=== PATIENT | female | born 1930 | race Caucasian/White ===

== ENCOUNTER 2016-11-15 13:20 | Emergency (ER) | payer MEDICARE ==
[~2016-11-15] VITALS: Ht 170.2 cm; Wt 63.5 kg
[~2016-11-15 13:20] MED LIST: AMLO10TA82 PO; AMLO5TAB2 PO; ASPI-892 PO; CHOL100011 PO; DCS100C PO; FOLI1TAB11 PO; GLIP10TA13 PO; GLYB5TAB3 PO; HCT25T PO; HCTZ PO; HYDR1TAB PO; KCL20TCR PO; LEVO500T2 PO; LISINOPRIL PO; LOSA25TA5 PO; LOVA20TA2 PO; LUTE10TA PO; LVT.025T PO; METF-380 PO; MTF500T PO; OMEP20CA12 PO; POTA10TA6 PO; PRD20T PO; SAXA1TBM3 PO; SITA100T PO; SULF1TAB38 PO; THYROID MED; TRM50T PO
[2016-11-15 14:33] LABS: BASOPHILS % (AUTO) 0 % (0-10); EOSINOPHILS % (AUTO) 1 % (0-10); LYMPHOCYTES # (AUTO) 1.1 X 10^3 (1.0-4.0); LYMPHOCYTES % (AUTO) 17 % (12-44); MEAN CORPUSCULAR HEMOGLOBIN 30 PG (25-34); MEAN CORPUSCULAR HGB CONC 33 G/DL (32-36); MEAN CORPUSCULAR VOLUME 91 FL (80-99); MEAN PLATELET VOLUME 9.5 FL (7.4-10.4); MONOCYTES # (AUTO) 0.5 X 10^3 (0.0-1.0); MONOCYTES % (AUTO) 7 % (0-12); NEUTROPHILS # (AUTO) 5.1 X 10^3 (1.8-7.8); NEUTROPHILS % (AUTO) 75 % (42-75); PLATELET COUNT 323 10^3/uL (130-400); RED BLOOD COUNT 4.05 10^6/uL (4.35-5.85); RED CELL DISTRIBUTION WIDTH 14.2 % (10.0-14.5); WHITE BLOOD COUNT 6.7 10^3/uL (4.3-11.0)
--- NOTE | 2016-11-15 14:36 | ED Abdominal Pain ---
General Chief Complaint: Abdominal/GI Problems Stated Complaint: LT SIDE PAIN Nursing Triage Note: Pt c/o LUQ pain x2-3 days. Pt denies n/v/d. Sepsis Screen: No Definite Risk Source of Information: Patient, Family (son) Exam Limitations: No Limitations History of Present Illness Time Seen By Provider: 14:28 Initial Comments Patient has ER by private conveyance with her son with a chief complaint of 4 days progressively worsening left sided upper quadrant abdominal pain. She's had no surgeries on her belly. She is having normal stools last bowel movement was one or 2 days ago formed without straining. She has no coronary history. She has no shortness breath or coughing. She does not smoke drink or use illicit drugs. She has a history of a hernia right inguinal status post repair many years ago. No abdominal surgeries. Says the pain does not radiate just feels like sharp constant pain. She is not aware of having diverticulosis. She does endorse a history of kidney stones many years ago. No dysuria or discharge. Allergies and Home Medications Allergies Coded Allergies: No Known Drug Allergies (Unverified , 09/11/09) Home Medications Amlodipine Besylate 10 Mg Tablet, 10 MG PO DAILY, (Reported) Aspirin 81 Mg Tabec, 81 MG PO DAILY, (Reported) Cholecalciferol 1,000 Unit Capsule, 1,000 UNIT PO DAILY, (Reported) Folic Acid/Mv,Fe,Other Min 1 Each Tablet, 1 EACH PO DAILY, (Reported) Glipizide 10 Mg Tablet, 10 MG PO BID, (Reported) Hydrochlorothiazide 25 Mg Tab, 25 MG PO DAILY, (Reported) Levofloxacin 500 Mg Tablet, 500 MG PO DAILY, #3 Prescribed by: MARILEE ROD on 01/21/16 1528 Levothyroxine Sodium 25 Mcg Tablet, 25 MG PO DAILY, (Reported) Losartan Potassium 25 Mg Tablet, 25 MG PO DAILY, (Reported) Lovastatin 20 Mg Tablet, 20 MG PO 1700, (Reported) Lutein 10 Mg Tablet, 20 MG PO HS, (Reported) Metformin Hcl 1,000 Mg Tablet, 1,000 MG PO BID, (Reported) RESUME ON 01/16/13 Omeprazole 20 Mg Capsule.dr, 20 MG PO DAILY, (Reported) Polyethylene Glycol 3350 17 Gm Powd.pack, 17 GM PO BID for 7 Days, #1 Ref 0 Prescribed by: TANYA MAGDALENO on 11/15/16 1702 Potassium Chloride 10 Meq Tablet.sa, 20 MEQ PO DAILY WITH FOOD, (Reported) TAKES 2 OF THE 10 MEQ TABLETS DAILY Prednisone 20 Mg Tab, 40 MG PO each a.m., #6 Prescribed by: MARILEE ROD on 01/21/16 1528 Sitagliptin Phosphate 100 Mg Tablet, 100 MG PO DAILY, (Reported) Review of Systems Constitutional: No chills, No diaphoresis, No fever, malaise Respiratory: Denies Cough, Denies Shortness of Air Cardiovascular: Denies Chest Pain, Denies Lightheadedness Gastrointestinal: See HPI, Denies Abdomen Distended, Abdominal Pain, Constipated, Denies Diarrhea, Denies Difficulty Swallowing, Denies Nausea, Denies Rectal Bleeding Genitourinary: Denies Burning, Denies Discharge, Denies Frequency Musculoskeletal: No back pain, No joint pain Skin: No pruritus, No rash Psychiatric/Neurological: Denies Headache, Denies Numbness Past Jmqqryu-Bfnqvu-[id number] Hx Patient Social History Alcohol Use: Denies Use Recreational Drug Use: No Smoking Status: Never a Smoker Recent Foreign Travel: No Contact w/Someone Who Travel: No Recent Infectious Disease Expo: No Recent Hopitalizations: No (KIDNEY INFECTION) Immunizations Up To Date Date of Pneumonia Vaccine: Jan 09, 2013 Date of Influenza Vaccine: Jan 10, 2016 Reproductive System Hx Reproductive Disorders: No Musculoskeletal Musculoskeletal Disorders: Fractures Endocrine Endocrine Disorders: Diabetes, Non-Insulin dep Physical Exam Vital Signs VS - Last 72 Hours, by Label 11/15/16 13:50 Temp 98.1 Pulse 86 Resp 18 B/P (MAP) 166/75 Pulse Ox 98 O2 Delivery Room Air Capillary Refill : Less Than 3 Seconds General Appearance: WD/WN, mild distress Respiratory: lungs clear, normal breath sounds, no respiratory distress Cardiovascular: normal peripheral pulses, regular rate, rhythm, no JVD Peripheral Pulses: 2+ Dorsalis Pedis (R), 2+ Left Dors-Pedis (L) Gastrointestinal: normal bowel sounds, soft, no organomegaly, no pulsatile mass , No distended, tenderness (Left upper quadrant) Extremities: non-tender, normal inspection, normal capillary refill Back: normal inspection, no CVA tenderness, no vertebral tenderness Neurologic/Psychiatric: alert, oriented x 3 Skin: normal color, warm/dry Progress/Results/Core Measures Results/Orders Lab Results Laboratory Tests Test 11/15/16 14:00 11/15/16 16:04 Range/Units White Blood Count 6.7 4.3-11.0 10^3/uL Red Blood Count 4.05 L 4.35-5.85 10^6/uL Hemoglobin 12.1 11.5-16.0 G/DL Hematocrit 37 35-52 % Mean Corpuscular Volume 91 80-99 FL Mean Corpuscular Hemoglobin 30 25-34 PG Mean Corpuscular Hemoglobin Concent 33 32-36 G/DL Red Cell Distribution Width 14.2 10.0-14.5 % Platelet Count 323 130-400 10^3/uL Mean Platelet Volume 9.5 7.4-10.4 FL Neutrophils (%) (Auto) 75 42-75 % Lymphocytes (%) (Auto) 17 12-44 % Monocytes (%) (Auto) 7 0-12 % Eosinophils (%) (Auto) 1 0-10 % Basophils (%) (Auto) 0 0-10 % Neutrophils # (Auto) 5.1 1.8-7.8 X 10^3 Lymphocytes # (Auto) 1.1 1.0-4.0 X 10^3 Monocytes # (Auto) 0.5 0.0-1.0 X 10^3 Eosinophils # (Auto) 0.0 0.0-0.3 10^3/uL Basophils # (Auto) 0.0 0.0-0.1 10^3/uL Sodium Level 133 L 135-145 MMOL/L Potassium Level 3.9 3.6-5.0 MMOL/L Chloride Level 93 L 98-107 MMOL/L Carbon Dioxide Level 30 21-32 MMOL/L Anion Gap 10 5-14 MMOL/L Blood Urea Nitrogen 16 7-18 MG/DL Creatinine 1.02 0.60-1.30 MG/DL Estimat Glomerular Filtration Rate 52 BUN/Creatinine Ratio 16 Glucose Level 222 H 70-105 MG/DL Calcium Level 9.7 8.5-10.1 MG/DL Magnesium Level 1.3 L 1.8-2.4 MG/DL Total Bilirubin 0.6 0.1-1.0 MG/DL Aspartate Amino Transf (AST/SGOT) 24 5-34 U/L Alanine Aminotransferase (ALT/SGPT) 21 0-55 U/L Alkaline Phosphatase 142 H 40-136 U/L Troponin I < 0.30 <0.30 NG/ML Total Protein 8.2 6.4-8.2 GM/DL Albumin 3.8 3.2-4.5 GM/DL Lipase 21 8-78 U/L Urine Color YELLOW Urine Clarity CLEAR Urine pH 7 5-9 Urine Specific [place] 1.005 L 1.016-1.022 Urine Protein NEGATIVE NEGATIVE Urine Glucose (UA) NEGATIVE NEGATIVE Urine Ketones NEGATIVE NEGATIVE Urine Nitrite NEGATIVE NEGATIVE Urine Bilirubin NEGATIVE NEGATIVE Urine Urobilinogen NORMAL NORMAL MG/DL Urine Leukocyte Esterase NEGATIVE NEGATIVE Urine RBC (Auto) NEGATIVE NEGATIVE Urine RBC NONE /HPF Urine WBC RARE /HPF Urine Squamous Epithelial Cells RARE /HPF Urine Crystals NONE /LPF Urine Bacteria NONE /HPF Urine Casts NONE /LPF Urine Mucus NEGATIVE /LPF Urine Culture Indicated NO My Orders Orders - TANYA MAGDALENO Ct Abdomen/Pelvis Wo (11/15/16 14:28) Cbc With Automated Diff (11/15/16 14:28) Comprehensive Metabolic Panel (11/15/16 14:28) Lipase (11/15/16 14:28) Magnesium (11/15/16 14:28) Troponin I (11/15/16 14:28) Ua Culture If Indicated (11/15/16 14:28) Chest 1 View, Ap/Pa Only (11/15/16 14:28) Magnesium Oxide Tablet (Mag Ox Tablet) (11/15/16 15:15) Medications Given in ED Current Medications Medications Dose Ordered Sig/Lukasz Route Start Time Stop Time Status Last Admin Dose Admin Magnesium Oxide 400 mg ONCE ONCE PO 11/15/16 15:15 11/15/16 15:16 DC 11/15/16 15:55 400 MG Vital Signs/I&O Vital Sign - Last 12Hours 11/15/16 13:50 Temp 98.1 Pulse 86 Resp 18 B/P (MAP) 166/75 Pulse Ox 98 O2 Delivery Room Air Blood Pressure Mean: 105 Progress Note : Time: 16:05 Progress Note Bloods okay. Still waiting on a urine sample so we'll going get a straight catheter. Johnathon constipation on CT of abdomen which would describe her pain. As long as there is no evidence of a urinary tract infection we will treat her properly. Diagnostic Imaging Diagonstic Imaging: Xray Plain Films/CT/US/NM/MRI: chest Comments NAME: JAYDEN LESTER REC#: [id number] PHYSICIAN: TANYA MAGDALENO MD CC: TRENT MCGRATH MD; TANYA MAGDALENO Page 1 of 1 RADIOLOGY REPORT VIA [facility], [place], [place] CC: TRENT MCGRATH MD; TANYA MAGDALENO Page 1 of 1 RADIOLOGY REPORT NAME: JAYDEN LESTER [facility] REC#: [id number] PT STATUS: REG ER : 1930 PHYSICIAN: TANYA MAGDALENO MD ADMIT DATE: 11/15/16/ER Signed Date of Exam: 11/15/16 CHEST 1 VIEW, AP/PA ONLY INDICATION: Left upper quadrant abdominal pain. TECHNIQUE: A frontal chest was obtained at 2:45 PM. COMPARISON: 01/14/2013. FINDINGS: The heart is normal in size. The aorta is tortuous and/or ectatic, similar to the prior study. There is no new infiltrate, pneumothorax, or pleural fluid. There is mild hyperinflation with some chronic appearing increased basilar markings which are unchanged compared to the prior study. IMPRESSION: No acute infiltrate or pleural fluid. COPD changes. The tortuous and/or ectatic aorta appears stable compared to the prior study. Dictated by: Dictated on workstation # [id number] Dict: 11/15/16 1525 Trans: 11/15/16 1558 Interpreted by: TRENT MCGRATH MD Electronically signed by: TRENT MCGRATH MD 11/15/16 1558 Reviewed: Reviewed by Md Diagonstic Imaging: CT Plain Films/CT/US/NM/MRI: abdomen, pelvis Comments VIA [facility], [facility]. [place], [place] NAME: JAYDEN LESTER [facility] REC#: [id number] PT STATUS: REG ER : 1930 PHYSICIAN: TANYA MAGDALENO MD ADMIT DATE: 11/15/16/ER Draft Date of Exam:11/15/16 CT ABDOMEN/PELVIS WO PROCEDURE: CT abdomen and pelvis without contrast. TECHNIQUE: Multiple contiguous axial images were obtained through the abdomen and pelvis without the use of intravenous contrast. INDICATION: Three days history of left-sided abdominal pain. COMPARISON: Study compared with exam 03/22/2013. FINDINGS: There are few diverticula, however no evidence of acute diverticulitis. There is perhaps mild constipation but no johnathon impaction or resultant obstruction. There is a small left inguinal fatty hernia without inflammation or herniated viscus, this is a stable finding. There are extensive aortoiliac and mesenteric atherosclerotic vascular calcifications without visualized aneurysm. There is no focal or segmental small or large bowel wall thickening. No pneumatosis or free air. The liver, spleen, adrenals, and pancreas are all unremarkable. There is no opaque kidney stone and there is no hydronephrosis. There are no findings of bowel, biliary or, urinary tract obstruction. No ascites. No fluid collection. No focal inflammatory process. The osseous structures reveal degenerative changes and bony demineralization but no acute pathology. The lung bases are nonacute. IMPRESSION: Constipation without johnathon impaction or obstruction. Nonaneurysmal extensive atherosclerosis. No obstructive features, inflammatory process, or acute/focal abnormality identified. Dictated on workstation # [id number] Dict: 11/15/16 1522 Trans: 11/15/16 1534 [id number] Interpreted by: LOLITA EVANS Electronically signed by: Reviewed: Reviewed by Me Departure Impression Impression: Primary Impression: Constipation Qualified Codes: K59.00 - Constipation, unspecified Disposition: HOME, SELF-CARE Condition: Stable Departure-Patient Inst. Decision time for Depature: 17:01 Referrals: ALESSANDRA BARKLEY MD (PCP/Family) Primary Care Physician Patient Instructions: Constipation, Adult (DC) Add. Discharge Instructions: Drink copious amounts of fluids, go for walks and lemon picker some MiraLAX and start taking it up to 4 times a day to get your colon completely cleaned out. All discharge instructions reviewed with patient and/or family. Voiced understanding. Scripts Polyethylene Glycol 3350 (Miralax) 17 Gm Powd.pack 17 GM PO BID for 7 Days, #1 EACH 0 Refills Prov: TANYA MAGDALENO 11/15/16 Copy Copies To 1: ALESSANDRA BARKLEY MD, TITUS J Nov 15, 2016 14:36
[2016-11-15 14:59] LABS: ALANINE AMINOTRANSFERASE 21 U/L (0-55); ALBUMIN 3.8 GM/DL (3.2-4.5); ANION GAP 10 MMOL/L (5-14); ASPARTATE AMINO TRANSFERASE 24 U/L (5-34); BILIRUBIN,TOTAL 0.6 MG/DL (0.1-1.0); BLOOD UREA NITROGEN 16 MG/DL (7-18); BUN/CREATININE RATIO 16; CALCIUM 9.7 MG/DL (8.5-10.1); CARBON DIOXIDE 30 MMOL/L (21-32); CHLORIDE 93 MMOL/L (98-107); CREATININE SERUM 1.02 MG/DL (0.60-1.30); GFR ESTIMATED 52; GLUCOSE 222 MG/DL (70-105); LIPASE 21 U/L (8-78); MAGNESIUM 1.3 MG/DL (1.8-2.4); POTASSIUM 3.9 MMOL/L (3.6-5.0); SODIUM 133 MMOL/L (135-145); TOTAL PROTEIN 8.2 GM/DL (6.4-8.2)
[2016-11-15 15:04] LABS: TROPONIN I < 0.30 NG/ML (<0.30)
[2016-11-15] MEDS ORDERED: MAGNESIUM OXIDE (MAG-OX)400 MG TAB PO ONE (15:15)
--- NOTE | 2016-11-15 15:31 | Diagnostic Imaging Report ---
INDICATION: Left upper quadrant abdominal pain. TECHNIQUE: A frontal chest was obtained at 2:45 PM. COMPARISON: 01/14/2013. FINDINGS: The heart is normal in size. The aorta is tortuous and/or ectatic, similar to the prior study. There is no new infiltrate, pneumothorax, or pleural fluid. There is mild hyperinflation with some chronic appearing increased basilar markings which are unchanged compared to the prior study. IMPRESSION: No acute infiltrate or pleural fluid. COPD changes. The tortuous and/or ectatic aorta appears stable compared to the prior study. Dictated by: Dictated on workstation # [id number]
--- NOTE | 2016-11-15 15:34 | Diagnostic Imaging Report ---
PROCEDURE: CT abdomen and pelvis without contrast. TECHNIQUE: Multiple contiguous axial images were obtained through the abdomen and pelvis without the use of intravenous contrast. INDICATION: Three days history of left-sided abdominal pain. COMPARISON: Study compared with exam 03/22/2013. FINDINGS: There are few diverticula, however no evidence of acute diverticulitis. There is perhaps mild constipation but no venus impaction or resultant obstruction. There is a small left inguinal fatty hernia without inflammation or herniated viscus, this is a stable finding. There are extensive aortoiliac and mesenteric atherosclerotic vascular calcifications without visualized aneurysm. There is no focal or segmental small or large bowel wall thickening. No pneumatosis or free air. The liver, spleen, adrenals, and pancreas are all unremarkable. There is no opaque kidney stone and there is no hydronephrosis. There are no findings of bowel, biliary or, urinary tract obstruction. No ascites. No fluid collection. No focal inflammatory process. The osseous structures reveal degenerative changes and bony demineralization but no acute pathology. The lung bases are nonacute. IMPRESSION: Constipation without venus impaction or obstruction. Nonaneurysmal extensive atherosclerosis. No obstructive features, inflammatory process, or acute/focal abnormality identified. Dictated by: Dictated on workstation # [id number]
[2016-11-15 16:36] LABS: BILIRUBIN,URINE NEGATIVE (NEGATIVE); KETONES,URINE NEGATIVE (NEGATIVE); LEUKOCYTE ESTERASE ,URINE NEGATIVE (NEGATIVE); NITRITE,URINE NEGATIVE (NEGATIVE); PH,URINE 7 (5-9); PROTEIN,URINE NEGATIVE (NEGATIVE); UROBILINOGEN,URINE NORMAL (NORMAL)
[2016-11-15 16:52] LABS: SQUAMOUS EPITHELIAL CELL,UR RARE /HPF; WBC,URINE RARE /HPF
[2016-11-15] MEDS ORDERED: POLY17PO6 PO (17:02)
[2016-11-15 17:18] VITALS: BP 142/72
== END 2016-11-15 17:18 | disposition home or self-care (01) ==
LOC: EDUNIT# 13:20 → ER 13:22
DX: K59.00 Constipation, unspecified (principal); E11.9 Type 2 diabetes mellitus without complications; Z87.19 Personal history of other diseases of the digestive system; Z79.82 Long term (current) use of aspirin; Z79.84 Long term (current) use of oral hypoglycemic drugs
CPT/HCPCS: 36415; 71010; 74176; 80053; 81000; 83690; 83735; 84484; 85025

== ENCOUNTER 2016-12-02 13:30 | Emergency (ER) | payer MEDICARE ==
[~2016-12-02] VITALS: Ht 170.2 cm; Wt 63.5 kg
[~2016-12-02 13:30] MED LIST changes: +POLY17PO6 PO
--- NOTE | 2016-12-02 14:00 | ED Respiratory ---
General Chief Complaint: Respiratory Problems Stated Complaint: SOA Nursing Triage Note: PATIENT REPORTS SOA IN THE MORNING WHEN SHE WAKES UP Source: patient, family (son) Exam Limitations: no limitations History of Present Illness Time seen by provider: 14:00 Initial Comments 86 yo female patient presents to the ED with c/o SOA this AM when she woke up. upon this examiner entering the room, patient is noted to be sitting on the side of the bed with her head hanging forward and asleep. patient arouses to verbal stimuli. Patient does appear labored initially upon waking, but resolves after 1-2 minutes. Son states he thinks it is related to the patient sleeping sitting upright with her head hanging forward. Denies current chest pain, but did have 1 episode of left sided chest pain that lasted a few seconds this AM. Denies fever, N/V/D, or abdominal pain. Patient was seen in the ED earlier this month for abdominal pain and constipation which has since resolved. Timing/Duration: this morning, intermittent Prior Episodes/Possible Cause: no prior episodes Modifying Factors: Worse With Other (denies modifying factors) Allergies and Home Medications Allergies Coded Allergies: No Known Drug Allergies (Unverified , 09/11/09) Home Medications Amlodipine Besylate 10 Mg Tablet, 10 MG PO DAILY, (Reported) Aspirin 81 Mg Tabec, 81 MG PO DAILY, (Reported) Cholecalciferol 1,000 Unit Capsule, 1,000 UNIT PO DAILY, (Reported) Folic Acid/Mv,Fe,Other Min 1 Each Tablet, 1 EACH PO DAILY, (Reported) Glipizide 10 Mg Tablet, 10 MG PO BID, (Reported) Hydrochlorothiazide 25 Mg Tab, 25 MG PO DAILY, (Reported) Levothyroxine Sodium 25 Mcg Tablet, 25 MG PO DAILY, (Reported) Losartan Potassium 25 Mg Tablet, 25 MG PO DAILY, (Reported) Lovastatin 20 Mg Tablet, 20 MG PO 1700, (Reported) Lutein 10 Mg Tablet, 20 MG PO HS, (Reported) Metformin Hcl 1,000 Mg Tablet, 1,000 MG PO BID, (Reported) RESUME ON 01/16/13 Omeprazole 20 Mg Capsule.dr, 20 MG PO DAILY, (Reported) Potassium Chloride 10 Meq Tablet.sa, 20 MEQ PO DAILY WITH FOOD, (Reported) TAKES 2 OF THE 10 MEQ TABLETS DAILY Sitagliptin Phosphate 100 Mg Tablet, 100 MG PO DAILY, (Reported) Constitutional: No chills, No diaphoresis, No dizziness, No fever, No malaise EENTM: no symptoms reported Respiratory: No cough, No dyspnea on exertion, No phlegm, short of breath Cardiovascular: No chest pain (Denies current chest pain, but did have 1 episode of left sided chest pain that lasted a few seconds this AM.), No edema, No palpitations, No syncope Gastrointestinal: No abdominal pain, No constipation, No diarrhea, No nausea, No vomiting Genitourinary: no symptoms reported Musculoskeletal: no symptoms reported Skin: no symptoms reported Psychiatric/Neurological: No Symptoms Reported All Other Systems Reviewed Negative Unless Noted: Yes (Negative excepted noted.) Past Xqvniep-Kpupax-Hmcyof Hx Patient Social History Alcohol Use: Denies Use Recreational Drug Use: No Recent Foreign Travel: No Contact w/Someone Who Travel: No Recent Infectious Disease Expo: No Recent Hopitalizations: No Immunizations Up To Date Date of Pneumonia Vaccine: Jan 09, 2013 Date of Influenza Vaccine: Jan 10, 2016 Surgeries History of Surgeries: Yes (HERNIA REPAIR) Respiratory History of Respiratory Disorde: No Cardiovascular History of Cardiac Disorders: Yes Neurological History of Neurological Disord: No Reproductive System Hx Reproductive Disorders: No Gastrointestinal History of Gastrointestinal Di: No Musculoskeletal History of Musculoskeletal Dis: Yes (PELVIC FX) Musculoskeletal Disorders: Fractures Endocrine History of Endocrine Disorders: Yes Endocrine Disorders: Diabetes, Non-Insulin dep Cancer History of Cancer: No Psychosocial History of Psychiatric Problem: No Blood Transfusions History of Blood Disorders: No Reviewed Nursing Assessment Reviewed/Agree w Nursing PMH: Yes Family Medical History Significant Family History: No Pertinent Family Hx Physical Exam Vital Signs Vital Sign - Last 12Hours 12/02/16 12/02/16 13:40 19:56 Temp 98.8 Pulse 98 Resp 18 B/P (MAP) 182/113 Pulse Ox 98 O2 Delivery Room Air Capillary Refill : Less Than 3 Seconds General Appearance: WD/WN, no apparent distress HEENT: PERRL/EOMI, pharynx normal Neck: supple, normal inspection Respiratory: lungs clear, normal breath sounds, no respiratory distress, no accessory muscle use Cardiovascular: normal peripheral pulses, regular rate, rhythm, no murmur Gastrointestinal: normal bowel sounds, non tender, soft, no organomegaly, no pulsatile mass, No distended Extremities: normal capillary refill, pedal edema (1+ bilaterally) Neurologic/Psychiatric: alert, normal mood/affect, oriented x 3 Skin: normal color, warm/dry Progress/Results/Core Measures Results/Orders Lab Results Laboratory Tests Test 12/02/16 14:55 12/02/16 16:22 12/02/16 18:58 Range/Units White Blood Count 6.2 4.3-11.0 10^3/uL Red Blood Count 3.96 L 4.35-5.85 10^6/uL Hemoglobin 11.7 11.5-16.0 G/DL Hematocrit 36 35-52 % Mean Corpuscular Volume 91 80-99 FL Mean Corpuscular Hemoglobin 30 25-34 PG Mean Corpuscular Hemoglobin Concent 32 32-36 G/DL Red Cell Distribution Width 13.9 10.0-14.5 % Platelet Count 301 130-400 10^3/uL Mean Platelet Volume 9.4 7.4-10.4 FL Neutrophils (%) (Auto) 67 42-75 % Lymphocytes (%) (Auto) 24 12-44 % Monocytes (%) (Auto) 8 0-12 % Eosinophils (%) (Auto) 1 0-10 % Basophils (%) (Auto) 0 0-10 % Neutrophils # (Auto) 4.2 1.8-7.8 X 10^3 Lymphocytes # (Auto) 1.5 1.0-4.0 X 10^3 Monocytes # (Auto) 0.5 0.0-1.0 X 10^3 Eosinophils # (Auto) 0.1 0.0-0.3 10^3/uL Basophils # (Auto) 0.0 0.0-0.1 10^3/uL Prothrombin Time 12.7 12.2-14.7 SEC INR Comment 0.9 0.8-1.4 Activated Partial Thromboplast Time 27 24-35 SEC D-Dimer 1.73 H 0.00-0.49 UG/ML Sodium Level 136 135-145 MMOL/L Potassium Level 3.2 L 3.6-5.0 MMOL/L Chloride Level 100 98-107 MMOL/L Carbon Dioxide Level 23 21-32 MMOL/L Anion Gap 13 5-14 MMOL/L Blood Urea Nitrogen 15 7-18 MG/DL Creatinine 1.14 0.60-1.30 MG/DL Estimat Glomerular Filtration Rate 45 BUN/Creatinine Ratio 13 Glucose Level 147 H 70-105 MG/DL Calcium Level 9.1 8.5-10.1 MG/DL Magnesium Level 1.4 L 1.8-2.4 MG/DL Total Bilirubin 0.3 0.1-1.0 MG/DL Aspartate Amino Transf (AST/SGOT) 18 5-34 U/L Alanine Aminotransferase (ALT/SGPT) 11 0-55 U/L Alkaline Phosphatase 108 40-136 U/L Troponin I < 0.30 < 0.30 <0.30 NG/ML B-Type Natriuretic Peptide 151.2 H <100.0 PG/ML Total Protein 7.8 6.4-8.2 GM/DL Albumin 3.7 3.2-4.5 GM/DL TSH [place] Testing 2.05 0.35-4.94 UIU/ML Urine Color YELLOW Urine Clarity CLEAR Urine pH 7 5-9 Urine Specific [place] 1.005 L 1.016-1.022 Urine Protein 2+ H NEGATIVE Urine Glucose (UA) NEGATIVE NEGATIVE Urine Ketones NEGATIVE NEGATIVE Urine Nitrite NEGATIVE NEGATIVE Urine Bilirubin NEGATIVE NEGATIVE Urine Urobilinogen NORMAL NORMAL MG/DL Urine Leukocyte Esterase 1+ H NEGATIVE Urine RBC (Auto) 1+ H NEGATIVE Urine RBC 2-5 H /HPF Urine WBC 2-5 /HPF Urine Squamous Epithelial Cells RARE /HPF Urine Crystals NONE /LPF Urine Bacteria FEW H /HPF Urine Casts NONE /LPF Urine Mucus NEGATIVE /LPF Urine Culture Indicated NO My Orders Orders - WILLIAM MAZARIEGOS PA Saline Lock/Iv-Start (12/02/16 14:10) Ekg Tracing (12/02/16 14:10) BNP (12/02/16 14:10) Cbc With Automated Diff (12/02/16 14:10) Comprehensive Metabolic Panel (12/02/16 14:10) Fibrin Degradation Products (12/02/16 14:10) Magnesium (12/02/16 14:10) Protime With Inr (12/02/16 14:10) Partial Thromboplastin Time (12/02/16 14:10) Thyroid Analyzer (12/02/16 14:10) Troponin I (12/02/16 14:10) Ua Culture If Indicated (12/02/16 14:10) Chest 1 View, Ap/Pa Only (12/02/16 14:10) Ct Angio Chest W (12/02/16 16:40) Ns Iv 1000 Ml (Sodium Chloride 0.9%) (12/02/16 16:40) Iohexol Injection (Omnipaque 350 Mg/Ml 1 (12/02/16 18:00) Ns (Ivpb) (Sodium Chloride 0.9% Ivpb Bag (12/02/16 18:00) Pharmacy Communication (Pharmacy Communi (12/02/16 17:49) Troponin I (12/02/16 18:49) Medications Given in ED Vital Signs/I&O Vital Sign - Last 12Hours 12/02/16 12/02/16 13:40 19:56 Temp 98.8 Pulse 98 79 Resp 18 14 B/P (MAP) 182/113 Pulse Ox 98 98 O2 Delivery Room Air Blood Pressure Mean: 136 ECG Initial ECG Impression Date: Dec 02, 2016 Diagnostic Imaging Diagonstic Imaging: Xray Plain Films/CT/US/NM/MRI: chest Comments Single view of the chest demonstrates mild cardiac enlargement with some ectasia of the thoracic aorta. Lungs are otherwise clear. There is no pneumothorax or infiltrate. Osseous structures are stable. IMPRESSION: No acute cardiopulmonary findings. No interval change. Dictated on workstation # [id number] Reviewed: Reviewed by Me (radiology report reviewed by me) Departure Communication (Admissions) Progress Notes all laboratory and diagnostic findings discussed with the patient. CT angio chest was done for an elevated d-dimer and intermittent SOA. patient notified of plan for CT scan. patient denies any new c/o's or new needs at this time. Patient case discussed with Dr. Joseph including all laboratory findings and diagnostic study findings. Recommends repeat troponin. If repeat troponin is negative, patient may be discharged to home with follow-up with Dr. Singletary tomorrow in her office. CT anterior chest findings and repeat troponin discussed with the patient. Patient denies any back pain. Findings on CT angiogram of chest of possible compression fractures of the thoracic and lumbar spine are most likely chronic in nature as patient has no vertebral tenderness. Plan for discharge to home with follow-up as an outpatient with Dr. Singletary tomorrow in her office. All return precautions were discussed with the patient as described in the discharge instructions of this report. Patient voices understanding and agrees with the treatment plan. Patient case discussed with Dr. Troy, he agrees with the plan of care. Impression Impression: Primary Impression: Shortness of breath Additional Impressions: multiple compression fractures, indeterminate age Kyphosis deformity of spine Qualified Codes: M40.204 - Unspecified kyphosis, thoracic region Disposition: 01 HOME, SELF-CARE Condition: Improved Departure-Patient Inst. Decision time for Depature: 19:40 Referrals: ALESSANDRA SINGLETARY MD (PCP/Family) Primary Care Physician ANETA BURRELL BRIAN J MD MARJI, BASHAR J MD Patient Instructions: Chest Pain (DC), Shortness of Breath (Dyspnea) (DC), Vertebral Compression Fracture (DC) Add. Discharge Instructions: All discharge instructions reviewed with patient and/or family. Voiced understanding. Continue usual home medications. Drink plenty of fluids. Follow-up with Dr. Clark is now patient this week for recheck and possible need for outpatient cardiac testing. Follow-up with Dr. Singletary as an outpatient Saturday or Saturday for recheck, call first thing Saturday morning for appointment time. Follow-up with Dr. Burrell or Dr. Brock as an outpatient for possible need of MRI of the spine and further management. Monitor blood pressures closely. Return to the emergency department immediately for increased shortness of air, chest pain, coughing up blood, vomiting, abdominal pain, numbness, weakness, bowel incontinence, bladder incontinence, fever, or any other concerns. WILLIAM MAZARIEGOS Dec 02, 2016 14:00
--- NOTE | 2016-12-02 14:53 | Diagnostic Imaging Report ---
INDICATION: Shortness of breath, chest pain. COMPARISON: 11/15/2016. Single view of the chest demonstrates mild cardiac enlargement with some ectasia of the thoracic aorta. Lungs are otherwise clear. There is no pneumothorax or infiltrate. Osseous structures are stable. IMPRESSION: No acute cardiopulmonary findings. No interval change. Dictated by: Dictated on workstation # [id number]
[2016-12-02 15:09] LABS: BASOPHILS % (AUTO) 0 % (0-10); EOSINOPHILS # (AUTO) 0.1 10^3/uL (0.0-0.3); EOSINOPHILS % (AUTO) 1 % (0-10); LYMPHOCYTES # (AUTO) 1.5 X 10^3 (1.0-4.0); LYMPHOCYTES % (AUTO) 24 % (12-44); MEAN CORPUSCULAR HEMOGLOBIN 30 PG (25-34); MEAN CORPUSCULAR HGB CONC 32 G/DL (32-36); MEAN CORPUSCULAR VOLUME 91 FL (80-99); MEAN PLATELET VOLUME 9.4 FL (7.4-10.4); MONOCYTES # (AUTO) 0.5 X 10^3 (0.0-1.0); MONOCYTES % (AUTO) 8 % (0-12); NEUTROPHILS # (AUTO) 4.2 X 10^3 (1.8-7.8); NEUTROPHILS % (AUTO) 67 % (42-75); PLATELET COUNT 301 10^3/uL (130-400); RED BLOOD COUNT 3.96 10^6/uL (4.35-5.85); RED CELL DISTRIBUTION WIDTH 13.9 % (10.0-14.5); WHITE BLOOD COUNT 6.2 10^3/uL (4.3-11.0)
[2016-12-02 15:13] LABS: INR 0.9 (0.8-1.4); PROTHROMBIN TIME PATIENT 12.7 SEC (12.2-14.7)
[2016-12-02 15:24] LABS: ALANINE AMINOTRANSFERASE 11 U/L (0-55); ALBUMIN 3.7 GM/DL (3.2-4.5); ANION GAP 13 MMOL/L (5-14); ASPARTATE AMINO TRANSFERASE 18 U/L (5-34); BILIRUBIN,TOTAL 0.3 MG/DL (0.1-1.0); BLOOD UREA NITROGEN 15 MG/DL (7-18); BUN/CREATININE RATIO 13; CALCIUM 9.1 MG/DL (8.5-10.1); CARBON DIOXIDE 23 MMOL/L (21-32); CHLORIDE 100 MMOL/L (98-107); CREATININE SERUM 1.14 MG/DL (0.60-1.30); GFR ESTIMATED 45; GLUCOSE 147 MG/DL (70-105); MAGNESIUM 1.4 MG/DL (1.8-2.4); POTASSIUM 3.2 MMOL/L (3.6-5.0); SODIUM 136 MMOL/L (135-145); TOTAL PROTEIN 7.8 GM/DL (6.4-8.2)
[2016-12-02 15:44] LABS: TROPONIN I < 0.30 NG/ML (<0.30)
[2016-12-02 16:28] LABS: BILIRUBIN,URINE NEGATIVE (NEGATIVE); KETONES,URINE NEGATIVE (NEGATIVE); LEUKOCYTE ESTERASE ,URINE 1+ (NEGATIVE); NITRITE,URINE NEGATIVE (NEGATIVE); PH,URINE 7 (5-9); PROTEIN,URINE 2+ (NEGATIVE); UROBILINOGEN,URINE NORMAL (NORMAL)
[2016-12-02 16:36] LABS: SQUAMOUS EPITHELIAL CELL,UR RARE /HPF
[2016-12-02] MEDS ORDERED: NS IV 1000 ML 1,000 ML IV ONE (16:40)
[2016-12-02] MEDS ORDERED: NS 100 ML (IVPB) BAG IV ONE (18:00)
[2016-12-02] MEDS ORDERED: IOHEXOL 350 MG/ML 100 ML (OMNIPAQUE 350) VIAL IV ONE (18:00)
--- NOTE | 2016-12-02 18:34 | Diagnostic Imaging Report ---
PROCEDURE: CT angiography of the chest with contrast. TECHNIQUE: Multiple contiguous axial images were obtained through the chest after uneventful bolus administration of intravenous contrast. Reconstructed CTA MIP acquisitions were also performed. DATE: December 02, 2016. COMPARISON: Chest radiographs December 02, 2016. CT chest abdomen and pelvis March 12, 2013. INDICATION: 86-year-old female, chest pain and shortness of breath for 2 days. FINDINGS: There are subcentimeter right upper lobe calcifications which appear to be in a branching type distribution. These are unchanged since comparison CT chest. There are calcified granulomas. There is no identified noncalcified pulmonary nodule or mass. There is mild dependent atelectasis. There is respiratory motion artifact. There are no additional areas of alveolar consolidation. There is no pneumothorax. There is no pleural effusion. The central airways are patent. There is no identified pulmonary embolus. The main pulmonary artery is not abnormally dilated. There are atherosclerotic calcifications. There are coronary artery calcifications. The heart is not enlarged. There is no pericardial effusion. There is a right paratracheal lymph node measuring 8 mm in short axis on axial image 52. There is no identified abnormally enlarged mediastinal, hilar, or axillary lymph node which meets CT size criteria for adenopathy. There are subcentimeter low-attenuation thyroid nodules bilaterally on image 11 which measures up to 8 mm in size on the right and small on the left. There does appear to be mild nonspecific wall thickening of the distal thumb active seen on axial image 159 and adjacent sequential images. The stomach is not entirely included in the [id number]. Additional very limited evaluation of the visualized portions of the upper abdomen is unremarkable. There is a chronic appearing deformity of the left L1 transverse process. There is a compression deformity of T1, T7 which demonstrates complete vertebral body height loss, T9 with visible fracture lines and approximately 75% vertebral body height loss, and L2 partially visualized with complete or near complete vertebral body height loss likely. The L2 compression deformity is unchanged since March 12, 2013. Additional compression fractures are new since March 12, 2013 although of unclear exact age. IMPRESSION: CT CHEST. 1. Compression fractures of T1, T7, and T9 which are new since March 12, 2013 although of uncertain exact age. There are visible fracture lines at least at the level of T9 suggesting this may be acute in age. Dedicated MRI thoracic spine may be helpful for assessment of acuity as needed. 2. No identified pulmonary embolus. 3. No otherwise noted acute cardiopulmonary abnormality. 4. Nonspecific mild wall thickening of the distal stomach. Differential diagnostic considerations would include an infectious or inflammatory gastritis. Malignancy is difficult to exclude. Dictated by: Dictated on workstation # [id number]
[2016-12-02 19:56] VITALS: BP 143/90
== END 2016-12-02 19:56 | disposition home or self-care (01) ==
LOC: EDUNIT# 13:30 → ER 13:31
DX: R06.02 Shortness of breath (principal); E11.9 Type 2 diabetes mellitus without complications; Z79.82 Long term (current) use of aspirin; Z79.84 Long term (current) use of oral hypoglycemic drugs; Z87.19 Personal history of other diseases of the digestive system
CPT/HCPCS: 36415; 71010; 71275; 80053; 81000; 83735; 83880; 84443; 84484; 85025; 85379; 85610; 85730; 93005

== ENCOUNTER → 2017-01-02 | Outpatient (CLI) | payer MEDICARE ==
[~2017-01-02] MED LIST changes: +CATHETER FLUSH 10 ML SYR IV PRN; +REGADENOSON 0.4 MG/5 ML SYR (LEXISCAN) IV ONE
[2017-01-02 09:18] VITALS: BP 185/74
[2017-01-02 09:21] VITALS: BP 157/77
--- NOTE | 2017-01-03 03:30 | STRESS TEST ---
DATE OF SERVICE: 01/02/2017 LEXISCAN MYOVIEW STRESS TEST REPORT REFERRING PHYSICIAN: Dr. Singletary Baseline heart rate is 71. Baseline blood pressure 174/90. Baseline EKG is atrial fibrillation with no ischemic changes. SUMMARY: The patient was injected with 10.74 mCi of technetium-99 Myoview and the resting images were obtained. Then, the patient received 0.4 mg of Lexiscan followed by 31.0 mCi of technetium-99 Myoview. Throughout the test, there were no EKG changes. The resting and stress images were reviewed and compared in the short axis, horizontal long axis, and vertical long axis views. Review of the images showed breast attenuation with reversible ischemia involving the basal up to mid inferior wall. SSS is 5, SDS 5, TID value 1.05. On the gated images, the left ventricle appeared to be normal in size with normal contractility, underlying atrial fibrillation affecting the quality of the calculation, calculated ejection fraction 48%. CONCLUSION: 1. The patient tolerated Lexiscan well. 2. Breast attenuation with questionable reversible ischemia involving the basal to mid inferior wall. 3. Normal left ventricular size, calculated ejection fraction 48%, gated images are unreliable due to underlying atrial fibrillation. Job ID: [id number] DocumentID: [id number] Dictated Date: 01/02/2017 14:43:36 [employer] Inspector Date: 01/02/2017 19:28:54 Dictated By: KIRILL ANDERSON MD
== END ==
LOC: CARD 07:26
PROVIDERS: ATTEND Physician Assistant
DX: R07.89 Other chest pain (principal); I25.10 Atherosclerotic heart disease of native coronary artery without angina pectoris; E78.2 Mixed hyperlipidemia; I10 Essential (primary) hypertension
CPT/HCPCS: 78452; 93017

== ENCOUNTER 2017-02-23 11:50 | Emergency (ER) | payer MEDICARE ==
[~2017-02-23] VITALS: Ht 170.2 cm; Wt 63.5 kg
[~2017-02-23 11:50] MED LIST changes: -CATHETER FLUSH 10 ML SYR IV PRN; -REGADENOSON 0.4 MG/5 ML SYR (LEXISCAN) IV ONE
--- OUTSIDE RECORDS SUMMARY | 2017-02-23 11:56 | XMS REPORT | Continuity of Care Document ---
Author Author [facility] Organization [facility] Address Unknown Phone Unavailable Allergies Active Description Code Type Severity Reaction Onset Reported/Identified Relationship to Patient Clinical Status Yes No Known Drug Allergies [id number] Drug Allergy Unknown N/A 09/11/2009 Medications There is no data. Problems Date Dx Coded Attending Type Code Diagnosis Diagnosed By 09/11/2009 Ot 920 09/11/2009 Ot 922.1 09/11/2009 Ot 959.11 09/11/2009 Ot E000.8 09/11/2009 Ot E030 09/11/2009 Ot E849.0 09/11/2009 Ot E888.1 07/19/2010 Ot 722.4 07/19/2010 Ot 802.0 07/19/2010 Ot 959.09 07/19/2010 Ot E000.8 07/19/2010 Ot E849.0 07/19/2010 Ot E888.9 09/12/2010 Ot 787.91 DIARRHEA 09/22/2010 Ot 781.2 ABNORMALITY OF GAIT 09/22/2010 Ot 908.9 LATE EFFECT INJURY NOS 09/22/2010 Ot E929.3 LATE EFF ACCIDENTAL FALL 09/22/2010 Ot V57.1 PHYSICAL THERAPY NEC 11/17/2010 Ot 244.9 HYPOTHYROIDISM NOS 11/17/2010 Ot 250.00 DIAB ANNMARIE WO COMPL, TYPE II OR UNSPEC TY 11/17/2010 Ot 272.4 HYPERLIPIDEMIA NEC/NOS 11/17/2010 Ot 276.8 HYPOPOTASSEMIA 11/17/2010 Ot 401.9 HYPERTENSION NOS 11/17/2010 Ot 733.00 OSTEOPOROSIS NOS 11/17/2010 Ot 808.2 FRACTURE OF PUBIS-CLOSED 11/17/2010 Ot 913.0 ABRASION FOREARM 11/17/2010 Ot E849.0 ACCIDENT IN HOME 11/17/2010 Ot E885.9 FALL FROM SLIPPING, TRIPPING, OR STUMBLI 11/28/2010 Ot 250.00 DIAB ANNMARIE WO COMPL, TYPE II OR UNSPEC TY 11/28/2010 Ot 273.8 DIS PLAS PROTEIN MET NEC 11/28/2010 Ot 276.1 HYPOSMOLALITY 11/28/2010 Ot 276.8 HYPOPOTASSEMIA 11/28/2010 Ot 401.9 HYPERTENSION NOS 11/28/2010 Ot 715.31 LOC OSTEOARTH NOS-SHLDER 11/28/2010 Ot 781.2 ABNORMALITY OF GAIT 11/28/2010 Ot V15.88 HISTORY OF FALL 11/28/2010 Ot V54.19 [facility]CARE HEALING TRAUMATIC FX OTHER BON 11/28/2010 Ot V57.1 PHYSICAL THERAPY NEC 11/28/2010 Ot V57.21 ENCOUNTER FOR OCCUPATIONAL THERAPY 01/14/2013 KIRILL ANDERSON MD Ot 250.00 DIAB ANNMARIE WO COMPL, TYPE II OR UNSPEC TY 01/14/2013 KIRILL ANDERSON MD Ot 272.4 HYPERLIPIDEMIA NEC/NOS 01/14/2013 KIRILL ANDERSON MD Ot 401.9 HYPERTENSION NOS 01/14/2013 KIRILL ANDERSON MD Ot 414.01 CORONARY ATHEROSCLEROSIS OF [place] CORON 01/14/2013 KIRILL ANDERSON MD Ot 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 01/14/2013 KIRILL ANDERSON MD Ot 433.10 CAROTID ARTERY OCCLUSION W O CEREBRAL IN 01/14/2013 KIRILL ANDERSON MD Ot 433.30 MULT BILTRAL ARTERY OCCLUSION WO CEREBRA 01/14/2013 KIRILL ANDERSON MD Ot 440.0 AORTIC ATHEROSCLEROSIS 01/14/2013 KIRILL ANDERSON MD Ot 780.79 OTH MALAISE FATIGUE 01/14/2013 KIRILL ANDERSON MD Ot 794.30 ABN CARDIOVASC STUDY NOS 01/14/2013 KIRILL ANDERSON MD Ot V58.69 OTH MED,LT,CURRENT USE 03/12/2013 OLMAN DOE APRN Ot 715.94 OSTEOARTHROS NOS-HAND 03/12/2013 OLMAN DOE APRN Ot 723.0 CERVICAL SPINAL STENOSIS 03/12/2013 OLMAN DOE APRN Ot 791.9 ABN URINE FINDINGS NEC 03/12/2013 OLMAN DOE APRN Ot 910.0 ABRASION HEAD 03/12/2013 OLMAN DOE APRN Ot 922.1 CONTUSION OF CHEST WALL 03/12/2013 DOE, PETER J INSECTICIDE MIXER Ot 959.11 OTH INJURY OF CHEST WALL 03/12/2013 OLMAN DOE Evi INSECTICIDE MIXER Ot E000.8 OTHER EXTERNAL CAUSE STATUS 03/12/2013 DOE, OLMAN Evi INSECTICIDE MIXER Ot E849.0 ACCIDENT IN HOME 03/12/2013 NADER OLMAN Evi INSECTICIDE MIXER Ot E888.9 FALL NOS 03/12/2013 OLMAN DOE Evi INSECTICIDE MIXER Ot V58.69 OTH MED,LT,CURRENT USE 01/05/2015 Ot 250.00 01/05/2015 Ot 783.0 01/05/2015 Ot 787.91 01/05/2015 Ot 789.00 01/05/2015 Ot V76.12 01/05/2015 Ot 787.91 01/05/2015 Ot V76.12 01/05/2015 Ot 250.00 01/05/2015 Ot 401.9 01/05/2015 Ot 702.0 01/05/2015 Ot V58.69 01/05/2015 Ot 401.9 01/05/2015 Ot 709.9 01/05/2015 Ot V72.63 01/05/2015 Ot V72.81 01/05/2015 Ot V74.8 01/05/2015 Ot V76.12 01/05/2015 JUSTIN BASS, KIRILL Steve Ot 250.00 01/05/2015 KIRILL ANDERSON MD Ot 396.3 01/05/2015 KIRILL ANDERSON MD Ot 397.0 01/05/2015 KIRILL ANDERSON MD Ot 401.9 01/05/2015 KIRILL ANDERSON MD Ot 786.50 01/05/2015 KIRILL ANDERSON MD Ot 250.00 01/05/2015 KIRILL ANDERSON MD Ot 401.9 01/05/2015 KIRILL ANDERSON MD Ot 786.50 01/05/2015 KIRILL ANDERSON MD Ot 272.4 01/05/2015 KIRILL ANDERSON MD Ot 401.9 01/05/2015 LINH ALVES LIMO DRIVER Ot 793.89 01/05/2015 LINH ALVES LIMO DRIVER Ot V76.12 01/10/2015 FILIPPO BASS, ALESSANDRA Solitario Ot E11.9 01/10/2015 ALESSANDRA BARKLYE MD Ot I10 01/10/2015 ALESSANDRA BARKLEY MD Ot R41.3 01/10/2015 FILIPPO BASS, ALESSANDRA A Ot Z12.31 01/26/2015 FILIPPO BASS, ALESSANDRA A Ot E11.9 01/26/2015 FILIPPO BASS, ALESSANDRA A Ot I10 01/26/2015 FILIPPO BASS, ALESSANDRA A Ot R41.3 01/26/2015 FILIPPO BASS, ALESSANDRA A Ot Z12.31 02/08/2015 FILIPPO BASS, ALESSANDRA Solitario Ot E11.9 02/08/2015 FILIPPO BASS, ALESSANDRA A Ot I10 02/08/2015 FILIPPO BASS, ALSESANDRA A Ot R41.3 02/08/2015 FILIPPO BASS, ALESSANDRA A Ot Z12.31 01/21/2016 MARILEE ROD MD Ot E11.9 TYPE 2 DIABETES MELLITUS WITHOUT COMPLIC 01/21/2016 MARILEE ROD MD Ot H60.12 CELLULITIS OF LEFT EXTERNAL EAR 01/21/2016 MARILEE ROD MD Ot I10 ESSENTIAL (PRIMARY) HYPERTENSION 01/21/2016 MARILEE ROD MD Ot Z79.82 [facility] (CURRENT) USE OF ASPIRIN 01/21/2016 MARILEE ROD MD Ot Z79.84 DIAGNOSTIC RADIOLOGIC TECHNOLOGIST (CURRENT) USE OF ORAL HYPOGLYC 01/21/2016 MARILEE ROD MD Ot Z79.899 OTHER [facility] (CURRENT) DRUG THERAPY 01/23/2016 MARILEE ROD MD Ot E11.9 TYPE 2 DIABETES MELLITUS WITHOUT COMPLIC 01/23/2016 MARILEE ROD MD Ot H60.12 CELLULITIS OF LEFT EXTERNAL EAR 01/23/2016 MARILEE ROD MD Ot I10 ESSENTIAL (PRIMARY) HYPERTENSION 01/23/2016 MARILEE ROD MD Ot Z79.82 [facility] (CURRENT) USE OF ASPIRIN 01/23/2016 MARILEE ROD MD Ot Z79.84 DIAGNOSTIC RADIOLOGIC TECHNOLOGIST (CURRENT) USE OF ORAL HYPOGLYC 01/23/2016 MARILEE ROD MD Ot Z79.899 OTHER [facility] (CURRENT) DRUG THERAPY 01/25/2016 Ot 787.91 DIARRHEA 01/25/2016 Ot V76.12 OTH SCREEN MAMMO-MALIGN NEOPLASM OF [place] 01/25/2016 Ot 250.00 DIAB ANNMARIE WO COMPL, TYPE II OR UNSPEC TY 01/25/2016 Ot 401.9 HYPERTENSION NOS 01/25/2016 Ot 702.0 ACTINIC KERATOSIS 01/25/2016 Ot V58.69 OTH MED,LT, CURRENT USE 01/25/2016 Ot 401.9 HYPERTENSION NOS 01/25/2016 Ot 709.9 SKIN DISORDER NOS 01/25/2016 Ot V72.63 PRE- PROCEDURAL LABORATORY EXAMINATION 01/25/2016 Ot V72.81 EXAM-PRE- OPERATIVE CARDIOVASCULAR 01/25/2016 Ot V74.8 SCREEN- BACTERIAL DIS NEC 01/25/2016 Ot V76.12 OTH SCREEN MAMMO-MALIGN NEOPLASM OF [place] 01/25/2016 KIRILL ANDERSON MD Ot 250.00 DIAB ANNMARIE WO COMPL, TYPE II OR UNSPEC TY 01/25/2016 KIRILL ANDERSON MD Ot 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 01/25/2016 KIRILL ANDERSON MD Ot 397.0 TRICUSPID VALVE DISEASE 01/25/2016 KIRILL ANDERSON MD Ot 401.9 HYPERTENSION NOS 01/25/2016 KIRILL ANDERSON MD Ot 786.50 CHEST PAIN NOS 01/25/2016 KIRILL ANDERSON MD Ot 250.00 DIAB ANNMARIE WO COMPL, TYPE II OR UNSPEC TY 01/25/2016 KIRILL ANDERSON MD Ot 401.9 HYPERTENSION NOS 01/25/2016 KIRILL ANDERSON MD Ot 786.50 CHEST PAIN NOS 01/25/2016 KIRILL ANDERSON MD Ot 272.4 HYPERLIPIDEMIA NEC/NOS 01/25/2016 KIRILL ANDERSON MD Ot 401.9 HYPERTENSION NOS 01/25/2016 LINH ALVES Ot 793.89 OTH (ABN) FINDINGS ON RADIOLOGICAL EXAMI 01/25/2016 LINH ALVES Ot V76.12 OTH SCREEN MAMMO-MALIGN NEOPLASM OF [place] 01/25/2016 ALESSANDRA BARKLEY MD Ot E11.9 TYPE 2 DIABETES MELLITUS WITHOUT COMPLIC 01/25/2016 ALESSANDRA BARKLEY MD Ot I10 ESSENTIAL (PRIMARY) HYPERTENSION 01/25/2016 ALESSANDRA BARKLEY MD Ot R41.3 OTHER AMNESIA 01/25/2016 ALESSANDRA BARKLEY MD Ot Z12.31 ENCNTR SCREEN MAMMOGRAM FOR MALIGNANT NE 11/15/2016 TANYA MAGDALENO MD Ot E11.9 TYPE 2 DIABETES MELLITUS WITHOUT COMPLIC 11/15/2016 TANYA MAGDALENO MD Ot K59.00 CONSTIPATION, UNSPECIFIED 11/15/2016 TANYA MAGDALENO MD Ot R10.12 LEFT UPPER QUADRANT PAIN 11/15/2016 TANYA MAGDALENO MD Ot Z79.82 DIAGNOSTIC RADIOLOGIC TECHNOLOGIST (CURRENT) USE OF ASPIRIN 11/15/2016 TANYA MAGDALENO MD Ot Z79.84 [facility] (CURRENT) USE OF ORAL HYPOGLYC 11/15/2016 TANYA MAGDALENO MD Ot Z87.19 PERSONAL HISTORY OF OTHER DISEASES OF 12/02/2016 WILLIAM RAMIREZ Ot E11.9 TYPE 2 DIABETES MELLITUS WITHOUT COMPLIC 12/02/2016 WILLIAM RAMIREZ Ot R06.02 SHORTNESS OF BREATH 12/02/2016 WILLIAM RAMIREZ Ot Z79.82 DIAGNOSTIC RADIOLOGIC TECHNOLOGIST (CURRENT) USE OF ASPIRIN 12/02/2016 WILLIAM RAMIREZ Ot Z79.84 DIAGNOSTIC RADIOLOGIC TECHNOLOGIST (CURRENT) USE OF ORAL HYPOGLYC 12/02/2016 WILLIAM RAMIREZ Ot Z87.19 PERSONAL HISTORY OF OTHER DISEASES OF 12/04/2016 WILLIAM RAMIREZ Ot E11.9 TYPE 2 DIABETES MELLITUS WITHOUT COMPLIC 12/04/2016 WILLIAM RAMIREZ Ot R06.02 SHORTNESS OF BREATH 12/04/2016 WILLIAM RAMIREZ Ot Z79.82 DIAGNOSTIC RADIOLOGIC TECHNOLOGIST (CURRENT) USE OF ASPIRIN 12/04/2016 WILLIAM RAMIREZ Ot Z79.84 DIAGNOSTIC RADIOLOGIC TECHNOLOGIST (CURRENT) USE OF ORAL HYPOGLYC 12/04/2016 WILLIAM RAMIREZ Ot Z87.19 PERSONAL HISTORY OF OTHER DISEASES OF 12/08/2016 WILLIAM RAMIREZ Ot E11.9 TYPE 2 DIABETES MELLITUS WITHOUT COMPLIC 12/08/2016 WILLIAM RAMIREZ Ot R06.02 SHORTNESS OF BREATH 12/08/2016 WILLIAM RAMIREZ Ot Z79.82 [facility] (CURRENT) USE OF ASPIRIN 12/08/2016 WILLIAM RAMIREZ Ot Z79.84 DIAGNOSTIC RADIOLOGIC TECHNOLOGIST (CURRENT) USE OF ORAL HYPOGLYC 12/08/2016 WILLIAM RAMIREZ Ot Z87.19 PERSONAL HISTORY OF OTHER DISEASES OF 01/03/2017 FERNANDA GOODWIN Ot E78.2 MIXED HYPERLIPIDEMIA 01/03/2017 QUENTIN PA, FERNANDA K Ot I10 ESSENTIAL (PRIMARY) HYPERTENSION 01/03/2017 QUENTIN PA, FERNANDA K Ot I25.10 ATHSCL HEART DISEASE OF [place] CORONARY 01/03/2017 QUENTIN PA, FERNANDA K Ot R07.89 OTHER CHEST PAIN 01/08/2017 QUENTIN PA, FERNANDA K Ot E78.2 MIXED HYPERLIPIDEMIA 01/08/2017 QUENTIN PA, FERNANDA K Ot I10 ESSENTIAL (PRIMARY) HYPERTENSION 01/08/2017 QUENTIN PA, FERNANDA K Ot I25.10 ATHSCL HEART DISEASE OF [place] CORONARY 01/08/2017 QUENTIN PA, FERNANDA K Ot R07.89 OTHER CHEST PAIN 01/23/2017 QUENTIN PA, FERNANDA K Ot E78.2 MIXED HYPERLIPIDEMIA 01/23/2017 QUENTIN PA, FERNANDA K Ot I10 ESSENTIAL (PRIMARY) HYPERTENSION 01/23/2017 QUENTIN ZAMUDIO, FERNANDA K Ot I25.10 ATHSCL HEART DISEASE OF [place] CORONARY 01/23/2017 QUENTIN PA, FERNANDA K Ot R07.89 OTHER CHEST PAIN 01/29/2017 QUENTIN PA, FERNANDA K Ot E78.2 MIXED HYPERLIPIDEMIA 01/29/2017 QUENTIN PA, FERNANDA K Ot I10 ESSENTIAL (PRIMARY) HYPERTENSION 01/29/2017 QUENTIN PA, FERNANDA K Ot I25.10 ATHSCL HEART DISEASE OF [place] CORONARY 01/29/2017 QUENTIN PA, FERNANDA K Ot R07.89 OTHER CHEST PAIN 02/01/2017 QUENTIN PA, FERNANDA K Ot E78.2 MIXED HYPERLIPIDEMIA 02/01/2017 QUENTIN PA, FERNANDA K Ot I10 ESSENTIAL (PRIMARY) HYPERTENSION 02/01/2017 QUENTIN ZAMUDIO, FERNANDA K Ot I25.10 ATHSCL HEART DISEASE OF [place] CORONARY 02/01/2017 QUENTIN PA, FERNANDA K Ot R07.89 OTHER CHEST PAIN 02/07/2017 QUENTIN PA, FERNANDA K Ot E78.2 MIXED HYPERLIPIDEMIA 02/07/2017 QUENTIN PA, FERNANDA K Ot I10 ESSENTIAL (PRIMARY) HYPERTENSION 02/07/2017 FERNANDA GOODWIN Ot I25.10 ATHSCL HEART DISEASE OF [place] CORONARY 02/07/2017 FERNANDA GOODWIN Ot R07.89 OTHER CHEST PAIN Procedures There is no data. Results Test Result Range Complete blood count (CBC) with automated white blood cell (WBC) differential - 01/21/16 14:05 Blood leukocytes automated count (number/volume) 8.4 10*3/uL 4.3-11.0 Blood erythrocytes automated count (number/volume) 3.50 10*6/uL 4.35-5.85 Venous blood hemoglobin measurement (mass/volume) 10.5 g/dL 11.5-16.0 Blood hematocrit (volume fraction) 32 % 35-52 Automated erythrocyte mean corpuscular volume 90 [foz_us] 80-99 Automated erythrocyte mean corpuscular hemoglobin (mass per erythrocyte) 30 pg 25-34 Automated erythrocyte mean corpuscular hemoglobin concentration measurement ( mass/volume) 33 g/dL 32-36 Automated erythrocyte distribution width ratio 13.6 % 10.0-14.5 Automated blood platelet count (count/volume) 304 10*3/uL 130-400 Automated blood platelet mean volume measurement 9.1 [foz_us] 7.4-10.4 Automated blood neutrophils/100 leukocytes 74 % 42-75 Automated blood lymphocytes/100 leukocytes 17 % 12-44 Blood monocytes/100 leukocytes 8 % 0-12 Automated blood eosinophils/100 leukocytes 1 % 0-10 Automated blood basophils/100 leukocytes 0 % 0-10 Blood neutrophils automated count (number/volume) 6.2 10*3 1.8-7.8 Blood lymphocytes automated count (number/volume) 1.4 10*3 1.0-4.0 Blood monocytes automated count (number/volume) 0.7 10*3 0.0-1.0 Automated eosinophil count 0.1 10*3/uL 0.0-0.3 Automated blood basophil count (count/volume) 0.0 10*3/uL 0.0-0.1 Comprehensive metabolic panel - 01/21/16 14:05 Serum or plasma sodium measurement (moles/volume) 133 mmol/L 135-145 Serum or plasma potassium measurement (moles/volume) 3.4 mmol/L 3.6-5.0 Serum or plasma chloride measurement (moles/volume) 98 mmol/L 98-107 Carbon dioxide 25 mmol/L 21-32 Serum or plasma anion gap determination (moles/volume) 10 mmol/L 5-14 Serum or plasma urea nitrogen measurement (mass/volume) 11 mg/dL 7-18 Serum or plasma creatinine measurement (mass/volume) 0.84 mg/dL 0.60-1.30 Serum or plasma urea nitrogen/creatinine mass ratio 13 NRG Serum or plasma creatinine measurement with calculation of estimated glomerular filtration rate > NRG Serum or plasma glucose measurement (mass/volume) 243 mg/dL 70-105 Serum or plasma calcium measurement (mass/volume) 8.8 mg/dL 8.5-10.1 Serum or plasma total bilirubin measurement (mass/volume) 0.6 mg/dL 0.1-1.0 Serum or plasma alkaline phosphatase measurement (enzymatic activity/volume) 75 U/L 40-136 Serum or plasma aspartate aminotransferase measurement (enzymatic activity/ volume) 21 U/L 5-34 Serum or plasma alanine aminotransferase measurement (enzymatic activity/volume ) 13 U/L 0-55 Serum or plasma protein measurement (mass/volume) 6.8 g/dL 6.4-8.2 Serum or plasma albumin measurement (mass/volume) 3.3 g/dL 3.2-4.5 Erythrocyte sedimentation rate by westergren method - 01/21/16 14:05 Erythrocyte sedimentation rate by westergren method 42 mm 0-30 Complete blood count (CBC) with automated white blood cell (WBC) differential - 11/15/16 14:00 Blood leukocytes automated count (number/volume) 6.7 10*3/uL 4.3-11.0 Blood erythrocytes automated count (number/volume) 4.05 10*6/uL 4.35-5.85 Venous blood hemoglobin measurement (mass/volume) 12.1 g/dL 11.5-16.0 Blood hematocrit (volume fraction) 37 % 35-52 Automated erythrocyte mean corpuscular volume 91 [foz_us] 80-99 Automated erythrocyte mean corpuscular hemoglobin (mass per erythrocyte) 30 pg 25-34 Automated erythrocyte mean corpuscular hemoglobin concentration measurement ( mass/volume) 33 g/dL 32-36 Automated erythrocyte distribution width ratio 14.2 % 10.0-14.5 Automated blood platelet count (count/volume) 323 10*3/uL 130-400 Automated blood platelet mean volume measurement 9.5 [foz_us] 7.4-10.4 Automated blood neutrophils/100 leukocytes 75 % 42-75 Automated blood lymphocytes/100 leukocytes 17 % 12-44 Blood monocytes/100 leukocytes 7 % 0-12 Automated blood eosinophils/100 leukocytes 1 % 0-10 Automated blood basophils/100 leukocytes 0 % 0-10 Blood neutrophils automated count (number/volume) 5.1 10*3 1.8-7.8 Blood lymphocytes automated count (number/volume) 1.1 10*3 1.0-4.0 Blood monocytes automated count (number/volume) 0.5 10*3 0.0-1.0 Automated eosinophil count 0.0 10*3/uL 0.0-0.3 Automated blood basophil count (count/volume) 0.0 10*3/uL 0.0-0.1 Comprehensive metabolic panel - 11/15/16 14:00 Serum or plasma sodium measurement (moles/volume) 133 mmol/L 135-145 Serum or plasma potassium measurement (moles/volume) 3.9 mmol/L 3.6-5.0 Serum or plasma chloride measurement (moles/volume) 93 mmol/L 98-107 Carbon dioxide 30 mmol/L 21-32 Serum or plasma anion gap determination (moles/volume) 10 mmol/L 5-14 Serum or plasma urea nitrogen measurement (mass/volume) 16 mg/dL 7-18 Serum or plasma creatinine measurement (mass/volume) 1.02 mg/dL 0.60-1.30 Serum or plasma urea nitrogen/creatinine mass ratio 16 NRG Serum or plasma creatinine measurement with calculation of estimated glomerular filtration rate 52 NRG Serum or plasma glucose measurement (mass/volume) 222 mg/dL 70-105 Serum or plasma calcium measurement (mass/volume) 9.7 mg/dL 8.5-10.1 Serum or plasma total bilirubin measurement (mass/volume) 0.6 mg/dL 0.1-1.0 Serum or plasma alkaline phosphatase measurement (enzymatic activity/volume) 142 U/L 40-136 Serum or plasma aspartate aminotransferase measurement (enzymatic activity/ volume) 24 U/L 5-34 Serum or plasma alanine aminotransferase measurement (enzymatic activity/volume ) 21 U/L 0-55 Serum or plasma protein measurement (mass/volume) 8.2 g/dL 6.4-8.2 Serum or plasma albumin measurement (mass/volume) 3.8 g/dL 3.2-4.5 Magnesium - 11/15/16 14:00 Magnesium 1.3 mg/dL 1.8-2.4 Serum or plasma troponin i.cardiac measurement (mass/volume) - 11/15/16 14:00 Serum or plasma troponin i.cardiac measurement (mass/volume) < ng/ mL <0.30 Lipase - 11/15/16 14:00 Lipase 21 U/L 8-78 Complete urinalysis with reflex to culture - 11/15/16 16:04 Urine color determination YELLOW NRG Urine clarity determination CLEAR NRG Urine pH measurement by test strip 7 5-9 Specific gravity of urine by test strip 1.005 1.016- 1.022 Urine protein assay by test strip, semi-quantitative NEGATIVE NEGATIVE Urine glucose detection by automated test strip NEGATIVE NEGATIVE Erythrocytes detection in urine sediment by light microscopy NEGATIVE NEGATIVE Urine ketones detection by automated test strip NEGATIVE NEGATIVE Urine nitrite detection by test strip NEGATIVE NEGATIVE Urine total bilirubin detection by test strip NEGATIVE NEGATIVE Urine urobilinogen measurement by automated test strip (mass/volume) NORMAL NORMAL Urine leukocyte esterase detection by dipstick NEGATIVE NEGATIVE Automated urine sediment erythrocyte count by microscopy (number/high power field) NONE NRG Automated urine sediment leukocyte count by microscopy (number/high power field ) RARE NRG Bacteria detection in urine sediment by light microscopy NONE NRG Squamous epithelial cells detection in urine sediment by light microscopy RARE NRG Crystals detection in urine sediment by light microscopy NONE NRG Casts detection in urine sediment by light microscopy NONE NRG Mucus detection in urine sediment by light microscopy NEGATIVE NRG Complete urinalysis with reflex to culture NO NRG Complete blood count (CBC) with automated white blood cell (WBC) differential - 12/02/16 14:55 Blood leukocytes automated count (number/volume) 6.2 10*3/uL 4.3-11.0 Blood erythrocytes automated count (number/volume) 3.96 10*6/uL 4.35-5.85 Venous blood hemoglobin measurement (mass/volume) 11.7 g/dL 11.5-16.0 Blood hematocrit (volume fraction) 36 % 35-52 Automated erythrocyte mean corpuscular volume 91 [foz_us] 80-99 Automated erythrocyte mean corpuscular hemoglobin (mass per erythrocyte) 30 pg 25-34 Automated erythrocyte mean corpuscular hemoglobin concentration measurement ( mass/volume) 32 g/dL 32-36 Automated erythrocyte distribution width ratio 13.9 % 10.0-14.5 Automated blood platelet count (count/volume) 301 10*3/uL 130-400 Automated blood platelet mean volume measurement 9.4 [foz_us] 7.4-10.4 Automated blood neutrophils/100 leukocytes 67 % 42-75 Automated blood lymphocytes/100 leukocytes 24 % 12-44 Blood monocytes/100 leukocytes 8 % 0-12 Automated blood eosinophils/100 leukocytes 1 % 0-10 Automated blood basophils/100 leukocytes 0 % 0-10 Blood neutrophils automated count (number/volume) 4.2 10*3 1.8-7.8 Blood lymphocytes automated count (number/volume) 1.5 10*3 1.0-4.0 Blood monocytes automated count (number/volume) 0.5 10*3 0.0-1.0 Automated eosinophil count 0.1 10*3/uL 0.0-0.3 Automated blood basophil count (count/volume) 0.0 10*3/uL 0.0-0.1 PT panel in platelet poor plasma by coagulation assay - 12/02/16 14:55 Prothrombin time (PT) in platelet poor plasma by coagulation assay 12.7 s 12.2-14.7 INR in platelet poor plasma or blood by coagulation assay 0.9 0.8-1.4 Activated partial thromboplastin time (aPTT) in platelet poor plasma bycoagulation assay - 12/02/16 14:55 Activated partial thromboplastin time (aPTT) in platelet poor plasma bycoagulation assay 27 s 24-35 Fibrin D-dimer FEU measurement in platelet poor plasma (mass/volume) - 14:55 Fibrin D-dimer FEU measurement in platelet poor plasma (mass/volume) 1.73 ug/mL 0.00-0.49 Comprehensive metabolic panel - 12/02/16 14:55 Serum or plasma sodium measurement (moles/volume) 136 mmol/L 135-145 Serum or plasma potassium measurement (moles/volume) 3.2 mmol/L 3.6-5.0 Serum or plasma chloride measurement (moles/volume) 100 mmol/L 98-107 Carbon dioxide 23 mmol/L 21-32 Serum or plasma anion gap determination (moles/volume) 13 mmol/L 5-14 Serum or plasma urea nitrogen measurement (mass/volume) 15 mg/dL 7-18 Serum or plasma creatinine measurement (mass/volume) 1.14 mg/dL 0.60-1.30 Serum or plasma urea nitrogen/creatinine mass ratio 13 NRG Serum or plasma creatinine measurement with calculation of estimated glomerular filtration rate 45 NRG Serum or plasma glucose measurement (mass/volume) 147 mg/dL 70-105 Serum or plasma calcium measurement (mass/volume) 9.1 mg/dL 8.5-10.1 Serum or plasma total bilirubin measurement (mass/volume) 0.3 mg/dL 0.1-1.0 Serum or plasma alkaline phosphatase measurement (enzymatic activity/volume) 108 U/L 40-136 Serum or plasma aspartate aminotransferase measurement (enzymatic activity/ volume) 18 U/L 5-34 Serum or plasma alanine aminotransferase measurement (enzymatic activity/volume ) 11 U/L 0-55 Serum or plasma protein measurement (mass/volume) 7.8 g/dL 6.4-8.2 Serum or plasma albumin measurement (mass/volume) 3.7 g/dL 3.2-4.5 Magnesium - 12/02/16 14:55 Magnesium 1.4 mg/dL 1.8-2.4 Serum or plasma lithium measurement (moles/volume) - 12/02/16 14:55 BNP level 151.2 pg/mL <100.0 Serum or plasma troponin i.cardiac measurement (mass/volume) - 12/02/16 14:55 Serum or plasma troponin i.cardiac measurement (mass/volume) < ng/ mL <0.30 Serum or plasma thyrotropin measurement by detection limit <=0.05 miu/l (units/ volume) - 12/02/16 14:55 Serum or plasma thyrotropin measurement by detection limit <=0.05 miu/l (units/ volume) 2.05 u[iU]/mL 0.35-4.94 Complete urinalysis with reflex to culture - 12/02/16 16:22 Urine color determination YELLOW NRG Urine clarity determination CLEAR NRG Urine pH measurement by test strip 7 5-9 Specific gravity of urine by test strip 1.005 1.016- 1.022 Urine protein assay by test strip, semi-quantitative 2+ NEGATIVE Urine glucose detection by automated test strip NEGATIVE NEGATIVE Erythrocytes detection in urine sediment by light microscopy 1+ NEGATIVE Urine ketones detection by automated test strip NEGATIVE NEGATIVE Urine nitrite detection by test strip NEGATIVE NEGATIVE Urine total bilirubin detection by test strip NEGATIVE NEGATIVE Urine urobilinogen measurement by automated test strip (mass/volume) NORMAL NORMAL Urine leukocyte esterase detection by dipstick 1+ NEGATIVE Automated urine sediment erythrocyte count by microscopy (number/high power field) [HPF] NRG Automated urine sediment leukocyte count by microscopy (number/high power field ) [HPF] NRG Bacteria detection in urine sediment by light microscopy FEW NRG Squamous epithelial cells detection in urine sediment by light microscopy RARE NRG Crystals detection in urine sediment by light microscopy NONE NRG Casts detection in urine sediment by light microscopy NONE NRG Mucus detection in urine sediment by light microscopy NEGATIVE NRG Complete urinalysis with reflex to culture NO NRG Serum or plasma troponin i.cardiac measurement (mass/volume) - 12/02/16 18:58 Serum or plasma troponin i.cardiac measurement (mass/volume) < ng/ mL <0.30 Encounters ACCT No. Visit Date/Time Discharge Status Pt. Type Provider Facility Loc./Unit Complaint [id number] 01/08/2017 11:42:00 01/08/2017 23:59:59 CLS Outpatient FERNANDA GOODWIN [facility] CARD CHEST PAIN [id number] 01/02/2017 07:26:00 01/02/2017 23:59:59 CLS Outpatient FERNANDA GOODWIN [facility] CARD HTN I10 [id number] 12/02/2016 13:31:00 12/02/2016 19:56:00 DIS Emergency WILLIAM RAMIREZ [facility] ER SOA [id number] 11/15/2016 13:22:00 11/15/2016 17:18:00 DIS Emergency SHARLA BASS, TANYA Steve [facility] ER LT SIDE PAIN [id number] 01/21/2016 12:49:00 01/21/2016 15:57:00 DIS Emergency MARILEE ROD [facility] [facility] ER L SIDE OF FACE SWELLING [id number] 01/05/2015 13:25:00 01/05/2015 23:59:59 CLS Outpatient ALESSANDRA BARKLEY MD Via [facility] RAD MEMORY LOSS,HTN,DM, SCREENING [id number] 06/09/2013 10:36:00 06/09/2013 23:59:59 CLS Outpatient JOSELYN LINHROE VOSS [facility] RAD SCREENING [id number] 03/12/2013 16:05:00 03/12/2013 18:38:00 DIS Emergency OLMAN DOE SCOTT [facility] ER FALL,LEFT SIDE PAIN [id number] 01/14/2013 06:36:00 01/14/2013 13:20:00 DIS Outpatient KIRILL ANDERSON MD [facility] CATH CHEST PAIN,ABNORMAL STRESS,DM,HTN,HLP [id number] 12/22/2012 08:14:00 12/22/2012 23:59:59 CLS Outpatient KIRILL ANDERSON MD [facility] RAD CP,HTN,DM [id number] 12/11/2012 10:30:00 12/11/2012 23:59:59 CLS Outpatient KIRILL ANDERSON MD [facility] CARD CP,HTN,DM [id number] 12/10/2012 09:09:00 12/10/2012 23:59:59 CLS Outpatient KIRILL ANDERSON MD [facility] LAB HTN,HLP [id number] 02/23/2017 11:51:00 ACT Emergency AGUSTINA FRENCH MD [facility] ER DIZZY, CANT STAND [id number] 05/22/2012 10:05:00 Document Registration [id number] 09/24/2011 05:34:00 Document Registration [id number] 09/18/2011 11:35:00 Document Registration [id number] 05/31/2011 09:54:00 Document Registration [id number] 11/17/2010 13:10:00 Document Registration [id number] 11/16/2010 15:19:00 Document Registration [id number] 09/21/2010 13:50:00 Document Registration [id number] 09/13/2010 00:00:00 Document Registration [id number] 07/18/2010 22:20:00 Document Registration [id number] 06/17/2010 08:45:00 Document Registration [id number] 05/08/2010 11:16:00 Document Registration [id number] 02/15/2010 09:03:00 Document Registration [id number] 09/11/2009 20:30:00 Document Registration
[2017-02-23] MEDS ORDERED: MECLIZINE 25 MG (ANTIVERT) TAB PO ONE (12:45)
--- NOTE | 2017-02-23 12:49 | ED General ---
General Chief Complaint: Dizziness/Syncope Stated Complaint: DIZZY, CANT STAND Nursing Triage Note: PT C/O DIZZINESS SINCE YESTERDAY. Nursing Sepsis Screen: No Definite Risk Source of Information: Patient, Family Exam Limitations: No Limitations History of Present Illness Time Seen by Provider: 12:44 Initial Comments This 86-year-old white female presents complaining of dizziness that began yesterday. The dizziness is worse with movement of head or walking. There is been no associated headache, fever, stiff neck, lateralizing or localizing neurologic complaints, or similar episode in past. In addition the patient is also complaining of shortness of breath. She has a history according the family of congestive heart failure. She is followed by Dr. Anderson. She denies associated chest pain, diaphoresis, nausea or vomiting. The shortness of breath is been present intermittently for the last several weeks. The dizziness began yesterday. Allergies and Home Medications Allergies Coded Allergies: No Known Drug Allergies (Unverified , 09/11/09) Home Medications Amlodipine Besylate 10 Mg Tablet, 10 MG PO DAILY, (Reported) Aspirin 81 Mg Tabec, 81 MG PO DAILY, (Reported) Cholecalciferol 1,000 Unit Capsule, 1,000 UNIT PO DAILY, (Reported) Folic Acid/Mv,Fe,Other Min 1 Each Tablet, 1 EACH PO DAILY, (Reported) Glipizide 10 Mg Tablet, 10 MG PO BID, (Reported) Hydrochlorothiazide 25 Mg Tab, 25 MG PO DAILY, (Reported) Levothyroxine Sodium 25 Mcg Tablet, 25 MG PO DAILY, (Reported) Losartan Potassium 25 Mg Tablet, 25 MG PO DAILY, (Reported) Lovastatin 20 Mg Tablet, 20 MG PO 1700, (Reported) Lutein 10 Mg Tablet, 20 MG PO HS, (Reported) Metformin Hcl 1,000 Mg Tablet, 1,000 MG PO BID, (Reported) RESUME ON 01/16/13 Omeprazole 20 Mg Capsule.dr, 20 MG PO DAILY, (Reported) Potassium Chloride 10 Meq Tablet.sa, 20 MEQ PO DAILY WITH FOOD, (Reported) TAKES 2 OF THE 10 MEQ TABLETS DAILY Sitagliptin Phosphate 100 Mg Tablet, 100 MG PO DAILY, (Reported) Constitutional: No chills, dizziness, No fever, No malaise EENTM: No ear discharge, No hearing loss, No ear pain, No blurred vision, No double vision Respiratory: No cough, short of breath Cardiovascular: No chest pain, No palpitations Gastrointestinal: No abdominal pain, No diarrhea, No nausea, No vomiting Genitourinary: no symptoms reported : No Musculoskeletal: no symptoms reported Skin: No change in color, No rash Psychiatric/Neurological: No Symptoms Reported Past Nhhsyok-Izwqge-Rbelca Hx Patient Social History Alcohol Use: Denies Use Recreational Drug Use: No Smoking Status: Never a Smoker 2nd Hand Smoke Exposure: No Recent Foreign Travel: No Contact w/Someone Who Travel: No Recent Infectious Disease Expo: No Recent Hopitalizations: No Physical Abuse: No Sexual Abuse: No Immunizations Up To Date Date of Pneumonia Vaccine: Jan 09, 2013 Date of Influenza Vaccine: Jan 10, 2016 Surgeries History of Surgeries: Yes (HERNIA REPAIR) Respiratory History of Respiratory Disorde: No Cardiovascular History of Cardiac Disorders: Yes Neurological History of Neurological Disord: No Reproductive System Hx Reproductive Disorders: No Gastrointestinal History of Gastrointestinal Di: No Musculoskeletal History of Musculoskeletal Dis: Yes (PELVIC FX) Musculoskeletal Disorders: Fractures Endocrine History of Endocrine Disorders: Yes Endocrine Disorders: Diabetes, Non-Insulin dep Cancer History of Cancer: No Psychosocial History of Psychiatric Problem: No Suicide Risk Score: 0 Blood Transfusions History of Blood Disorders: No Reviewed Nursing Assessment Reviewed/Agree w Nursing PMH: Yes Family Medical History Significant Family History: No Pertinent Family Hx Physical Exam Vital Signs Vital Sign - Last 12Hours 02/23/17 12:15 Temp 96.7 Pulse 74 Resp 16 B/P (MAP) 194/164 (174) Capillary Refill : Less Than 3 Seconds General Appearance: No Apparent Distress, Thin Eyes: Bilateral Eye Other (marked 90 Ninfa miss with right lateral gaze) HEENT: Normal ENT Inspection Neck: Normal Inspection Respiratory: Rales (rales were detected in the a.m. right posterior chest wall. ) Cardiovascular: Regular Rate, Rhythm, No Edema Gastrointestinal: Normal Bowel Sounds, No Organomegaly, No Pulsatile Mass Back: Normal Inspection Extremity: Normal Capillary Refill, Normal Inspection, Normal Range of Motion, Non Tender Neurologic/Psychiatric: Oriented x3, No Motor/Sensory Deficits, Normal Mood/ Affect Skin: Normal Color, Warm/Dry Progress/Results/Core Measures Suspected Sepsis Recent Fever Within 48 Hours: No Infection Criteria Present: None New/Unexplained Altered Menta: No Sepsis Screen: No Definite Risk Sepsis Diagnosis: SIRS Temperature:96.7 Pulse: 74 Respiratory Rate: 16 Laboratory Tests 02/23/17 12:54: White Blood Count 5.1 Blood Pressure 194 /164 Mean: 174 Laboratory Tests 02/23/17 12:54: Creatinine 0.94, Platelet Count 274, Total Bilirubin 0.5 Results/Orders Lab Results Laboratory Tests Test 02/23/17 12:54 Range/Units White Blood Count 5.1 4.3-11.0 10^3/uL Red Blood Count 4.07 L 4.35-5.85 10^6/uL Hemoglobin 12.9 11.5-16.0 G/DL Hematocrit 39 35-52 % Mean Corpuscular Volume 95 80-99 FL Mean Corpuscular Hemoglobin 32 25-34 PG Mean Corpuscular Hemoglobin Concent 34 32-36 G/DL Red Cell Distribution Width 13.8 10.0-14.5 % Platelet Count 274 130-400 10^3/uL Mean Platelet Volume 9.8 7.4-10.4 FL Neutrophils (%) (Auto) 63 42-75 % Lymphocytes (%) (Auto) 29 12-44 % Monocytes (%) (Auto) 6 0-12 % Eosinophils (%) (Auto) 2 0-10 % Basophils (%) (Auto) 0 0-10 % Neutrophils # (Auto) 3.2 1.8-7.8 X 10^3 Lymphocytes # (Auto) 1.5 1.0-4.0 X 10^3 Monocytes # (Auto) 0.3 0.0-1.0 X 10^3 Eosinophils # (Auto) 0.1 0.0-0.3 10^3/uL Basophils # (Auto) 0.0 0.0-0.1 10^3/uL Sodium Level 140 135-145 MMOL/L Potassium Level 3.5 L 3.6-5.0 MMOL/L Chloride Level 101 98-107 MMOL/L Carbon Dioxide Level 26 21-32 MMOL/L Anion Gap 13 5-14 MMOL/L Blood Urea Nitrogen 18 7-18 MG/DL Creatinine 0.94 0.60-1.30 MG/DL Estimat Glomerular Filtration Rate 57 BUN/Creatinine Ratio 19 Glucose Level 154 H 70-105 MG/DL Calcium Level 9.2 8.5-10.1 MG/DL Total Bilirubin 0.5 0.1-1.0 MG/DL Aspartate Amino Transf (AST/SGOT) 19 5-34 U/L Alanine Aminotransferase (ALT/SGPT) 16 0-55 U/L Alkaline Phosphatase 84 40-136 U/L Troponin I < 0.30 <0.30 NG/ML B-Type Natriuretic Peptide 148.5 H <100.0 PG/ML Total Protein 8.1 6.4-8.2 GM/DL Albumin 4.0 3.2-4.5 GM/DL My Orders Orders - AGUSTINA FRENCH MD Ct Head Wo (02/23/17 12:37) Cbc With Automated Diff (02/23/17 12:37) Comprehensive Metabolic Panel (02/23/17 12:37) Ekg Tracing (02/23/17 12:37) Chest Pa/Lat (2 View) (02/23/17 12:37) BNP (02/23/17 12:37) Troponin I (02/23/17 12:37) Meclizine Tablet (Antivert Tablet) (02/23/17 12:45) Medications Given in ED Current Medications Medications Dose Ordered Sig/Lukasz Route Start Time Stop Time Status Last Admin Dose Admin Meclizine HCl 25 mg ONCE ONCE PO 02/23/17 12:45 02/23/17 12:46 DC 02/23/17 12:49 25 MG Vital Signs/I&O Vital Sign - Last 12Hours 02/23/17 12:15 Temp 96.7 Pulse 74 Resp 16 B/P (MAP) 194/164 (174) Capillary Refill : Less Than 3 Seconds Blood Pressure Mean: 174 Progress Note : Time: 13:59 Progress Note The patient's CT of the head demonstrated no evidence of acute pathology. Age- related changes were noted. Chest x-ray was unremarkable. Patient's laboratory evaluation is similarly unremarkable. Patient's BNP was approximately 200. Troponin was normal. EKG demonstrated no evidence of an acute current of injury or significant dysrhythmias. The patient received 25 mg of meclizine orally with moderate improvement in her symptoms. ECG Initial ECG Impression Date: Feb 23, 2017 Departure Impression Impression: Primary Impression: Vertigo Disposition: 01 HOME, SELF-CARE Condition: Improved Departure-Patient Inst. Decision time for Depature: 14:01 Referrals: ALESSANDRA BARKLEY MD (PCP/Family) Primary Care Physician KIRILL ANDERSON MD Patient Instructions: Vertigo (a Type of Dizziness) (DC) Add. Discharge Instructions: Meclizine as prescribed for dizziness. Follow-up with your physicians early next week. Return if any problems or questions. All discharge instructions reviewed with patient and/or family. Voiced understanding. AGUSTINA FRENCH MD Feb 23, 2017 12:49
[2017-02-23 13:00] LABS: BASOPHILS % (AUTO) 0 % (0-10); EOSINOPHILS # (AUTO) 0.1 10^3/uL (0.0-0.3); EOSINOPHILS % (AUTO) 2 % (0-10); LYMPHOCYTES # (AUTO) 1.5 X 10^3 (1.0-4.0); LYMPHOCYTES % (AUTO) 29 % (12-44); MEAN CORPUSCULAR HEMOGLOBIN 32 PG (25-34); MEAN CORPUSCULAR HGB CONC 34 G/DL (32-36); MEAN CORPUSCULAR VOLUME 95 FL (80-99); MEAN PLATELET VOLUME 9.8 FL (7.4-10.4); MONOCYTES # (AUTO) 0.3 X 10^3 (0.0-1.0); MONOCYTES % (AUTO) 6 % (0-12); NEUTROPHILS # (AUTO) 3.2 X 10^3 (1.8-7.8); NEUTROPHILS % (AUTO) 63 % (42-75); PLATELET COUNT 274 10^3/uL (130-400); RED BLOOD COUNT 4.07 10^6/uL (4.35-5.85); RED CELL DISTRIBUTION WIDTH 13.8 % (10.0-14.5); WHITE BLOOD COUNT 5.1 10^3/uL (4.3-11.0)
[2017-02-23 13:19] LABS: ALANINE AMINOTRANSFERASE 16 U/L (0-55); ANION GAP 13 MMOL/L (5-14); ASPARTATE AMINO TRANSFERASE 19 U/L (5-34); BILIRUBIN,TOTAL 0.5 MG/DL (0.1-1.0); BLOOD UREA NITROGEN 18 MG/DL (7-18); BUN/CREATININE RATIO 19; CALCIUM 9.2 MG/DL (8.5-10.1); CARBON DIOXIDE 26 MMOL/L (21-32); CHLORIDE 101 MMOL/L (98-107); CREATININE SERUM 0.94 MG/DL (0.60-1.30); GFR ESTIMATED 57; GLUCOSE 154 MG/DL (70-105); POTASSIUM 3.5 MMOL/L (3.6-5.0); SODIUM 140 MMOL/L (135-145); TOTAL PROTEIN 8.1 GM/DL (6.4-8.2)
[2017-02-23 13:25] LABS: TROPONIN I < 0.30 NG/ML (<0.30)
--- NOTE | 2017-02-23 13:34 | Diagnostic Imaging Report ---
INDICATION: Dizziness. COMPARISON: 12/02/2016. TECHNIQUE: PA and lateral views of the chest. FINDINGS: Lungs are clear. No pleural effusion or pneumothorax. Heart is mildly enlarged. Atherosclerotic and tortuous aorta is noted. Exaggerated kyphosis of the thoracic spine is secondary to chronic severe superior endplate compression fracture of midthoracic vertebrae. IMPRESSION: No acute cardiopulmonary process. Dictated by: Dictated on workstation # [id number]
--- NOTE | 2017-02-23 13:39 | Diagnostic Imaging Report ---
PROCEDURE: CT head without contrast. TECHNIQUE: Multiple contiguous axial images were obtained through the brain without the use of intravenous contrast. INDICATION: Dizziness x1 day. COMPARISON: None. FINDINGS: There are diffuse atrophic changes with prominence of the ventricles and sulci. There are scattered areas of decreased attenuation suggestive of chronic small vessel ischemic disease. There is otherwise normal keene-white differentiation. No abnormal areas of attenuation to suggest edema from ischemia. There is no midline shift or mass effect. No evidence for acute intracranial hemorrhage or abnormal extra-axial fluid collection. Calcified bony protuberance, right frontal region, may reflect a calcified meningioma, unchanged. Bony calvarium is intact. Paranasal sinuses are clear. Mastoid air cells also appear clear. IMPRESSION: 1. No CT evidence for acute intracranial abnormality. 2. Age-related atrophic changes with changes of small-vessel ischemic disease. Dictated by: Dictated on workstation # [id number]
[2017-02-23 14:10] VITALS: BP 188/112
== END 2017-02-23 14:10 | disposition home or self-care (01) ==
LOC: EDUNIT# 11:50 → ER 11:51
DX: R42 Dizziness and giddiness (principal); E11.9 Type 2 diabetes mellitus without complications; Z87.81 Personal history of (healed) traumatic fracture; Z79.84 Long term (current) use of oral hypoglycemic drugs; Z79.82 Long term (current) use of aspirin
CPT/HCPCS: 36415; 70450; 71020; 80053; 83880; 84484; 85025

== ENCOUNTER 2017-05-16 11:03 | Emergency (ER) | payer MEDICARE ==
[~2017-05-16] VITALS: Ht 170.2 cm; Wt 63.5 kg
[2017-05-16] MEDS ORDERED: DEXTROSE 50% 50 ML (IMS) SYR ONE (11:09)
[2017-05-16 11:22] LABS: BASOPHILS % (AUTO) 0 % (0-10); EOSINOPHILS # (AUTO) 0.1 10^3/uL (0.0-0.3); EOSINOPHILS % (AUTO) 2 % (0-10); HEMATOCRIT 35 % (35-52); LYMPHOCYTES # (AUTO) 1.4 X 10^3 (1.0-4.0); LYMPHOCYTES % (AUTO) 24 % (12-44); MEAN CORPUSCULAR HEMOGLOBIN 32 PG (25-34); MEAN CORPUSCULAR HGB CONC 34 G/DL (32-36); MEAN CORPUSCULAR VOLUME 95 FL (80-99); MEAN PLATELET VOLUME 10.1 FL (7.4-10.4); MONOCYTES # (AUTO) 0.4 X 10^3 (0.0-1.0); MONOCYTES % (AUTO) 7 % (0-12); NEUTROPHILS # (AUTO) 3.9 X 10^3 (1.8-7.8); NEUTROPHILS % (AUTO) 67 % (42-75); PLATELET COUNT 265 10^3/uL (130-400); RED BLOOD COUNT 3.72 10^6/uL (4.35-5.85); RED CELL DISTRIBUTION WIDTH 12.6 % (10.0-14.5); WHITE BLOOD COUNT 5.8 10^3/uL (4.3-11.0)
--- NOTE | 2017-05-16 11:27 | ED General ---
General Chief Complaint: Glucose Problems Stated Complaint: UNRESPONSIVE Source of Information: Patient Exam Limitations: No Limitations History of Present Illness Date Seen by Provider: May 16, 2017 Time Seen by Provider: 11:24 Initial Comments To ER per EMS from home with reports of unresponsiveness. She was found by family to be unresponsive, they assume this to be a diabetic issues and they gave her a shot of 18 units of Lantus at 10:30 AM. However upon EMS arrival blood sugar was checked and found it read low. She is given one amp of D50. Blood sugar still read low. Upon arrival to ER she is more alert, talking incoherently which was an improvement as EMS was concerned they might have to intubate her in route to the hospital. Blood sugar was rechecked and found to be 29th she was given a second ampule of D50 Timing/Duration: 1-2 Days Severity: Moderate Allergies and Home Medications Allergies Coded Allergies: No Known Drug Allergies (Unverified , 09/11/09) Home Medications Amlodipine Besylate 10 Mg Tablet, 10 MG PO DAILY, (Reported) Aspirin 81 Mg Tabec, 81 MG PO DAILY, (Reported) Cholecalciferol 1,000 Unit Capsule, 1,000 UNIT PO DAILY, (Reported) Folic Acid/Mv,Fe,Other Min 1 Each Tablet, 1 EACH PO DAILY, (Reported) Glipizide 10 Mg Tablet, 10 MG PO BID, (Reported) Hydrochlorothiazide 25 Mg Tab, 25 MG PO DAILY, (Reported) Levothyroxine Sodium 25 Mcg Tablet, 25 MG PO DAILY, (Reported) Losartan Potassium 25 Mg Tablet, 25 MG PO DAILY, (Reported) Lovastatin 20 Mg Tablet, 20 MG PO 1700, (Reported) Lutein 10 Mg Tablet, 20 MG PO HS, (Reported) Metformin Hcl 1,000 Mg Tablet, 1,000 MG PO BID, (Reported) RESUME ON 01/16/13 Omeprazole 20 Mg Capsule.dr, 20 MG PO DAILY, (Reported) Potassium Chloride 10 Meq Tablet.sa, 20 MEQ PO DAILY WITH FOOD, (Reported) TAKES 2 OF THE 10 MEQ TABLETS DAILY Sitagliptin Phosphate 100 Mg Tablet, 100 MG PO DAILY, (Reported) Sulfamethoxazole/Trimethoprim 1 Each Tablet, 1 EACH PO BID Prescribed by: OLMAN DOE on 05/16/17 1323 Patient Home Medication List Home Medication List Reviewed: Yes Constitutional: see HPI EENTM: see HPI Respiratory: no symptoms reported Cardiovascular: no symptoms reported Genitourinary: no symptoms reported Musculoskeletal: no symptoms reported Skin: no symptoms reported Psychiatric/Neurological: No Symptoms Reported Hematologic/Lymphatic: No Symptoms Reported Past Dwxsvsw-Qnkukh-Ukxnel Hx Patient Social History 2nd Hand Smoke Exposure: No Recent Hopitalizations: No Immunizations Up To Date Date of Pneumonia Vaccine: Jan 09, 2013 Date of Influenza Vaccine: Jan 10, 2016 Surgeries History of Surgeries: Yes (HERNIA REPAIR) Respiratory History of Respiratory Disorde: No Cardiovascular History of Cardiac Disorders: Yes Neurological History of Neurological Disord: No Reproductive System Hx Reproductive Disorders: No Gastrointestinal History of Gastrointestinal Di: No Musculoskeletal History of Musculoskeletal Dis: Yes (PELVIC FX) Musculoskeletal Disorders: Fractures Endocrine History of Endocrine Disorders: Yes Endocrine Disorders: Diabetes, Non-Insulin dep Cancer History of Cancer: No Psychosocial History of Psychiatric Problem: No Blood Transfusions History of Blood Disorders: No Family Medical History Significant Family History: No Pertinent Family Hx Physical Exam Vital Signs Vital Signs - First Documented 05/16/17 05/16/17 11:03 13:33 Temp 98.0 Pulse 110 Resp 18 B/P (MAP) 180/116 (137) Pulse Ox 98 O2 Delivery Room Air Capillary Refill : General Appearance: No Apparent Distress, WD/WN, Other (increasing alertness 1 arrival to ER. She was given a second ampule of D50 here by us.) Eyes: Bilateral Eye Normal Inspection, Bilateral Eye PERRL, Bilateral Eye EOMI HEENT: PERRL/EOMI, TMs Normal Neck: Full Range of Motion, Normal Inspection Respiratory: No Accessory Muscle Use, No Respiratory Distress Cardiovascular: Normal Peripheral Pulses, Irregularly Irregular, Other ( appears to be atrial fibrillation which has never been documented before) Gastrointestinal: Normal Bowel Sounds, Non Tender, Soft Extremity: Normal Capillary Refill, Normal Inspection Neurologic/Psychiatric: Alert, Oriented x3 Skin: Normal Color, Warm/Dry Progress/Results/Core Measures Suspected Sepsis SIRS Temperature: Pulse: Respiratory Rate: Laboratory Tests 05/16/17 11:04: White Blood Count 5.8 Blood Pressure / Mean: Laboratory Tests 05/16/17 11:04: Creatinine 0.87, Platelet Count 265, Total Bilirubin 0.7 Results/Orders Lab Results Laboratory Tests Test 05/16/17 11:04 05/16/17 11:10 05/16/17 11:05/16/17 11:46 Range/Units White Blood Count 5.8 4.3-11.0 10^3/uL Red Blood Count 3.72 L 4.35-5.85 10^6/uL Hemoglobin 12.0 11.5-16.0 G/DL Hematocrit 35 35-52 % Mean Corpuscular Volume 95 80-99 FL Mean Corpuscular Hemoglobin 32 25-34 PG Mean Corpuscular Hemoglobin Concent 34 32-36 G/DL Red Cell Distribution Width 12.6 10.0-14.5 % Platelet Count 265 130-400 10^3/uL Mean Platelet Volume 10.1 7.4-10.4 FL Neutrophils (%) (Auto) 67 42-75 % Lymphocytes (%) (Auto) 24 12-44 % Monocytes (%) (Auto) 7 0-12 % Eosinophils (%) (Auto) 2 0-10 % Basophils (%) (Auto) 0 0-10 % Neutrophils # (Auto) 3.9 1.8-7.8 X 10^3 Lymphocytes # (Auto) 1.4 1.0-4.0 X 10^3 Monocytes # (Auto) 0.4 0.0-1.0 X 10^3 Eosinophils # (Auto) 0.1 0.0-0.3 10^3/uL Basophils # (Auto) 0.0 0.0-0.1 10^3/uL Sodium Level 138 135-145 MMOL/L Potassium Level 3.4 L 3.6-5.0 MMOL/L Chloride Level 104 98-107 MMOL/L Carbon Dioxide Level 25 21-32 MMOL/L Anion Gap 9 5-14 MMOL/L Blood Urea Nitrogen 19 H 7-18 MG/DL Creatinine 0.87 0.60-1.30 MG/DL Estimat Glomerular Filtration Rate > 60 BUN/Creatinine Ratio 22 Glucose Level 39 *L 70-105 MG/DL Calcium Level 9.2 8.5-10.1 MG/DL Magnesium Level 1.1 L 1.8-2.4 MG/DL Total Bilirubin 0.7 0.1-1.0 MG/DL Aspartate Amino Transf (AST/SGOT) 31 5-34 U/L Alanine Aminotransferase (ALT/SGPT) 15 0-55 U/L Alkaline Phosphatase 69 40-136 U/L Troponin I < 0.30 <0.30 NG/ML Total Protein 7.8 6.4-8.2 GM/DL Albumin 4.1 3.2-4.5 GM/DL Glucometer 29 *L 122 H 70-110 MG/DL Urine Color YELLOW Urine Clarity CLEAR Urine pH 7 5-9 Urine Specific [place] 1.005 L 1.016-1.022 Urine Protein NEGATIVE NEGATIVE Urine Glucose (UA) 1+ H NEGATIVE Urine Ketones NEGATIVE NEGATIVE Urine Nitrite NEGATIVE NEGATIVE Urine Bilirubin NEGATIVE NEGATIVE Urine Urobilinogen NORMAL NORMAL MG/DL Urine Leukocyte Esterase 1+ H NEGATIVE Urine RBC (Auto) NEGATIVE NEGATIVE Urine RBC RARE /HPF Urine WBC 5-10 H /HPF Urine Squamous Epithelial Cells 2-5 /HPF Urine Renal Epithelial Cells NONE /HPF Urine Crystals NONE /LPF Urine Bacteria NEGATIVE /HPF Urine Casts NONE /LPF Urine Mucus NEGATIVE /LPF Urine Culture Indicated YES Test 05/16/17 12:37 05/16/17 13:25 Range/Units Glucometer 132 H 157 H 70-110 MG/DL My Orders Orders - OLMAN DOE APRN Cbc With Automated Diff (05/16/17 11:16) Comprehensive Metabolic Panel (05/16/17 11:16) Ua Culture If Indicated (05/16/17 11:16) Saline Lock/Iv-Start (05/16/17 11:16) Ekg Tracing (05/16/17 11:16) Chest 1 View, Ap/Pa Only (05/16/17 11:16) D50w (Emergency) Syringe (Dextrose 50% 5 (05/16/17 11:30) Troponin I (05/16/17 11:16) Magnesium (05/16/17 11:16) Urine Culture (05/16/17 11:20) Ekg Tracing (05/16/17 12:26) General/Regular (05/16/17 Lunch) Medications Given in ED Vital Signs/I&O Capillary Refill : Departure Communication (Admissions) Progress Notes 1230-on arrival to ER the 18-gauge in left forearm surgery by EMS would not flush or started 20-gauge in the right external jugular 1 attempt. She was given one amp of D50 through this. The IV in the left forearm has been discontinued at this time and is puffy Around the IV was removed. She's not received any IV fluids or medications through the 18-gauge in left forearm. Remains much more alert at this time, grandsons at the bedside. Much more coherent. 1321- remains alert and oriented, has eaten a sandwich. Blood sugar remains above 100. We'll discharge her to home on some oral antibiotics for bladder infection Impression Impression: Primary Impression: Hypoglycemic reaction to insulin in type 2 diabetes mellitus Additional Impression: Urinary tract infection Disposition: HOME, SELF-CARE Condition: Stable Departure-Patient Inst. Decision time for Depature: 12:32 Referrals: ALESSANDRA SINGLETARY MD (PCP/Family) Primary Care Physician Patient Instructions: HYPOGLYCEMIA, Urinary Tract Infection, Adult (DC) Add. Discharge Instructions: 1. Follow-up with Dr. Singletary in the next week. Check your blood sugars at home every 2 hours for the rest of today and no additional insulin for the rest of today. All discharge instructions reviewed with patient and/or family. Voiced understanding. Scripts Sulfamethoxazole/Trimethoprim (Bactrim Ds Tablet) 1 Each Tablet 1 EACH PO BID, #10 TAB Prov: OLMAN DOE APRN 05/16/17 OLMAN DOE APRN May 16, 2017 11:27
[2017-05-16] MEDS ORDERED: DEXTROSE 50% 50 ML (IMS) SYR IV ONE (11:30)
[2017-05-16 11:38] LABS: BILIRUBIN,URINE NEGATIVE (NEGATIVE); CLARITY,URINE CLEAR; COLOR,URINE YELLOW; GLUCOSE, URINE (UA) 1+ (NEGATIVE); KETONES,URINE NEGATIVE (NEGATIVE); LEUKOCYTE ESTERASE ,URINE 1+ (NEGATIVE); NITRITE,URINE NEGATIVE (NEGATIVE); PH,URINE 7 (5-9); PROTEIN,URINE NEGATIVE (NEGATIVE); UROBILINOGEN,URINE NORMAL (NORMAL)
[2017-05-16 11:43] LABS: ALANINE AMINOTRANSFERASE 15 U/L (0-55); ALBUMIN 4.1 GM/DL (3.2-4.5); ALKALINE PHOSPHATASE 69 U/L (40-136); BILIRUBIN,TOTAL 0.7 MG/DL (0.1-1.0); BUN/CREATININE RATIO 22; CALCIUM 9.2 MG/DL (8.5-10.1); CARBON DIOXIDE 25 MMOL/L (21-32); CHLORIDE 104 MMOL/L (98-107); CREATININE SERUM 0.87 MG/DL (0.60-1.30); GFR ESTIMATED > 60; MAGNESIUM 1.1 MG/DL (1.8-2.4); POTASSIUM 3.4 MMOL/L (3.6-5.0); SODIUM 138 MMOL/L (135-145); TOTAL PROTEIN 7.8 GM/DL (6.4-8.2)
[2017-05-16 11:51] LABS: GLUCOSE 39 MG/DL (70-105)
[2017-05-16 12:02] LABS: BACTERIA,URINE NEGATIVE /HPF; RBC,URINE RARE /HPF
--- NOTE | 2017-05-16 12:23 | Diagnostic Imaging Report ---
INDICATION: Patient found unresponsive. Frontal chest obtained at 12:05 p.m. and compared to 02/23/2017. Heart is borderline in size. Aorta is tortuous and/or ectatic. Lungs show chronic-appearing increased interstitial markings. There is no acute consolidation, pneumothorax, or pleural fluid. IMPRESSION: Chronic-appearing increased interstitial markings. No acute consolidation or pleural fluid. Borderline heart size with tortuous and/or ectatic aorta. No change from 02/23/2017. Dictated by: Dictated on workstation # [id number]
--- OUTSIDE RECORDS SUMMARY | 2017-05-16 12:24 | XMS REPORT | CCD ---
Author Author Gina Singletary Organization [facility] Address [address] [place] [address] Phone Care Team Providers Care Pigment Mixer Name Role Phone Gina Singletary PP Unavailable CCM Unavailable Summary Purpose Interface Exchange Insurance Providers Payer name Policy type / Coverage type Covered alliance party ID Effective Begin Date Effective End Date WPS Medicare Part B Medicare Part B [id number] Unknown [facility] Medicare Part B [id number] 2013 Unknown Family history Brother Diagnosis Age At Onset Alzheimer's Disease Unknown Mother Diagnosis Age At Onset No Family Disease Entered N/A Son Diagnosis Age At Onset No Family Disease Entered N/A Father Diagnosis Age At Onset Cancer Unknown Son Diagnosis Age At Onset No Family Disease Entered N/A Son Diagnosis Age At Onset No Family Disease Entered N/A Brother Diagnosis Age At Onset Alzheimer's Disease Unknown Son Diagnosis Age At Onset No Family Disease Entered N/A Social History Social History Element Codes Description Effective Dates Number of children Unknown 4 sons 01/05/2016 Living arrangements Unknown House 09/23/2013 Employment Unknown Retired 11/15/[address]: 162033424 Never smoker 11/15/[address]: 054800599 Never drinks alcohol 11/15/2010 Has the patient ever used illegal drugs? Unknown Has never used illegal drugs 11/15/2010 Allergies, Adverse Reactions, Alerts Allergies, Adverse Reactions, Alerts data not found Past Medical History Illness Codes Condition Status Onset Date Resolved Date Encounter for follow-up examination after completed treatment for conditions other than malignant neoplasm ICD-9: V67.9 ICD-10: Z09 Active 03/07/2017 Unknown Encounter for immunization ICD-9: V04.81 ICD-10: Z23 Active 12/31/2016 Unknown Essential (primary) hypertension ICD-9: 401.1 ICD-10: I10 Active 03/25/2016 Unknown Type 2 diabetes mellitus with hyperglycemia ICD-9: 250.02 ICD-10: E11.65 Active 10/15/2011 Unknown Collapsed vertebra, not elsewhere classified, thoracic region, initial encounter for fracture ICD- 9: 733.13 ICD-10: M48.54XA Active 12/06/2016 Unknown Shortness of breath ICD-9: 786.05 ICD-10: R06.02 Active 12/06/2016 Unknown Type 2 diabetes mellitus without complications ICD-9: 250.00 ICD-10: E11.9 Active 09/22/2013 Unknown Atrophy of thyroid (acquired) ICD-9: 244.8 ICD-10: E03.4 Active 03/25/2016 Unknown Nail dystrophy ICD-9: 703.8 ICD-10: L60.3 Active 12/08/2015 Unknown Onycholysis ICD-9: 703.8 ICD-10: L60.1 Active 08/15/2016 Unknown Tinea unguium ICD-9: 110.1 ICD-10: B35.1 Active 12/08/2015 Unknown Vascular dementia without behavioral disturbance ICD-9: 290.40 ICD-10: F01.50 Active 12/07/2015 Unknown Hypothyroidism, unspecified ICD-9: 244.9 ICD-10: E03.9 Active 04/28/2014 Unknown Muscle weakness (generalized) ICD-9: 728.87 ICD-10: M62.81 Active 2016 Unknown Unsteadiness on feet ICD-9: 781.2 ICD-10: R26.81 Active 2016 Unknown Vitamin B12 deficiency anemia due to intrinsic factor deficiency ICD-9: 281.0 ICD-10: D51.0 Active 06/12/2015 Unknown Mixed hyperlipidemia ICD-9: 272.4 ICD-10: E78.2 Active 02/24/2014 Unknown Dysuria ICD-9: 788.1 ICD-10: R30.0 Active 01/23/2016 Unknown Cellulitis of left external ear ICD-9: 380.10 ICD-10: H60.12 Active 01/22/2016 Unknown Dementia in other diseases classified elsewhere without behavioral disturbance ICD-9: 294.10 ICD-10: F02.80 Active 01/04/2016 Unknown Abnormal weight loss ICD-9: 783.21 ICD-10: R63.4 Active 10/05/2015 Unknown Cough ICD-9: 786.2 ICD-10: R05 Active 07/07/2015 Unknown Acute laryngopharyngitis ICD-9: 465.0 ICD-10: J06.0 Active 06/23/2015 Unknown Other allergic rhinitis ICD-9: 477.8 ICD-10: J30.89 Active 06/23/2015 Unknown Essential (primary) hypertension ICD-9: 401.9 ICD-10: I10 Active 06/15/2015 Unknown Type 2 diabetes mellitus with other specified complication ICD-9: 250.00 ICD-10: E11.69 Active 09/22/2013 Unknown Hypo-osmolality and hyponatremia ICD-9: 276.1 ICD-10: E87.1 Active 05/15/2015 Unknown Pain in unspecified shoulder ICD-9: 719.41 ICD-10: M25.519 Active 05/15/2015 Unknown DIABETES TYPE II ICD-9 : 250.00 Active 09/22/2013 Unknown ESSENTIAL HYPERTENSION ICD-9: 401.9 Active 09/22/2013 Unknown HYPERLIPIDEMIA ICD-9: 272.4 Active 02/24/2014 Unknown HYPOTHYROIDISM ICD-9: 244.9 Active 04/28/2014 Unknown Visit for screening mammogram ICD-9: V76.12 Active 06/24/2014 Unknown Shingles ICD-9: 053.9 Active 10/22/2013 Unknown EDEMA ICD-9: 782.3 Active 09/22/2013 Unknown Open wound of back ICD -9: 876.0 Active 05/22/2013 Unknown Postherpetic neuralgia ICD-9: 053.19 Active 05/07/2013 Unknown Chest pain ICD-9: 786.50 Active 11/17/2012 Unknown Adhesive capsulitis of right shoulder ICD-9: 726.0 Active 05/15 Unknown Osteoarthritis of shoulder ICD-9: 715.91 Active 05/15/2012 Unknown Drug therapy ICD-9: V58.69 Active 02/14/2012 Unknown Diabetes mellitus type 2, uncontrolled ICD-9: 250.02 Active 08/2011 Unknown Dizziness ICD-9: 780.4 Active 09/13/2011 Unknown Nocturia ICD-9: 788.43 Active 08/28/2011 Unknown Skin lesion of face ICD-9: 709.9 Active 08/28/2011 Unknown Lumbago ICD-9: 724.2 Active 2011 Unknown Osteoarthritis Unknown Active 05/16/2011 Unknown Hand pain ICD-9: 729.5 Active 05/16/2011 Unknown Osteoarthrosis ICD-9: 715.90 Active 05/16/2011 Unknown VACCIN STREP PNEUMONIAE ICD-9: V03.82 Active 01/17/2011 Unknown IMPACTED CERUMEN ICD-9 : 380.4 Active 12/12/2010 Unknown Pelvic fracture ICD-9 : 808.8 Active 12/12/2010 Unknown VACCIN FOR INFLUENZA ICD-9: V04.81 Active 12/12/2010 Unknown Arthritis Unknown Active 11/15/2010 Unknown Diabetes Unknown Active 11/15/2010 Unknown Diverticular disease Unknown Active 11/15/2010 Unknown Hernia Unknown Active 11/15/2010 Unknown Hyperlipidemia Unknown Active 11/15/2010 Unknown Hypertension Unknown Active 11/15/2010 Unknown Hypothryroidism Unknown Active 11/15/2010 Unknown Osteoporosis Unknown Active 11/15/2010 Unknown Pylenonephritis Unknown Active 11/15/2010 Unknown Abnormal gait ICD-9: 781.2 Active 11/15/2010 Unknown Acute vulvitis or vulvovaginitis ICD-9: 616.10 Active 2010 Unknown Maximino flu with pneumonia ICD-9: 488.01 Active 11/15/2010 Unknown Cellulitis of digit ICD-9: 681.9 Active 11/15/2010 Unknown Cough ICD-9: 786.2 Active 11/15/2010 Unknown Hyperosmolality and hypernatremia ICD-9: 276.0 Active 2010 Unknown 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 11/15/2010 Unknown Problems Condition Codes Effective Dates Condition Status Encounter for follow-up examination after completed treatment for conditions other than malignant neoplasm ICD-9: V67.9 ICD-10: Z09 03/07/2017 Active Encounter for immunization ICD-9: V04.81 ICD-10: Z23 12/31/2016 Active Essential (primary) hypertension ICD-9: 401.1 ICD-10: I10 03/25/2016 Active Type 2 diabetes mellitus with hyperglycemia ICD-9: 250.02 ICD-10: E11.65 10/15/2011 Active Collapsed vertebra, not elsewhere classified, thoracic region, initial encounter for fracture ICD- 9: 733.13 ICD-10: M48.54XA 12/06/2016 Active Shortness of breath ICD-9: 786.05 ICD-10: R06.02 12/06/2016 Active Type 2 diabetes mellitus without complications ICD-9: 250.00 ICD-10: E11.9 09/22/2013 Active Atrophy of thyroid (acquired) ICD-9: 244.8 ICD-10: E03.4 03/25/2016 Active Nail dystrophy ICD-9: 703.8 ICD-10: L60.3 12/08/2015 Active Onycholysis ICD-9: 703.8 ICD-10: L60.1 08/15/2016 Active Tinea unguium ICD-9: 110.1 ICD-10: B35.1 12/08/2015 Active Vascular dementia without behavioral disturbance ICD-9: 290.40 ICD-10: F01.50 12/07/2015 Active Hypothyroidism, unspecified ICD-9: 244.9 ICD-10: E03.9 04/28/2014 Active Muscle weakness (generalized) ICD-9: 728.87 ICD-10: M62.81 2016 Active Unsteadiness on feet ICD-9: 781.2 ICD-10: R26.81 2016 Active Vitamin B12 deficiency anemia due to intrinsic factor deficiency ICD-9: 281.0 ICD-10: D51.0 06/12/2015 Active Mixed hyperlipidemia ICD-9: 272.4 ICD-10: E78.2 02/24/2014 Active Dysuria ICD-9: 788.1 ICD-10: R30.0 01/23/2016 Active Cellulitis of left external ear ICD-9: 380.10 ICD-10: H60.12 01/22/2016 Active Dementia in other diseases classified elsewhere without behavioral disturbance ICD-9: 294.10 ICD-10: F02.80 01/04/2016 Active Abnormal weight loss ICD-9: 783.21 ICD-10: R63.4 10/05/2015 Active Cough ICD-9: 786.2 ICD-10: R05 07/07/2015 Active Acute laryngopharyngitis ICD-9: 465.0 ICD-10: J06.0 06/23/2015 Active Other allergic rhinitis ICD-9: 477.8 ICD-10: J30.89 06/23/2015 Active Essential (primary) hypertension ICD-9: 401.9 ICD-10: I10 06/15/2015 Active Type 2 diabetes mellitus with other specified complication ICD-9: 250.00 ICD-10: E11.69 09/22/2013 Active Hypo-osmolality and hyponatremia ICD-9: 276.1 ICD-10: E87.1 05/15/2015 Active Pain in unspecified shoulder ICD-9: 719.41 ICD-10: M25.519 05/15/2015 Active DIABETES TYPE II ICD-9 : 250.00 09/22/2013 Active ESSENTIAL HYPERTENSION ICD-9: 401.9 09/22/2013 Active HYPERLIPIDEMIA ICD-9: 272.4 02/24/2014 Active HYPOTHYROIDISM ICD-9: 244.9 04/28/2014 Active Visit for screening mammogram ICD-9: V76.12 06/24/2014 Active Shingles ICD-9: 053.9 10/22/2013 Active EDEMA ICD-9: 782.3 09/22/2013 Active Open wound of back ICD -9: 876.0 05/22/2013 Active Postherpetic neuralgia ICD-9: 053.19 05/07/2013 Active Chest pain ICD-9: 786.50 11/17/2012 Active Adhesive capsulitis of right shoulder ICD-9: 726.0 05/15/2012 Active Osteoarthritis of shoulder ICD-9: 715.91 05/15/2012 Active Drug therapy ICD-9: V58.69 02/14/2012 Active Diabetes mellitus type 2, uncontrolled ICD-9: 250.02 10/15/2011 Active Dizziness ICD-9: 780.4 09/13/2011 Active Nocturia ICD-9: 788.43 08/28/2011 Active Skin lesion of face ICD-9: 709.9 08/28/2011 Active Lumbago ICD-9: 724.2 2011 Active Osteoarthritis Unknown 05/16/2011 Active Hand pain ICD-9: 729.5 05/16/2011 Active Osteoarthrosis ICD-9: 715.90 05/16/2011 Active VACCIN STREP PNEUMONIAE ICD-9: V03.82 01/17/2011 Active IMPACTED CERUMEN ICD-9 : 380.4 12/12/2010 Active Pelvic fracture ICD-9 : 808.8 12/12/2010 Active VACCIN FOR INFLUENZA ICD-9: V04.81 12/12/2010 Active Arthritis Unknown 11/15/2010 Active Diabetes Unknown 11/15/2010 Active Diverticular disease Unknown 11/15/2010 Active Hernia Unknown 11/15/2010 Active Hyperlipidemia Unknown 11/15/2010 Active Hypertension Unknown 11/15/2010 Active Hypothryroidism Unknown 11/15/2010 Active Osteoporosis Unknown 11/15/2010 Active Pylenonephritis Unknown 11/15/2010 Active Abnormal gait ICD-9: 781.2 11/15/2010 Active Acute vulvitis or vulvovaginitis ICD-9: 616.10 11/15/2010 Active Maximino flu with pneumonia ICD-9: 488.01 11/15/2010 Active Cellulitis of digit ICD-9: 681.9 11/15/2010 Active Cough ICD-9: 786.2 11/15/2010 Active Hyperosmolality and hypernatremia ICD-9: 276.0 11/15/2010 Active 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 11/15/2010 Active Medications Medication Codes Instructions Start Date Stop Date Status Fill Instructions omeprazole 20 mg tablet,delayed release RxNorm: 290948 Tablet(s) TAKE ONE CAPSULE BY MOUTH ONCE A DAY 04/08/2017 09/29/2018 Active losartan 50 mg tablet RxNorm: 145217 Tablet(s) PO TAKE ONE TABLET BY MOUTH EVERY DAY 04/08/2017 03/03/2018 Active Remeron 15 mg tablet RxNorm: 426203 Tablet(s) TAKE ONE TABLET BY MOUTH EVERY EVENING 04/08/2017 07/06/2017 Active metoprolol succinate ER 25 mg tablet,extended release 24 hr RxNorm: 782788 1 Tablet(s) PO daily 04/08/2017 09/04/2017 Active amlodipine 5 mg tablet RxNorm: 814629 1 Tablet(s) PO daily 05/02/2018 Active metoprolol succinate ER 25 mg tablet,extended release 24 hr RxNorm: 820702 1 Tablet(s) PO daily 04/08/2017 04/07/2017 Inactive Namenda XR 28 mg capsule sprinkle,extended release RxNorm: 098147 TAKE ONE CAPSULE BY MOUTH DAILY 01/29/20172017 Active Remeron 15 mg tablet RxNorm: 330656 TAKE ONE TABLET BY MOUTH EVERY EVENING 12/21/2016 03/20/2017 Inactive Lantus Solostar 100 unit/mL (3 mL) subcutaneous insulin pen RxNorm: 065457 18 Unit(s) SQ BID 09/10/2016 03/08/2017 Inactive Lantus Solostar 100 unit/mL (3 mL) subcutaneous insulin pen RxNorm: 934140 16 Unit(s) SQ BID 08/15/2016 09/09/2016 Inactive Lantus Solostar 100 unit/mL (3 mL) subcutaneous insulin pen RxNorm: 458581 12 Unit(s) SQ BID 2016 08/14/2016 Inactive Lantus 100 unit/mL subcutaneous solution RxNorm: 266651 12 Unit(s) SQ BID 05/25/2016 07/16/2016 Inactive Pre-filled pens not bottles FreeStyle Lite Strips RxNorm: TEST TWO TIMES A DAY 05/23/2016 12/10/2029 Active amlodipine 5 mg tablet RxNorm: 065816 1 Tablet(s) PO daily 04/07/2017 Inactive Lantus 100 unit/mL subcutaneous solution RxNorm: 145909 12 Unit(s) SQ BID 05/23/2016 05/24/2016 Inactive omeprazole 20 mg tablet,delayed release RxNorm: 361286 Tablet(s) TAKE ONE CAPSULE BY MOUTH ONCE A DAY 05/23/2016 04/07/2017 Inactive Namenda XR 28 mg capsule sprinkle,extended release RxNorm: 260634 1 Capsule(s) PO daily 05/23/2016 12/18/2016 Inactive she needs to start on the titration pack again please Remeron 15 mg tablet RxNorm: 454138 1 Tablet(s) PO QPM 201609/19/2016 Inactive prednisone 20 mg tablet RxNorm: 129549 2 Tablet(s) PO daily prescribed by the ER 01/21/2016 01/23/2016 Inactive Levaquin 500 mg tablet RxNorm: 286477 1 Tablet(s) PO daily Prescribed by the ER 01/21/2016 01/23/2016 Inactive Lantus 100 unit/mL subcutaneous solution RxNorm: 124948 12 Unit(s) SQ BID 11/03/2015 12/02/2015 Inactive Remeron 15 mg tablet RxNorm: 727877 1 Tablet(s) PO QPM 201502/16/2016 Inactive Remeron 15 mg tablet RxNorm: 313662 1 Tablet(s) PO QPM 201510/19/2015 Inactive Namenda XR 21 mg capsule sprinkle,extended release RxNorm: 081224 1 Capsule(s) PO daily 07/21/2015 07/27/2015 Inactive Namenda XR 14 mg capsule sprinkle,extended release RxNorm: 844347 1 Capsule(s) PO daily 07/14/2015 07/20/2015 Inactive Lantus 100 unit/mL subcutaneous solution RxNorm: 720510 17 Unit(s) SQ QAM 07/07/2015 11/02/2015 Inactive Namenda XR 28 mg capsule sprinkle,extended release RxNorm: 558449 1 Capsule(s) PO daily 07/07/2015 02/01/2016 Inactive Namenda XR 7 mg capsule sprinkle,extended release RxNorm: 402898 1 Capsule(s) PO daily 07/07/2015 07/13/2015 Inactive then stop after 1 week Zithromax 250 mg tablet RxNorm: 314012 Tablet(s) PO UD 201510/05/2015 Inactive amlodipine 5 mg tablet RxNorm: 397502 1 Tablet(s) PO daily 06/201505/07/2016 Inactive amlodipine 10 mg tablet RxNorm: 732458 1/2 Tablet(s) PO daily TAKE ONE TABLET BY MOUTH EVERY DAY 02/17/2015 04/13/2015 Inactive Lantus 100 unit/mL subcutaneous solution RxNorm: 156457 15 Unit(s) SQ QHS 02/04/2015 06/03/2015 Inactive Lantus 100 unit/mL subcutaneous solution RxNorm: 032381 10 Unit(s) SQ QHS 01/18/2015 02/03/2015 Inactive Synthroid 25 mcg tablet RxNorm: 021632 TAKE ONE TABLET BY MOUTH EVERY DAY 11/04/2014 04/26/2016 Inactive amlodipine 10 mg tablet RxNorm: 100863 1 Tablet(s) PO daily TAKE ONE TABLET BY MOUTH EVERY DAY 11/01/2014 02/16/2015 Inactive Levemir FlexTouch 100 unit/mL (3 mL) subcutaneous insulin pen RxNorm: 355068 10 Unit(s) SQ QHS 10/27/2014 01/17/2015 Inactive please supply pt with BD Pen needles 1 box qty 100 DX 250.02 supply x 1 month for insulin and needles Neurontin 100 mg capsule RxNorm: 840974 TAKE TWO CAPSULES BY MOUTH EVERY NIGHT AT BEDTIME 10/26/2014 10/20/2015 Inactive Levemir FlexTouch 100 unit/mL (3 mL) subcutaneous insulin pen RxNorm: 377386 5 Unit(s) SQ QHS 09/02/2014 09/01/2014 Inactive please supply pt with BD Pen needles DX 250.02 supply x 1 month for insulin and needles Levemir FlexTouch 100 unit/mL (3 mL) subcutaneous insulin pen RxNorm: 772183 5 Unit(s) SQ QHS 09/02/2014 10/26/2014 Inactive please supply pt with BD Pen needles 1 box qty 100 DX 250.02 supply x 1 month for insulin and needles omeprazole 20 mg tablet,delayed release RxNorm: 367075 TAKE ONE CAPSULE BY MOUTH ONCE A DAY 08/30/2014 02/20/2016 Inactive metformin 500 mg tablet RxNorm: 628495 TAKE TWO TABLETS BY MOUTH TWICE A DAY 07/22/2014 12/29/2014 Inactive FreeStyle Lite Strips RxNorm: TEST TWO TIMES A DAY 06/07/2014 05/22/2016 Inactive glipizide 10 mg tablet RxNorm: 736138 TAKE ONE TABLET BY MOUTH TWICE A DAY 05/31/2014 10/26/2014 Inactive potassium chloride ER 10 mEq tablet,extended release RxNorm: 468957 TAKE TWO TABLETS BY MOUTH EVERY DAY 05/03/2014 Inactive potassium chloride ER 10 mEq tablet,extended release RxNorm: 174079 TAKE TWO TABLETS BY MOUTH EVERY DAY 05/03/2014 Inactive hydrochlorothiazide 25 mg tablet RxNorm: 258692 TAKE ONE TABLET BY MOUTH EVERY DAY 03/11/2014 02/16/2015 Inactive lovastatin 20 mg tablet RxNorm: 348071 TAKE ONE TABLET BY MOUTH EVERY DAY 03/01/2014 01/24/2015 Inactive losartan 25 mg tablet RxNorm: 249997 TAKE ONE TABLET BY MOUTH EVERY DAY 11/27/2013 10/22/2014 Inactive amlodipine 10 mg tablet RxNorm: 842867 TAKE ONE TABLET BY MOUTH EVERY DAY 10/26/2013 09/20/2014 Inactive amlodipine 10 mg tablet RxNorm: 297358 TAKE ONE TABLET BY MOUTH EVERY DAY 10/23/2013 10/25/2013 Inactive acyclovir 800 mg tablet RxNorm: 665979 1 Tablet(s) PO TID 10/2210/31/2013 Inactive [SAVINGS FOR UNINSURED PATIENTS -- BIN:[id number], PCN: ASPROD1, Group: [id number], ID# [id number], Process claim through [employer], for questions: . THIS IS NOT INSURANCE.] amlodipine 10 mg tablet RxNorm: 167732 Tablet(s) PO TAKE ONE TABLET BY MOUTH EVERY DAY 10/21/2013 10/22/2013 Inactive [SAVINGS FOR UNINSURED PATIENTS -- BIN: 407604, PCN: ASPROD1, Group: [id number], ID# [id number], Process claim through [employer] , for questions: . THIS IS NOT INSURANCE.] metformin 500 mg tablet RxNorm: 517831 TAKE TWO TABLETS BY MOUTH TWICE A DAY 10/19/2013 07/15/2014 Inactive Neurontin 100 mg capsule RxNorm: 061116 2 Capsule(s) PO QHS 07/201310/25/2014 Inactive [SAVINGS FOR UNINSURED PATIENTS -- BIN:[id number], PCN: ASPROD1, Group: [id number] , ID# [id number], Process claim through [employer], for questions: . THIS IS NOT INSURANCE.] Synthroid 25 mcg tablet RxNorm: 292306 TAKE ONE TABLET BY MOUTH EVERY DAY 09/23/2013 11/03/2014 Inactive Januvia 100 mg tablet RxNorm: 330448 1 Tablet(s) PO daily 201310/26/2014 Inactive [SAVINGS FOR UNINSURED PATIENTS -- BIN:406705, PCN: ASPROD1, Group: [id number], ID # [id number], Process claim through [employer], for questions: . THIS IS NOT INSURANCE.] chlorthalidone 25 mg tablet RxNorm: 223496 Tablet(s) PO QAM 09/12/2014 Inactive [SAVINGS FOR UNINSURED PATIENTS -- BIN:967489, PCN: ASPROD1, Group: [id number] , ID# [id number], Process claim through [employer], for questions: . THIS IS NOT INSURANCE.] omeprazole 20 mg tablet,delayed release RxNorm: 018294 1 Tablet(s) PO daily 08/17/2013 08/16/2013 Inactive omeprazole 20 mg tablet,delayed release RxNorm: 331831 1 Tablet(s) PO daily 08/17/2013 08/29/2014 Inactive glipizide 10 mg tablet RxNorm: 307684 Tablet(s) PO TAKE ONE TABLET BY MOUTH TWICE A DAY 07/02/2013 05/30/2014 Inactive hydrochlorothiazide 25 mg tablet RxNorm: 602378 Tablet(s) PO TAKE ONE TABLET BY MOUTH EVERY DAY 06/25/2013 09/21/2013 Inactive Synthroid 25 mcg tablet RxNorm: 290583 Tablet(s) PO TAKE ONE TABLET BY MOUTH EVERY DAY 06/16/2013 09/22/2013 Inactive Neurontin 100 mg capsule RxNorm: 026645 2 Capsule(s) PO QHS 09/201310/12/2013 Inactive Neurontin 100 mg capsule RxNorm: 630493 2 Capsule(s) PO QHS 06/201306/14/2013 Inactive potassium chloride ER 10 mEq tablet,extended release RxNorm: 083222 Tablet(s) PO TAKE TWO TABLETS BY MOUTH EVERY DAY 05/21/2013 05/02/2014 Inactive Neurontin 100 mg capsule RxNorm: 217453 2 Capsule(s) PO QHS 1 PILL AT BEDTIME X 1 WEEK THEN INCREASE TO 2 PILLS AT BEDTIME 05/07/2013 06/05/2013 Inactive acyclovir 400 mg tablet RxNorm: 291495 1 Tablet(s) PO QID 04/2305/02/2013 Inactive lovastatin 20 mg tablet RxNorm: 856402 Tablet(s) PO TAKE ONE TABLET BY MOUTH EVERY DAY 02/14/2013 02/28/2014 Inactive metformin 500 mg tablet RxNorm: 166736 Tablet(s) PO TAKE TWO TABLETS BY MOUTH TWICE A DAY 12/16/2012 12/29/2014 Inactive metformin 500 mg tablet RxNorm: 745810 2 Tablet(s) PO BID 12/1512/15/2012 Inactive Synthroid 25 mcg tablet RxNorm: 665069 Tablet(s) PO TAKE ONE TABLET BY MOUTH EVERY DAY 12/08/2012 06/15/2013 Inactive lovastatin 20 mg tablet RxNorm: 253187 Tablet(s) PO TAKE ONE TABLET BY MOUTH EVERY DAY 11/17/2012 02/13/2013 Inactive losartan 25 mg tablet RxNorm: 070121 1 Tablet(s) PO daily 201211/11/2013 Inactive amlodipine 10 mg tablet RxNorm: 860222 Tablet(s) PO TAKE ONE TABLET BY MOUTH EVERY DAY 10/15/2012 10/20/2013 Inactive hydrochlorothiazide 25 mg tablet RxNorm: 611641 Tablet(s) PO TAKE ONE TABLET BY MOUTH EVERY DAY 09/20/2012 06/24/2013 Inactive omeprazole 20 mg tablet,delayed release RxNorm: 235721 1 Tablet(s) PO daily 08/11/2012 08/05/2013 Inactive lovastatin 20 mg tablet RxNorm: 024805 Tablet(s) PO TAKE ONE TABLET BY MOUTH EVERY DAY 07/16/2012 11/16/2012 Inactive glipizide 10 mg tablet RxNorm: 000405 Tablet(s) PO TAKE ONE TABLET BY MOUTH TWICE A DAY 06/30/2012 06/29/2012 Inactive glipizide 10 mg tablet RxNorm: 538124 1 Tablet(s) PO BID TAKE ONE TABLET BY MOUTH TWICE A DAY 06/30/2012 07/01/2013 Inactive potassium chloride ER 10 mEq tablet,extended release RxNorm: 005336 2 Tablet(s) PO daily 05/19/2012 05/13/2013 Inactive Januvia 100 mg tablet RxNorm: 766929 1 Tablet(s) PO daily 201205/09/2013 Inactive amlodipine 10 mg tablet RxNorm: 112635 Tablet(s) PO TAKE ONE TABLET BY MOUTH EVERY DAY 04/07/2012 10/14/2012 Inactive Synthroid 25 mcg tablet RxNorm: 513472 Tablet(s) PO TAKE ONE TABLET BY MOUTH EVERY DAY 03/21/2012 12/07/2012 Inactive Januvia 50 mg tablet RxNorm: 628892 1 Tablet(s) PO 03/17/2012 05/14/2012 Inactive metformin 500 mg tablet RxNorm: 284724 2 Tablet(s) PO BID 10/2410/24/2011 Inactive metformin 500 mg tablet RxNorm: 070545 2 Tablet(s) PO BID 10/2410/18/2012 Inactive hydrochlorothiazide 25 mg tablet RxNorm: 510760 1 Tablet(s) PO daily 09/17/2011 09/19/2012 Inactive amlodipine 10 mg tablet RxNorm: 486770 1 Tablet(s) PO daily 03/24/2012 Inactive omeprazole 20 mg tablet,delayed release RxNorm: 709258 1 Tablet(s) PO daily 08/07/2011 08/10/2012 Inactive amlodipine 5 mg Tab RxNorm: 911758 1 Tablet(s) PO daily 201108/27/2011 Inactive lovastatin 20 mg tablet RxNorm: 023674 1 Tablet(s) PO daily 04/201107/15/2012 Inactive glipizide 10 mg tablet RxNorm: 494850 1 Tablet(s) PO BID 201106/29/2012 Inactive Kombiglyze XR 5 mg-1,000 mg 24 hr Tab RxNorm: 6612137 1 Tablet(s) PO daily 06/20/2011 10/24/2011 Inactive metformin 500 mg Tab RxNorm: 259776 2 Tablet(s) PO BID 201110/15/2011 Inactive ketorolac 60 mg/2 mL IM RxNorm: 145590 Milliliter(s) IM 201105/16/2011 Inactive Synthroid 25 mcg tablet RxNorm: 758066 1 Tablet(s) PO daily 03/20/2012 Inactive amlodipine 5 mg Tab RxNorm: 906963 1 Tablet(s) PO daily 201008/06/2011 Inactive KCL 20 meq RxNorm: 1 PO daily 01/22/2011 Inactive Pneumovax 23 25 mcg/0.5 mL Injection RxNorm: 263875 Milliliter(s) Inj 01/17/2011 01/17/2011 Inactive omeprazole 20 mg Tab, Delayed Release RxNorm: 267795 1 Tablet(s) PO daily 01/04/2011 07/02/2011 Inactive lovastatin 20 mg Tab RxNorm: 148490 1 Tablet(s) PO daily 201006/24/2011 Inactive Influenza Virus Vaccine 0.5 mL RxNorm: IM 12/12/2010 12/12/2010 Inactive glipizide 10 mg Tab RxNorm: 469884 1 Tablet(s) PO BID 201006/24/2011 Inactive metformin 500 mg Tab RxNorm: 993535 2 Tablet(s) PO BID 1000 mg hs x2 weeks then 1000mg bid 11/15/2010 02/12/2011 Inactive metformin 500 mg Tab RxNorm: 818978 2 Tablet(s) PO BID 201002/12/2011 Inactive Vitamin D Oral RxNorm : Oral No Start Date Active lutein oral RxNorm: 89103 oral No Start Date Active Centrum Silver Oral RxNorm: Oral No Start Date Active Vitamin B-12 oral RxNorm: 89616 oral No Start Date Active aspirin 81 mg Tab, Delayed Release RxNorm: 194852 1 Tablet(s) PO daily No Start Date Active glipizide 10 mg Tab RxNorm: 778262 1 Tablet(s) PO BID No Start Date 12/03/2010 Inactive hydrochlorothiazide 25 mg Tab RxNorm: 795908 Tablet(s) PO daily No Start Date 09/16/2011 Inactive FreeStyle Lite Strips RxNorm: 1 Miscellaneous BID dx 250.02 No Start Date 06/06/2014 Inactive levothyroxine 25 mcg Tab RxNorm: 131250 1 Tablet(s) PO daily No Start Date 02/18/2012 Inactive lovastatin 20 mg Tab RxNorm: 147435 Tablet(s) PO daily No Start Date 12/26/2010 Inactive amlodipine 5 mg Tab RxNorm: 494203 1 Tablet(s) PO daily No Start Date 02/12/2011 Inactive omeprazole 20 mg Tab, Delayed Release RxNorm: 774589 Oral No Start Date 01/03/2011 Inactive Synthroid 25 mcg Tab RxNorm: 563698 Oral No Start Date 03/26/2011 Inactive Accu-Chek Active Test Strips RxNorm: 1 Miscellaneous BID No Start Date 03/31/2012 Inactive clotrimazole-betamethasone 1 %-0.05 % Lotion RxNorm: 325653 Application TOP TID No Start Date 07/06/2015 Inactive KCL 20 meq RxNorm: 2 PO daily No Start Date 01/21/2011 Inactive metformin 500 mg Tab RxNorm: 505705 1 Tablet(s) PO QAM 1000 mg hs x2 weeks then 1000mg bid No Start Date 11/14/2010 Inactive Medication Administered Medication Codes Instructions Start Date Status ketorolac 60 mg/2 mL IM RxNorm: 767324 Milliliter 05/16/2011 No longer Active Pneumovax 23 25 mcg/0.5 mL Injection RxNorm: 774758 Milliliter 01/17/2011 No longer Active Influenza Virus Vaccine 0.5 mL RxNorm: 12/12/2010 No longer Active Immunizations Vaccine Codes Date Status Influenza CVX: 141 12/31/2016 completed PPD Unknown 05/26/2013 completed PPD Unknown 05/22/2013 completed Influenza CVX: 141 12/15/2012 completed Influenza CVX: 141 02/16/2012 completed Pneumococcal (Adult) CVX: 33 01/17/2011 completed Influenza CVX: 141 12/12/2010 completed Assessments Condition Codes Effective Dates Encounter for follow-up examination after completed treatment for conditions other than malignant neoplasm ICD-10: Z09 ICD-9: V67.9 03/07/2017 Essential (primary) hypertension ICD-10: I10 ICD-9: 401.1 12/31/2016 Encounter for immunization ICD-10: Z23 ICD-9: V04.81 12/31/2016 Type 2 diabetes mellitus with hyperglycemia ICD-10: E11.65 ICD-9: 250.02 12/31/2016 Shortness of breath ICD-10: R06.02 ICD-9: 786.05 12/06/2016 Collapsed vertebra, not elsewhere classified, thoracic region, initial encounter for fracture ICD-10: M48.54XA ICD-9: 733.13 12/06/2016 Atrophy of thyroid (acquired) ICD-10: E03.4 ICD-9: 244.8 08/15/2016 Vascular dementia without behavioral disturbance ICD-10: F01.50 ICD-9: 290.40 08/15/2016 Onycholysis ICD-10: L60.1 ICD-9: 703.8 08/15/2016 Nail dystrophy ICD-10: L60.3 ICD-9: 703.8 08/15/2016 Tinea unguium ICD-10: B35.1 ICD-9: 110.1 08/15/2016 Muscle weakness (generalized) ICD-10: M62.81 ICD-9: 728.87 2016 Vitamin B12 deficiency anemia due to intrinsic factor deficiency ICD-10: D51.0 ICD-9: 281.0 2016 Hypothyroidism, unspecified ICD-10: E03.9 ICD-9: 244.9 2016 Unsteadiness on feet ICD-10: R26.81 ICD-9: 781.2 2016 Mixed hyperlipidemia ICD-10: E78.2 ICD-9: 272.4 03/26/2016 Dysuria ICD-10: R30.0 ICD-9: 788.1 01/24/2016 Cellulitis of left external ear ICD-10: H60.12 ICD-9: 380.10 01/23/2016 Dementia in other diseases classified elsewhere without behavioral disturbance ICD-10: F02.80 ICD-9: 294.10 01/05/2016 Type 2 diabetes mellitus without complications ICD-10: E11.9 ICD-9: 250.00 12/09/2015 Abnormal weight loss ICD-10: R63.4 ICD-9: 783.21 10/06/2015 Cough ICD-10: R05 ICD-9: 786.2 07/07/2015 Acute laryngopharyngitis ICD-10: J06.0 ICD-9: 465.0 06/24/2015 Other allergic rhinitis ICD-10: J30.89 ICD-9: 477.8 06/24/2015 Essential (primary) hypertension ICD-10: I10 ICD-9: 401.9 06/16/2015 Type 2 diabetes mellitus with other specified complication ICD-10: E11.69 ICD-9: 250.00 06/13/2015 Pain in unspecified shoulder ICD-10: M25.519 ICD-9: 719.41 05/16/2015 Hypo-osmolality and hyponatremia ICD-10: E87.1 ICD-9: 276.1 05/16/2015 HYPOTHYROIDISM ICD-9: 244.9 10/27/2014 ESSENTIAL HYPERTENSION ICD-9: 401.9 10/27 DIABETES TYPE II ICD-9: 250.00 2014 HYPERLIPIDEMIA ICD-9: 272.4 10/27/2014 Visit for screening mammogram ICD-9: V76.12 06/24/2014 Shingles ICD-9: 053.9 10/22/2013 EDEMA ICD-9: 782.3 09/22/2013 OPEN WOUND OF BACK ICD-9: 876.0 2013 DM W/O COMPLICATION TYPE II, UNCONTROLLED SNOMED: 47136199 ICD-9: 250.02 05/21/2013 ENCNTR LONG-RX USE NEC ICD-9: V58.69 Postherpetic neuralgia ICD-9: 053.19 Rib pain on left side ICD-9: 786.50 03/25 VACCIN FOR INFLUENZA ICD-9: V04.81 2012 Osteoarthritis of shoulder ICD-9: 715.91 05/15/2012 Adhesive capsulitis of right shoulder ICD-9: 726.0 05/15/2012 Osteoarthritis ICD-9: 715.90 02/18/2012 Dizziness ICD-9: 780.4 09/13/2011 Skin lesion of face ICD-9: 709.9 2011 Nocturia ICD-9: 788.43 08/28/2011 Lumbago ICD-9: 724.2 2011 Hand pain ICD-9: 729.5 05/16/2011 VACCIN STREP PNEUMONIAE ICD-9: V03.82 11/2010 IMPACTED CERUMEN ICD-9: 380.4 12/12/2010 Pelvic fracture ICD-9: 808.8 12/12/2010 Reason For Visit Reason For Visit Effective Dates Notes Hospital Follow Up 03/07/2017 ER follow up diabetes mellitus 12/31/2016 Hospital Follow Up 12/06/2016 diabetes mellitus 09/10/2016 diabetes mellitus 08/15/2016 medication follow up 2016 check meds diabetes mellitus 03/26/2016 Hospital Follow Up 01/23/2016 diabetes mellitus 01/05/2016 diabetes mellitus 12/09/2015 diabetes mellitus 12/08/2015 diabetes mellitus 11/03/2015 diabetes mellitus 10/06/2015 diabetes mellitus 07/07/2015 cough 06/24/2015 diabetes mellitus 06/16/2015 diabetes mellitus 05/16/2015 diabetes mellitus 04/14/2015 diabetes mellitus 03/14/2015 diabetes mellitus 02/17/2015 diabetes mellitus 01/18/2015 diabetes mellitus 12/30/2014 diabetes mellitus 10/27/2014 ~generic 08/25/2014 left great toe pain diabetes mellitus 04/28/2014 still has a little bit, but much better diabetes mellitus 02/24/2014 right side hypertension 10/22/2013 diabetes mellitus 09/22/2013 diabetes mellitus 06/24/2013 skin lesion 05/26/2013 --Improved skin lesion 05/21/2013 skin lesion 05/07/2013 has had shingles for about 2 weeks rash 04/23/2013 hypertension 03/25/2013 diabetes mellitus 12/18/2012 diabetes mellitus 12/15/2012 hypertension 11/17/2012 hypertension 07/14/2012 hypertension 05/15/2012 hypertension 03/17/2012 hypertension 02/18/2012 diabetes mellitus 02/04/2012 hypertension 10/15/2011 hypertension 09/13/2011 blood pressure followup 08/28/2011 back pain 2011 blood pressure followup 05/16/2011 blood pressure followup 01/17/2011 hip pain 12/12/2010 diabetes mellitus 11/15/2010 Results Observation Observation Code Item Item Code Result Date %Hba1C Lqp095 % HbA1c 36504-3 6.1 % 01/01/2017 %Hba1C Oav970 Gluc Ave 128 mg/dL 01/01/2017 Metabolic Ord15 NA 138 mEq/L 01/01/2017 Metabolic Ord15 K 3.5 mEq/L 01/01/2017 Metabolic Ord15 CL 100 mEq/L 01/01/2017 Metabolic Ord15 CO2 29.0 mEq/L 01/01/2017 Metabolic Ord15 GLUCOSE 173 mg/dL 01/01/2017 Metabolic Ord15 BUN 18 mg/dL 01/01/2017 Metabolic Ord15 Creat 1.0 mg/dL 01/01/2017 Metabolic Ord15 B/C Ratio 18.8 Ratio 01/01/2017 Metabolic Ord15 eGFR 59 ml/min/1.73m2 01/01/2017 Metabolic Ord15 Osmo 282 mOsmo 01/01/2017 Metabolic Ord15 ANION GAP 13 01/01/2017 Metabolic Ord15 CALCIUM 9.4 mg/dL 01/01/2017 Comp Metabolic Ruy365 NA 128 mEq/L 2016 Comp Metabolic Hvp263 K 3.8 mEq/L 2016 Comp Metabolic Nto538 CL 90 mEq/L 2016 Comp Metabolic Fbt597 CO2 28.0 mEq/L 2016 Comp Metabolic Nvs146 ANION GAP 14 2016 Comp Metabolic Mys481 GLUCOSE 140 mg/dL 2016 Comp Metabolic Kua508 Creat 0.9 mg/dL 2016 Comp Metabolic Cbd852 eGFR 62 ml/min/1.73m2 2016 Comp Metabolic Gzg834 BUN 20 mg/dL 2016 Comp Metabolic Wdl993 B/C Ratio 21.7 Ratio 2016 Comp Metabolic Chk709 CALCIUM 8.6 mg/dL 2016 Comp Metabolic Jsh294 ALK PHOS 147 U/L 2016 Comp Metabolic Oij514 AST(SGOT) 26 U/L 2016 Comp Metabolic Uje262 ALT(SGPT) 21 U/L 2016 Comp Metabolic Qcm844 BILI T 0.7 mg/dL 2016 Comp Metabolic Xpw915 ALBUMIN 3.5 g/dL 2016 Comp Metabolic Wva751 TPRO 7.1 g/dL 2016 Comp Metabolic Blr757 GLOB 3.7 g/dL 2016 Comp Metabolic Cgl074 A/G Ratio 0.9 Ratio 2016 Comp Metabolic Hvo699 Osmo 262 mOsmo 2016 Free T4 Sbm733 FREE T4 1.12 ng/dL 2016 Tsh Ord6 hTSH II 3.45 uIU/mL 2016 B12 Nwz284 B12 486.00 pg/ml 2016 Cbc With Differential Ord2 WBC 6.91 K/ul 2016 Cbc With Differential Ord2 RBC 3.79 M/ul 2016 Cbc With Differential Ord2 HGB 11.6 g/dl 2016 Cbc With Differential Ord2 HCT 34.5 % 2016 Cbc With Differential Ord2 Neut% 77.0 % 2016 Cbc With Differential Ord2 Lymph% 13.9 % 2016 Cbc With Differential Ord2 MCV 91.0 fl 2016 Cbc With Differential Ord2 [place]% 7.8 % 2016 Cbc With Differential Ord2 MCH 30.6 pg 2016 Cbc With Differential Ord2 Eos% 1.2 % 2016 Cbc With Differential Ord2 MCHC 33.6 pg 2016 Cbc With Differential Ord2 Baso% 0.1 % 2016 Cbc With Differential Ord2 PLT 254 K/ul 2016 Cbc With Differential Ord2 RDW 13.2 % 2016 Cbc With Differential Ord2 Neut ABS# 5.32 K/ul 2016 Cbc With Differential Ord2 Lymph ABS# 0.96 K/ul 2016 Cbc With Differential Ord2 [place] ABS# 0.5 K/ul 2016 Cbc With Differential Ord2 Eos ABS# 0.1 K/ul 2016 Cbc With Differential Ord2 Baso ABS# 0.0 K/ul 2016 %Hba1C Xed061 % HbA1c 36196-0 8.0 % 2016 %Hba1C Fln989 Gluc Ave 183 mg/dL 2016 Free T4 Pgb341 FREE T4 0.87 ng/dL 03/26/2016 %Hba1C Shm080 % HbA1c 06998-2 8.4 % 03/26/2016 %Hba1C Bmu959 Gluc Ave 194 mg/dL 03/26/2016 Tsh Ord6 hTSH II 1.89 uIU/mL 03/26/2016 Comp Metabolic Bit339 NA 130 mEq/L 03/26/2016 Comp Metabolic Bey011 K 3.6 mEq/L 03/26/2016 Comp Metabolic Ool012 CL 93 mEq/L 03/26/2016 Comp Metabolic Sis796 CO2 32.0 mEq/L 03/26/2016 Comp Metabolic Hom461 ANION GAP 9 03/26/2016 Comp Metabolic Ynj244 GLUCOSE 280 mg/dL 03/26/2016 Comp Metabolic Qfu730 Creat 0.9 mg/dL 03/26/2016 Comp Metabolic Qmm788 eGFR 63 ml/min/1.73m2 03/26/2016 Comp Metabolic Isf835 BUN 16 mg/dL 03/26/2016 Comp Metabolic Nta290 B/C Ratio 17.6 Ratio 03/26/2016 Comp Metabolic Zmh439 CALCIUM 9.5 mg/dL 03/26/2016 Comp Metabolic Exc378 ALK PHOS 66 U/L 03/26/2016 Comp Metabolic Cig392 AST(SGOT) 16 U/L 03/26/2016 Comp Metabolic Blw364 ALT(SGPT) 9 U/L 03/26/2016 Comp Metabolic Utf680 BILI T 0.4 mg/dL 03/26/2016 Comp Metabolic Lfi255 ALBUMIN 3.8 g/dL 03/26/2016 Comp Metabolic Nlk202 TPRO 7.0 g/dL 03/26/2016 Comp Metabolic Utb964 GLOB 3.2 g/dL 03/26/2016 Comp Metabolic Sfm221 A/G Ratio 1.2 Ratio 03/26/2016 Comp Metabolic Bnf379 Osmo 272 mOsmo 03/26/2016 Metabolic Ord15 NA 133 mEq/L 11/03/2015 Metabolic Ord15 K 3.8 mEq/L 11/03/2015 Metabolic Ord15 CL 96 mEq/L 11/03/2015 Metabolic Ord15 CO2 32.0 mEq/L 11/03/2015 Metabolic Ord15 GLUCOSE 335 mg/dL 11/03/2015 Metabolic Ord15 BUN 12 mg/dL 11/03/2015 Metabolic Ord15 Creat 0.9 mg/dL 11/03/2015 Metabolic Ord15 B/C Ratio 13.6 Ratio 11/03/2015 Metabolic Ord15 eGFR 65 ml/min/1.73m2 11/03/2015 Metabolic Ord15 Osmo 279 mOsmo 11/03/2015 Metabolic Ord15 ANION GAP 9 11/03/2015 Metabolic Ord15 CALCIUM 9.2 mg/dL 11/03/2015 %Hba1C Yrm876 % HbA1c 81445-7 9.7 % 11/03/2015 %Hba1C Wur410 Gluc Ave 232 mg/dL 11/03/2015 Tsh Ord6 hTSH II 1.80 uIU/mL 06/13/2015 Comp Metabolic Btv108 NA 129 mEq/L 06/13/2015 Comp Metabolic Mnc085 K 3.8 mEq/L 06/13/2015 Comp Metabolic Nmj342 CL 93 mEq/L 06/13/2015 Comp Metabolic Mwf033 CO2 30.0 mEq/L 06/13/2015 Comp Metabolic Snp143 ANION GAP 10 06/13/2015 Comp Metabolic Ffp817 GLUCOSE 179 mg/dL 06/13/2015 Comp Metabolic Cap626 Creat 0.8 mg/dL 06/13/2015 Comp Metabolic Eno633 eGFR 74 ml/min/1.73m2 06/13/2015 Comp Metabolic Hbp985 BUN 16 mg/dL 06/13/2015 Comp Metabolic Dil436 B/C Ratio 20.3 Ratio 06/13/2015 Comp Metabolic Jgw027 CALCIUM 9.5 mg/dL 06/13/2015 Comp Metabolic Tzk560 ALK PHOS 72 U/L 06/13/2015 Comp Metabolic Dda922 AST(SGOT) 16 U/L 06/13/2015 Comp Metabolic Imx983 ALT(SGPT) 9 U/L 06/13/2015 Comp Metabolic Nas883 BILI T 0.4 mg/dL 06/13/2015 Comp Metabolic Jzm939 ALBUMIN 3.8 g/dL 06/13/2015 Comp Metabolic Edw730 TPRO 7.3 g/dL 06/13/2015 Comp Metabolic Ocl462 GLOB 3.5 g/dL 06/13/2015 Comp Metabolic Vhe684 A/G Ratio 1.1 Ratio 06/13/2015 Comp Metabolic Bfo270 Osmo 265 mOsmo 06/13/2015 B12 Yqi823 B12 196.00 pg/ml 06/13/2015 Free T4 Kre007 FREE T4 0.96 ng/dL 06/13/2015 Cbc With Differential Ord2 WBC 4.21 K/ul 06/13/2015 Cbc With Differential Ord2 RBC 3.77 M/ul 06/13/2015 Cbc With Differential Ord2 HGB 11.1 g/dl 06/13/2015 Cbc With Differential Ord2 Neut% 53.7 % 06/13/2015 Cbc With Differential Ord2 HCT 34.9 % 06/13/2015 Cbc With Differential Ord2 Lymph% 32.3 % 06/13/2015 Cbc With Differential Ord2 MCV 92.6 fl 06/13/2015 Cbc With Differential Ord2 MCH 29.4 pg 06/13/2015 Cbc With Differential Ord2 [place]% 12.4 % 06/13/2015 Cbc With Differential Ord2 Eos% 1.4 % 06/13/2015 Cbc With Differential Ord2 MCHC 31.8 pg 06/13/2015 Cbc With Differential Ord2 PLT 227 K/ul 06/13/2015 Cbc With Differential Ord2 Baso% 0.2 % 06/13/2015 Cbc With Differential Ord2 Neut ABS# 2.26 K/ul 06/13/2015 Cbc With Differential Ord2 RDW 14.4 % 06/13/2015 Cbc With Differential Ord2 Lymph ABS# 1.36 K/ul 06/13/2015 Cbc With Differential Ord2 [place] ABS# 0.5 K/ul 06/13/2015 Cbc With Differential Ord2 Eos ABS# 0.1 K/ul 06/13/2015 Cbc With Differential Ord2 Baso ABS# 0.0 K/ul 06/13/2015 Cbc With Differential Ord2 New Analyzer Notice Please note new ref ranges starting 03-23-2015 due to implemntation of new five part differential hematolgy analyzer. 06/13/2015 %Hba1C Dud985 % HbA1c 89288-8 8.4 % 06/13/2015 %Hba1C Fux292 Gluc Ave 194 mg/dL 06/13/2015 B12 Ttf709 B12 308.00 pg/ml 03/15/2015 Cbc With Differential Ord2 WBC 5.2 K/uL 03/14/2015 Cbc With Differential Ord2 LYM 1.5 K/uL 03/14/2015 Cbc With Differential Ord2 LYM% 28.2 % 03/14/2015 Cbc With Differential Ord2 NEUT/GRAN 3.4 K/uL 03/14/2015 Cbc With Differential Ord2 NEUT/GRAN % 64.6 % 03/14/2015 Cbc With Differential Ord2 MID 0.4 K/uL 03/14/2015 Cbc With Differential Ord2 MID% 7.2 % 03/14/2015 Cbc With Differential Ord2 RBC 3.73 M/uL 03/14/2015 Cbc With Differential Ord2 HGB 11.5 g/dL 03/14/2015 Cbc With Differential Ord2 HCT 35.7 % 03/14/2015 Cbc With Differential Ord2 MCV 96 fL 03/14/2015 Cbc With Differential Ord2 MCH 31 pg 03/14/2015 Cbc With Differential Ord2 MCHC 32 g/dL 03/14/2015 Cbc With Differential Ord2 PLT 284 K/uL 03/14/2015 Cbc With Differential Ord2 RDW 13.3 % 03/14/2015 Comp Metabolic Eoz662 NA 127 mEq/L 03/14/2015 Comp Metabolic Our850 K 3.5 mEq/L 03/14/2015 Comp Metabolic Bks372 CL 88 mEq/L 03/14/2015 Comp Metabolic Gcd385 CO2 30.0 mEq/L 03/14/2015 Comp Metabolic Edm832 ANION GAP 13 03/14/2015 Comp Metabolic Axy997 GLUCOSE 240 mg/dL 03/14/2015 Comp Metabolic Dgz745 Creat 0.9 mg/dL 03/14/2015 Comp Metabolic Yhv731 eGFR 66 ml/min/1.73m2 03/14/2015 Comp Metabolic Scf078 BUN 17 mg/dL 03/14/2015 Comp Metabolic Stl909 B/C Ratio 19.5 Ratio 03/14/2015 Comp Metabolic Zlz121 CALCIUM 9.4 mg/dL 03/14/2015 Comp Metabolic Mpu648 ALK PHOS 64 U/L 03/14/2015 Comp Metabolic Qvk395 AST(SGOT) 16 U/L 03/14/2015 Comp Metabolic Zed093 ALT(SGPT) 9 U/L 03/14/2015 Comp Metabolic Jby404 BILI T 0.4 mg/dL 03/14/2015 Comp Metabolic Xbs409 ALBUMIN 3.8 g/dL 03/14/2015 Comp Metabolic Bsg631 TPRO 7.0 g/dL 03/14/2015 Comp Metabolic Rvm940 GLOB 3.2 g/dL 03/14/2015 Comp Metabolic Brd110 A/G Ratio 1.2 Ratio 03/14/2015 Comp Metabolic Jry632 Osmo 265 mOsmo 03/14/2015 Metabolic Ord15 NA 126 mEq/L 02/02/2015 Metabolic Ord15 K 3.5 mEq/L 02/02/2015 Metabolic Ord15 CL 87 mEq/L 02/02/2015 Metabolic Ord15 CO2 28.0 mEq/L 02/02/2015 Metabolic Ord15 GLUCOSE 337 mg/dL 02/02/2015 Metabolic Ord15 BUN 16 mg/dL 02/02/2015 Metabolic Ord15 Creat 0.9 mg/dL 02/02/2015 Metabolic Ord15 B/C Ratio 18.6 Ratio 02/02/2015 Metabolic Ord15 eGFR 67 ml/min/1.73m2 02/02/2015 Metabolic Ord15 Osmo 268 mOsmo 02/02/2015 Metabolic Ord15 ANION GAP 15 02/02/2015 Metabolic Ord15 CALCIUM 9.1 mg/dL 02/02/2015 Metabolic Ord15 NA 128 mEq/L 01/13/2015 Metabolic Ord15 K 3.7 mEq/L 01/13/2015 Metabolic Ord15 CL 92 mEq/L 01/13/2015 Metabolic Ord15 CO2 29.0 mEq/L 01/13/2015 Metabolic Ord15 GLUCOSE 299 mg/dL 01/13/2015 Metabolic Ord15 BUN 11 mg/dL 01/13/2015 Metabolic Ord15 Creat 0.8 mg/dL 01/13/2015 Metabolic Ord15 B/C Ratio 13.9 Ratio 01/13/2015 Metabolic Ord15 eGFR 74 ml/min/1.73m2 01/13/2015 Metabolic Ord15 Osmo 268 mOsmo 01/13/2015 Metabolic Ord15 ANION GAP 11 01/13/2015 Metabolic Ord15 CALCIUM 9.3 mg/dL 01/13/2015 %Hba1C Oci222 % HbA1c 31651-0 8.0 % 12/31/2014 %Hba1C Lwq073 Gluc Ave 183 mg/dL 12/31/2014 Tsh Ord6 hTSH II 1.62 uIU/mL 12/30/2014 Cbc With Differential Ord2 WBC 7.3 K/uL 12/30/2014 Cbc With Differential Ord2 LYM 1.7 K/uL 12/30/2014 Cbc With Differential Ord2 LYM% 23.2 % 12/30/2014 Cbc With Differential Ord2 NEUT/GRAN 5.1 K/uL 12/30/2014 Cbc With Differential Ord2 NEUT/GRAN % 69.9 % 12/30/2014 Cbc With Differential Ord2 MID 0.5 K/uL 12/30/2014 Cbc With Differential Ord2 MID% 6.9 % 12/30/2014 Cbc With Differential Ord2 RBC 3.77 M/uL 12/30/2014 Cbc With Differential Ord2 HGB 11.4 g/dL 12/30/2014 Cbc With Differential Ord2 HCT 35.5 % 12/30/2014 Cbc With Differential Ord2 MCV 94 fL 12/30/2014 Cbc With Differential Ord2 MCH 30 pg 12/30/2014 Cbc With Differential Ord2 MCHC 32 g/dL 12/30/2014 Cbc With Differential Ord2 PLT 289 K/uL 12/30/2014 Cbc With Differential Ord2 RDW 12.8 % 12/30/2014 Comp Metabolic Uop929 NA 124 mEq/L 12/30/2014 Comp Metabolic Fhk050 K 3.4 mEq/L 12/30/2014 Comp Metabolic Zwv094 CL 84 mEq/L 12/30/2014 Comp Metabolic Fzt219 CO2 29.0 mEq/L 12/30/2014 Comp Metabolic Dsy611 ANION GAP 14 12/30/2014 Comp Metabolic Yed538 GLUCOSE 138 mg/dL 12/30/2014 Comp Metabolic Nxm727 Creat 0.8 mg/dL 12/30/2014 Comp Metabolic Fia958 eGFR 69 ml/min/1.73m2 12/30/2014 Comp Metabolic Ueq326 BUN 12 mg/dL 12/30/2014 Comp Metabolic Ths791 B/C Ratio 14.3 Ratio 12/30/2014 Comp Metabolic Cbd866 CALCIUM 8.3 mg/dL 12/30/2014 Comp Metabolic Fmk083 ALK PHOS 59 U/L 12/30/2014 Comp Metabolic Mxv329 AST(SGOT) 16 U/L 12/30/2014 Comp Metabolic Sqo110 ALT(SGPT) 7 U/L 12/30/2014 Comp Metabolic Sqa119 BILI T 0.7 mg/dL 12/30/2014 Comp Metabolic Uuj306 ALBUMIN 4.3 g/dL 12/30/2014 Comp Metabolic Oek443 TPRO 7.4 g/dL 12/30/2014 Comp Metabolic Oai015 GLOB 3.1 g/dL 12/30/2014 Comp Metabolic Iuw170 A/G Ratio 1.4 Ratio 12/30/2014 Comp Metabolic Hjq278 Osmo 252 mOsmo 12/30/2014 CHEM 14 AST 17 U/L 02/25/2014 CHEM 14 ALT 9 IU/L 02/25/2014 CHEM 14 BUN 15 MG/DL 02/25/2014 CHEM 14 ALBUMIN 4.2 GM/DL 02/25/2014 CHEM 14 CHLORIDE 91 MMOL/L 02/25/2014 CHEM 14 BILI TOT 0.5 MG/DL 02/25/2014 CHEM 14 ALK PHOS 81 U/L 02/25/2014 CHEM 14 SODIUM 126 MMOL/L 02/25/2014 CHEM 14 CREATININE 0.85 MG/DL 02/25/2014 CHEM 14 CALCIUM 10.1 MG/DL 02/25/2014 CHEM 14 POTASSIUM 3.6 MMOL/L 02/25/2014 CHEM 14 PROT TOT 8.2 GM/DL 02/25/2014 CHEM 14 GLUCOSE 143 MG/DL 02/25/2014 CHEM 14 BICARB 26 MMOL/L 02/25/2014 CHEM 14 ANION GAP 9 MEQ/L 02/25/2014 GFR CALC GFR AA >60 ML/MIN 02/25/2014 GFR CALC GFR NON-AA >60 ML/MIN 02/25/2014 MICRALUR [id number] MICRL MG/L 30.8 MG/L 02/25/2014 MICRALUR [id number] XM.ALB/CRE 40.0 MG/GCR 02/25/2014 MICRALUR [id number] CREAT MG/D 77 MG/DL 02/25/2014 MICRALUR 0857323 CRE/100 0.77 G/L 02/25/2014 A1C HPLC [id number] A1C HPLC 85203-3 6.8 % 02/25/2014 FREE T4 2062971 FREE T4 1.49 NG/DL 02/25/2014 LIPID GRP HDL TEST 52 MG/DL 02/25/2014 LIPID GRP TRIG 86 MG/DL 02/25/2014 LIPID GRP TEST LDL 97 MG/DL 02/25/2014 LIPID GRP CHOL 166 MG/DL 02/25/2014 LIPID GRP RCHOL/HDL 3.19 RATIO 02/25/2014 LIPID GRP NON-HDL CH 114 MG/DL 02/25/2014 TSH [id number] TSH 3.348 uIU/ML 02/25/2014 CBC WBC 5.8 10e9/L 02/25/2014 CBC RBC 3.78 10e12/L 02/25/2014 CBC HGB 11.6 g/dL 02/25/2014 CBC HCT DET 34.2 % 02/25/2014 CBC MCV 90.5 fL 02/25/2014 CBC MCH 30.7 pg 02/25/2014 CBC MCHC 33.9 g/dL 02/25/2014 CBC PLT 306 10e9/L 02/25/2014 CBC MPV 9.6 fL 02/25/2014 CBC CYNTHIA % 71.1 % 02/25/2014 CBC LY % 18.4 % 02/25/2014 CBC MON % 8.4 % 02/25/2014 CBC EOS % 1.9 % 02/25/2014 CBC BASO % 0.2 % 02/25/2014 CBC RDW 13.5 % 02/25/2014 CBC ABS CYNTHIA 4.12 10e9/L 02/25/2014 CBC ABS LYMPH 1.07 10e9/L 02/25/2014 CBC ABS MONO 0.49 10e9/L 02/25/2014 CBC ABS EOS 0.11 10e9/L 02/25/2014 CBC ABS BASO 0.01 10e9/L 02/25/2014 CBC RDW-SD 43.3 fL 02/25/2014 ESR [id number] ESR 58 MM/HR 02/25/2014 CHEM 14 9812626 AST 16 U/L 05/21/2013 CHEM 14 4072716 ALT 12 IU/L 05/21/2013 CHEM 14 2480560 BUN 14 MG/DL 05/21/2013 CHEM 14 6284564 ALBUMIN 4.5 GM/DL 05/21/2013 CHEM 14 1168223 CHLORIDE 93 MMOL/L 05/21/2013 CHEM 14 7105322 BILI TOT 0.7 MG/DL 05/21/2013 CHEM 14 8435292 ALK PHOS 61 U/L 05/21/2013 CHEM 14 7346317 SODIUM 129 MMOL/L 05/21/2013 CHEM 14 6008359 CREATININE 0.87 MG/DL 05/21/2013 CHEM 14 6320001 CALCIUM 9.8 MG/DL 05/21/2013 CHEM 14 9101157 POTASSIUM 3.6 MMOL/L 05/21/2013 CHEM 14 5550503 PROT TOT 7.6 GM/DL 05/21/2013 CHEM 14 5706388 GLUCOSE 138 MG/DL 05/21/2013 CHEM 14 9057555 BICARB 27 MMOL/L 05/21/2013 CHEM 14 5592672 ANION GAP 9 MEQ/L 05/21/2013 A1C HPLC [id number] A1C HPLC 81932-3 6.4 % 05/21/2013 GFR CALC 0272111 GFR AA >60 ML/MIN 05/21/2013 GFR CALC 0719464 GFR NON-AA >60 ML/MIN 05/21/2013 FREE T4 1031844 FREE T4 1.23 NG/DL 11/18/2012 A1C HPLC 4092809 A1C HPLC 29545-3 7.3 % 11/18/2012 TSH 9301146 TSH 1.552 uIU/ML 11/18/2012 GFR CALC 0088484 GFR AA >60 ML/MIN 11/17/2012 GFR CALC 7764905 GFR NON-AA >60 ML/MIN 11/17/2012 CHEM 14 2717529 AST 18 U/L 11/17/2012 CHEM 14 9015702 ALT 13 IU/L 11/17/2012 CHEM 14 5696626 BUN 15 MG/DL 11/17/2012 CHEM 14 9882947 ALBUMIN 4.7 GM/DL 11/17/2012 CHEM 14 4046087 CHLORIDE 93 MMOL/L 11/17/2012 CHEM 14 1686401 BILI TOT 0.5 MG/DL 11/17/2012 CHEM 14 5458459 ALK PHOS 56 U/L 11/17/2012 CHEM 14 2289323 SODIUM 130 MMOL/L 11/17/2012 CHEM 14 8494427 CREATININE 0.73 MG/DL 11/17/2012 CHEM 14 4524575 CALCIUM 9.8 MG/DL 11/17/2012 CHEM 14 9496287 POTASSIUM 3.4 MMOL/L 11/17/2012 CHEM 14 2599311 PROT TOT 7.4 GM/DL 11/17/2012 CHEM 14 4556833 GLUCOSE 281 MG/DL 11/17/2012 CHEM 14 1064097 BICARB 28 MMOL/L 11/17/2012 CHEM 14 5241128 ANION GAP 9 MEQ/L 11/17/2012 A1C HPLC 8642915 A1C HPLC 38691-2 7.1 % 07/10/2012 TSH 4334400 TSH 2.676 uIU/ML 07/09/2012 GFR CALC 6510394 GFR AA >60 ML/MIN 07/09/2012 GFR CALC 9500379 GFR NON-AA >60 ML/MIN 07/09/2012 FREE T4 9850799 FREE T4 1.30 NG/DL 07/09/2012 CHEM 14 5608459 AST 16 U/L 07/09/2012 CHEM 14 4514886 ALT 14 IU/L 07/09/2012 CHEM 14 2295271 BUN 13 MG/DL 07/09/2012 CHEM 14 2250790 ALBUMIN 4.2 GM/DL 07/09/2012 CHEM 14 7285589 CHLORIDE 91 MMOL/L 07/09/2012 CHEM 14 4495154 BILI TOT 0.6 MG/DL 07/09/2012 CHEM 14 2857850 ALK PHOS 58 U/L 07/09/2012 CHEM 14 8857492 SODIUM 130 MMOL/L 07/09/2012 CHEM 14 8554629 CREATININE 0.85 MG/DL 07/09/2012 CHEM 14 1914732 CALCIUM 9.5 MG/DL 07/09/2012 CHEM 14 7938595 POTASSIUM 3.4 MMOL/L 07/09/2012 CHEM 14 1298046 PROT TOT 6.4 GM/DL 07/09/2012 CHEM 14 2454884 GLUCOSE 138 MG/DL 07/09/2012 CHEM 14 2699382 BICARB 29 MMOL/L 07/09/2012 CHEM 14 2489429 ANION GAP 10 MEQ/L 07/09/2012 LIPID GRP HDL TEST 53 MG/DL 07/09/2012 LIPID GRP TRIG 93 MG/DL 07/09/2012 LIPID GRP TEST LDL 106 MG/DL 07/09/2012 LIPID GRP CHOL 178 MG/DL 07/09/2012 LIPID GRP RCHOL/HDL 3.36 RATIO 07/09/2012 CBC 3558780 WBC 5.7 10e9/L 07/09/2012 CBC 2207918 RBC 3.97 10e12/L 07/09/2012 CBC 7682428 HGB 11.5 g/dL 07/09/2012 CBC 6035110 HCT DET 34.4 % 07/09/2012 CBC 5784613 MCV 86.6 fL 07/09/2012 CBC 2796333 MCH 29.0 pg 07/09/2012 CBC 5526721 MCHC 33.4 g/dL 07/09/2012 CBC 8540589 PLT 318 10e9/L 07/09/2012 CBC 3811956 MPV 10.1 fL 07/09/2012 CBC 3887546 CYNTHIA % 73.2 % 07/09/2012 CBC 4866441 LY % 18.1 % 07/09/2012 CBC 0079925 MON % 7.6 % 07/09/2012 CBC 8444795 EOS % 0.9 % 07/09/2012 CBC 5614276 BASO % 0.2 % 07/09/2012 CBC 9726915 RDW 16.6 % 07/09/2012 CBC 3710980 ABS CYNTHIA 4.17 10e9/L 07/09/2012 CBC 1181084 ABS LYMPH 1.03 10e9/L 07/09/2012 CBC 0926639 ABS MONO 0.43 10e9/L 07/09/2012 CBC 3774407 ABS EOS 0.05 10e9/L 07/09/2012 CBC 0759619 ABS BASO 0.01 10e9/L 07/09/2012 CBC 3780031 RDW-SD 51.5 fL 07/09/2012 A1C HPLC 7604576 A1C HPLC 47302-4 7.5 % 02/15/2012 CHEM 14 6235807 AST 18 U/L 02/14/2012 CHEM 14 8014351 ALT 13 IU/L 02/14/2012 CHEM 14 7969647 BUN 14 MG/DL 02/14/2012 CHEM 14 9803353 ALBUMIN 4.5 GM/DL 02/14/2012 CHEM 14 3064634 CHLORIDE 93 MMOL/L 02/14/2012 CHEM 14 4742380 BILI TOT 0.5 MG/DL 02/14/2012 CHEM 14 2503220 ALK PHOS 59 U/L 02/14/2012 CHEM 14 3657406 SODIUM 131 MMOL/L 02/14/2012 CHEM 14 6963018 CREATININE 0.71 MG/DL 02/14/2012 CHEM 14 1316895 CALCIUM 10.0 MG/DL 02/14/2012 CHEM 14 1669646 POTASSIUM 3.9 MMOL/L 02/14/2012 CHEM 14 8904779 PROT TOT 7.4 GM/DL 02/14/2012 CHEM 14 2978111 GLUCOSE 158 MG/DL 02/14/2012 CHEM 14 0122749 BICARB 30 MMOL/L 02/14/2012 CHEM 14 0930630 ANION GAP 8 MEQ/L 02/14/2012 LIPID GRP HDL TEST 64 MG/DL 02/14/2012 LIPID GRP TRIG 89 MG/DL 02/14/2012 LIPID GRP TEST LDL 97 MG/DL 02/14/2012 LIPID GRP CHOL 179 MG/DL 02/14/2012 LIPID GRP [id number] RCHOL/HDL 2.80 RATIO 02/14/2012 CBC 5424910 WBC 5.8 10e9/L 02/14/2012 CBC 7664099 RBC 4.00 10e12/L 02/14/2012 CBC 4284830 HGB 11.3 g/dL 02/14/2012 CBC 0869019 HCT DET 34.3 % 02/14/2012 CBC 3146073 MCV 85.8 fL 02/14/2012 CBC 1568003 MCH 28.3 pg 02/14/2012 CBC 7532202 MCHC 32.9 g/dL 02/14/2012 CBC 0419875 PLT 357 10e9/L 02/14/2012 CBC 8665436 MPV 10.1 fL 02/14/2012 CBC [id number] CYNTHIA % 60.2 % 02/14/2012 CBC 4161552 LY % 30.0 % 02/14/2012 CBC 1653067 MON % 7.2 % 02/14/2012 CBC 5234318 EOS % 2.6 % 02/14/2012 CBC 0478201 BASO % 0.0 % 02/14/2012 CBC 9205635 RDW 15.3 % 02/14/2012 CBC [id number] ABS CYNTHIA 3.49 10e9/L 02/14/2012 CBC [id number] ABS LYMPH 1.74 10e9/L 02/14/2012 CBC [id number] ABS MONO 0.42 10e9/L 02/14/2012 CBC [id number] ABS EOS 0.15 10e9/L 02/14/2012 CBC [id number] ABS BASO 0.00 10e9/L 02/14/2012 CBC [id number] RDW-SD 47.1 fL 02/14/2012 GFR CALC [id number] GFR AA >60 ML/MIN 02/14/2012 GFR CALC [id number] GFR NON-AA >60 ML/MIN 02/14/2012 TSH [id number] TSH 1.665 uIU/ML 02/14/2012 FREE T4 [id number] FREE T4 1.59 NG/DL 02/14/2012 CBC [id number] WBC 5.7 10e9/L 09/13/2011 CBC [id number] RBC 3.88 10e12/L 09/13/2011 CBC [id number] HGB 11.1 g/dL 09/13/2011 CBC [id number] HCT DET 33.8 % 09/13/2011 CBC [id number] MCV 87.1 fL 09/13/2011 CBC [id number] MCH 28.6 pg 09/13/2011 CBC [id number] MCHC 32.8 g/dL 09/13/2011 CBC [id number] PLT 311 10e9/L 09/13/2011 CBC [id number] MPV 10.2 fL 09/13/2011 CBC [id number] CYNTHIA % 68.3 % 09/13/2011 CBC [id number] LY % 21.6 % 09/13/2011 CBC [id number] MON % 8.1 % 09/13/2011 CBC [id number] EOS % 1.6 % 09/13/2011 CBC [id number] BASO % 0.4 % 09/13/2011 CBC [id number] RDW 14.6 % 09/13/2011 CBC [id number] ABS CYNTHIA 3.89 10e9/L 09/13/2011 CBC [id number] ABS LYMPH 1.23 10e9/L 09/13/2011 CBC [id number] ABS MONO 0.46 10e9/L 09/13/2011 CBC [id number] ABS EOS 0.09 10e9/L 09/13/2011 CBC [id number] ABS BASO 0.02 10e9/L 09/13/2011 CBC [id number] RDW-SD 45.2 fL 09/13/2011 CHEM 14 [id number] AST 18 U/L 09/13/2011 CHEM 14 [id number] ALT 12 IU/L 09/13/2011 CHEM 14 [id number] BUN 14 MG/DL 09/13/2011 CHEM 14 [id number] ALBUMIN 4.6 GM/DL 09/13/2011 CHEM 14 [id number] CHLORIDE 91 MMOL/L 09/13/2011 CHEM 14 [id number] BILI TOT 0.8 MG/DL 09/13/2011 CHEM 14 [id number] ALK PHOS 54 U/L 09/13/2011 CHEM 14 [id number] SODIUM 130 MMOL/L 09/13/2011 CHEM 14 [id number] CREATININE 0.84 MG/DL 09/13/2011 CHEM 14 [id number] CALCIUM 10.0 MG/DL 09/13/2011 CHEM 14 [id number] POTASSIUM 3.5 MMOL/L 09/13/2011 CHEM 14 [id number] PROT TOT 7.8 GM/DL 09/13/2011 CHEM 14 [id number] GLUCOSE 178 MG/DL 09/13/2011 CHEM 14 [id number] BICARB 29 MMOL/L 09/13/2011 CHEM 14 [id number] ANION GAP 10 MEQ/L 09/13/2011 A1C HPLC [id number] A1C HPLC [id number] 6.2 % 09/13/2011 GFR CALC [id number] GFR AA >60 ML/MIN 09/13/2011 GFR CALC [id number] GFR NON-AA >60 ML/MIN 09/13/2011 Review of Systems System Result Effective Dates Constitutional No chills 03/07/2017 Constitutional No diaphoresis 03/07/2017 Constitutional fatigue 03/07/2017 Constitutional No fever 03/07/2017 Eyes No vision change 03/07/2017 Ears/Nose/Throat/Neck dizziness 2016 Ears/Nose/Throat/Neck No headache 2016 Ears/Nose/Throat/Neck No nasal discharge 03/07/2017 Cardiovascular No chest pain/pressure Respiratory No cough 03/07/2017 Respiratory No dyspnea 03/07/2017 Gastrointestinal No abdominal pain 2016 Gastrointestinal No constipation 2016 Gastrointestinal No diarrhea 03/07/2017 Gastrointestinal No nausea 03/07/2017 Gastrointestinal No vomiting 03/07/2017 Genitourinary/Nephrology No dysuria 03/07 Musculoskeletal arthralgia(s) 03/07/2017 Dermatologic No rash 03/07/2017 Dermatologic No sores 03/07/2017 Neurologic No headache 03/07/2017 Neurologic memory loss 03/07/2017 Constitutional recent illness 03/07/2017 Ears/Nose/Throat/Neck No otalgia 2016 Neurologic No alteration of consciousness 03/07/2017 Constitutional anorexia 12/31/2016 Constitutional No night sweats 2016 Constitutional No chills 12/31/2016 Constitutional No diaphoresis 12/31/2016 Constitutional fatigue 12/31/2016 Constitutional No fever 12/31/2016 Constitutional No malaise 12/31/2016 Eyes No vision change 12/31/2016 Ears/Nose/Throat/Neck dizziness 2016 Ears/Nose/Throat/Neck No headache 2016 Ears/Nose/Throat/Neck No nasal discharge 12/31/2016 Ears/Nose/Throat/Neck No sore throat Ears/Nose/Throat/Neck No otalgia 2016 Cardiovascular No chest pain/pressure Respiratory No cough 12/31/2016 Respiratory No dyspnea 12/31/2016 Gastrointestinal No abdominal pain 2016 Gastrointestinal No constipation 2016 Gastrointestinal No diarrhea 12/31/2016 Gastrointestinal No nausea 12/31/2016 Gastrointestinal No vomiting 12/31/2016 Genitourinary/Nephrology No dysuria 12/31 Musculoskeletal arthralgia(s) 12/31/2016 Dermatologic No rash 12/31/2016 Dermatologic No sores 12/31/2016 Neurologic No dizziness 12/31/2016 Neurologic No headache 12/31/2016 Neurologic memory loss 12/31/2016 Psychiatric No anxiety 12/31/2016 Psychiatric No depression 12/31/2016 Constitutional recent illness 12/06/2016 Constitutional No chills 12/06/2016 Constitutional No diaphoresis 12/06/2016 Constitutional No fever 12/06/2016 Constitutional malaise 12/06/2016 Constitutional fatigue 12/06/2016 Eyes No eye erythema 12/06/2016 Ears/Nose/Throat/Neck No nasal discharge 12/06/2016 Ears/Nose/Throat/Neck No nasal allergies 12/06/2016 Cardiovascular No chest pain/pressure Cardiovascular fatigue 12/06/2016 Cardiovascular No palpitations 2016 Respiratory No cough 12/06/2016 Respiratory dyspnea on exertion 2016 Gastrointestinal No abdominal pain 2016 Gastrointestinal No constipation 2016 Gastrointestinal No diarrhea 12/06/2016 Gastrointestinal No vomiting 12/06/2016 Gastrointestinal No nausea 12/06/2016 Musculoskeletal arthralgia(s) 12/06/2016 Neurologic No alteration of consciousness 12/06/2016 Neurologic No mental status change 2016 Constitutional No night sweats 2016 Constitutional No chills 09/10/2016 Constitutional No diaphoresis 09/10/2016 Constitutional fatigue 09/10/2016 Constitutional No fever 09/10/2016 Constitutional No malaise 09/10/2016 Ears/Nose/Throat/Neck No headache 2016 Ears/Nose/Throat/Neck No nasal discharge 09/10/2016 Ears/Nose/Throat/Neck No sore throat 05/2016 Cardiovascular No chest pain/pressure 05/2016 Respiratory No cough 09/10/2016 Respiratory No dyspnea 09/10/2016 Gastrointestinal No abdominal pain 2016 Gastrointestinal No constipation 2016 Gastrointestinal No diarrhea 09/10/2016 Gastrointestinal No nausea 09/10/2016 Gastrointestinal No vomiting 09/10/2016 Genitourinary/Nephrology No dysuria 09/10 Musculoskeletal arthralgia(s) 09/10/2016 Dermatologic No rash 09/10/2016 Dermatologic No sores 09/10/2016 Neurologic No dizziness 09/10/2016 Neurologic No headache 09/10/2016 Neurologic memory loss 09/10/2016 Psychiatric No anxiety 09/10/2016 Psychiatric No depression 09/10/2016 Constitutional No night sweats 2016 Constitutional No chills 08/15/2016 Constitutional No diaphoresis 08/15/2016 Constitutional fatigue 08/15/2016 Constitutional No fever 08/15/2016 Constitutional No malaise 08/15/2016 Ears/Nose/Throat/Neck No headache 2016 Ears/Nose/Throat/Neck No nasal discharge 08/15/2016 Ears/Nose/Throat/Neck No sore throat 09/2016 Cardiovascular No chest pain/pressure 09/2016 Respiratory No cough 08/15/2016 Respiratory No dyspnea 08/15/2016 Gastrointestinal No abdominal pain 2016 Gastrointestinal No constipation 2016 Gastrointestinal No diarrhea 08/15/2016 Gastrointestinal No nausea 08/15/2016 Gastrointestinal No vomiting 08/15/2016 Genitourinary/Nephrology No dysuria 08/15 Musculoskeletal arthralgia(s) 08/15/2016 Dermatologic No rash 08/15/2016 Dermatologic No sores 08/15/2016 Neurologic No dizziness 08/15/2016 Neurologic No headache 08/15/2016 Neurologic memory loss 08/15/2016 Psychiatric No anxiety 08/15/2016 Psychiatric No depression 08/15/2016 Dermatologic callus 08/15/2016 Dermatologic onychodystrophy 08/15/2016 Constitutional No night sweats 2016 Constitutional No chills 2016 Constitutional No diaphoresis 2016 Constitutional fatigue 2016 Constitutional No fever 2016 Constitutional No malaise 2016 Ears/Nose/Throat/Neck No headache 2016 Ears/Nose/Throat/Neck No nasal discharge 2016 Ears/Nose/Throat/Neck No sore throat 11/2016 Cardiovascular No chest pain/pressure 11/2016 Respiratory No cough 2016 Respiratory No dyspnea 2016 Gastrointestinal No abdominal pain 2016 Gastrointestinal No constipation 2016 Gastrointestinal No diarrhea 2016 Gastrointestinal No nausea 2016 Gastrointestinal No vomiting 2016 Genitourinary/Nephrology No dysuria 07/17 Musculoskeletal arthralgia(s) 2016 Dermatologic No rash 2016 Dermatologic No sores 2016 Neurologic No dizziness 2016 Neurologic No headache 2016 Neurologic memory loss 2016 Psychiatric No anxiety 2016 Psychiatric No depression 2016 Constitutional No night sweats 2016 Constitutional No chills 03/26/2016 Constitutional No diaphoresis 03/26/2016 Constitutional fatigue 03/26/2016 Constitutional No fever 03/26/2016 Constitutional No malaise 03/26/2016 Ears/Nose/Throat/Neck No headache 2016 Ears/Nose/Throat/Neck No nasal discharge 03/26/2016 Ears/Nose/Throat/Neck No sore throat Cardiovascular No chest pain/pressure Respiratory No cough 03/26/2016 Respiratory No dyspnea 03/26/2016 Gastrointestinal No abdominal pain 2016 Gastrointestinal No constipation 2016 Gastrointestinal No diarrhea 03/26/2016 Gastrointestinal No nausea 03/26/2016 Gastrointestinal No vomiting 03/26/2016 Genitourinary/Nephrology No dysuria 03/26 Musculoskeletal arthralgia(s) 03/26/2016 Dermatologic No rash 03/26/2016 Dermatologic No sores 03/26/2016 Neurologic No dizziness 03/26/2016 Neurologic No headache 03/26/2016 Neurologic memory loss 03/26/2016 Psychiatric No anxiety 03/26/2016 Psychiatric No depression 03/26/2016 Constitutional recent illness 01/23/2016 Constitutional No fever 01/23/2016 Eyes No eye erythema 01/23/2016 Ears/Nose/Throat/Neck No nasal allergies 01/23/2016 Ears/Nose/Throat/Neck No nasal discharge 01/23/2016 Ears/Nose/Throat/Neck facial swelling Ears/Nose/Throat/Neck No facial weakness 01/23/2016 Ears/Nose/Throat/Neck No facial pain Ears/Nose/Throat/Neck No otalgia 2015 Cardiovascular No chest pain/pressure Cardiovascular No dyspnea 01/23/2016 Respiratory No cough 01/23/2016 Respiratory No dyspnea 01/23/2016 Dermatologic erythema 01/23/2016 Constitutional anorexia 01/05/2016 Constitutional No night sweats 2015 Constitutional No chills 01/05/2016 Constitutional No diaphoresis 01/05/2016 Constitutional fatigue 01/05/2016 Constitutional No fever 01/05/2016 Constitutional No malaise 01/05/2016 Eyes No vision change 01/05/2016 Ears/Nose/Throat/Neck dizziness 2015 Ears/Nose/Throat/Neck No headache 2015 Ears/Nose/Throat/Neck No nasal discharge 01/05/2016 Ears/Nose/Throat/Neck No sore throat Ears/Nose/Throat/Neck No otalgia 2015 Cardiovascular No chest pain/pressure Respiratory No cough 01/05/2016 Respiratory No dyspnea 01/05/2016 Gastrointestinal No abdominal pain 2015 Gastrointestinal No constipation 2015 Gastrointestinal No diarrhea 01/05/2016 Gastrointestinal No nausea 01/05/2016 Gastrointestinal No vomiting 01/05/2016 Genitourinary/Nephrology No dysuria 01/04 Musculoskeletal arthralgia(s) 01/05/2016 Dermatologic No rash 01/05/2016 Dermatologic No sores 01/05/2016 Neurologic No dizziness 01/05/2016 Neurologic No headache 01/05/2016 Neurologic memory loss 01/05/2016 Psychiatric No anxiety 01/05/2016 Psychiatric No depression 01/05/2016 Constitutional No chills 12/09/2015 Constitutional No diaphoresis 12/09/2015 Constitutional No fever 12/09/2015 Ears/Nose/Throat/Neck No nasal discharge 12/09/2015 Cardiovascular No chest pain/pressure Respiratory No dyspnea 12/09/2015 Dermatologic No rash 12/09/2015 Neurologic memory loss 12/09/2015 Eyes No eye erythema 12/09/2015 Ears/Nose/Throat/Neck No nasal allergies 12/09/2015 Cardiovascular No dyspnea 12/09/2015 Respiratory No cough 12/09/2015 Gastrointestinal No abdominal pain 2015 Neurologic No alteration of consciousness 12/09/2015 Constitutional anorexia 12/08/2015 Constitutional No night sweats 2015 Constitutional No chills 12/08/2015 Constitutional No diaphoresis 12/08/2015 Constitutional fatigue 12/08/2015 Constitutional No fever 12/08/2015 Constitutional No malaise 12/08/2015 Eyes No vision change 12/08/2015 Ears/Nose/Throat/Neck dizziness 2015 Ears/Nose/Throat/Neck No headache 2015 Ears/Nose/Throat/Neck No nasal discharge 12/08/2015 Ears/Nose/Throat/Neck No sore throat Ears/Nose/Throat/Neck No otalgia 2015 Cardiovascular No chest pain/pressure Respiratory No cough 12/08/2015 Respiratory No dyspnea 12/08/2015 Gastrointestinal No abdominal pain 2015 Gastrointestinal No constipation 2015 Gastrointestinal No diarrhea 12/08/2015 Gastrointestinal No nausea 12/08/2015 Gastrointestinal No vomiting 12/08/2015 Genitourinary/Nephrology No dysuria 12/07 Musculoskeletal arthralgia(s) 12/08/2015 Dermatologic No rash 12/08/2015 Dermatologic No sores 12/08/2015 Neurologic No dizziness 12/08/2015 Neurologic No headache 12/08/2015 Neurologic memory loss 12/08/2015 Psychiatric No anxiety 12/08/2015 Psychiatric No depression 12/08/2015 Constitutional anorexia 11/03/2015 Constitutional No night sweats 2015 Constitutional No chills 11/03/2015 Constitutional No diaphoresis 11/03/2015 Constitutional fatigue 11/03/2015 Constitutional No fever 11/03/2015 Constitutional No malaise 11/03/2015 Eyes No vision change 11/03/2015 Ears/Nose/Throat/Neck dizziness 2015 Ears/Nose/Throat/Neck No headache 2015 Ears/Nose/Throat/Neck No nasal discharge 11/03/2015 Ears/Nose/Throat/Neck No sore throat Ears/Nose/Throat/Neck No otalgia 2015 Cardiovascular No chest pain/pressure Respiratory No cough 11/03/2015 Respiratory No dyspnea 11/03/2015 Gastrointestinal No abdominal pain 2015 Gastrointestinal No constipation 2015 Gastrointestinal No diarrhea 11/03/2015 Gastrointestinal No nausea 11/03/2015 Gastrointestinal No vomiting 11/03/2015 Genitourinary/Nephrology No dysuria 11/02 Musculoskeletal arthralgia(s) 11/03/2015 Dermatologic No rash 11/03/2015 Dermatologic No sores 11/03/2015 Neurologic No dizziness 11/03/2015 Neurologic No headache 11/03/2015 Neurologic memory loss 11/03/2015 Psychiatric No anxiety 11/03/2015 Psychiatric No depression 11/03/2015 Constitutional anorexia 10/06/2015 Constitutional No night sweats 2015 Constitutional No chills 10/06/2015 Constitutional No diaphoresis 10/06/2015 Constitutional fatigue 10/06/2015 Constitutional No fever 10/06/2015 Constitutional No insomnia 10/06/2015 Constitutional No malaise 10/06/2015 Eyes No vision change 10/06/2015 Ears/Nose/Throat/Neck dizziness 2015 Ears/Nose/Throat/Neck No headache 2015 Ears/Nose/Throat/Neck No nasal discharge 10/06/2015 Ears/Nose/Throat/Neck No sore throat Ears/Nose/Throat/Neck No otalgia 2015 Cardiovascular No chest pain/pressure Respiratory No cough 10/06/2015 Respiratory No dyspnea 10/06/2015 Gastrointestinal No abdominal pain 2015 Gastrointestinal No constipation 2015 Gastrointestinal No diarrhea 10/06/2015 Gastrointestinal No nausea 10/06/2015 Gastrointestinal No vomiting 10/06/2015 Genitourinary/Nephrology No dysuria 10/05 Musculoskeletal arthralgia(s) 10/06/2015 Dermatologic No rash 10/06/2015 Dermatologic No sores 10/06/2015 Neurologic No dizziness 10/06/2015 Neurologic No headache 10/06/2015 Neurologic memory loss 10/06/2015 Psychiatric No anxiety 10/06/2015 Psychiatric No depression 10/06/2015 Constitutional recent illness 07/07/2015 Constitutional anorexia 07/07/2015 Constitutional No night sweats 2015 Constitutional No chills 07/07/2015 Constitutional No diaphoresis 07/07/2015 Constitutional fatigue 07/07/2015 Constitutional No fever 07/07/2015 Constitutional No insomnia 07/07/2015 Constitutional No malaise 07/07/2015 Eyes No vision change 07/07/2015 Ears/Nose/Throat/Neck dizziness 2015 Ears/Nose/Throat/Neck No headache 2015 Ears/Nose/Throat/Neck No nasal discharge 07/07/2015 Ears/Nose/Throat/Neck No sore throat Ears/Nose/Throat/Neck No otalgia 2015 Cardiovascular No chest pain/pressure Respiratory No cough 07/07/2015 Respiratory No dyspnea 07/07/2015 Gastrointestinal No abdominal pain 2015 Gastrointestinal No constipation 2015 Gastrointestinal No diarrhea 07/07/2015 Gastrointestinal No nausea 07/07/2015 Gastrointestinal No vomiting 07/07/2015 Genitourinary/Nephrology No dysuria 07/06 Musculoskeletal arthralgia(s) 07/07/2015 Dermatologic No rash 07/07/2015 Dermatologic No sores 07/07/2015 Neurologic No dizziness 07/07/2015 Neurologic No headache 07/07/2015 Neurologic memory loss 07/07/2015 Psychiatric No anxiety 07/07/2015 Psychiatric No depression 07/07/2015 Constitutional No diaphoresis 06/24/2015 Constitutional fatigue 06/24/2015 Constitutional No fever 06/24/2015 Constitutional No insomnia 06/24/2015 Constitutional No malaise 06/24/2015 Eyes No vision change 06/24/2015 Ears/Nose/Throat/Neck nasal discharge Cardiovascular No chest pain/pressure Respiratory No cough 06/24/2015 Respiratory No dyspnea 06/24/2015 Gastrointestinal No nausea 06/24/2015 Musculoskeletal arthralgia(s) 06/24/2015 Dermatologic No rash 06/24/2015 Psychiatric No anxiety 06/24/2015 Psychiatric No depression 06/24/2015 Constitutional recent illness 06/24/2015 Constitutional No chills 06/24/2015 Ears/Nose/Throat/Neck nasal allergies Ears/Nose/Throat/Neck sinus congestion Ears/Nose/Throat/Neck postnasal drip Gastrointestinal No vomiting 06/24/2015 Constitutional No recent illness 2015 Constitutional No night sweats 2015 Constitutional No chills 06/16/2015 Constitutional No diaphoresis 06/16/2015 Constitutional fatigue 06/16/2015 Constitutional No fever 06/16/2015 Constitutional No insomnia 06/16/2015 Constitutional No malaise 06/16/2015 Eyes No vision change 06/16/2015 Ears/Nose/Throat/Neck dizziness 2015 Ears/Nose/Throat/Neck No headache 2015 Ears/Nose/Throat/Neck No nasal discharge 06/16/2015 Ears/Nose/Throat/Neck No sore throat 09/2015 Ears/Nose/Throat/Neck No otalgia 2015 Cardiovascular No chest pain/pressure 09/2015 Respiratory No cough 06/16/2015 Respiratory No dyspnea 06/16/2015 Gastrointestinal No abdominal pain 2015 Gastrointestinal No constipation 2015 Gastrointestinal No diarrhea 06/16/2015 Gastrointestinal No nausea 06/16/2015 Gastrointestinal No vomiting 06/16/2015 Genitourinary/Nephrology No dysuria 06/15 Musculoskeletal arthralgia(s) 06/16/2015 Dermatologic No rash 06/16/2015 Dermatologic No sores 06/16/2015 Neurologic No dizziness 06/16/2015 Neurologic No headache 06/16/2015 Neurologic memory loss 06/16/2015 Psychiatric No anxiety 06/16/2015 Psychiatric No depression 06/16/2015 Constitutional No recent illness 2015 Constitutional anorexia 05/16/2015 Constitutional No night sweats 2015 Constitutional No chills 05/16/2015 Constitutional No diaphoresis 05/16/2015 Constitutional fatigue 05/16/2015 Constitutional No fever 05/16/2015 Constitutional No insomnia 05/16/2015 Constitutional No malaise 05/16/2015 Eyes No vision change 05/16/2015 Ears/Nose/Throat/Neck dizziness 2015 Ears/Nose/Throat/Neck No headache 2015 Ears/Nose/Throat/Neck No nasal discharge 05/16/2015 Ears/Nose/Throat/Neck No sore throat 09/2015 Ears/Nose/Throat/Neck No otalgia 2015 Cardiovascular No chest pain/pressure 09/2015 Respiratory No cough 05/16/2015 Respiratory No dyspnea 05/16/2015 Gastrointestinal No abdominal pain 2015 Gastrointestinal No constipation 2015 Gastrointestinal No diarrhea 05/16/2015 Gastrointestinal No nausea 05/16/2015 Gastrointestinal No vomiting 05/16/2015 Genitourinary/Nephrology No dysuria 05/15 Musculoskeletal arthralgia(s) 05/16/2015 Dermatologic No rash 05/16/2015 Dermatologic No sores 05/16/2015 Neurologic No dizziness 05/16/2015 Neurologic No headache 05/16/2015 Neurologic memory loss 05/16/2015 Psychiatric No anxiety 05/16/2015 Psychiatric No depression 05/16/2015 Constitutional No recent illness 2015 Constitutional anorexia 04/14/2015 Constitutional No night sweats 2015 Constitutional No chills 04/14/2015 Constitutional No diaphoresis 04/14/2015 Constitutional fatigue 04/14/2015 Constitutional No fever 04/14/2015 Constitutional No insomnia 04/14/2015 Constitutional No malaise 04/14/2015 Eyes No vision change 04/14/2015 Ears/Nose/Throat/Neck dizziness 2015 Ears/Nose/Throat/Neck No headache 2015 Ears/Nose/Throat/Neck No nasal discharge 04/14/2015 Ears/Nose/Throat/Neck No otalgia 2015 Ears/Nose/Throat/Neck No sore throat 06/2015 Cardiovascular No chest pain/pressure 06/2015 Respiratory No cough 04/14/2015 Respiratory No dyspnea 04/14/2015 Gastrointestinal No abdominal pain 2015 Gastrointestinal No constipation 2015 Gastrointestinal No diarrhea 04/14/2015 Gastrointestinal No nausea 04/14/2015 Gastrointestinal No vomiting 04/14/2015 Genitourinary/Nephrology No dysuria 04/14 Musculoskeletal arthralgia(s) 04/14/2015 Dermatologic No rash 04/14/2015 Dermatologic No sores 04/14/2015 Neurologic No dizziness 04/14/2015 Neurologic No headache 04/14/2015 Neurologic memory loss 04/14/2015 Psychiatric No anxiety 04/14/2015 Psychiatric No depression 04/14/2015 Constitutional No recent illness 2015 Constitutional anorexia 03/14/2015 Constitutional No night sweats 2015 Constitutional No chills 03/14/2015 Constitutional No diaphoresis 03/14/2015 Constitutional fatigue 03/14/2015 Constitutional No fever 03/14/2015 Constitutional No insomnia 03/14/2015 Constitutional No malaise 03/14/2015 Constitutional No weight loss 03/14/2015 Constitutional No weight gain 03/14/2015 Eyes No vision change 03/14/2015 Ears/Nose/Throat/Neck dizziness 2015 Ears/Nose/Throat/Neck No headache 2015 Ears/Nose/Throat/Neck No nasal discharge 03/14/2015 Ears/Nose/Throat/Neck No otalgia 2015 Ears/Nose/Throat/Neck No sore throat 06/2015 Cardiovascular No chest pain/pressure 06/2015 Respiratory No cough 03/14/2015 Respiratory No dyspnea 03/14/2015 Gastrointestinal No abdominal pain 2015 Gastrointestinal No constipation 2015 Gastrointestinal No diarrhea 03/14/2015 Gastrointestinal No nausea 03/14/2015 Gastrointestinal No vomiting 03/14/2015 Genitourinary/Nephrology No dysuria 03/14 Musculoskeletal arthralgia(s) 03/14/2015 Dermatologic No rash 03/14/2015 Dermatologic No sores 03/14/2015 Neurologic No dizziness 03/14/2015 Neurologic No headache 03/14/2015 Neurologic memory loss 03/14/2015 Psychiatric No anxiety 03/14/2015 Psychiatric No depression 03/14/2015 Endocrine No dry or coarse skin 2015 Constitutional No recent illness 2014 Constitutional anorexia 02/17/2015 Constitutional No night sweats 2014 Constitutional No chills 02/17/2015 Constitutional No diaphoresis 02/17/2015 Constitutional fatigue 02/17/2015 Constitutional No fever 02/17/2015 Constitutional No insomnia 02/17/2015 Constitutional No malaise 02/17/2015 Constitutional No weight loss 02/17/2015 Constitutional No weight gain 02/17/2015 Eyes No vision change 02/17/2015 Ears/Nose/Throat/Neck No headache 2014 Ears/Nose/Throat/Neck No nasal discharge 02/17/2015 Ears/Nose/Throat/Neck No otalgia 2014 Ears/Nose/Throat/Neck No sore throat 12/2014 Cardiovascular No chest pain/pressure 12/2014 Respiratory No cough 02/17/2015 Respiratory No dyspnea 02/17/2015 Gastrointestinal No abdominal pain 2014 Gastrointestinal No constipation 2014 Gastrointestinal No diarrhea 02/17/2015 Gastrointestinal No nausea 02/17/2015 Gastrointestinal No vomiting 02/17/2015 Genitourinary/Nephrology No dysuria 02/17 Musculoskeletal arthralgia(s) 02/17/2015 Dermatologic No rash 02/17/2015 Dermatologic No sores 02/17/2015 Neurologic No dizziness 02/17/2015 Neurologic No headache 02/17/2015 Neurologic memory loss 02/17/2015 Psychiatric No anxiety 02/17/2015 Psychiatric No depression 02/17/2015 Endocrine No dry or coarse skin 2014 Ears/Nose/Throat/Neck dizziness 2014 Constitutional No recent illness 2014 Constitutional anorexia 01/18/2015 Constitutional No night sweats 2014 Constitutional No chills 01/18/2015 Constitutional fatigue 01/18/2015 Constitutional No diaphoresis 01/18/2015 Constitutional No insomnia 01/18/2015 Constitutional No fever 01/18/2015 Constitutional No malaise 01/18/2015 Constitutional No weight loss 01/18/2015 Constitutional No weight gain 01/18/2015 Eyes No vision change 01/18/2015 Ears/Nose/Throat/Neck No headache 2014 Ears/Nose/Throat/Neck No nasal discharge 01/18/2015 Ears/Nose/Throat/Neck No sore throat 12/2014 Ears/Nose/Throat/Neck No otalgia 2014 Cardiovascular No chest pain/pressure 12/2014 Respiratory No cough 01/18/2015 Respiratory No dyspnea 01/18/2015 Gastrointestinal No nausea 01/18/2015 Gastrointestinal No vomiting 01/18/2015 Musculoskeletal arthralgia(s) 01/18/2015 Dermatologic No rash 01/18/2015 Dermatologic No sores 01/18/2015 Neurologic No dizziness 01/18/2015 Neurologic No headache 01/18/2015 Neurologic memory loss 01/18/2015 Psychiatric No anxiety 01/18/2015 Psychiatric No depression 01/18/2015 Genitourinary/Nephrology No dysuria 01/18 Gastrointestinal No constipation 2014 Gastrointestinal No diarrhea 01/18/2015 Gastrointestinal No abdominal pain 2014 Constitutional No chills 12/30/2014 Constitutional No fever 12/30/2014 Eyes No vision change 12/30/2014 Ears/Nose/Throat/Neck No headache 2014 Ears/Nose/Throat/Neck No nasal discharge 12/30/2014 Ears/Nose/Throat/Neck No sore throat Ears/Nose/Throat/Neck No otalgia 2014 Cardiovascular No chest pain/pressure Respiratory No cough 12/30/2014 Respiratory No dyspnea 12/30/2014 Gastrointestinal No abdominal pain 2014 Gastrointestinal No constipation 2014 Gastrointestinal No diarrhea 12/30/2014 Gastrointestinal No nausea 12/30/2014 Gastrointestinal No vomiting 12/30/2014 Musculoskeletal arthralgia(s) 12/30/2014 Dermatologic No rash 12/30/2014 Dermatologic No sores 12/30/2014 Neurologic No dizziness 12/30/2014 Neurologic No headache 12/30/2014 Neurologic memory loss 12/30/2014 Psychiatric No anxiety 12/30/2014 Psychiatric No depression 12/30/2014 Constitutional No chills 10/27/2014 Constitutional No fever 10/27/2014 Eyes No vision change 10/27/2014 Ears/Nose/Throat/Neck No headache 2014 Ears/Nose/Throat/Neck No nasal discharge 10/27/2014 Ears/Nose/Throat/Neck No sore throat Ears/Nose/Throat/Neck No otalgia 2014 Cardiovascular No chest pain/pressure Respiratory No cough 10/27/2014 Respiratory No dyspnea 10/27/2014 Gastrointestinal No abdominal pain 2014 Gastrointestinal No constipation 2014 Gastrointestinal No diarrhea 10/27/2014 Gastrointestinal No nausea 10/27/2014 Gastrointestinal No vomiting 10/27/2014 Musculoskeletal arthralgia(s) 10/27/2014 Dermatologic No rash 10/27/2014 Dermatologic No sores 10/27/2014 Neurologic No dizziness 10/27/2014 Neurologic No headache 10/27/2014 Neurologic memory loss 10/27/2014 Psychiatric No anxiety 10/27/2014 Psychiatric No depression 10/27/2014 Constitutional No chills 08/25/2014 Constitutional No fever 08/25/2014 Eyes No vision change 08/25/2014 Ears/Nose/Throat/Neck No headache 2014 Ears/Nose/Throat/Neck No nasal discharge 08/25/2014 Ears/Nose/Throat/Neck No sore throat Ears/Nose/Throat/Neck No otalgia 2014 Cardiovascular No chest pain/pressure Respiratory No cough 08/25/2014 Respiratory No dyspnea 08/25/2014 Gastrointestinal No abdominal pain 2014 Gastrointestinal No constipation 2014 Gastrointestinal No diarrhea 08/25/2014 Gastrointestinal No nausea 08/25/2014 Gastrointestinal No vomiting 08/25/2014 Musculoskeletal arthralgia(s) 08/25/2014 Dermatologic No rash 08/25/2014 Dermatologic No sores 08/25/2014 Neurologic No dizziness 08/25/2014 Neurologic No headache 08/25/2014 Neurologic memory loss 08/25/2014 Psychiatric No anxiety 08/25/2014 Psychiatric No depression 08/25/2014 Constitutional No chills 04/28/2014 Constitutional No fever 04/28/2014 Constitutional weight loss 04/28/2014 Eyes No vision change 04/28/2014 Ears/Nose/Throat/Neck No headache 2014 Ears/Nose/Throat/Neck No nasal discharge 04/28/2014 Ears/Nose/Throat/Neck No sore throat Ears/Nose/Throat/Neck No otalgia 2014 Cardiovascular No chest pain/pressure Respiratory No cough 04/28/2014 Respiratory No dyspnea 04/28/2014 Gastrointestinal No abdominal pain 2014 Gastrointestinal No constipation 2014 Gastrointestinal No diarrhea 04/28/2014 Gastrointestinal No nausea 04/28/2014 Gastrointestinal No vomiting 04/28/2014 Musculoskeletal arthralgia(s) 04/28/2014 Dermatologic No rash 04/28/2014 Dermatologic No sores 04/28/2014 Neurologic No dizziness 04/28/2014 Neurologic No headache 04/28/2014 Psychiatric No anxiety 04/28/2014 Psychiatric No depression 04/28/2014 Neurologic memory loss 04/28/2014 Constitutional No chills 02/24/2014 Constitutional No fever 02/24/2014 Eyes No vision change 02/24/2014 Ears/Nose/Throat/Neck No headache 2013 Ears/Nose/Throat/Neck No nasal discharge 02/24/2014 Ears/Nose/Throat/Neck No sore throat Ears/Nose/Throat/Neck No otalgia 2013 Cardiovascular No chest pain/pressure Respiratory No cough 02/24/2014 Respiratory No dyspnea 02/24/2014 Gastrointestinal No abdominal pain 2013 Gastrointestinal No constipation 2013 Gastrointestinal No diarrhea 02/24/2014 Gastrointestinal No nausea 02/24/2014 Gastrointestinal No vomiting 02/24/2014 Musculoskeletal arthralgia(s) 02/24/2014 Dermatologic No rash 02/24/2014 Dermatologic No sores 02/24/2014 Neurologic No dizziness 02/24/2014 Neurologic No headache 02/24/2014 Psychiatric No anxiety 02/24/2014 Psychiatric No depression 02/24/2014 Constitutional weight loss 02/24/2014 Constitutional No recent illness 2013 Constitutional No anorexia 10/22/2013 Constitutional No night sweats 2013 Constitutional No chills 10/22/2013 Constitutional No diaphoresis 10/22/2013 Constitutional No fatigue 10/22/2013 Constitutional No fever 10/22/2013 Constitutional No insomnia 10/22/2013 Eyes No vision change 10/22/2013 Ears/Nose/Throat/Neck dizziness 2013 Ears/Nose/Throat/Neck No headache 2013 Ears/Nose/Throat/Neck No nasal discharge 10/22/2013 Ears/Nose/Throat/Neck No sore throat Ears/Nose/Throat/Neck No otalgia 2013 Cardiovascular No chest pain/pressure Respiratory No cough 10/22/2013 Respiratory No dyspnea 10/22/2013 Gastrointestinal No abdominal pain 2013 Gastrointestinal No constipation 2013 Gastrointestinal No diarrhea 10/22/2013 Gastrointestinal No nausea 10/22/2013 Gastrointestinal No vomiting 10/22/2013 Musculoskeletal arthralgia(s) 10/22/2013 Dermatologic rash 10/22/2013 Dermatologic sores 10/22/2013 Psychiatric No anxiety 10/22/2013 Psychiatric No depression 10/22/2013 Neurologic No dizziness 10/22/2013 Neurologic No headache 10/22/2013 Neurologic No neck pain 10/22/2013 Neurologic No syncope 10/22/2013 Constitutional No chills 09/22/2013 Constitutional No fever 09/22/2013 Eyes No vision change 09/22/2013 Ears/Nose/Throat/Neck No headache 2013 Ears/Nose/Throat/Neck No nasal discharge 09/22/2013 Ears/Nose/Throat/Neck No sore throat Ears/Nose/Throat/Neck No otalgia 2013 Cardiovascular No chest pain/pressure Respiratory No cough 09/22/2013 Respiratory No dyspnea 09/22/2013 Gastrointestinal No abdominal pain 2013 Gastrointestinal No constipation 2013 Gastrointestinal No diarrhea 09/22/2013 Gastrointestinal No nausea 09/22/2013 Gastrointestinal No vomiting 09/22/2013 Musculoskeletal arthralgia(s) 09/22/2013 Dermatologic No rash 09/22/2013 Dermatologic No sores 09/22/2013 Psychiatric No anxiety 09/22/2013 Psychiatric No depression 09/22/2013 Neurologic No dizziness 09/22/2013 Neurologic No headache 09/22/2013 Constitutional No chills 06/24/2013 Constitutional fatigue 06/24/2013 Constitutional No fever 06/24/2013 Eyes No vision change 06/24/2013 Ears/Nose/Throat/Neck dizziness 2013 Ears/Nose/Throat/Neck No headache 2013 Ears/Nose/Throat/Neck No nasal discharge 06/24/2013 Ears/Nose/Throat/Neck No sore throat Ears/Nose/Throat/Neck No otalgia 2013 Cardiovascular No chest pain/pressure Respiratory No cough 06/24/2013 Respiratory No dyspnea 06/24/2013 Gastrointestinal No abdominal pain 2013 Gastrointestinal No constipation 2013 Gastrointestinal No diarrhea 06/24/2013 Gastrointestinal No nausea 06/24/2013 Gastrointestinal No vomiting 06/24/2013 Musculoskeletal arthralgia(s) 06/24/2013 Dermatologic No rash 06/24/2013 Dermatologic No sores 06/24/2013 Constitutional No recent illness 2013 Constitutional No anorexia 05/26/2013 Constitutional No night sweats 2013 Constitutional No chills 05/26/2013 Constitutional No fever 05/26/2013 Constitutional No chills 05/21/2013 Constitutional fatigue 05/21/2013 Constitutional No fever 05/21/2013 Eyes No vision change 05/21/2013 Ears/Nose/Throat/Neck dizziness 2013 Ears/Nose/Throat/Neck No headache 2013 Ears/Nose/Throat/Neck No nasal discharge 05/21/2013 Ears/Nose/Throat/Neck No otalgia 2013 Ears/Nose/Throat/Neck No sore throat Cardiovascular No chest pain/pressure Respiratory No cough 05/21/2013 Respiratory No dyspnea 05/21/2013 Gastrointestinal No abdominal pain 2013 Gastrointestinal No constipation 2013 Gastrointestinal No diarrhea 05/21/2013 Gastrointestinal No nausea 05/21/2013 Gastrointestinal No vomiting 05/21/2013 Musculoskeletal arthralgia(s) 05/21/2013 Dermatologic No rash 05/21/2013 Dermatologic No sores 05/21/2013 Constitutional No recent illness 2013 Constitutional anorexia 05/07/2013 Constitutional No chills 05/07/2013 Constitutional No night sweats 2013 Constitutional No diaphoresis 05/07/2013 Constitutional fatigue 05/07/2013 Constitutional No fever 05/07/2013 Constitutional No insomnia 05/07/2013 Eyes No eye erythema 05/07/2013 Eyes No eye discharge 05/07/2013 Ears/Nose/Throat/Neck No dizziness 2013 Cardiovascular No chest pain/pressure Respiratory No productive sputum 2013 Respiratory No chest congestion 2013 Respiratory No cough 05/07/2013 Gastrointestinal No vomiting 05/07/2013 Gastrointestinal No nausea 05/07/2013 Gastrointestinal No diarrhea 05/07/2013 Gastrointestinal No constipation 2013 Gastrointestinal No abdominal pain 2013 Genitourinary/Nephrology No dysuria 05/07 Constitutional No recent illness 2013 Constitutional No anorexia 04/23/2013 Constitutional No night sweats 2013 Constitutional No chills 04/23/2013 Constitutional No diaphoresis 04/23/2013 Constitutional No fatigue 04/23/2013 Constitutional No fever 04/23/2013 Constitutional No insomnia 04/23/2013 Constitutional No malaise 04/23/2013 Constitutional No weight loss 04/23/2013 Constitutional No weight gain 04/23/2013 Constitutional No recent illness 2013 Constitutional No anorexia 03/25/2013 Psychiatric No depression 03/25/2013 Constitutional No night sweats 2013 Constitutional No chills 03/25/2013 Constitutional No diaphoresis 03/25/2013 Constitutional No fatigue 03/25/2013 Constitutional No fever 03/25/2013 Constitutional No insomnia 03/25/2013 Constitutional No malaise 03/25/2013 Eyes No eye discharge 03/25/2013 Eyes No eye erythema 03/25/2013 Ears/Nose/Throat/Neck No dizziness 2013 Respiratory No productive sputum 2013 Respiratory No chest congestion 2013 Respiratory No cough 03/25/2013 Gastrointestinal No abdominal pain 2013 Gastrointestinal No constipation 2013 Gastrointestinal No diarrhea 03/25/2013 Gastrointestinal No nausea 03/25/2013 Gastrointestinal No vomiting 03/25/2013 Genitourinary/Nephrology No dysuria 03/25 Musculoskeletal arthralgia(s) 03/25/2013 Musculoskeletal joint complaint 2013 Dermatologic No rash 03/25/2013 Neurologic No ataxia 03/25/2013 Neurologic No dizziness 03/25/2013 Psychiatric No anxiety 03/25/2013 Constitutional fatigue 12/18/2012 Constitutional No chills 12/18/2012 Constitutional No fever 12/18/2012 Cardiovascular No chest pain/pressure 12/2012 Respiratory No cough 12/18/2012 Respiratory No dyspnea 12/18/2012 Dermatologic No rash 12/18/2012 Dermatologic No sores 12/18/2012 Gastrointestinal No abdominal pain 2012 Gastrointestinal No constipation 2012 Gastrointestinal No diarrhea 12/18/2012 Gastrointestinal No nausea 12/18/2012 Gastrointestinal No vomiting 12/18/2012 Musculoskeletal arthralgia(s) 12/18/2012 Ears/Nose/Throat/Neck dizziness 2012 Ears/Nose/Throat/Neck No headache 2012 Ears/Nose/Throat/Neck No nasal discharge 12/18/2012 Ears/Nose/Throat/Neck No otalgia 2012 Ears/Nose/Throat/Neck No sore throat 12/2012 Eyes No vision change 12/18/2012 Constitutional No recent illness 2012 Constitutional No anorexia 12/15/2012 Constitutional No night sweats 2012 Constitutional No chills 12/15/2012 Constitutional No diaphoresis 12/15/2012 Constitutional No fatigue 12/15/2012 Constitutional No fever 12/15/2012 Constitutional No insomnia 12/15/2012 Constitutional No malaise 12/15/2012 Eyes No eye discharge 12/15/2012 Eyes No eye erythema 12/15/2012 Respiratory No productive sputum 2012 Respiratory No chest congestion 2012 Respiratory No cough 12/15/2012 Gastrointestinal No abdominal pain 2012 Gastrointestinal No constipation 2012 Gastrointestinal No diarrhea 12/15/2012 Gastrointestinal No nausea 12/15/2012 Gastrointestinal No vomiting 12/15/2012 Genitourinary/Nephrology No dysuria 12/15 Musculoskeletal arthralgia(s) 12/15/2012 Musculoskeletal joint complaint 2012 Dermatologic No rash 12/15/2012 Neurologic No ataxia 12/15/2012 Neurologic No dizziness 12/15/2012 Psychiatric No anxiety 12/15/2012 Psychiatric No depression 12/15/2012 Ears/Nose/Throat/Neck No dizziness 2012 Constitutional No recent illness 2012 Constitutional No anorexia 11/17/2012 Constitutional No night sweats 2012 Constitutional No chills 11/17/2012 Constitutional No diaphoresis 11/17/2012 Constitutional No fatigue 11/17/2012 Constitutional No fever 11/17/2012 Constitutional No insomnia 11/17/2012 Constitutional No malaise 11/17/2012 Eyes No eye discharge 11/17/2012 Eyes No eye erythema 11/17/2012 Respiratory No productive sputum 2012 Respiratory No chest congestion 2012 Respiratory No cough 11/17/2012 Gastrointestinal No abdominal pain 2012 Gastrointestinal No constipation 2012 Gastrointestinal No diarrhea 11/17/2012 Gastrointestinal No nausea 11/17/2012 Gastrointestinal No vomiting 11/17/2012 Genitourinary/Nephrology No dysuria 11/17 Musculoskeletal arthralgia(s) 11/17/2012 Musculoskeletal joint complaint 2012 Dermatologic No rash 11/17/2012 Neurologic No ataxia 11/17/2012 Neurologic No dizziness 11/17/2012 Psychiatric No anxiety 11/17/2012 Psychiatric No depression 11/17/2012 Constitutional No recent illness 2012 Constitutional No anorexia 07/14/2012 Constitutional No night sweats 2012 Constitutional No chills 07/14/2012 Constitutional No diaphoresis 07/14/2012 Constitutional No fatigue 07/14/2012 Constitutional No fever 07/14/2012 Constitutional No insomnia 07/14/2012 Constitutional No malaise 07/14/2012 Eyes No eye discharge 07/14/2012 Eyes No eye erythema 07/14/2012 Respiratory No productive sputum 2012 Respiratory No chest congestion 2012 Respiratory No cough 07/14/2012 Gastrointestinal No abdominal pain 2012 Gastrointestinal No constipation 2012 Gastrointestinal No diarrhea 07/14/2012 Gastrointestinal No nausea 07/14/2012 Gastrointestinal No vomiting 07/14/2012 Genitourinary/Nephrology No dysuria 07/14 Musculoskeletal arthralgia(s) 07/14/2012 Musculoskeletal joint complaint 2012 Dermatologic No rash 07/14/2012 Neurologic No ataxia 07/14/2012 Neurologic No dizziness 07/14/2012 Psychiatric No anxiety 07/14/2012 Psychiatric No depression 07/14/2012 Constitutional No recent illness 2012 Constitutional No anorexia 05/15/2012 Constitutional No night sweats 2012 Constitutional No chills 05/15/2012 Constitutional No diaphoresis 05/15/2012 Constitutional No fatigue 05/15/2012 Constitutional No fever 05/15/2012 Constitutional No insomnia 05/15/2012 Constitutional No malaise 05/15/2012 Eyes No eye discharge 05/15/2012 Eyes No eye erythema 05/15/2012 Respiratory No productive sputum 2012 Respiratory No chest congestion 2012 Respiratory No cough 05/15/2012 Gastrointestinal No abdominal pain 2012 Gastrointestinal No constipation 2012 Gastrointestinal No diarrhea 05/15/2012 Gastrointestinal No nausea 05/15/2012 Gastrointestinal No vomiting 05/15/2012 Genitourinary/Nephrology No dysuria 05/15 Dermatologic No rash 05/15/2012 Neurologic No ataxia 05/15/2012 Neurologic No dizziness 05/15/2012 Psychiatric No anxiety 05/15/2012 Psychiatric No depression 05/15/2012 Musculoskeletal arthralgia(s) 05/15/2012 Musculoskeletal joint complaint 2012 Psychiatric No depression 03/17/2012 Constitutional No recent illness 2012 Constitutional No anorexia 03/17/2012 Constitutional No night sweats 2012 Constitutional No chills 03/17/2012 Constitutional No diaphoresis 03/17/2012 Constitutional No fatigue 03/17/2012 Constitutional No fever 03/17/2012 Constitutional No insomnia 03/17/2012 Constitutional No malaise 03/17/2012 Eyes No eye discharge 03/17/2012 Eyes No eye erythema 03/17/2012 Respiratory No productive sputum 2012 Respiratory No chest congestion 2012 Respiratory No cough 03/17/2012 Gastrointestinal No abdominal pain 2012 Gastrointestinal No constipation 2012 Gastrointestinal No diarrhea 03/17/2012 Gastrointestinal No nausea 03/17/2012 Gastrointestinal No vomiting 03/17/2012 Genitourinary/Nephrology No dysuria 03/17 Dermatologic No rash 03/17/2012 Neurologic No ataxia 03/17/2012 Neurologic No dizziness 03/17/2012 Psychiatric No anxiety 03/17/2012 Constitutional No recent illness 2011 Constitutional No anorexia 02/18/2012 Constitutional No night sweats 2011 Constitutional No chills 02/18/2012 Constitutional No diaphoresis 02/18/2012 Constitutional No fatigue 02/18/2012 Constitutional No fever 02/18/2012 Constitutional No insomnia 02/18/2012 Constitutional No malaise 02/18/2012 Eyes No eye discharge 02/18/2012 Eyes No eye erythema 02/18/2012 Respiratory No productive sputum 2011 Respiratory No chest congestion 2011 Respiratory No cough 02/18/2012 Gastrointestinal No abdominal pain 2011 Gastrointestinal No constipation 2011 Gastrointestinal No diarrhea 02/18/2012 Gastrointestinal No nausea 02/18/2012 Gastrointestinal No vomiting 02/18/2012 Genitourinary/Nephrology No dysuria 02/17 Dermatologic No rash 02/18/2012 Neurologic No ataxia 02/18/2012 Neurologic No dizziness 02/18/2012 Psychiatric No anxiety 02/18/2012 Psychiatric No depression 02/18/2012 Gastrointestinal No constipation 2011 Gastrointestinal No diarrhea 02/04/2012 Gastrointestinal No nausea 02/04/2012 Gastrointestinal No vomiting 02/04/2012 Genitourinary/Nephrology No dysuria 02/03 Dermatologic No rash 02/04/2012 Neurologic No ataxia 02/04/2012 Neurologic No dizziness 02/04/2012 Psychiatric No anxiety 02/04/2012 Psychiatric No depression 02/04/2012 Constitutional No recent illness 2011 Constitutional No anorexia 02/04/2012 Constitutional No night sweats 2011 Constitutional No chills 02/04/2012 Constitutional No diaphoresis 02/04/2012 Constitutional No fatigue 02/04/2012 Constitutional No fever 02/04/2012 Constitutional No insomnia 02/04/2012 Constitutional No malaise 02/04/2012 Eyes No eye discharge 02/04/2012 Eyes No eye erythema 02/04/2012 Respiratory No productive sputum 2011 Respiratory No chest congestion 2011 Respiratory No cough 02/04/2012 Gastrointestinal No abdominal pain 2011 Constitutional No recent illness 2011 Constitutional No anorexia 10/15/2011 Constitutional No night sweats 2011 Constitutional No chills 10/15/2011 Constitutional No diaphoresis 10/15/2011 Constitutional No fatigue 10/15/2011 Constitutional No fever 10/15/2011 Constitutional No insomnia 10/15/2011 Constitutional No malaise 10/15/2011 Eyes No eye discharge 10/15/2011 Eyes No eye erythema 10/15/2011 Respiratory No productive sputum 2011 Respiratory No chest congestion 2011 Respiratory No cough 10/15/2011 Gastrointestinal No abdominal pain 2011 Gastrointestinal No constipation 2011 Gastrointestinal No diarrhea 10/15/2011 Gastrointestinal No nausea 10/15/2011 Gastrointestinal No vomiting 10/15/2011 Genitourinary/Nephrology No dysuria 10/14 Dermatologic No rash 10/15/2011 Psychiatric No anxiety 10/15/2011 Psychiatric No depression 10/15/2011 Neurologic No ataxia 10/15/2011 Neurologic No dizziness 10/15/2011 Constitutional No recent illness 2011 Constitutional No anorexia 09/13/2011 Constitutional No night sweats 2011 Constitutional No chills 09/13/2011 Constitutional No diaphoresis 09/13/2011 Constitutional No fatigue 09/13/2011 Constitutional No fever 09/13/2011 Constitutional No insomnia 09/13/2011 Constitutional No malaise 09/13/2011 Eyes No eye discharge 09/13/2011 Eyes No eye erythema 09/13/2011 Gastrointestinal No vomiting 09/13/2011 Gastrointestinal No nausea 09/13/2011 Gastrointestinal No abdominal pain 2011 Gastrointestinal No constipation 2011 Gastrointestinal No diarrhea 09/13/2011 Genitourinary/Nephrology No dysuria 09/12 Respiratory No productive sputum 2011 Respiratory No chest congestion 2011 Respiratory No cough 09/13/2011 Dermatologic No rash 09/13/2011 Gastrointestinal No abdominal pain 2011 Gastrointestinal No constipation 2011 Gastrointestinal No diarrhea 08/28/2011 Gastrointestinal No vomiting 08/28/2011 Gastrointestinal No nausea 08/28/2011 Respiratory No productive sputum 2011 Respiratory No chest congestion 2011 Respiratory No cough 08/28/2011 Ears/Nose/Throat/Neck No dizziness 2011 Ears/Nose/Throat/Neck No headache 2011 Ears/Nose/Throat/Neck No nasal discharge 08/28/2011 Ears/Nose/Throat/Neck No nasal allergies 08/28/2011 Ears/Nose/Throat/Neck No sore throat Ears/Nose/Throat/Neck No sinus congestion 08/28/2011 Eyes No eye discharge 08/28/2011 Eyes No eye erythema 08/28/2011 Ears/Nose/Throat/Neck No oral lesion Constitutional No recent illness 2011 Constitutional No anorexia 08/28/2011 Constitutional No chills 08/28/2011 Constitutional No night sweats 2011 Constitutional No diaphoresis 08/28/2011 Constitutional No fever 08/28/2011 Constitutional insomnia 08/28/2011 Genitourinary/Nephrology nocturia 2011 Genitourinary/Nephrology No dysuria 08/27 Genitourinary/Nephrology No flank pain Genitourinary/Nephrology No hematuria Psychiatric No anxiety 08/28/2011 Psychiatric No depression 08/28/2011 Dermatologic skin lesion 08/28/2011 Constitutional No chills 2011 Constitutional No fatigue 2011 Constitutional No fever 2011 Cardiovascular No chest pain/pressure 10/2011 Respiratory No chest congestion 2011 Respiratory No cough 2011 Gastrointestinal No constipation 2011 Gastrointestinal No diarrhea 2011 Gastrointestinal No nausea 2011 Gastrointestinal No vomiting 2011 Dermatologic No rash 2011 Dermatologic No sores 2011 Neurologic No ataxia 2011 Neurologic No dizziness 2011 Psychiatric No anxiety 2011 Psychiatric No depression 2011 Constitutional No chills 05/16/2011 Constitutional No fatigue 05/16/2011 Constitutional No fever 05/16/2011 Cardiovascular No chest pain/pressure 09/2011 Respiratory No chest congestion 2011 Respiratory No cough 05/16/2011 Gastrointestinal No constipation 2011 Gastrointestinal No diarrhea 05/16/2011 Gastrointestinal No nausea 05/16/2011 Gastrointestinal No vomiting 05/16/2011 Dermatologic No rash 05/16/2011 Dermatologic No sores 05/16/2011 Neurologic No ataxia 05/16/2011 Neurologic No dizziness 05/16/2011 Psychiatric No anxiety 05/16/2011 Psychiatric No depression 05/16/2011 Constitutional No chills 01/17/2011 Constitutional No fever 01/17/2011 Constitutional No fatigue 01/17/2011 Cardiovascular No chest pain/pressure 11/2010 Gastrointestinal No constipation 2010 Gastrointestinal No diarrhea 01/17/2011 Gastrointestinal No nausea 01/17/2011 Gastrointestinal No vomiting 01/17/2011 Dermatologic No rash 01/17/2011 Dermatologic No sores 01/17/2011 Psychiatric No anxiety 01/17/2011 Psychiatric No depression 01/17/2011 Neurologic No ataxia 01/17/2011 Neurologic No dizziness 01/17/2011 Respiratory No cough 01/17/2011 Respiratory No chest congestion 2010 Constitutional No anorexia 12/12/2010 Constitutional No chills 12/12/2010 Constitutional No fatigue 12/12/2010 Constitutional No fever 12/12/2010 Ears/Nose/Throat/Neck No dizziness 2010 Cardiovascular No chest pain/pressure 06/2010 Cardiovascular No dyspnea 12/12/2010 Cardiovascular No edema 12/12/2010 Cardiovascular No fatigue 12/12/2010 Respiratory No chest congestion 2010 Respiratory No chest tightness 2010 Respiratory No cough 12/12/2010 Gastrointestinal No anorexia 12/12/2010 Gastrointestinal No constipation 2010 Gastrointestinal No diarrhea 12/12/2010 Musculoskeletal stiffness 12/12/2010 Musculoskeletal arthralgia(s) 12/12/2010 Musculoskeletal bone fracture 12/12/2010 Musculoskeletal bone pain 12/12/2010 Psychiatric No anxiety 12/12/2010 Psychiatric No depression 12/12/2010 Constitutional No weight gain 11/15/2010 Constitutional No chills 11/15/2010 Constitutional No anorexia 11/15/2010 Cardiovascular No chest pain/pressure 09/2010 Cardiovascular No edema 11/15/2010 Cardiovascular No dyspnea 11/15/2010 Cardiovascular No fatigue 11/15/2010 Respiratory No cough 11/15/2010 Respiratory No dyspnea 11/15/2010 Respiratory No pleuritic pain 11/15/2010 Gastrointestinal No anorexia 11/15/2010 Gastrointestinal No constipation 2010 Gastrointestinal No diarrhea 11/15/2010 Gastrointestinal No dyspepsia 11/15/2010 Genitourinary/Nephrology urinary urgency 11/15/2010 Genitourinary/Nephrology urinary frequency 11/15/2010 Genitourinary/Nephrology No urinary incontinence 11/15/2010 Genitourinary/Nephrology urinary retention/hesitancy 11/15/2010 Musculoskeletal back pain 11/15/2010 Musculoskeletal No muscle weakness 2010 Dermatologic No sores 11/15/2010 Dermatologic No rash 11/15/2010 Neurologic No ataxia 11/15/2010 Neurologic No dizziness 11/15/2010 Neurologic No gait abnormality 2010 Psychiatric No anxiety 11/15/2010 Psychiatric No depression 11/15/2010 Physical Exam Exam Name System Name Item Name Status Result Effective Dates Notes Full Exam - General 1994 Constitutional general appearance Overall: well developed 03/07/2017 None Full Exam - General 1994 Constitutional general appearance Overall: in no acute distress 03/07/2017 None Full Exam - General 1994 Constitutional general appearance Overall: well nourished 03/07/2017 None Full Exam - General 1994 Eyes conjunctiva /eyelids Overall: conjunctiva clear 03/07/2017 None Full Exam - General 1994 Eyes conjunctiva /eyelids Overall: cornea clear 03/07/2017 None Full Exam - General 1994 Eyes conjunctiva /eyelids Overall: eyelids normal 03/07/2017 None Full Exam - General 1994 Eyes pupils and irises Overall: pupils equal, round, reactive to light and accomodation 03/07/2017 None Full Exam - General 1994 Ears/Nose/Throat lips/teeth/gingiva Overall: benign lips 03/07/2017 None Full Exam - General 1994 Ears/Nose/Throat oral cavity/pharynx/larynx Overall: oral mucosa clear 03/07/2017 None Full Exam - General 1994 Ears/Nose/Throat oral cavity/pharynx/larynx Overall: oropharyngeal mucosa clear 03/07/2017 None Full Exam - General 1994 Respiratory auscultation Overall: breath sounds clear bilaterally 03/07/2017 None Full Exam - General 1994 Respiratory respiratory effort/rhythm Overall: no retractions 03/07/2017 None Full Exam - General 1994 Respiratory respiratory effort/rhythm Overall: normal rate 03/07/2017 None Full Exam - General 1994 Cardiovascular auscultation of heart Overall: regular rate 03/07/2017 None Full Exam - General 1994 Cardiovascular auscultation of heart Overall: normal heart sounds 03/07/2017 None Full Exam - General 1994 Cardiovascular auscultation of heart Overall: no murmurs 03/07/2017 None Full Exam - General 1994 Abdomen abdominal exam Overall: no tenderness 03/07/2017 None Full Exam - General 1994 Abdomen abdominal exam Overall: normal bowel sounds 03/07/2017 None Full Exam - General 1994 Musculoskeletal spine, ribs and pelvis Posture: kyphosis 03/07/2017 None Full Exam - General 1994 Musculoskeletal spine, ribs and pelvis Posture: lordosis 03/07/2017 None Full Exam - General 1994 Neurologic cranial nerves Overall: crainial nerves 2 - 12 grossly intact 03/07/2017 None Full Exam - General 1994 Psychiatric orientation/consciousness Overall: oriented to person, place and time 03/07/2017 None Full Exam - General 1994 Ears/Nose/Throat otoscopic exam Overall: tympanic membranes clear 03/07/2017 None Full Exam - General 1994 Ears/Nose/Throat otoscopic exam Overall: external auditory canals clear 03/07/2017 None Full Exam - General 1994 Respiratory auscultation Diffuse: diminished 03/07/2017 None Full Exam - General 1994 Psychiatric mood and affect Overall: normal mood and affect 03/07/2017 None Full Exam - General 1994 Psychiatric appearance Overall: well-groomed, good eye contact 03/07/2017 None Full Exam - General 1994 Constitutional general appearance Overall: well developed 12/31/2016 None Full Exam - General 1994 Constitutional general appearance Overall: in no acute distress 12/31/2016 None Full Exam - General 1994 Constitutional general appearance Overall: well nourished 12/31/2016 None Full Exam - General 1994 Eyes conjunctiva /eyelids Overall: conjunctiva clear 12/31/2016 None Full Exam - General 1994 Eyes conjunctiva /eyelids Overall: cornea clear 12/31/2016 None Full Exam - General 1994 Eyes conjunctiva /eyelids Overall: eyelids normal 12/31/2016 None Full Exam - General 1994 Eyes pupils and irises Overall: pupils equal, round, reactive to light and accomodation 12/31/2016 None Full Exam - General 1994 Ears/Nose/Throat lips/teeth/gingiva Overall: benign lips 12/31/2016 None Full Exam - General 1994 Ears/Nose/Throat lips/teeth/gingiva Overall: normal dentition 12/31/2016 None Full Exam - General 1994 Ears/Nose/Throat lips/teeth/gingiva Overall: benign gingiva 12/31/2016 None Full Exam - General 1994 Ears/Nose/Throat lips/teeth/gingiva Overall: no masses 12/31/2016 None Full Exam - General 1994 Ears/Nose/Throat oral cavity/pharynx/larynx Overall: oral mucosa clear 12/31/2016 None Full Exam - General 1994 Ears/Nose/Throat oral cavity/pharynx/larynx Overall: oropharyngeal mucosa clear 12/31/2016 None Full Exam - General 1994 Ears/Nose/Throat oral cavity/pharynx/larynx Overall: no masses 12/31/2016 None Full Exam - General 1994 Respiratory auscultation Overall: breath sounds clear bilaterally 12/31/2016 None Full Exam - General 1994 Respiratory respiratory effort/rhythm Overall: no retractions 12/31/2016 None Full Exam - General 1994 Respiratory respiratory effort/rhythm Overall: normal rate 12/31/2016 None Full Exam - General 1994 Cardiovascular extremities Edema present: pitting 12/31/2016 None Full Exam - General 1994 Cardiovascular extremities Edema present: severity 1+ - 4 +: 1 to ankles 12/31/2016 None Full Exam - General 1994 Cardiovascular auscultation of heart Overall: regular rate 12/31/2016 None Full Exam - General 1994 Cardiovascular auscultation of heart Overall: normal heart sounds 12/31/2016 None Full Exam - General 1994 Cardiovascular auscultation of heart Overall: no murmurs 12/31/2016 None Full Exam - General 1994 Abdomen abdominal exam Overall: no tenderness 12/31/2016 None Full Exam - General 1994 Abdomen abdominal exam Overall: normal bowel sounds 12/31/2016 None Full Exam - General 1994 Musculoskeletal spine, ribs and pelvis Posture: kyphosis 12/31/2016 None Full Exam - General 1994 Musculoskeletal spine, ribs and pelvis Posture: lordosis 12/31/2016 None Full Exam - General 1994 Neurologic cranial nerves Overall: crainial nerves 2 - 12 grossly intact 12/31/2016 None Full Exam - General 1994 Psychiatric orientation/consciousness Overall: oriented to person, place and time 12/31/2016 None Full Exam - General 1994 Constitutional general appearance Overall: well developed 12/06/2016 None Full Exam - General 1994 Constitutional general appearance Overall: in no acute distress 12/06/2016 None Full Exam - General 1994 Constitutional general appearance Overall: well nourished 12/06/2016 None Full Exam - General 1994 Eyes conjunctiva /eyelids Overall: conjunctiva clear 12/06/2016 None Full Exam - General 1994 Eyes conjunctiva /eyelids Overall: eyelids normal 12/06/2016 None Full Exam - General 1994 Eyes pupils and irises Overall: pupils equal, round, reactive to light and accomodation 12/06/2016 None Full Exam - General 1994 Ears/Nose/Throat lips/teeth/gingiva Overall: benign lips 12/06/2016 None Full Exam - General 1994 Ears/Nose/Throat oral cavity/pharynx/larynx Overall: oral mucosa clear 12/06/2016 None Full Exam - General 1994 Ears/Nose/Throat oral cavity/pharynx/larynx Overall: oropharyngeal mucosa clear 12/06/2016 None Full Exam - General 1994 Ears/Nose/Throat oral cavity/pharynx/larynx Overall: no masses 12/06/2016 None Full Exam - General 1994 Respiratory auscultation Overall: breath sounds clear bilaterally 12/06/2016 None Full Exam - General 1994 Respiratory respiratory effort/rhythm Overall: no retractions 12/06/2016 None Full Exam - General 1994 Respiratory respiratory effort/rhythm Overall: normal rate 12/06/2016 None Full Exam - General 1994 Cardiovascular extremities Edema present: pitting 12/06/2016 None Full Exam - General 1994 Cardiovascular extremities Edema present: severity 1+ - 4 +:Trace - 1 to ankles 12/06/2016 None Full Exam - General 1994 Cardiovascular auscultation of heart Overall: regular rate 12/06/2016 None Full Exam - General 1994 Cardiovascular auscultation of heart Overall: normal heart sounds 12/06/2016 None Full Exam - General 1994 Abdomen abdominal exam Overall: no tenderness 12/06/2016 None Full Exam - General 1994 Abdomen abdominal exam Overall: normal bowel sounds 12/06/2016 None Full Exam - General 1994 Musculoskeletal spine, ribs and pelvis Posture: kyphosis 12/06/2016 None Full Exam - General 1994 Musculoskeletal spine, ribs and pelvis Posture: lordosis 12/06/2016 None Full Exam - General 1994 Neurologic cranial nerves Overall: crainial nerves 2 - 12 grossly intact 12/06/2016 None Full Exam - General 1994 Psychiatric orientation/consciousness Overall: oriented to person, place and time 12/06/2016 None Full Exam - General 1994 Ears/Nose/Throat otoscopic exam Overall: tympanic membranes clear 12/06/2016 None Full Exam - General 1994 Ears/Nose/Throat otoscopic exam Overall: external auditory canals clear 12/06/2016 None Full Exam - General 1994 Musculoskeletal head and neck Overall: head atraumatic 12/06/2016 None Full Exam - General 1994 Psychiatric mood and affect Mood: flat 12/06/2016 None Full Exam - General 1994 Psychiatric appearance Overall: well-groomed, good eye contact 12/06/2016 None Full Exam - General 1994 Constitutional general appearance Overall: well developed 09/10/2016 None Full Exam - General 1994 Constitutional general appearance Overall: in no acute distress 09/10/2016 None Full Exam - General 1994 Constitutional general appearance Overall: well nourished 09/10/2016 None Full Exam - General 1994 Eyes conjunctiva /eyelids Overall: conjunctiva clear 09/10/2016 None Full Exam - General 1994 Eyes conjunctiva /eyelids Overall: cornea clear 09/10/2016 None Full Exam - General 1994 Eyes conjunctiva /eyelids Overall: eyelids normal 09/10/2016 None Full Exam - General 1994 Eyes pupils and irises Overall: pupils equal, round, reactive to light and accomodation 09/10/2016 None Full Exam - General 1994 Ears/Nose/Throat lips/teeth/gingiva Overall: benign lips 09/10/2016 None Full Exam - General 1994 Ears/Nose/Throat lips/teeth/gingiva Overall: normal dentition 09/10/2016 None Full Exam - General 1994 Ears/Nose/Throat lips/teeth/gingiva Overall: benign gingiva 09/10/2016 None Full Exam - General 1994 Ears/Nose/Throat lips/teeth/gingiva Overall: no masses 09/10/2016 None Full Exam - General 1994 Ears/Nose/Throat oral cavity/pharynx/larynx Overall: oral mucosa clear 09/10/2016 None Full Exam - General 1994 Ears/Nose/Throat oral cavity/pharynx/larynx Overall: oropharyngeal mucosa clear 09/10/2016 None Full Exam - General 1994 Ears/Nose/Throat oral cavity/pharynx/larynx Overall: no masses 09/10/2016 None Full Exam - General 1994 Respiratory auscultation Overall: breath sounds clear bilaterally 09/10/2016 None Full Exam - General 1994 Respiratory respiratory effort/rhythm Overall: no retractions 09/10/2016 None Full Exam - General 1994 Respiratory respiratory effort/rhythm Overall: normal rate 09/10/2016 None Full Exam - General 1994 Cardiovascular extremities Edema present: pitting 09/10/2016 None Full Exam - General 1994 Cardiovascular extremities Edema present: severity 1+ - 4 +: 1 to ankles 09/10/2016 None Full Exam - General 1994 Cardiovascular auscultation of heart Overall: regular rate 09/10/2016 None Full Exam - General 1994 Cardiovascular auscultation of heart Overall: normal heart sounds 09/10/2016 None Full Exam - General 1994 Cardiovascular auscultation of heart Overall: no murmurs 09/10/2016 None Full Exam - General 1994 Abdomen abdominal exam Overall: no tenderness 09/10/2016 None Full Exam - General 1994 Abdomen abdominal exam Overall: normal bowel sounds 09/10/2016 None Full Exam - General 1994 Musculoskeletal spine, ribs and pelvis Posture: kyphosis 09/10/2016 None Full Exam - General 1994 Musculoskeletal spine, ribs and pelvis Posture: lordosis 09/10/2016 None Full Exam - General 1994 Neurologic cranial nerves Overall: crainial nerves 2 - 12 grossly intact 09/10/2016 None Full Exam - General 1994 Psychiatric orientation/consciousness Overall: oriented to person, place and time 09/10/2016 None Full Exam - General 1994 Constitutional general appearance Overall: well developed 08/15/2016 None Full Exam - General 1994 Constitutional general appearance Overall: in no acute distress 08/15/2016 None Full Exam - General 1994 Constitutional general appearance Overall: well nourished 08/15/2016 None Full Exam - General 1994 Eyes conjunctiva /eyelids Overall: conjunctiva clear 08/15/2016 None Full Exam - General 1994 Eyes conjunctiva /eyelids Overall: cornea clear 08/15/2016 None Full Exam - General 1994 Eyes conjunctiva /eyelids Overall: eyelids normal 08/15/2016 None Full Exam - General 1994 Eyes pupils and irises Overall: pupils equal, round, reactive to light and accomodation 08/15/2016 None Full Exam - General 1994 Ears/Nose/Throat lips/teeth/gingiva Overall: benign lips 08/15/2016 None Full Exam - General 1994 Ears/Nose/Throat lips/teeth/gingiva Overall: normal dentition 08/15/2016 None Full Exam - General 1994 Ears/Nose/Throat lips/teeth/gingiva Overall: benign gingiva 08/15/2016 None Full Exam - General 1994 Ears/Nose/Throat lips/teeth/gingiva Overall: no masses 08/15/2016 None Full Exam - General 1994 Ears/Nose/Throat oral cavity/pharynx/larynx Overall: oral mucosa clear 08/15/2016 None Full Exam - General 1994 Ears/Nose/Throat oral cavity/pharynx/larynx Overall: oropharyngeal mucosa clear 08/15/2016 None Full Exam - General 1994 Ears/Nose/Throat oral cavity/pharynx/larynx Overall: no masses 08/15/2016 None Full Exam - General 1994 Respiratory auscultation Overall: breath sounds clear bilaterally 08/15/2016 None Full Exam - General 1994 Respiratory respiratory effort/rhythm Overall: no retractions 08/15/2016 None Full Exam - General 1994 Respiratory respiratory effort/rhythm Overall: normal rate 08/15/2016 None Full Exam - General 1994 Cardiovascular extremities Edema present: pitting 08/15/2016 None Full Exam - General 1994 Cardiovascular extremities Edema present: severity 1+ - 4 +: 1 to ankles 08/15/2016 None Full Exam - General 1994 Cardiovascular auscultation of heart Overall: regular rate 08/15/2016 None Full Exam - General 1994 Cardiovascular auscultation of heart Overall: normal heart sounds 08/15/2016 None Full Exam - General 1994 Cardiovascular auscultation of heart Overall: no murmurs 08/15/2016 None Full Exam - General 1994 Abdomen abdominal exam Overall: no tenderness 08/15/2016 None Full Exam - General 1994 Abdomen abdominal exam Overall: normal bowel sounds 08/15/2016 None Full Exam - General 1994 Musculoskeletal spine, ribs and pelvis Posture: kyphosis 08/15/2016 None Full Exam - General 1994 Musculoskeletal spine, ribs and pelvis Posture: lordosis 08/15/2016 None Full Exam - General 1994 Neurologic cranial nerves Overall: crainial nerves 2 - 12 grossly intact 08/15/2016 None Full Exam - General 1994 Psychiatric orientation/consciousness Overall: oriented to person, place and time 08/15/2016 None Full Exam - General 1994 Musculoskeletal digits and nails Nails: elongated nail 08/15/2016 None Full Exam - General 1994 Musculoskeletal digits and nails Nails: thickened 08/15/2016 None Full Exam - General 1994 Musculoskeletal digits and nails Nails: onycholysis 08/15/2016 all 10 toenails - thick, trimmed with nail nippers Full Exam - General 1994 Constitutional general appearance Overall: well developed 2016 None Full Exam - General 1994 Constitutional general appearance Overall: in no acute distress 2016 None Full Exam - General 1994 Constitutional general appearance Overall: well nourished 2016 None Full Exam - General 1994 Eyes conjunctiva /eyelids Overall: conjunctiva clear 2016 None Full Exam - General 1994 Eyes conjunctiva /eyelids Overall: cornea clear 2016 None Full Exam - General 1994 Eyes conjunctiva /eyelids Overall: eyelids normal 2016 None Full Exam - General 1994 Eyes pupils and irises Overall: pupils equal, round, reactive to light and accomodation 2016 None Full Exam - General 1994 Ears/Nose/Throat lips/teeth/gingiva Overall: benign lips 2016 None Full Exam - General 1994 Ears/Nose/Throat lips/teeth/gingiva Overall: normal dentition 2016 None Full Exam - General 1994 Ears/Nose/Throat lips/teeth/gingiva Overall: benign gingiva 2016 None Full Exam - General 1994 Ears/Nose/Throat lips/teeth/gingiva Overall: no masses 2016 None Full Exam - General 1994 Ears/Nose/Throat oral cavity/pharynx/larynx Overall: oral mucosa clear 2016 None Full Exam - General 1994 Ears/Nose/Throat oral cavity/pharynx/larynx Overall: oropharyngeal mucosa clear 2016 None Full Exam - General 1994 Ears/Nose/Throat oral cavity/pharynx/larynx Overall: no masses 2016 None Full Exam - General 1994 Respiratory auscultation Overall: breath sounds clear bilaterally 2016 None Full Exam - General 1994 Respiratory respiratory effort/rhythm Overall: no retractions 2016 None Full Exam - General 1994 Respiratory respiratory effort/rhythm Overall: normal rate 2016 None Full Exam - General 1994 Cardiovascular extremities Edema present: pitting 2016 None Full Exam - General 1994 Cardiovascular extremities Edema present: severity 1+ - 4 +: 1 to ankles 2016 None Full Exam - General 1994 Cardiovascular auscultation of heart Overall: regular rate 2016 None Full Exam - General 1994 Cardiovascular auscultation of heart Overall: normal heart sounds 2016 None Full Exam - General 1994 Cardiovascular auscultation of heart Overall: no murmurs 2016 None Full Exam - General 1994 Abdomen abdominal exam Overall: no tenderness 2016 None Full Exam - General 1994 Abdomen abdominal exam Overall: normal bowel sounds 2016 None Full Exam - General 1994 Musculoskeletal spine, ribs and pelvis Posture: kyphosis 2016 None Full Exam - General 1994 Musculoskeletal spine, ribs and pelvis Posture: lordosis 2016 None Full Exam - General 1994 Neurologic cranial nerves Overall: crainial nerves 2 - 12 grossly intact 2016 None Full Exam - General 1994 Psychiatric orientation/consciousness Overall: oriented to person, place and time 2016 None Full Exam - General 1994 Constitutional general appearance Overall: well developed 03/26/2016 None Full Exam - General 1994 Constitutional general appearance Overall: in no acute distress 03/26/2016 None Full Exam - General 1994 Constitutional general appearance Overall: well nourished 03/26/2016 None Full Exam - General 1994 Eyes conjunctiva /eyelids Overall: conjunctiva clear 03/26/2016 None Full Exam - General 1994 Eyes conjunctiva /eyelids Overall: cornea clear 03/26/2016 None Full Exam - General 1994 Eyes conjunctiva /eyelids Overall: eyelids normal 03/26/2016 None Full Exam - General 1994 Eyes pupils and irises Overall: pupils equal, round, reactive to light and accomodation 03/26/2016 None Full Exam - General 1994 Ears/Nose/Throat lips/teeth/gingiva Overall: benign lips 03/26/2016 None Full Exam - General 1994 Ears/Nose/Throat lips/teeth/gingiva Overall: normal dentition 03/26/2016 None Full Exam - General 1994 Ears/Nose/Throat lips/teeth/gingiva Overall: benign gingiva 03/26/2016 None Full Exam - General 1994 Ears/Nose/Throat lips/teeth/gingiva Overall: no masses 03/26/2016 None Full Exam - General 1994 Ears/Nose/Throat oral cavity/pharynx/larynx Overall: oral mucosa clear 03/26/2016 None Full Exam - General 1994 Ears/Nose/Throat oral cavity/pharynx/larynx Overall: oropharyngeal mucosa clear 03/26/2016 None Full Exam - General 1994 Ears/Nose/Throat oral cavity/pharynx/larynx Overall: no masses 03/26/2016 None Full Exam - General 1994 Respiratory auscultation Overall: breath sounds clear bilaterally 03/26/2016 None Full Exam - General 1994 Respiratory respiratory effort/rhythm Overall: no retractions 03/26/2016 None Full Exam - General 1994 Respiratory respiratory effort/rhythm Overall: normal rate 03/26/2016 None Full Exam - General 1994 Cardiovascular extremities Edema present: pitting 03/26/2016 None Full Exam - General 1994 Cardiovascular extremities Edema present: severity 1+ - 4 +: 1 to ankles 03/26/2016 None Full Exam - General 1994 Cardiovascular auscultation of heart Overall: regular rate 03/26/2016 None Full Exam - General 1994 Cardiovascular auscultation of heart Overall: normal heart sounds 03/26/2016 None Full Exam - General 1994 Cardiovascular auscultation of heart Overall: no murmurs 03/26/2016 None Full Exam - General 1994 Abdomen abdominal exam Overall: no tenderness 03/26/2016 None Full Exam - General 1994 Abdomen abdominal exam Overall: normal bowel sounds 03/26/2016 None Full Exam - General 1994 Musculoskeletal spine, ribs and pelvis Posture: kyphosis 03/26/2016 None Full Exam - General 1994 Musculoskeletal spine, ribs and pelvis Posture: lordosis 03/26/2016 None Full Exam - General 1994 Neurologic cranial nerves Overall: crainial nerves 2 - 12 grossly intact 03/26/2016 None Full Exam - General 1994 Psychiatric orientation/consciousness Overall: oriented to person, place and time 03/26/2016 None Full Exam - Dermatology Constitutional general appearance Overall: well nourished 01/23/2016 None Full Exam - Dermatology Constitutional general appearance Overall: well developed 01/23/2016 None Full Exam - Dermatology Constitutional general appearance Overall: in no acute distress 01/23/2016 None Full Exam - Dermatology Eyes conjunctiva/ eyelids Overall: clear conjunctiva bilaterally 01/23/2016 None Full Exam - Dermatology Ears/Nose/Throat lips/teeth/gingiva Overall: benign lips 01/23/2016 None Full Exam - Dermatology Ears/Nose/Throat oropharynx Overall: clear oral mucosa 01/23/2016 None Full Exam - Dermatology Respiratory auscultation Overall: breath sounds clear bilaterally 01/23/2016 None Full Exam - Dermatology Respiratory respiratory effort/rhythm Overall: no retractions 01/23/2016 None Full Exam - Dermatology Respiratory respiratory effort/rhythm Overall: normal rate 01/23/2016 None Full Exam - Dermatology Integument insp & palp - head/face Location: on the left ear 01/23/2016 None Full Exam - Dermatology Integument insp & palp - head/face Color: erythematous 01/23/2016 mild Full Exam - Dermatology Integument insp & palp - head/face Appearance: edematous 01/23/2016 mild Full Exam - Dermatology Psychiatric orientation Overall: oriented to person, place and time 01/23/2016 None Full Exam - Dermatology Psychiatric mood and affect Overall: normal mood and affect 01/23/2016 None Full Exam - General 1994 Constitutional general appearance Overall: well developed 01/05/2016 None Full Exam - General 1994 Constitutional general appearance Overall: in no acute distress 01/05/2016 None Full Exam - General 1994 Constitutional general appearance Overall: well nourished 01/05/2016 None Full Exam - General 1994 Eyes conjunctiva /eyelids Overall: conjunctiva clear 01/05/2016 None Full Exam - General 1994 Eyes conjunctiva /eyelids Overall: cornea clear 01/05/2016 None Full Exam - General 1994 Eyes conjunctiva /eyelids Overall: eyelids normal 01/05/2016 None Full Exam - General 1994 Eyes pupils and irises Overall: pupils equal, round, reactive to light and accomodation 01/05/2016 None Full Exam - General 1994 Ears/Nose/Throat lips/teeth/gingiva Overall: benign lips 01/05/2016 None Full Exam - General 1994 Ears/Nose/Throat lips/teeth/gingiva Overall: normal dentition 01/05/2016 None Full Exam - General 1994 Ears/Nose/Throat lips/teeth/gingiva Overall: benign gingiva 01/05/2016 None Full Exam - General 1994 Ears/Nose/Throat lips/teeth/gingiva Overall: no masses 01/05/2016 None Full Exam - General 1994 Ears/Nose/Throat oral cavity/pharynx/larynx Overall: oral mucosa clear 01/05/2016 None Full Exam - General 1994 Ears/Nose/Throat oral cavity/pharynx/larynx Overall: oropharyngeal mucosa clear 01/05/2016 None Full Exam - General 1994 Ears/Nose/Throat oral cavity/pharynx/larynx Overall: no masses 01/05/2016 None Full Exam - General 1994 Respiratory auscultation Overall: breath sounds clear bilaterally 01/05/2016 None Full Exam - General 1994 Respiratory respiratory effort/rhythm Overall: no retractions 01/05/2016 None Full Exam - General 1994 Respiratory respiratory effort/rhythm Overall: normal rate 01/05/2016 None Full Exam - General 1994 Cardiovascular extremities Edema present: pitting 01/05/2016 None Full Exam - General 1994 Cardiovascular extremities Edema present: severity 1+ - 4 +: 1 to ankles 01/05/2016 None Full Exam - General 1994 Cardiovascular auscultation of heart Overall: regular rate 01/05/2016 None Full Exam - General 1994 Cardiovascular auscultation of heart Overall: normal heart sounds 01/05/2016 None Full Exam - General 1994 Cardiovascular auscultation of heart Overall: no murmurs 01/05/2016 None Full Exam - General 1994 Abdomen abdominal exam Overall: no tenderness 01/05/2016 None Full Exam - General 1994 Abdomen abdominal exam Overall: normal bowel sounds 01/05/2016 None Full Exam - General 1994 Musculoskeletal spine, ribs and pelvis Posture: kyphosis 01/05/2016 None Full Exam - General 1994 Musculoskeletal spine, ribs and pelvis Posture: lordosis 01/05/2016 None Full Exam - General 1994 Neurologic cranial nerves Overall: crainial nerves 2 - 12 grossly intact 01/05/2016 None Full Exam - General 1994 Psychiatric orientation/consciousness Overall: oriented to person, place and time 01/05/2016 None Full Exam - General 1994 Constitutional general appearance Overall: well developed 12/09/2015 None Full Exam - General 1994 Constitutional general appearance Overall: in no acute distress 12/09/2015 None Full Exam - General 1994 Constitutional general appearance Overall: well nourished 12/09/2015 None Full Exam - General 1994 Eyes conjunctiva /eyelids Overall: conjunctiva clear 12/09/2015 None Full Exam - General 1994 Eyes conjunctiva /eyelids Overall: cornea clear 12/09/2015 None Full Exam - General 1994 Eyes conjunctiva /eyelids Overall: eyelids normal 12/09/2015 None Full Exam - General 1994 Ears/Nose/Throat lips/teeth/gingiva Overall: benign lips 12/09/2015 None Full Exam - General 1994 Ears/Nose/Throat lips/teeth/gingiva Overall: normal dentition 12/09/2015 None Full Exam - General 1994 Respiratory respiratory effort/rhythm Overall: no retractions 12/09/2015 None Full Exam - General 1994 Respiratory respiratory effort/rhythm Overall: normal rate 12/09/2015 None Full Exam - General 1994 Musculoskeletal spine, ribs and pelvis Posture: kyphosis 12/09/2015 None Full Exam - General 1994 Musculoskeletal spine, ribs and pelvis Posture: lordosis 12/09/2015 None Full Exam - General 1994 Neurologic cranial nerves Overall: crainial nerves 2 - 12 grossly intact 12/09/2015 None Full Exam - General 1994 Psychiatric orientation/consciousness Overall: oriented to person, place and time 12/09/2015 None Full Exam - General 1994 Musculoskeletal digits and nails Nails: elongated nail 12/09/2015 None Full Exam - General 1994 Musculoskeletal digits and nails Nails: thickened 12/09/2015 None Full Exam - General 1994 Psychiatric mood and affect Overall: normal mood and affect 12/09/2015 None Full Exam - General 1994 Constitutional general appearance Overall: well developed 12/08/2015 None Full Exam - General 1994 Constitutional general appearance Overall: in no acute distress 12/08/2015 None Full Exam - General 1994 Constitutional general appearance Overall: well nourished 12/08/2015 None Full Exam - General 1994 Eyes conjunctiva /eyelids Overall: conjunctiva clear 12/08/2015 None Full Exam - General 1994 Eyes conjunctiva /eyelids Overall: cornea clear 12/08/2015 None Full Exam - General 1994 Eyes conjunctiva /eyelids Overall: eyelids normal 12/08/2015 None Full Exam - General 1994 Eyes pupils and irises Overall: pupils equal, round, reactive to light and accomodation 12/08/2015 None Full Exam - General 1994 Ears/Nose/Throat lips/teeth/gingiva Overall: benign lips 12/08/2015 None Full Exam - General 1994 Ears/Nose/Throat lips/teeth/gingiva Overall: normal dentition 12/08/2015 None Full Exam - General 1994 Ears/Nose/Throat lips/teeth/gingiva Overall: benign gingiva 12/08/2015 None Full Exam - General 1994 Ears/Nose/Throat lips/teeth/gingiva Overall: no masses 12/08/2015 None Full Exam - General 1994 Ears/Nose/Throat oral cavity/pharynx/larynx Overall: oral mucosa clear 12/08/2015 None Full Exam - General 1994 Ears/Nose/Throat oral cavity/pharynx/larynx Overall: oropharyngeal mucosa clear 12/08/2015 None Full Exam - General 1994 Ears/Nose/Throat oral cavity/pharynx/larynx Overall: no masses 12/08/2015 None Full Exam - General 1994 Respiratory auscultation Overall: breath sounds clear bilaterally 12/08/2015 None Full Exam - General 1994 Respiratory respiratory effort/rhythm Overall: no retractions 12/08/2015 None Full Exam - General 1994 Respiratory respiratory effort/rhythm Overall: normal rate 12/08/2015 None Full Exam - General 1994 Cardiovascular extremities Edema present: pitting 12/08/2015 None Full Exam - General 1994 Cardiovascular extremities Edema present: severity 1+ - 4 +: 1 to ankles 12/08/2015 None Full Exam - General 1994 Cardiovascular auscultation of heart Overall: regular rate 12/08/2015 None Full Exam - General 1994 Cardiovascular auscultation of heart Overall: normal heart sounds 12/08/2015 None Full Exam - General 1994 Cardiovascular auscultation of heart Overall: no murmurs 12/08/2015 None Full Exam - General 1994 Abdomen abdominal exam Overall: no tenderness 12/08/2015 None Full Exam - General 1994 Abdomen abdominal exam Overall: normal bowel sounds 12/08/2015 None Full Exam - General 1994 Musculoskeletal spine, ribs and pelvis Posture: kyphosis 12/08/2015 None Full Exam - General 1994 Musculoskeletal spine, ribs and pelvis Posture: lordosis 12/08/2015 None Full Exam - General 1994 Neurologic cranial nerves Overall: crainial nerves 2 - 12 grossly intact 12/08/2015 None Full Exam - General 1994 Psychiatric orientation/consciousness Overall: oriented to person, place and time 12/08/2015 None Full Exam - General 1994 Constitutional general appearance Overall: well developed 11/03/2015 None Full Exam - General 1994 Constitutional general appearance Overall: in no acute distress 11/03/2015 None Full Exam - General 1994 Constitutional general appearance Overall: well nourished 11/03/2015 None Full Exam - General 1994 Eyes conjunctiva /eyelids Overall: conjunctiva clear 11/03/2015 None Full Exam - General 1994 Eyes conjunctiva /eyelids Overall: cornea clear 11/03/2015 None Full Exam - General 1994 Eyes conjunctiva /eyelids Overall: eyelids normal 11/03/2015 None Full Exam - General 1994 Eyes pupils and irises Overall: pupils equal, round, reactive to light and accomodation 11/03/2015 None Full Exam - General 1994 Ears/Nose/Throat lips/teeth/gingiva Overall: benign lips 11/03/2015 None Full Exam - General 1994 Ears/Nose/Throat lips/teeth/gingiva Overall: normal dentition 11/03/2015 None Full Exam - General 1994 Ears/Nose/Throat lips/teeth/gingiva Overall: benign gingiva 11/03/2015 None Full Exam - General 1994 Ears/Nose/Throat lips/teeth/gingiva Overall: no masses 11/03/2015 None Full Exam - General 1994 Ears/Nose/Throat oral cavity/pharynx/larynx Overall: oral mucosa clear 11/03/2015 None Full Exam - General 1994 Ears/Nose/Throat oral cavity/pharynx/larynx Overall: oropharyngeal mucosa clear 11/03/2015 None Full Exam - General 1994 Ears/Nose/Throat oral cavity/pharynx/larynx Overall: no masses 11/03/2015 None Full Exam - General 1994 Respiratory auscultation Overall: breath sounds clear bilaterally 11/03/2015 None Full Exam - General 1994 Respiratory respiratory effort/rhythm Overall: no retractions 11/03/2015 None Full Exam - General 1994 Respiratory respiratory effort/rhythm Overall: normal rate 11/03/2015 None Full Exam - General 1994 Cardiovascular extremities Edema present: pitting 11/03/2015 None Full Exam - General 1994 Cardiovascular extremities Edema present: severity 1+ - 4 +: 1 to ankles 11/03/2015 None Full Exam - General 1994 Cardiovascular auscultation of heart Overall: regular rate 11/03/2015 None Full Exam - General 1994 Cardiovascular auscultation of heart Overall: normal heart sounds 11/03/2015 None Full Exam - General 1994 Cardiovascular auscultation of heart Overall: no murmurs 11/03/2015 None Full Exam - General 1994 Abdomen abdominal exam Overall: no tenderness 11/03/2015 None Full Exam - General 1994 Abdomen abdominal exam Overall: normal bowel sounds 11/03/2015 None Full Exam - General 1994 Musculoskeletal spine, ribs and pelvis Posture: kyphosis 11/03/2015 None Full Exam - General 1994 Musculoskeletal spine, ribs and pelvis Posture: lordosis 11/03/2015 None Full Exam - General 1994 Neurologic cranial nerves Overall: crainial nerves 2 - 12 grossly intact 11/03/2015 None Full Exam - General 1994 Psychiatric orientation/consciousness Overall: oriented to person, place and time 11/03/2015 None Full Exam - General 1994 Constitutional general appearance Overall: well developed 10/06/2015 None Full Exam - General 1994 Constitutional general appearance Overall: in no acute distress 10/06/2015 None Full Exam - General 1994 Constitutional general appearance Overall: well nourished 10/06/2015 None Full Exam - General 1994 Eyes conjunctiva /eyelids Overall: conjunctiva clear 10/06/2015 None Full Exam - General 1994 Eyes conjunctiva /eyelids Overall: cornea clear 10/06/2015 None Full Exam - General 1994 Eyes conjunctiva /eyelids Overall: eyelids normal 10/06/2015 None Full Exam - General 1994 Eyes pupils and irises Overall: pupils equal, round, reactive to light and accomodation 10/06/2015 None Full Exam - General 1994 Ears/Nose/Throat lips/teeth/gingiva Overall: benign lips 10/06/2015 None Full Exam - General 1994 Ears/Nose/Throat lips/teeth/gingiva Overall: normal dentition 10/06/2015 None Full Exam - General 1994 Ears/Nose/Throat lips/teeth/gingiva Overall: benign gingiva 10/06/2015 None Full Exam - General 1994 Ears/Nose/Throat lips/teeth/gingiva Overall: no masses 10/06/2015 None Full Exam - General 1994 Ears/Nose/Throat oral cavity/pharynx/larynx Overall: oral mucosa clear 10/06/2015 None Full Exam - General 1994 Ears/Nose/Throat oral cavity/pharynx/larynx Overall: oropharyngeal mucosa clear 10/06/2015 None Full Exam - General 1994 Ears/Nose/Throat oral cavity/pharynx/larynx Overall: no masses 10/06/2015 None Full Exam - General 1994 Respiratory auscultation Overall: breath sounds clear bilaterally 10/06/2015 None Full Exam - General 1994 Respiratory respiratory effort/rhythm Overall: no retractions 10/06/2015 None Full Exam - General 1994 Respiratory respiratory effort/rhythm Overall: normal rate 10/06/2015 None Full Exam - General 1994 Cardiovascular extremities Edema present: pitting 10/06/2015 None Full Exam - General 1994 Cardiovascular extremities Edema present: severity 1+ - 4 +: 1 to ankles 10/06/2015 None Full Exam - General 1994 Cardiovascular auscultation of heart Overall: regular rate 10/06/2015 None Full Exam - General 1994 Cardiovascular auscultation of heart Overall: normal heart sounds 10/06/2015 None Full Exam - General 1994 Cardiovascular auscultation of heart Overall: no murmurs 10/06/2015 None Full Exam - General 1994 Abdomen abdominal exam Overall: no tenderness 10/06/2015 None Full Exam - General 1994 Abdomen abdominal exam Overall: normal bowel sounds 10/06/2015 None Full Exam - General 1994 Musculoskeletal spine, ribs and pelvis Posture: kyphosis 10/06/2015 None Full Exam - General 1994 Musculoskeletal spine, ribs and pelvis Posture: lordosis 10/06/2015 None Full Exam - General 1994 Neurologic cranial nerves Overall: crainial nerves 2 - 12 grossly intact 10/06/2015 None Full Exam - General 1994 Psychiatric orientation/consciousness Overall: oriented to person, place and time 10/06/2015 None Full Exam - General 1994 Constitutional general appearance Overall: well developed 07/07/2015 None Full Exam - General 1994 Constitutional general appearance Overall: in no acute distress 07/07/2015 None Full Exam - General 1994 Constitutional general appearance Overall: well nourished 07/07/2015 None Full Exam - General 1994 Eyes conjunctiva /eyelids Overall: conjunctiva clear 07/07/2015 None Full Exam - General 1994 Eyes conjunctiva /eyelids Overall: cornea clear 07/07/2015 None Full Exam - General 1994 Eyes conjunctiva /eyelids Overall: eyelids normal 07/07/2015 None Full Exam - General 1994 Eyes pupils and irises Overall: pupils equal, round, reactive to light and accomodation 07/07/2015 None Full Exam - General 1994 Ears/Nose/Throat lips/teeth/gingiva Overall: benign lips 07/07/2015 None Full Exam - General 1994 Ears/Nose/Throat lips/teeth/gingiva Overall: normal dentition 07/07/2015 None Full Exam - General 1994 Ears/Nose/Throat lips/teeth/gingiva Overall: benign gingiva 07/07/2015 None Full Exam - General 1994 Ears/Nose/Throat lips/teeth/gingiva Overall: no masses 07/07/2015 None Full Exam - General 1994 Ears/Nose/Throat oral cavity/pharynx/larynx Overall: oral mucosa clear 07/07/2015 None Full Exam - General 1994 Ears/Nose/Throat oral cavity/pharynx/larynx Overall: oropharyngeal mucosa clear 07/07/2015 None Full Exam - General 1994 Ears/Nose/Throat oral cavity/pharynx/larynx Overall: no masses 07/07/2015 None Full Exam - General 1994 Respiratory auscultation Overall: breath sounds clear bilaterally 07/07/2015 None Full Exam - General 1994 Respiratory respiratory effort/rhythm Overall: no retractions 07/07/2015 None Full Exam - General 1994 Respiratory respiratory effort/rhythm Overall: normal rate 07/07/2015 None Full Exam - General 1994 Cardiovascular extremities Edema present: pitting 07/07/2015 None Full Exam - General 1994 Cardiovascular extremities Edema present: severity 1+ - 4 +: 1 to ankles 07/07/2015 None Full Exam - General 1994 Cardiovascular auscultation of heart Overall: regular rate 07/07/2015 None Full Exam - General 1994 Cardiovascular auscultation of heart Overall: normal heart sounds 07/07/2015 None Full Exam - General 1994 Cardiovascular auscultation of heart Overall: no murmurs 07/07/2015 None Full Exam - General 1994 Abdomen abdominal exam Overall: no tenderness 07/07/2015 None Full Exam - General 1994 Abdomen abdominal exam Overall: normal bowel sounds 07/07/2015 None Full Exam - General 1994 Musculoskeletal spine, ribs and pelvis Posture: kyphosis 07/07/2015 None Full Exam - General 1994 Musculoskeletal spine, ribs and pelvis Posture: lordosis 07/07/2015 None Full Exam - General 1994 Neurologic cranial nerves Overall: crainial nerves 2 - 12 grossly intact 07/07/2015 None Full Exam - General 1994 Psychiatric orientation/consciousness Overall: oriented to person, place and time 07/07/2015 None Full Exam - General 1994 Constitutional general appearance Overall: well developed 06/24/2015 None Full Exam - General 1994 Constitutional general appearance Overall: in no acute distress 06/24/2015 None Full Exam - General 1994 Constitutional general appearance Overall: well nourished 06/24/2015 None Full Exam - General 1994 Eyes conjunctiva /eyelids Overall: conjunctiva clear 06/24/2015 None Full Exam - General 1994 Eyes conjunctiva /eyelids Overall: cornea clear 06/24/2015 None Full Exam - General 1994 Eyes conjunctiva /eyelids Overall: eyelids normal 06/24/2015 None Full Exam - General 1994 Eyes pupils and irises Overall: pupils equal, round, reactive to light and accomodation 06/24/2015 None Full Exam - General 1994 Ears/Nose/Throat lips/teeth/gingiva Overall: benign lips 06/24/2015 None Full Exam - General 1994 Ears/Nose/Throat oral cavity/pharynx/larynx Overall: oral mucosa clear 06/24/2015 None Full Exam - General 1994 Respiratory auscultation Overall: breath sounds clear bilaterally 06/24/2015 None Full Exam - General 1994 Respiratory respiratory effort/rhythm Overall: no retractions 06/24/2015 None Full Exam - General 1994 Respiratory respiratory effort/rhythm Overall: normal rate 06/24/2015 None Full Exam - General 1994 Cardiovascular auscultation of heart Overall: regular rate 06/24/2015 None Full Exam - General 1994 Cardiovascular auscultation of heart Overall: normal heart sounds 06/24/2015 None Full Exam - General 1994 Musculoskeletal spine, ribs and pelvis Posture: kyphosis 06/24/2015 None Full Exam - General 1994 Musculoskeletal spine, ribs and pelvis Posture: lordosis 06/24/2015 None Full Exam - General 1994 Neurologic cranial nerves Overall: crainial nerves 2 - 12 grossly intact 06/24/2015 None Full Exam - General 1994 Psychiatric orientation/consciousness Overall: oriented to person, place and time 06/24/2015 None Full Exam - General 1994 Ears/Nose/Throat oral cavity/pharynx/larynx Posterior Pharynx: clear post nasal drainage 06/24/2015 None Full Exam - General 1994 Ears/Nose/Throat oral cavity/pharynx/larynx Oropharynx: erythema 06/24/2015 None Full Exam - General 1994 Ears/Nose/Throat internal nose Drainage: clear 06/24/2015 None Full Exam - General 1994 Ears/Nose/Throat otoscopic exam Overall: external auditory canals clear 06/24/2015 None Full Exam - General 1994 Ears/Nose/Throat otoscopic exam Tympanic membrane: air- fluid level 06/24/2015 None Full Exam - General 1994 Constitutional general appearance Overall: well developed 06/16/2015 None Full Exam - General 1994 Constitutional general appearance Overall: in no acute distress 06/16/2015 None Full Exam - General 1994 Constitutional general appearance Overall: well nourished 06/16/2015 None Full Exam - General 1994 Eyes conjunctiva /eyelids Overall: conjunctiva clear 06/16/2015 None Full Exam - General 1994 Eyes conjunctiva /eyelids Overall: cornea clear 06/16/2015 None Full Exam - General 1994 Eyes conjunctiva /eyelids Overall: eyelids normal 06/16/2015 None Full Exam - General 1994 Eyes pupils and irises Overall: pupils equal, round, reactive to light and accomodation 06/16/2015 None Full Exam - General 1994 Ears/Nose/Throat lips/teeth/gingiva Overall: benign lips 06/16/2015 None Full Exam - General 1994 Ears/Nose/Throat lips/teeth/gingiva Overall: normal dentition 06/16/2015 None Full Exam - General 1994 Ears/Nose/Throat lips/teeth/gingiva Overall: benign gingiva 06/16/2015 None Full Exam - General 1994 Ears/Nose/Throat lips/teeth/gingiva Overall: no masses 06/16/2015 None Full Exam - General 1994 Ears/Nose/Throat oral cavity/pharynx/larynx Overall: oral mucosa clear 06/16/2015 None Full Exam - General 1994 Ears/Nose/Throat oral cavity/pharynx/larynx Overall: oropharyngeal mucosa clear 06/16/2015 None Full Exam - General 1994 Ears/Nose/Throat oral cavity/pharynx/larynx Overall: no masses 06/16/2015 None Full Exam - General 1994 Respiratory auscultation Overall: breath sounds clear bilaterally 06/16/2015 None Full Exam - General 1994 Respiratory respiratory effort/rhythm Overall: no retractions 06/16/2015 None Full Exam - General 1994 Respiratory respiratory effort/rhythm Overall: normal rate 06/16/2015 None Full Exam - General 1994 Cardiovascular extremities Edema present: pitting 06/16/2015 None Full Exam - General 1994 Cardiovascular auscultation of heart Overall: regular rate 06/16/2015 None Full Exam - General 1994 Cardiovascular auscultation of heart Overall: normal heart sounds 06/16/2015 None Full Exam - General 1994 Cardiovascular auscultation of heart Overall: no murmurs 06/16/2015 None Full Exam - General 1994 Abdomen abdominal exam Overall: no tenderness 06/16/2015 None Full Exam - General 1994 Abdomen abdominal exam Overall: normal bowel sounds 06/16/2015 None Full Exam - General 1994 Musculoskeletal spine, ribs and pelvis Posture: kyphosis 06/16/2015 None Full Exam - General 1994 Musculoskeletal spine, ribs and pelvis Posture: lordosis 06/16/2015 None Full Exam - General 1994 Neurologic cranial nerves Overall: crainial nerves 2 - 12 grossly intact 06/16/2015 None Full Exam - General 1994 Psychiatric orientation/consciousness Overall: oriented to person, place and time 06/16/2015 None Full Exam - General 1994 Cardiovascular extremities Edema present: severity 1+ - 4 +: trace to 1 to the ankles 06/16/2015 None Full Exam - General 1994 Constitutional general appearance Overall: well developed 05/16/2015 None Full Exam - General 1994 Constitutional general appearance Overall: in no acute distress 05/16/2015 None Full Exam - General 1994 Constitutional general appearance Overall: well nourished 05/16/2015 None Full Exam - General 1994 Eyes conjunctiva /eyelids Overall: conjunctiva clear 05/16/2015 None Full Exam - General 1994 Eyes conjunctiva /eyelids Overall: cornea clear 05/16/2015 None Full Exam - General 1994 Eyes conjunctiva /eyelids Overall: eyelids normal 05/16/2015 None Full Exam - General 1994 Eyes pupils and irises Overall: pupils equal, round, reactive to light and accomodation 05/16/2015 None Full Exam - General 1994 Ears/Nose/Throat lips/teeth/gingiva Overall: benign lips 05/16/2015 None Full Exam - General 1994 Ears/Nose/Throat lips/teeth/gingiva Overall: normal dentition 05/16/2015 None Full Exam - General 1994 Ears/Nose/Throat lips/teeth/gingiva Overall: benign gingiva 05/16/2015 None Full Exam - General 1994 Ears/Nose/Throat lips/teeth/gingiva Overall: no masses 05/16/2015 None Full Exam - General 1994 Ears/Nose/Throat oral cavity/pharynx/larynx Overall: oral mucosa clear 05/16/2015 None Full Exam - General 1994 Ears/Nose/Throat oral cavity/pharynx/larynx Overall: oropharyngeal mucosa clear 05/16/2015 None Full Exam - General 1994 Ears/Nose/Throat oral cavity/pharynx/larynx Overall: no masses 05/16/2015 None Full Exam - General 1994 Respiratory auscultation Overall: breath sounds clear bilaterally 05/16/2015 None Full Exam - General 1994 Respiratory respiratory effort/rhythm Overall: no retractions 05/16/2015 None Full Exam - General 1994 Respiratory respiratory effort/rhythm Overall: normal rate 05/16/2015 None Full Exam - General 1994 Cardiovascular extremities Edema present: pitting 05/16/2015 None Full Exam - General 1994 Cardiovascular extremities Edema present: severity 1+ - 4 +: 1 to ankles 05/16/2015 None Full Exam - General 1994 Cardiovascular auscultation of heart Overall: regular rate 05/16/2015 None Full Exam - General 1994 Cardiovascular auscultation of heart Overall: normal heart sounds 05/16/2015 None Full Exam - General 1994 Cardiovascular auscultation of heart Overall: no murmurs 05/16/2015 None Full Exam - General 1994 Abdomen abdominal exam Overall: no tenderness 05/16/2015 None Full Exam - General 1994 Abdomen abdominal exam Overall: normal bowel sounds 05/16/2015 None Full Exam - General 1994 Musculoskeletal spine, ribs and pelvis Posture: kyphosis 05/16/2015 None Full Exam - General 1994 Musculoskeletal spine, ribs and pelvis Posture: lordosis 05/16/2015 None Full Exam - General 1994 Neurologic cranial nerves Overall: crainial nerves 2 - 12 grossly intact 05/16/2015 None Full Exam - General 1994 Psychiatric orientation/consciousness Overall: oriented to person, place and time 05/16/2015 None Full Exam - General 1994 Constitutional general appearance Overall: well developed 04/14/2015 None Full Exam - General 1994 Constitutional general appearance Overall: in no acute distress 04/14/2015 None Full Exam - General 1994 Constitutional general appearance Overall: well nourished 04/14/2015 None Full Exam - General 1994 Eyes conjunctiva /eyelids Overall: conjunctiva clear 04/14/2015 None Full Exam - General 1994 Eyes conjunctiva /eyelids Overall: cornea clear 04/14/2015 None Full Exam - General 1994 Eyes conjunctiva /eyelids Overall: eyelids normal 04/14/2015 None Full Exam - General 1994 Eyes pupils and irises Overall: pupils equal, round, reactive to light and accomodation 04/14/2015 None Full Exam - General 1994 Ears/Nose/Throat lips/teeth/gingiva Overall: benign lips 04/14/2015 None Full Exam - General 1994 Ears/Nose/Throat lips/teeth/gingiva Overall: normal dentition 04/14/2015 None Full Exam - General 1994 Ears/Nose/Throat lips/teeth/gingiva Overall: benign gingiva 04/14/2015 None Full Exam - General 1994 Ears/Nose/Throat lips/teeth/gingiva Overall: no masses 04/14/2015 None Full Exam - General 1994 Ears/Nose/Throat oral cavity/pharynx/larynx Overall: oral mucosa clear 04/14/2015 None Full Exam - General 1994 Ears/Nose/Throat oral cavity/pharynx/larynx Overall: oropharyngeal mucosa clear 04/14/2015 None Full Exam - General 1994 Ears/Nose/Throat oral cavity/pharynx/larynx Overall: no masses 04/14/2015 None Full Exam - General 1994 Respiratory auscultation Overall: breath sounds clear bilaterally 04/14/2015 None Full Exam - General 1994 Respiratory respiratory effort/rhythm Overall: no retractions 04/14/2015 None Full Exam - General 1994 Respiratory respiratory effort/rhythm Overall: normal rate 04/14/2015 None Full Exam - General 1994 Cardiovascular extremities Edema present: pitting 04/14/2015 None Full Exam - General 1994 Cardiovascular extremities Edema present: severity 1+ - 4 +: 1 to ankles 04/14/2015 None Full Exam - General 1994 Cardiovascular auscultation of heart Overall: regular rate 04/14/2015 None Full Exam - General 1994 Cardiovascular auscultation of heart Overall: normal heart sounds 04/14/2015 None Full Exam - General 1994 Cardiovascular auscultation of heart Overall: no murmurs 04/14/2015 None Full Exam - General 1994 Abdomen abdominal exam Overall: no tenderness 04/14/2015 None Full Exam - General 1994 Abdomen abdominal exam Overall: normal bowel sounds 04/14/2015 None Full Exam - General 1994 Musculoskeletal spine, ribs and pelvis Posture: kyphosis 04/14/2015 None Full Exam - General 1994 Musculoskeletal spine, ribs and pelvis Posture: lordosis 04/14/2015 None Full Exam - General 1994 Neurologic cranial nerves Overall: crainial nerves 2 - 12 grossly intact 04/14/2015 None Full Exam - General 1994 Psychiatric orientation/consciousness Overall: oriented to person, place and time 04/14/2015 None Full Exam - General 1994 Constitutional general appearance Overall: well developed 03/14/2015 None Full Exam - General 1994 Constitutional general appearance Overall: in no acute distress 03/14/2015 None Full Exam - General 1994 Constitutional general appearance Overall: well nourished 03/14/2015 None Full Exam - General 1994 Eyes conjunctiva /eyelids Overall: conjunctiva clear 03/14/2015 None Full Exam - General 1994 Eyes conjunctiva /eyelids Overall: cornea clear 03/14/2015 None Full Exam - General 1994 Eyes conjunctiva /eyelids Overall: eyelids normal 03/14/2015 None Full Exam - General 1994 Eyes pupils and irises Overall: pupils equal, round, reactive to light and accomodation 03/14/2015 None Full Exam - General 1994 Ears/Nose/Throat lips/teeth/gingiva Overall: benign lips 03/14/2015 None Full Exam - General 1994 Ears/Nose/Throat lips/teeth/gingiva Overall: normal dentition 03/14/2015 None Full Exam - General 1994 Ears/Nose/Throat lips/teeth/gingiva Overall: benign gingiva 03/14/2015 None Full Exam - General 1994 Ears/Nose/Throat lips/teeth/gingiva Overall: no masses 03/14/2015 None Full Exam - General 1994 Ears/Nose/Throat oral cavity/pharynx/larynx Overall: oral mucosa clear 03/14/2015 None Full Exam - General 1994 Ears/Nose/Throat oral cavity/pharynx/larynx Overall: oropharyngeal mucosa clear 03/14/2015 None Full Exam - General 1994 Ears/Nose/Throat oral cavity/pharynx/larynx Overall: no masses 03/14/2015 None Full Exam - General 1994 Respiratory auscultation Overall: breath sounds clear bilaterally 03/14/2015 None Full Exam - General 1994 Respiratory respiratory effort/rhythm Overall: no retractions 03/14/2015 None Full Exam - General 1994 Respiratory respiratory effort/rhythm Overall: normal rate 03/14/2015 None Full Exam - General 1994 Cardiovascular extremities Edema present: pitting 03/14/2015 None Full Exam - General 1994 Cardiovascular extremities Edema present: severity 1+ - 4 +: 1 to ankles 03/14/2015 None Full Exam - General 1994 Cardiovascular auscultation of heart Overall: regular rate 03/14/2015 None Full Exam - General 1994 Cardiovascular auscultation of heart Overall: normal heart sounds 03/14/2015 None Full Exam - General 1994 Cardiovascular auscultation of heart Overall: no murmurs 03/14/2015 None Full Exam - General 1994 Abdomen abdominal exam Overall: no tenderness 03/14/2015 None Full Exam - General 1994 Abdomen abdominal exam Overall: normal bowel sounds 03/14/2015 None Full Exam - General 1994 Musculoskeletal spine, ribs and pelvis Posture: kyphosis 03/14/2015 None Full Exam - General 1994 Musculoskeletal spine, ribs and pelvis Posture: lordosis 03/14/2015 None Full Exam - General 1994 Neurologic cranial nerves Overall: crainial nerves 2 - 12 grossly intact 03/14/2015 None Full Exam - General 1994 Psychiatric orientation/consciousness Overall: oriented to person, place and time 03/14/2015 None Full Exam - General 1994 Constitutional general appearance Overall: well developed 02/17/2015 None Full Exam - General 1994 Constitutional general appearance Overall: in no acute distress 02/17/2015 None Full Exam - General 1994 Constitutional general appearance Overall: well nourished 02/17/2015 None Full Exam - General 1994 Eyes conjunctiva /eyelids Overall: conjunctiva clear 02/17/2015 None Full Exam - General 1994 Eyes conjunctiva /eyelids Overall: cornea clear 02/17/2015 None Full Exam - General 1994 Eyes conjunctiva /eyelids Overall: eyelids normal 02/17/2015 None Full Exam - General 1994 Eyes pupils and irises Overall: pupils equal, round, reactive to light and accomodation 02/17/2015 None Full Exam - General 1994 Ears/Nose/Throat lips/teeth/gingiva Overall: benign lips 02/17/2015 None Full Exam - General 1994 Ears/Nose/Throat lips/teeth/gingiva Overall: normal dentition 02/17/2015 None Full Exam - General 1994 Ears/Nose/Throat lips/teeth/gingiva Overall: benign gingiva 02/17/2015 None Full Exam - General 1994 Ears/Nose/Throat lips/teeth/gingiva Overall: no masses 02/17/2015 None Full Exam - General 1994 Ears/Nose/Throat oral cavity/pharynx/larynx Overall: oral mucosa clear 02/17/2015 None Full Exam - General 1994 Ears/Nose/Throat oral cavity/pharynx/larynx Overall: oropharyngeal mucosa clear 02/17/2015 None Full Exam - General 1994 Ears/Nose/Throat oral cavity/pharynx/larynx Overall: no masses 02/17/2015 None Full Exam - General 1994 Respiratory auscultation Overall: breath sounds clear bilaterally 02/17/2015 None Full Exam - General 1994 Respiratory respiratory effort/rhythm Overall: no retractions 02/17/2015 None Full Exam - General 1994 Respiratory respiratory effort/rhythm Overall: normal rate 02/17/2015 None Full Exam - General 1994 Cardiovascular extremities Edema present: pitting 02/17/2015 None Full Exam - General 1994 Cardiovascular extremities Edema present: severity 1+ - 4 +: 1 to ankles 02/17/2015 None Full Exam - General 1994 Cardiovascular auscultation of heart Overall: regular rate 02/17/2015 None Full Exam - General 1994 Cardiovascular auscultation of heart Overall: normal heart sounds 02/17/2015 None Full Exam - General 1994 Cardiovascular auscultation of heart Overall: no murmurs 02/17/2015 None Full Exam - General 1994 Abdomen abdominal exam Overall: no tenderness 02/17/2015 None Full Exam - General 1994 Abdomen abdominal exam Overall: normal bowel sounds 02/17/2015 None Full Exam - General 1994 Musculoskeletal spine, ribs and pelvis Posture: kyphosis 02/17/2015 None Full Exam - General 1994 Musculoskeletal spine, ribs and pelvis Posture: lordosis 02/17/2015 None Full Exam - General 1994 Neurologic cranial nerves Overall: crainial nerves 2 - 12 grossly intact 02/17/2015 None Full Exam - General 1994 Psychiatric orientation/consciousness Overall: oriented to person, place and time 02/17/2015 None Full Exam - General 1994 Constitutional general appearance Overall: well developed 01/18/2015 None Full Exam - General 1994 Constitutional general appearance Overall: in no acute distress 01/18/2015 None Full Exam - General 1994 Constitutional general appearance Overall: well nourished 01/18/2015 None Full Exam - General 1994 Eyes conjunctiva /eyelids Overall: conjunctiva clear 01/18/2015 None Full Exam - General 1994 Eyes conjunctiva /eyelids Overall: cornea clear 01/18/2015 None Full Exam - General 1994 Eyes conjunctiva /eyelids Overall: eyelids normal 01/18/2015 None Full Exam - General 1994 Eyes pupils and irises Overall: pupils equal, round, reactive to light and accomodation 01/18/2015 None Full Exam - General 1994 Ears/Nose/Throat lips/teeth/gingiva Overall: benign lips 01/18/2015 None Full Exam - General 1994 Ears/Nose/Throat lips/teeth/gingiva Overall: normal dentition 01/18/2015 None Full Exam - General 1994 Ears/Nose/Throat lips/teeth/gingiva Overall: benign gingiva 01/18/2015 None Full Exam - General 1994 Ears/Nose/Throat lips/teeth/gingiva Overall: no masses 01/18/2015 None Full Exam - General 1994 Ears/Nose/Throat oral cavity/pharynx/larynx Overall: oral mucosa clear 01/18/2015 None Full Exam - General 1994 Ears/Nose/Throat oral cavity/pharynx/larynx Overall: oropharyngeal mucosa clear 01/18/2015 None Full Exam - General 1994 Ears/Nose/Throat oral cavity/pharynx/larynx Overall: no masses 01/18/2015 None Full Exam - General 1994 Respiratory auscultation Overall: breath sounds clear bilaterally 01/18/2015 None Full Exam - General 1994 Respiratory respiratory effort/rhythm Overall: no retractions 01/18/2015 None Full Exam - General 1994 Respiratory respiratory effort/rhythm Overall: normal rate 01/18/2015 None Full Exam - General 1994 Cardiovascular extremities Edema present: pitting 01/18/2015 None Full Exam - General 1994 Cardiovascular extremities Edema present: severity 1+ - 4 +: 1 to ankles 01/18/2015 None Full Exam - General 1994 Cardiovascular auscultation of heart Overall: regular rate 01/18/2015 None Full Exam - General 1994 Cardiovascular auscultation of heart Overall: normal heart sounds 01/18/2015 None Full Exam - General 1994 Cardiovascular auscultation of heart Overall: no murmurs 01/18/2015 None Full Exam - General 1994 Abdomen abdominal exam Overall: no tenderness 01/18/2015 None Full Exam - General 1994 Abdomen abdominal exam Overall: normal bowel sounds 01/18/2015 None Full Exam - General 1994 Musculoskeletal spine, ribs and pelvis Posture: kyphosis 01/18/2015 None Full Exam - General 1994 Musculoskeletal spine, ribs and pelvis Posture: lordosis 01/18/2015 None Full Exam - General 1994 Neurologic cranial nerves Overall: crainial nerves 2 - 12 grossly intact 01/18/2015 None Full Exam - General 1994 Psychiatric orientation/consciousness Overall: oriented to person, place and time 01/18/2015 None Full Exam - General 1994 Constitutional general appearance Overall: well developed 12/30/2014 None Full Exam - General 1994 Constitutional general appearance Overall: in no acute distress 12/30/2014 None Full Exam - General 1994 Constitutional general appearance Overall: well nourished 12/30/2014 None Full Exam - General 1994 Eyes conjunctiva /eyelids Overall: conjunctiva clear 12/30/2014 None Full Exam - General 1994 Eyes conjunctiva /eyelids Overall: cornea clear 12/30/2014 None Full Exam - General 1994 Eyes conjunctiva /eyelids Overall: eyelids normal 12/30/2014 None Full Exam - General 1994 Eyes pupils and irises Overall: pupils equal, round, reactive to light and accomodation 12/30/2014 None Full Exam - General 1994 Ears/Nose/Throat lips/teeth/gingiva Overall: benign lips 12/30/2014 None Full Exam - General 1994 Ears/Nose/Throat lips/teeth/gingiva Overall: normal dentition 12/30/2014 None Full Exam - General 1994 Ears/Nose/Throat lips/teeth/gingiva Overall: benign gingiva 12/30/2014 None Full Exam - General 1994 Ears/Nose/Throat lips/teeth/gingiva Overall: no masses 12/30/2014 None Full Exam - General 1994 Ears/Nose/Throat oral cavity/pharynx/larynx Overall: oral mucosa clear 12/30/2014 None Full Exam - General 1994 Ears/Nose/Throat oral cavity/pharynx/larynx Overall: oropharyngeal mucosa clear 12/30/2014 None Full Exam - General 1994 Ears/Nose/Throat oral cavity/pharynx/larynx Overall: no masses 12/30/2014 None Full Exam - General 1994 Respiratory auscultation Overall: breath sounds clear bilaterally 12/30/2014 None Full Exam - General 1994 Respiratory respiratory effort/rhythm Overall: no retractions 12/30/2014 None Full Exam - General 1994 Respiratory respiratory effort/rhythm Overall: normal rate 12/30/2014 None Full Exam - General 1994 Cardiovascular extremities Edema present: pitting 12/30/2014 None Full Exam - General 1994 Cardiovascular extremities Edema present: severity 1+ - 4 +: 1 to ankles 12/30/2014 None Full Exam - General 1994 Cardiovascular auscultation of heart Overall: regular rate 12/30/2014 None Full Exam - General 1994 Cardiovascular auscultation of heart Overall: normal heart sounds 12/30/2014 None Full Exam - General 1994 Cardiovascular auscultation of heart Overall: no murmurs 12/30/2014 None Full Exam - General 1994 Abdomen abdominal exam Overall: no tenderness 12/30/2014 None Full Exam - General 1994 Abdomen abdominal exam Overall: normal bowel sounds 12/30/2014 None Full Exam - General 1994 Musculoskeletal spine, ribs and pelvis Posture: kyphosis 12/30/2014 None Full Exam - General 1994 Musculoskeletal spine, ribs and pelvis Posture: lordosis 12/30/2014 None Full Exam - General 1994 Neurologic cranial nerves Overall: crainial nerves 2 - 12 grossly intact 12/30/2014 None Full Exam - General 1994 Psychiatric orientation/consciousness Overall: oriented to person, place and time 12/30/2014 None Full Exam - General 1994 Constitutional general appearance Overall: well developed 10/27/2014 None Full Exam - General 1994 Constitutional general appearance Overall: in no acute distress 10/27/2014 None Full Exam - General 1994 Constitutional general appearance Overall: well nourished 10/27/2014 None Full Exam - General 1994 Eyes conjunctiva /eyelids Overall: conjunctiva clear 10/27/2014 None Full Exam - General 1994 Eyes conjunctiva /eyelids Overall: cornea clear 10/27/2014 None Full Exam - General 1994 Eyes conjunctiva /eyelids Overall: eyelids normal 10/27/2014 None Full Exam - General 1994 Eyes pupils and irises Overall: pupils equal, round, reactive to light and accomodation 10/27/2014 None Full Exam - General 1994 Ears/Nose/Throat lips/teeth/gingiva Overall: benign lips 10/27/2014 None Full Exam - General 1994 Ears/Nose/Throat lips/teeth/gingiva Overall: normal dentition 10/27/2014 None Full Exam - General 1994 Ears/Nose/Throat lips/teeth/gingiva Overall: benign gingiva 10/27/2014 None Full Exam - General 1994 Ears/Nose/Throat lips/teeth/gingiva Overall: no masses 10/27/2014 None Full Exam - General 1994 Ears/Nose/Throat oral cavity/pharynx/larynx Overall: oral mucosa clear 10/27/2014 None Full Exam - General 1994 Ears/Nose/Throat oral cavity/pharynx/larynx Overall: oropharyngeal mucosa clear 10/27/2014 None Full Exam - General 1994 Ears/Nose/Throat oral cavity/pharynx/larynx Overall: no masses 10/27/2014 None Full Exam - General 1994 Respiratory auscultation Overall: breath sounds clear bilaterally 10/27/2014 None Full Exam - General 1994 Respiratory respiratory effort/rhythm Overall: no retractions 10/27/2014 None Full Exam - General 1994 Respiratory respiratory effort/rhythm Overall: normal rate 10/27/2014 None Full Exam - General 1994 Cardiovascular extremities Edema present: pitting 10/27/2014 None Full Exam - General 1994 Cardiovascular extremities Edema present: severity 1+ - 4 +: 1 to ankles 10/27/2014 None Full Exam - General 1994 Cardiovascular auscultation of heart Overall: regular rate 10/27/2014 None Full Exam - General 1994 Cardiovascular auscultation of heart Overall: normal heart sounds 10/27/2014 None Full Exam - General 1994 Cardiovascular auscultation of heart Overall: no murmurs 10/27/2014 None Full Exam - General 1994 Abdomen abdominal exam Overall: no tenderness 10/27/2014 None Full Exam - General 1994 Abdomen abdominal exam Overall: normal bowel sounds 10/27/2014 None Full Exam - General 1994 Musculoskeletal spine, ribs and pelvis Posture: kyphosis 10/27/2014 None Full Exam - General 1994 Musculoskeletal spine, ribs and pelvis Posture: lordosis 10/27/2014 None Full Exam - General 1994 Neurologic cranial nerves Overall: crainial nerves 2 - 12 grossly intact 10/27/2014 None Full Exam - General 1994 Psychiatric orientation/consciousness Overall: oriented to person, place and time 10/27/2014 None Full Exam - General 1994 Constitutional general appearance Overall: well developed 08/25/2014 None Full Exam - General 1994 Constitutional general appearance Overall: in no acute distress 08/25/2014 None Full Exam - General 1994 Constitutional general appearance Overall: well nourished 08/25/2014 None Full Exam - General 1994 Eyes conjunctiva /eyelids Overall: conjunctiva clear 08/25/2014 None Full Exam - General 1994 Eyes conjunctiva /eyelids Overall: cornea clear 08/25/2014 None Full Exam - General 1994 Eyes conjunctiva /eyelids Overall: eyelids normal 08/25/2014 None Full Exam - General 1994 Eyes pupils and irises Overall: pupils equal, round, reactive to light and accomodation 08/25/2014 None Full Exam - General 1994 Ears/Nose/Throat lips/teeth/gingiva Overall: benign lips 08/25/2014 None Full Exam - General 1994 Ears/Nose/Throat lips/teeth/gingiva Overall: normal dentition 08/25/2014 None Full Exam - General 1994 Ears/Nose/Throat lips/teeth/gingiva Overall: benign gingiva 08/25/2014 None Full Exam - General 1994 Ears/Nose/Throat lips/teeth/gingiva Overall: no masses 08/25/2014 None Full Exam - General 1994 Ears/Nose/Throat oral cavity/pharynx/larynx Overall: oral mucosa clear 08/25/2014 None Full Exam - General 1994 Ears/Nose/Throat oral cavity/pharynx/larynx Overall: oropharyngeal mucosa clear 08/25/2014 None Full Exam - General 1994 Ears/Nose/Throat oral cavity/pharynx/larynx Overall: no masses 08/25/2014 None Full Exam - General 1994 Respiratory auscultation Overall: breath sounds clear bilaterally 08/25/2014 None Full Exam - General 1994 Respiratory respiratory effort/rhythm Overall: no retractions 08/25/2014 None Full Exam - General 1994 Respiratory respiratory effort/rhythm Overall: normal rate 08/25/2014 None Full Exam - General 1994 Cardiovascular extremities Edema present: pitting 08/25/2014 None Full Exam - General 1994 Cardiovascular extremities Edema present: severity 1+ - 4 +: 1 to ankles 08/25/2014 None Full Exam - General 1994 Cardiovascular auscultation of heart Overall: regular rate 08/25/2014 None Full Exam - General 1994 Cardiovascular auscultation of heart Overall: normal heart sounds 08/25/2014 None Full Exam - General 1994 Cardiovascular auscultation of heart Overall: no murmurs 08/25/2014 None Full Exam - General 1994 Abdomen abdominal exam Overall: no tenderness 08/25/2014 None Full Exam - General 1994 Abdomen abdominal exam Overall: normal bowel sounds 08/25/2014 None Full Exam - General 1994 Musculoskeletal spine, ribs and pelvis Posture: kyphosis 08/25/2014 None Full Exam - General 1994 Musculoskeletal spine, ribs and pelvis Posture: lordosis 08/25/2014 None Full Exam - General 1994 Neurologic cranial nerves Overall: crainial nerves 2 - 12 grossly intact 08/25/2014 None Full Exam - General 1994 Psychiatric orientation/consciousness Overall: oriented to person, place and time 08/25/2014 None Full Exam - General 1994 Constitutional general appearance Overall: well developed 04/28/2014 None Full Exam - General 1994 Constitutional general appearance Overall: in no acute distress 04/28/2014 None Full Exam - General 1994 Constitutional general appearance Overall: well nourished 04/28/2014 None Full Exam - General 1994 Eyes conjunctiva /eyelids Overall: conjunctiva clear 04/28/2014 None Full Exam - General 1994 Eyes conjunctiva /eyelids Overall: cornea clear 04/28/2014 None Full Exam - General 1994 Eyes conjunctiva /eyelids Overall: eyelids normal 04/28/2014 None Full Exam - General 1994 Eyes pupils and irises Overall: pupils equal, round, reactive to light and accomodation 04/28/2014 None Full Exam - General 1994 Ears/Nose/Throat lips/teeth/gingiva Overall: benign lips 04/28/2014 None Full Exam - General 1994 Ears/Nose/Throat lips/teeth/gingiva Overall: normal dentition 04/28/2014 None Full Exam - General 1994 Ears/Nose/Throat lips/teeth/gingiva Overall: benign gingiva 04/28/2014 None Full Exam - General 1994 Ears/Nose/Throat lips/teeth/gingiva Overall: no masses 04/28/2014 None Full Exam - General 1994 Ears/Nose/Throat oral cavity/pharynx/larynx Overall: oral mucosa clear 04/28/2014 None Full Exam - General 1994 Ears/Nose/Throat oral cavity/pharynx/larynx Overall: oropharyngeal mucosa clear 04/28/2014 None Full Exam - General 1994 Ears/Nose/Throat oral cavity/pharynx/larynx Overall: no masses 04/28/2014 None Full Exam - General 1994 Respiratory auscultation Overall: breath sounds clear bilaterally 04/28/2014 None Full Exam - General 1994 Respiratory respiratory effort/rhythm Overall: no retractions 04/28/2014 None Full Exam - General 1994 Respiratory respiratory effort/rhythm Overall: normal rate 04/28/2014 None Full Exam - General 1994 Cardiovascular extremities Edema present: pitting 04/28/2014 None Full Exam - General 1994 Cardiovascular extremities Edema present: severity 1+ - 4 +: 1 to ankles 04/28/2014 None Full Exam - General 1994 Cardiovascular auscultation of heart Overall: regular rate 04/28/2014 None Full Exam - General 1994 Cardiovascular auscultation of heart Overall: normal heart sounds 04/28/2014 None Full Exam - General 1994 Cardiovascular auscultation of heart Overall: no murmurs 04/28/2014 None Full Exam - General 1994 Abdomen abdominal exam Overall: no tenderness 04/28/2014 None Full Exam - General 1994 Abdomen abdominal exam Overall: normal bowel sounds 04/28/2014 None Full Exam - General 1994 Musculoskeletal spine, ribs and pelvis Posture: kyphosis 04/28/2014 None Full Exam - General 1994 Musculoskeletal spine, ribs and pelvis Posture: lordosis 04/28/2014 None Full Exam - General 1994 Neurologic cranial nerves Overall: crainial nerves 2 - 12 grossly intact 04/28/2014 None Full Exam - General 1994 Psychiatric orientation/consciousness Overall: oriented to person, place and time 04/28/2014 None Full Exam - General 1994 Constitutional general appearance Overall: well developed 02/24/2014 None Full Exam - General 1994 Constitutional general appearance Overall: in no acute distress 02/24/2014 None Full Exam - General 1994 Constitutional general appearance Overall: well nourished 02/24/2014 None Full Exam - General 1994 Eyes conjunctiva /eyelids Overall: conjunctiva clear 02/24/2014 None Full Exam - General 1994 Eyes conjunctiva /eyelids Overall: cornea clear 02/24/2014 None Full Exam - General 1994 Eyes conjunctiva /eyelids Overall: eyelids normal 02/24/2014 None Full Exam - General 1994 Eyes pupils and irises Overall: pupils equal, round, reactive to light and accomodation 02/24/2014 None Full Exam - General 1994 Ears/Nose/Throat lips/teeth/gingiva Overall: benign lips 02/24/2014 None Full Exam - General 1994 Ears/Nose/Throat lips/teeth/gingiva Overall: normal dentition 02/24/2014 None Full Exam - General 1994 Ears/Nose/Throat lips/teeth/gingiva Overall: benign gingiva 02/24/2014 None Full Exam - General 1994 Ears/Nose/Throat lips/teeth/gingiva Overall: no masses 02/24/2014 None Full Exam - General 1994 Ears/Nose/Throat oral cavity/pharynx/larynx Overall: oral mucosa clear 02/24/2014 None Full Exam - General 1994 Ears/Nose/Throat oral cavity/pharynx/larynx Overall: oropharyngeal mucosa clear 02/24/2014 None Full Exam - General 1994 Ears/Nose/Throat oral cavity/pharynx/larynx Overall: no masses 02/24/2014 None Full Exam - General 1994 Respiratory auscultation Overall: breath sounds clear bilaterally 02/24/2014 None Full Exam - General 1994 Respiratory respiratory effort/rhythm Overall: no retractions 02/24/2014 None Full Exam - General 1994 Respiratory respiratory effort/rhythm Overall: normal rate 02/24/2014 None Full Exam - General 1994 Cardiovascular extremities Edema present: pitting 02/24/2014 None Full Exam - General 1994 Cardiovascular extremities Edema present: severity 1+ - 4 +: 1 to ankles 02/24/2014 None Full Exam - General 1994 Cardiovascular auscultation of heart Overall: regular rate 02/24/2014 None Full Exam - General 1994 Cardiovascular auscultation of heart Overall: normal heart sounds 02/24/2014 None Full Exam - General 1994 Cardiovascular auscultation of heart Overall: no murmurs 02/24/2014 None Full Exam - General 1994 Abdomen abdominal exam Overall: no tenderness 02/24/2014 None Full Exam - General 1994 Abdomen abdominal exam Overall: normal bowel sounds 02/24/2014 None Full Exam - General 1994 Musculoskeletal spine, ribs and pelvis Posture: kyphosis 02/24/2014 None Full Exam - General 1994 Musculoskeletal spine, ribs and pelvis Posture: lordosis 02/24/2014 None Full Exam - General 1994 Neurologic cranial nerves Overall: crainial nerves 2 - 12 grossly intact 02/24/2014 None Full Exam - General 1994 Psychiatric orientation/consciousness Overall: oriented to person, place and time 02/24/2014 None Full Exam - General 1994 Constitutional general appearance Overall: well developed 10/22/2013 None Full Exam - General 1994 Constitutional general appearance Overall: in no acute distress 10/22/2013 None Full Exam - General 1994 Constitutional general appearance Overall: well nourished 10/22/2013 None Full Exam - General 1994 Integument inspection of skin Location: back 10/22/2013 red patch right mid back-with crusted lesions x 2 Full Exam - General 1994 Psychiatric orientation/consciousness Overall: oriented to person, place and time 10/22/2013 None Full Exam - General 1994 Eyes conjunctiva /eyelids Overall: conjunctiva clear 10/22/2013 None Full Exam - General 1994 Eyes conjunctiva /eyelids Overall: cornea clear 10/22/2013 None Full Exam - General 1994 Eyes conjunctiva /eyelids Overall: eyelids normal 10/22/2013 None Full Exam - General 1994 Eyes pupils and irises Overall: pupils equal, round, reactive to light and accomodation 10/22/2013 None Full Exam - General 1994 Ears/Nose/Throat lips/teeth/gingiva Overall: benign lips 10/22/2013 None Full Exam - General 1994 Ears/Nose/Throat lips/teeth/gingiva Overall: normal dentition 10/22/2013 None Full Exam - General 1994 Ears/Nose/Throat lips/teeth/gingiva Overall: benign gingiva 10/22/2013 None Full Exam - General 1994 Ears/Nose/Throat lips/teeth/gingiva Overall: no masses 10/22/2013 None Full Exam - General 1994 Ears/Nose/Throat oral cavity/pharynx/larynx Overall: oral mucosa clear 10/22/2013 None Full Exam - General 1994 Ears/Nose/Throat oral cavity/pharynx/larynx Overall: oropharyngeal mucosa clear 10/22/2013 None Full Exam - General 1994 Ears/Nose/Throat oral cavity/pharynx/larynx Overall: no masses 10/22/2013 None Full Exam - General 1994 Respiratory auscultation Overall: breath sounds clear bilaterally 10/22/2013 None Full Exam - General 1994 Respiratory respiratory effort/rhythm Overall: no retractions 10/22/2013 None Full Exam - General 1994 Respiratory respiratory effort/rhythm Overall: normal rate 10/22/2013 None Full Exam - General 1994 Cardiovascular auscultation of heart Overall: regular rate 10/22/2013 None Full Exam - General 1994 Cardiovascular auscultation of heart Overall: normal heart sounds 10/22/2013 None Full Exam - General 1994 Cardiovascular auscultation of heart Overall: no murmurs 10/22/2013 None Full Exam - General 1994 Abdomen abdominal exam Overall: no tenderness 10/22/2013 None Full Exam - General 1994 Abdomen abdominal exam Overall: normal bowel sounds 10/22/2013 None Full Exam - General 1994 Neurologic cranial nerves Overall: crainial nerves 2 - 12 grossly intact 10/22/2013 None Full Exam - General 1994 Constitutional general appearance Overall: well developed 09/22/2013 None Full Exam - General 1994 Constitutional general appearance Overall: in no acute distress 09/22/2013 None Full Exam - General 1994 Constitutional general appearance Overall: well nourished 09/22/2013 None Full Exam - General 1994 Eyes conjunctiva /eyelids Overall: conjunctiva clear 09/22/2013 None Full Exam - General 1994 Eyes conjunctiva /eyelids Overall: cornea clear 09/22/2013 None Full Exam - General 1994 Eyes conjunctiva /eyelids Overall: eyelids normal 09/22/2013 None Full Exam - General 1994 Eyes pupils and irises Overall: pupils equal, round, reactive to light and accomodation 09/22/2013 None Full Exam - General 1994 Ears/Nose/Throat lips/teeth/gingiva Overall: benign lips 09/22/2013 None Full Exam - General 1994 Ears/Nose/Throat lips/teeth/gingiva Overall: normal dentition 09/22/2013 None Full Exam - General 1994 Ears/Nose/Throat lips/teeth/gingiva Overall: benign gingiva 09/22/2013 None Full Exam - General 1994 Ears/Nose/Throat lips/teeth/gingiva Overall: no masses 09/22/2013 None Full Exam - General 1994 Ears/Nose/Throat oral cavity/pharynx/larynx Overall: oral mucosa clear 09/22/2013 None Full Exam - General 1994 Ears/Nose/Throat oral cavity/pharynx/larynx Overall: oropharyngeal mucosa clear 09/22/2013 None Full Exam - General 1994 Ears/Nose/Throat oral cavity/pharynx/larynx Overall: no masses 09/22/2013 None Full Exam - General 1994 Respiratory auscultation Overall: breath sounds clear bilaterally 09/22/2013 None Full Exam - General 1994 Respiratory respiratory effort/rhythm Overall: no retractions 09/22/2013 None Full Exam - General 1994 Respiratory respiratory effort/rhythm Overall: normal rate 09/22/2013 None Full Exam - General 1994 Cardiovascular auscultation of heart Overall: regular rate 09/22/2013 None Full Exam - General 1994 Cardiovascular auscultation of heart Overall: normal heart sounds 09/22/2013 None Full Exam - General 1994 Cardiovascular auscultation of heart Overall: no murmurs 09/22/2013 None Full Exam - General 1994 Abdomen abdominal exam Overall: no tenderness 09/22/2013 None Full Exam - General 1994 Abdomen abdominal exam Overall: normal bowel sounds 09/22/2013 None Full Exam - General 1994 Neurologic cranial nerves Overall: crainial nerves 2 - 12 grossly intact 09/22/2013 None Full Exam - General 1994 Psychiatric orientation/consciousness Overall: oriented to person, place and time 09/22/2013 None Full Exam - General 1994 Musculoskeletal spine, ribs and pelvis Posture: kyphosis 09/22/2013 None Full Exam - General 1994 Musculoskeletal spine, ribs and pelvis Posture: lordosis 09/22/2013 None Full Exam - General 1994 Cardiovascular extremities Edema present: pitting 09/22/2013 None Full Exam - General 1994 Cardiovascular extremities Edema present: severity 1+ - 4 +: 1 to ankles 09/22/2013 None Full Exam - General 1994 Constitutional general appearance Overall: well developed 06/24/2013 None Full Exam - General 1994 Constitutional general appearance Overall: in no acute distress 06/24/2013 None Full Exam - General 1994 Constitutional general appearance Overall: well nourished 06/24/2013 None Full Exam - General 1994 Eyes conjunctiva /eyelids Overall: conjunctiva clear 06/24/2013 None Full Exam - General 1994 Eyes conjunctiva /eyelids Overall: cornea clear 06/24/2013 None Full Exam - General 1994 Eyes conjunctiva /eyelids Overall: eyelids normal 06/24/2013 None Full Exam - General 1994 Eyes pupils and irises Overall: pupils equal, round, reactive to light and accomodation 06/24/2013 None Full Exam - General 1994 Ears/Nose/Throat lips/teeth/gingiva Overall: benign lips 06/24/2013 None Full Exam - General 1994 Ears/Nose/Throat lips/teeth/gingiva Overall: normal dentition 06/24/2013 None Full Exam - General 1994 Ears/Nose/Throat lips/teeth/gingiva Overall: benign gingiva 06/24/2013 None Full Exam - General 1994 Ears/Nose/Throat lips/teeth/gingiva Overall: no masses 06/24/2013 None Full Exam - General 1994 Ears/Nose/Throat oral cavity/pharynx/larynx Overall: oral mucosa clear 06/24/2013 None Full Exam - General 1994 Ears/Nose/Throat oral cavity/pharynx/larynx Overall: oropharyngeal mucosa clear 06/24/2013 None Full Exam - General 1994 Ears/Nose/Throat oral cavity/pharynx/larynx Overall: no masses 06/24/2013 None Full Exam - General 1994 Respiratory auscultation Overall: breath sounds clear bilaterally 06/24/2013 None Full Exam - General 1994 Respiratory respiratory effort/rhythm Overall: no retractions 06/24/2013 None Full Exam - General 1994 Respiratory respiratory effort/rhythm Overall: normal rate 06/24/2013 None Full Exam - General 1994 Cardiovascular auscultation of heart Overall: regular rate 06/24/2013 None Full Exam - General 1994 Cardiovascular auscultation of heart Overall: normal heart sounds 06/24/2013 None Full Exam - General 1994 Cardiovascular auscultation of heart Overall: no murmurs 06/24/2013 None Full Exam - General 1994 Abdomen abdominal exam Overall: no tenderness 06/24/2013 None Full Exam - General 1994 Abdomen abdominal exam Overall: normal bowel sounds 06/24/2013 None Full Exam - General 1994 Neurologic cranial nerves Overall: crainial nerves 2 - 12 grossly intact 06/24/2013 None Full Exam - General 1994 Psychiatric orientation/consciousness Overall: oriented to person, place and time 06/24/2013 None Full Exam - Dermatology Integument insp & palp - back Location: on the right mid back 05/26/2013 0.25cm x 0.1 cm deep ulcer significantly decreased in size and depth-pink granulation tissue at base of wound. Full Exam - General 1994 Constitutional general appearance Overall: well developed 05/21/2013 None Full Exam - General 1994 Constitutional general appearance Overall: in no acute distress 05/21/2013 None Full Exam - General 1994 Constitutional general appearance Overall: well nourished 05/21/2013 None Full Exam - General 1994 Eyes conjunctiva /eyelids Overall: conjunctiva clear 05/21/2013 None Full Exam - General 1994 Eyes conjunctiva /eyelids Overall: cornea clear 05/21/2013 None Full Exam - General 1994 Eyes conjunctiva /eyelids Overall: eyelids normal 05/21/2013 None Full Exam - General 1994 Eyes pupils and irises Overall: pupils equal, round, reactive to light and accomodation 05/21/2013 None Full Exam - General 1994 Ears/Nose/Throat lips/teeth/gingiva Overall: benign lips 05/21/2013 None Full Exam - General 1995 Ears/Nose/Throat lips/teeth/gingiva Overall: normal dentition 05/21/2013 None Full Exam - General 1994 Ears/Nose/Throat lips/teeth/gingiva Overall: benign gingiva 05/21/2013 None Full Exam - General 1995 Ears/Nose/Throat lips/teeth/gingiva Overall: no masses 05/21/2013 None Full Exam - General 1994 Ears/Nose/Throat oral cavity/pharynx/larynx Overall: oral mucosa clear 05/21/2013 None Full Exam - General 1994 Ears/Nose/Throat oral cavity/pharynx/larynx Overall: oropharyngeal mucosa clear 05/21/2013 None Full Exam - General 1994 Ears/Nose/Throat oral cavity/pharynx/larynx Overall: no masses 05/21/2013 None Full Exam - General 1994 Respiratory auscultation Overall: breath sounds clear bilaterally 05/21/2013 None Full Exam - General 1994 Respiratory respiratory effort/rhythm Overall: no retractions 05/21/2013 None Full Exam - General 1994 Respiratory respiratory effort/rhythm Overall: normal rate 05/21/2013 None Full Exam - General 1994 Cardiovascular auscultation of heart Overall: regular rate 05/21/2013 None Full Exam - General 1994 Cardiovascular auscultation of heart Overall: normal heart sounds 05/21/2013 None Full Exam - General 1994 Cardiovascular auscultation of heart Overall: no murmurs 05/21/2013 None Full Exam - General 1994 Abdomen abdominal exam Overall: no tenderness 05/21/2013 None Full Exam - General 1994 Abdomen abdominal exam Overall: normal bowel sounds 05/21/2013 None Full Exam - General 1994 Neurologic cranial nerves Overall: crainial nerves 2 - 12 grossly intact 05/21/2013 None Full Exam - General 1994 Psychiatric orientation/consciousness Overall: oriented to person, place and time 05/21/2013 None Full Exam - General 1994 Constitutional general appearance Overall: well developed 05/07/2013 None Full Exam - General 1994 Constitutional general appearance Overall: in no acute distress 05/07/2013 None Full Exam - General 1994 Constitutional general appearance Overall: well nourished 05/07/2013 None Full Exam - General 1994 Eyes pupils and irises Overall: pupils equal, round, reactive to light and accomodation 05/07/2013 None Full Exam - General 1994 Ears/Nose/Throat otoscopic exam Overall: external auditory canals clear 05/07/2013 None Full Exam - General 1994 Ears/Nose/Throat otoscopic exam Overall: tympanic membranes clear 05/07/2013 None Full Exam - General 1994 Ears/Nose/Throat oral cavity/pharynx/larynx Overall: oral mucosa clear 05/07/2013 None Full Exam - General 1994 Ears/Nose/Throat oral cavity/pharynx/larynx Overall: oropharyngeal mucosa clear 05/07/2013 None Full Exam - General 1994 Ears/Nose/Throat oral cavity/pharynx/larynx Overall: no masses 05/07/2013 None Full Exam - General 1994 Respiratory auscultation Overall: breath sounds clear bilaterally 05/07/2013 None Full Exam - General 1994 Respiratory respiratory effort/rhythm Overall: no retractions 05/07/2013 None Full Exam - General 1994 Respiratory respiratory effort/rhythm Overall: normal rate 05/07/2013 None Full Exam - General 1994 Cardiovascular auscultation of heart Overall: regular rate 05/07/2013 None Full Exam - General 1994 Cardiovascular auscultation of heart Overall: normal heart sounds 05/07/2013 None Full Exam - General 1994 Abdomen abdominal exam Overall: no tenderness 05/07/2013 None Full Exam - General 1994 Abdomen abdominal exam Overall: normal bowel sounds 05/07/2013 None Full Exam - General 1994 Musculoskeletal upper extremity Palpation - shoulder: tenderness @ bicipital groove 05/07/2013 None Full Exam - General 1994 Musculoskeletal upper extremity ROM - shoulder: crepitus 05/07/2013 None Full Exam - General 1994 Musculoskeletal upper extremity ROM - shoulder: decreased abduction 05/07/2013 None Full Exam - General 1995 Musculoskeletal upper extremity ROM - shoulder: pain with abduction 05/07/2013 None Full Exam - General 1994 Musculoskeletal upper extremity ROM - shoulder: decreased adduction 05/07/2013 None Full Exam - General 1994 Musculoskeletal upper extremity ROM - shoulder: pain with adduction 05/07/2013 None Full Exam - General 1994 Musculoskeletal upper extremity ROM - shoulder: pain with shoulder flexion 05/07/2013 None Full Exam - General 1994 Musculoskeletal spine, ribs and pelvis Posture: kyphosis 05/07/2013 None Full Exam - General 1994 Musculoskeletal spine, ribs and pelvis Spine: tender @ thoracic spine 05/07/2013 None Full Exam - General 1994 Musculoskeletal spine, ribs and pelvis Spine: tender @ lumbar spine 05/07/2013 over muscles paraspinous Full Exam - General 1994 Musculoskeletal spine, ribs and pelvis Sacroiliac joints: a normal exam 05/07/2013 None Full Exam - General 1994 Neurologic gait Overall: no ataxia, no unsteadiness 05/07/2013 None Full Exam - General 1994 Psychiatric orientation/consciousness Overall: oriented to person, place and time 05/07/2013 None Full Exam - General 1994 Psychiatric mood and affect Overall: normal mood and affect 05/07/2013 None Full Exam - General 1994 Integument inspection of skin Location: back 05/07/2013 scabbed lesion right mid back. tender right mid back around to left flank and abdomen Full Exam - General 1994 Constitutional general appearance Overall: well developed 04/23/2013 None Full Exam - General 1994 Constitutional general appearance Overall: in no acute distress 04/23/2013 None Full Exam - General 1994 Constitutional general appearance Overall: well nourished 04/23/2013 None Full Exam - General 1994 Psychiatric orientation/consciousness Overall: oriented to person, place and time 04/23/2013 None Full Exam - General 1994 Integument inspection of skin Location: back 04/23/2013 red patch right mid back-with crusted lesions x 2 Full Exam - General 1994 Constitutional general appearance Overall: well developed 03/25/2013 None Full Exam - General 1994 Constitutional general appearance Overall: in no acute distress 03/25/2013 None Full Exam - General 1994 Constitutional general appearance Overall: well nourished 03/25/2013 None Full Exam - General 1994 Eyes pupils and irises Overall: pupils equal, round, reactive to light and accomodation 03/25/2013 None Full Exam - General 1994 Ears/Nose/Throat otoscopic exam Overall: external auditory canals clear 03/25/2013 None Full Exam - General 1994 Ears/Nose/Throat otoscopic exam Overall: tympanic membranes clear 03/25/2013 None Full Exam - General 1994 Ears/Nose/Throat oral cavity/pharynx/larynx Overall: oral mucosa clear 03/25/2013 None Full Exam - General 1994 Ears/Nose/Throat oral cavity/pharynx/larynx Overall: oropharyngeal mucosa clear 03/25/2013 None Full Exam - General 1994 Ears/Nose/Throat oral cavity/pharynx/larynx Overall: no masses 03/25/2013 None Full Exam - General 1994 Respiratory auscultation Overall: breath sounds clear bilaterally 03/25/2013 None Full Exam - General 1994 Respiratory respiratory effort/rhythm Overall: no retractions 03/25/2013 None Full Exam - General 1994 Respiratory respiratory effort/rhythm Overall: normal rate 03/25/2013 None Full Exam - General 1994 Cardiovascular auscultation of heart Overall: regular rate 03/25/2013 None Full Exam - General 1994 Cardiovascular auscultation of heart Overall: normal heart sounds 03/25/2013 None Full Exam - General 1994 Abdomen abdominal exam Overall: no tenderness 03/25/2013 None Full Exam - General 1994 Abdomen abdominal exam Overall: normal bowel sounds 03/25/2013 None Full Exam - General 1994 Musculoskeletal upper extremity Palpation - shoulder: tenderness @ bicipital groove 03/25/2013 None Full Exam - General 1994 Musculoskeletal upper extremity ROM - shoulder: crepitus 03/25/2013 None Full Exam - General 1994 Musculoskeletal upper extremity ROM - shoulder: decreased abduction 03/25/2013 None Full Exam - General 1994 Musculoskeletal upper extremity ROM - shoulder: pain with abduction 03/25/2013 None Full Exam - General 1994 Musculoskeletal upper extremity ROM - shoulder: decreased adduction 03/25/2013 None Full Exam - General 1994 Musculoskeletal upper extremity ROM - shoulder: pain with adduction 03/25/2013 None Full Exam - General 1994 Musculoskeletal upper extremity ROM - shoulder: pain with shoulder flexion 03/25/2013 None Full Exam - General 1994 Musculoskeletal spine, ribs and pelvis Posture: kyphosis 03/25/2013 None Full Exam - General 1994 Musculoskeletal spine, ribs and pelvis Spine: tender @ thoracic spine 03/25/2013 None Full Exam - General 1994 Musculoskeletal spine, ribs and pelvis Spine: tender @ lumbar spine 03/25/2013 over muscles paraspinous Full Exam - General 1994 Musculoskeletal spine, ribs and pelvis Sacroiliac joints: a normal exam 03/25/2013 None Full Exam - General 1994 Neurologic gait Overall: no ataxia, no unsteadiness 03/25/2013 None Full Exam - General 1994 Psychiatric orientation/consciousness Overall: oriented to person, place and time 03/25/2013 None Full Exam - General 1994 Psychiatric mood and affect Overall: normal mood and affect 03/25/2013 None Full Exam - General 1994 Integument inspection of skin Location: back 03/25/2013 on left - 3 x 5 cm bruise Full Exam - General 1995 Constitutional general appearance Overall: well nourished 12/18/2012 None Full Exam - General 1994 Constitutional general appearance Overall: well developed 12/18/2012 None Full Exam - General 1994 Constitutional general appearance Overall: in no acute distress 12/18/2012 None Full Exam - General 1994 Eyes pupils and irises Overall: pupils equal, round, reactive to light and accomodation 12/18/2012 None Full Exam - General 1994 Eyes conjunctiva /eyelids Overall: conjunctiva clear 12/18/2012 None Full Exam - General 1994 Eyes conjunctiva /eyelids Overall: eyelids normal 12/18/2012 None Full Exam - General 1994 Eyes conjunctiva /eyelids Overall: cornea clear 12/18/2012 None Full Exam - General 1995 Ears/Nose/Throat oral cavity/pharynx/larynx Overall: oropharyngeal mucosa clear 12/18/2012 None Full Exam - General 1995 Ears/Nose/Throat oral cavity/pharynx/larynx Overall: no masses 12/18/2012 None Full Exam - General 1995 Ears/Nose/Throat oral cavity/pharynx/larynx Overall: oral mucosa clear 12/18/2012 None Full Exam - General 1995 Ears/Nose/Throat lips/teeth/gingiva Overall: benign gingiva 12/18/2012 None Full Exam - General 1995 Ears/Nose/Throat lips/teeth/gingiva Overall: no masses 12/18/2012 None Full Exam - General 1995 Ears/Nose/Throat lips/teeth/gingiva Overall: normal dentition 12/18/2012 None Full Exam - General 1995 Ears/Nose/Throat lips/teeth/gingiva Overall: benign lips 12/18/2012 None Full Exam - General 1994 Respiratory respiratory effort/rhythm Overall: normal rate 12/18/2012 None Full Exam - General 1995 Respiratory respiratory effort/rhythm Overall: no retractions 12/18/2012 None Full Exam - General 1995 Respiratory auscultation Overall: breath sounds clear bilaterally 12/18/2012 None Full Exam - General 1994 Cardiovascular auscultation of heart Overall: regular rate 12/18/2012 None Full Exam - General 1995 Cardiovascular auscultation of heart Overall: normal heart sounds 12/18/2012 None Full Exam - General 1994 Cardiovascular auscultation of heart Overall: no murmurs 12/18/2012 None Full Exam - General 1995 Abdomen abdominal exam Overall: no tenderness 12/18/2012 None Full Exam - General 1995 Abdomen abdominal exam Overall: normal bowel sounds 12/18/2012 None Full Exam - General 1994 Psychiatric orientation/consciousness Overall: oriented to person, place and time 12/18/2012 None Full Exam - General 1994 Neurologic cranial nerves Overall: crainial nerves 2 - 12 grossly intact 12/18/2012 None Full Exam - General 1994 Constitutional general appearance Overall: well developed 12/15/2012 None Full Exam - General 1994 Constitutional general appearance Overall: in no acute distress 12/15/2012 None Full Exam - General 1994 Constitutional general appearance Overall: well nourished 12/15/2012 None Full Exam - General 1994 Eyes pupils and irises Overall: pupils equal, round, reactive to light and accomodation 12/15/2012 None Full Exam - General 1995 Ears/Nose/Throat otoscopic exam Overall: external auditory canals clear 12/15/2012 None Full Exam - General 1995 Ears/Nose/Throat otoscopic exam Overall: tympanic membranes clear 12/15/2012 None Full Exam - General 1995 Ears/Nose/Throat oral cavity/pharynx/larynx Overall: oral mucosa clear 12/15/2012 None Full Exam - General 1995 Ears/Nose/Throat oral cavity/pharynx/larynx Overall: oropharyngeal mucosa clear 12/15/2012 None Full Exam - General 1995 Ears/Nose/Throat oral cavity/pharynx/larynx Overall: no masses 12/15/2012 None Full Exam - General 1994 Respiratory auscultation Overall: breath sounds clear bilaterally 12/15/2012 None Full Exam - General 1994 Respiratory respiratory effort/rhythm Overall: no retractions 12/15/2012 None Full Exam - General 1994 Respiratory respiratory effort/rhythm Overall: normal rate 12/15/2012 None Full Exam - General 1994 Cardiovascular auscultation of heart Overall: regular rate 12/15/2012 None Full Exam - General 1994 Cardiovascular auscultation of heart Overall: normal heart sounds 12/15/2012 None Full Exam - General 1994 Abdomen abdominal exam Overall: no tenderness 12/15/2012 None Full Exam - General 1994 Abdomen abdominal exam Overall: normal bowel sounds 12/15/2012 None Full Exam - General 1994 Musculoskeletal upper extremity Palpation - shoulder: tenderness @ bicipital groove 12/15/2012 None Full Exam - General 1994 Musculoskeletal upper extremity ROM - shoulder: crepitus 12/15/2012 None Full Exam - General 1994 Musculoskeletal upper extremity ROM - shoulder: decreased abduction 12/15/2012 None Full Exam - General 1994 Musculoskeletal upper extremity ROM - shoulder: pain with abduction 12/15/2012 None Full Exam - General 1994 Musculoskeletal upper extremity ROM - shoulder: decreased adduction 12/15/2012 None Full Exam - General 1994 Musculoskeletal upper extremity ROM - shoulder: pain with adduction 12/15/2012 None Full Exam - General 1994 Musculoskeletal upper extremity ROM - shoulder: pain with shoulder flexion 12/15/2012 None Full Exam - General 1994 Musculoskeletal spine, ribs and pelvis Posture: kyphosis 12/15/2012 None Full Exam - General 1994 Musculoskeletal spine, ribs and pelvis Spine: tender @ thoracic spine 12/15/2012 None Full Exam - General 1994 Musculoskeletal spine, ribs and pelvis Spine: tender @ lumbar spine 12/15/2012 over muscles paraspinous Full Exam - General 1994 Musculoskeletal spine, ribs and pelvis Sacroiliac joints: a normal exam 12/15/2012 None Full Exam - General 1994 Neurologic gait Overall: no ataxia, no unsteadiness 12/15/2012 None Full Exam - General 1994 Psychiatric orientation/consciousness Overall: oriented to person, place and time 12/15/2012 None Full Exam - General 1994 Psychiatric mood and affect Overall: normal mood and affect 12/15/2012 None Full Exam - General 1994 Constitutional general appearance Overall: well developed 11/17/2012 None Full Exam - General 1994 Constitutional general appearance Overall: in no acute distress 11/17/2012 None Full Exam - General 1994 Constitutional general appearance Overall: well nourished 11/17/2012 None Full Exam - General 1994 Eyes pupils and irises Overall: pupils equal, round, reactive to light and accomodation 11/17/2012 None Full Exam - General 1994 Ears/Nose/Throat otoscopic exam Overall: external auditory canals clear 11/17/2012 None Full Exam - General 1994 Ears/Nose/Throat otoscopic exam Overall: tympanic membranes clear 11/17/2012 None Full Exam - General 1995 Ears/Nose/Throat oral cavity/pharynx/larynx Overall: oral mucosa clear 11/17/2012 None Full Exam - General 1995 Ears/Nose/Throat oral cavity/pharynx/larynx Overall: oropharyngeal mucosa clear 11/17/2012 None Full Exam - General 1994 Ears/Nose/Throat oral cavity/pharynx/larynx Overall: no masses 11/17/2012 None Full Exam - General 1994 Respiratory auscultation Overall: breath sounds clear bilaterally 11/17/2012 None Full Exam - General 1994 Respiratory respiratory effort/rhythm Overall: no retractions 11/17/2012 None Full Exam - General 1994 Respiratory respiratory effort/rhythm Overall: normal rate 11/17/2012 None Full Exam - General 1994 Cardiovascular auscultation of heart Overall: regular rate 11/17/2012 None Full Exam - General 1994 Cardiovascular auscultation of heart Overall: normal heart sounds 11/17/2012 None Full Exam - General 1994 Abdomen abdominal exam Overall: no tenderness 11/17/2012 None Full Exam - General 1994 Abdomen abdominal exam Overall: normal bowel sounds 11/17/2012 None Full Exam - General 1994 Musculoskeletal upper extremity Palpation - shoulder: tenderness @ bicipital groove 11/17/2012 None Full Exam - General 1994 Musculoskeletal upper extremity ROM - shoulder: crepitus 11/17/2012 None Full Exam - General 1994 Musculoskeletal upper extremity ROM - shoulder: decreased abduction 11/17/2012 None Full Exam - General 1994 Musculoskeletal upper extremity ROM - shoulder: pain with abduction 11/17/2012 None Full Exam - General 1994 Musculoskeletal upper extremity ROM - shoulder: decreased adduction 11/17/2012 None Full Exam - General 1994 Musculoskeletal upper extremity ROM - shoulder: pain with adduction 11/17/2012 None Full Exam - General 1994 Musculoskeletal upper extremity ROM - shoulder: pain with shoulder flexion 11/17/2012 None Full Exam - General 1994 Musculoskeletal spine, ribs and pelvis Posture: kyphosis 11/17/2012 None Full Exam - General 1994 Musculoskeletal spine, ribs and pelvis Spine: tender @ thoracic spine 11/17/2012 None Full Exam - General 1994 Musculoskeletal spine, ribs and pelvis Spine: tender @ lumbar spine 11/17/2012 over muscles paraspinous Full Exam - General 1994 Musculoskeletal spine, ribs and pelvis Sacroiliac joints: a normal exam 11/17/2012 None Full Exam - General 1994 Neurologic gait Overall: no ataxia, no unsteadiness 11/17/2012 None Full Exam - General 1994 Psychiatric orientation/consciousness Overall: oriented to person, place and time 11/17/2012 None Full Exam - General 1994 Psychiatric mood and affect Overall: normal mood and affect 11/17/2012 None Full Exam - General 1994 Constitutional general appearance Overall: well developed 07/14/2012 None Full Exam - General 1994 Constitutional general appearance Overall: in no acute distress 07/14/2012 None Full Exam - General 1994 Constitutional general appearance Overall: well nourished 07/14/2012 None Full Exam - General 1994 Eyes pupils and irises Overall: pupils equal, round, reactive to light and accomodation 07/14/2012 None Full Exam - General 1994 Ears/Nose/Throat otoscopic exam Overall: external auditory canals clear 07/14/2012 None Full Exam - General 1994 Ears/Nose/Throat otoscopic exam Overall: tympanic membranes clear 07/14/2012 None Full Exam - General 1994 Ears/Nose/Throat oral cavity/pharynx/larynx Overall: oral mucosa clear 07/14/2012 None Full Exam - General 1994 Ears/Nose/Throat oral cavity/pharynx/larynx Overall: oropharyngeal mucosa clear 07/14/2012 None Full Exam - General 1994 Ears/Nose/Throat oral cavity/pharynx/larynx Overall: no masses 07/14/2012 None Full Exam - General 1994 Respiratory auscultation Overall: breath sounds clear bilaterally 07/14/2012 None Full Exam - General 1994 Respiratory respiratory effort/rhythm Overall: no retractions 07/14/2012 None Full Exam - General 1994 Respiratory respiratory effort/rhythm Overall: normal rate 07/14/2012 None Full Exam - General 1994 Cardiovascular auscultation of heart Overall: regular rate 07/14/2012 None Full Exam - General 1994 Cardiovascular auscultation of heart Overall: normal heart sounds 07/14/2012 None Full Exam - General 1994 Abdomen abdominal exam Overall: no tenderness 07/14/2012 None Full Exam - General 1994 Abdomen abdominal exam Overall: normal bowel sounds 07/14/2012 None Full Exam - General 1994 Musculoskeletal upper extremity Palpation - shoulder: tenderness @ bicipital groove 07/14/2012 None Full Exam - General 1994 Musculoskeletal upper extremity ROM - shoulder: crepitus 07/14/2012 None Full Exam - General 1994 Musculoskeletal upper extremity ROM - shoulder: decreased abduction 07/14/2012 None Full Exam - General 1994 Musculoskeletal upper extremity ROM - shoulder: pain with abduction 07/14/2012 None Full Exam - General 1994 Musculoskeletal upper extremity ROM - shoulder: decreased adduction 07/14/2012 None Full Exam - General 1994 Musculoskeletal upper extremity ROM - shoulder: pain with adduction 07/14/2012 None Full Exam - General 1994 Musculoskeletal upper extremity ROM - shoulder: pain with shoulder flexion 07/14/2012 None Full Exam - General 1994 Musculoskeletal spine, ribs and pelvis Posture: kyphosis 07/14/2012 None Full Exam - General 1994 Musculoskeletal spine, ribs and pelvis Spine: tender @ thoracic spine 07/14/2012 None Full Exam - General 1994 Musculoskeletal spine, ribs and pelvis Spine: tender @ lumbar spine 07/14/2012 over muscles paraspinous Full Exam - General 1994 Musculoskeletal spine, ribs and pelvis Sacroiliac joints: a normal exam 07/14/2012 None Full Exam - General 1994 Neurologic gait Overall: no ataxia, no unsteadiness 07/14/2012 None Full Exam - General 1994 Psychiatric orientation/consciousness Overall: oriented to person, place and time 07/14/2012 None Full Exam - General 1994 Psychiatric mood and affect Overall: normal mood and affect 07/14/2012 None Full Exam - General 1994 Eyes pupils and irises Overall: pupils equal, round, reactive to light and accomodation 05/15/2012 None Full Exam - General 1994 Ears/Nose/Throat otoscopic exam Overall: external auditory canals clear 05/15/2012 None Full Exam - General 1994 Ears/Nose/Throat otoscopic exam Overall: tympanic membranes clear 05/15/2012 None Full Exam - General 1994 Ears/Nose/Throat oral cavity/pharynx/larynx Overall: oral mucosa clear 05/15/2012 None Full Exam - General 1994 Ears/Nose/Throat oral cavity/pharynx/larynx Overall: oropharyngeal mucosa clear 05/15/2012 None Full Exam - General 1994 Ears/Nose/Throat oral cavity/pharynx/larynx Overall: no masses 05/15/2012 None Full Exam - General 1994 Respiratory auscultation Overall: breath sounds clear bilaterally 05/15/2012 None Full Exam - General 1994 Respiratory respiratory effort/rhythm Overall: no retractions 05/15/2012 None Full Exam - General 1994 Respiratory respiratory effort/rhythm Overall: normal rate 05/15/2012 None Full Exam - General 1995 Cardiovascular auscultation of heart Overall: regular rate 05/15/2012 None Full Exam - General 1994 Cardiovascular auscultation of heart Overall: normal heart sounds 05/15/2012 None Full Exam - General 1994 Abdomen abdominal exam Overall: no tenderness 05/15/2012 None Full Exam - General 1995 Abdomen abdominal exam Overall: normal bowel sounds 05/15/2012 None Full Exam - General 1995 Constitutional general appearance Overall: well developed 05/15/2012 None Full Exam - General 1995 Constitutional general appearance Overall: in no acute distress 05/15/2012 None Full Exam - General 1995 Constitutional general appearance Overall: well nourished 05/15/2012 None Full Exam - General 1994 Musculoskeletal spine, ribs and pelvis Posture: kyphosis 05/15/2012 None Full Exam - General 1994 Musculoskeletal spine, ribs and pelvis Spine: tender @ thoracic spine 05/15/2012 None Full Exam - General 1994 Musculoskeletal spine, ribs and pelvis Spine: tender @ lumbar spine 05/15/2012 over muscles paraspinous Full Exam - General 1994 Musculoskeletal spine, ribs and pelvis Sacroiliac joints: a normal exam 05/15/2012 None Full Exam - General 1994 Neurologic gait Overall: no ataxia, no unsteadiness 05/15/2012 None Full Exam - General 1994 Psychiatric orientation/consciousness Overall: oriented to person, place and time 05/15/2012 None Full Exam - General 1994 Psychiatric mood and affect Overall: normal mood and affect 05/15/2012 None Full Exam - General 1994 Musculoskeletal upper extremity Palpation - shoulder: tenderness @ bicipital groove 05/15/2012 None Full Exam - General 1994 Musculoskeletal upper extremity ROM - shoulder: decreased abduction 05/15/2012 None Full Exam - General 1994 Musculoskeletal upper extremity ROM - shoulder: crepitus 05/15/2012 None Full Exam - General 1994 Musculoskeletal upper extremity ROM - shoulder: decreased adduction 05/15/2012 None Full Exam - General 1994 Musculoskeletal upper extremity ROM - shoulder: pain with abduction 05/15/2012 None Full Exam - General 1994 Musculoskeletal upper extremity ROM - shoulder: pain with adduction 05/15/2012 None Full Exam - General 1994 Musculoskeletal upper extremity ROM - shoulder: pain with shoulder flexion 05/15/2012 None Full Exam - General 1994 Constitutional general appearance Overall: well developed 03/17/2012 None Full Exam - General 1994 Constitutional general appearance Overall: in no acute distress 03/17/2012 None Full Exam - General 1994 Constitutional general appearance Overall: well nourished 03/17/2012 None Full Exam - General 1994 Eyes pupils and irises Overall: pupils equal, round, reactive to light and accomodation 03/17/2012 None Full Exam - General 1994 Ears/Nose/Throat otoscopic exam Overall: external auditory canals clear 03/17/2012 None Full Exam - General 1994 Ears/Nose/Throat otoscopic exam Overall: tympanic membranes clear 03/17/2012 None Full Exam - General 1994 Ears/Nose/Throat oral cavity/pharynx/larynx Overall: oral mucosa clear 03/17/2012 None Full Exam - General 1994 Ears/Nose/Throat oral cavity/pharynx/larynx Overall: oropharyngeal mucosa clear 03/17/2012 None Full Exam - General 1994 Ears/Nose/Throat oral cavity/pharynx/larynx Overall: no masses 03/17/2012 None Full Exam - General 1994 Respiratory auscultation Overall: breath sounds clear bilaterally 03/17/2012 None Full Exam - General 1994 Respiratory respiratory effort/rhythm Overall: no retractions 03/17/2012 None Full Exam - General 1994 Respiratory respiratory effort/rhythm Overall: normal rate 03/17/2012 None Full Exam - General 1994 Cardiovascular auscultation of heart Overall: regular rate 03/17/2012 None Full Exam - General 1994 Cardiovascular auscultation of heart Overall: normal heart sounds 03/17/2012 None Full Exam - General 1994 Abdomen abdominal exam Overall: no tenderness 03/17/2012 None Full Exam - General 1994 Abdomen abdominal exam Overall: normal bowel sounds 03/17/2012 None Full Exam - General 1994 Musculoskeletal spine, ribs and pelvis Posture: kyphosis 03/17/2012 None Full Exam - General 1994 Musculoskeletal spine, ribs and pelvis Spine: tender @ thoracic spine 03/17/2012 None Full Exam - General 1994 Musculoskeletal spine, ribs and pelvis Spine: tender @ lumbar spine 03/17/2012 over muscles paraspinous Full Exam - General 1994 Musculoskeletal spine, ribs and pelvis Sacroiliac joints: a normal exam 03/17/2012 None Full Exam - General 1994 Neurologic gait Overall: no ataxia, no unsteadiness 03/17/2012 None Full Exam - General 1994 Psychiatric orientation/consciousness Overall: oriented to person, place and time 03/17/2012 None Full Exam - General 1994 Psychiatric mood and affect Overall: normal mood and affect 03/17/2012 None Full Exam - General 1994 Constitutional general appearance Overall: well developed 02/18/2012 None Full Exam - General 1994 Constitutional general appearance Overall: in no acute distress 02/18/2012 None Full Exam - General 1994 Constitutional general appearance Overall: well nourished 02/18/2012 None Full Exam - General 1994 Eyes pupils and irises Overall: pupils equal, round, reactive to light and accomodation 02/18/2012 None Full Exam - General 1994 Ears/Nose/Throat otoscopic exam Overall: external auditory canals clear 02/18/2012 None Full Exam - General 1994 Ears/Nose/Throat otoscopic exam Overall: tympanic membranes clear 02/18/2012 None Full Exam - General 1994 Ears/Nose/Throat oral cavity/pharynx/larynx Overall: oral mucosa clear 02/18/2012 None Full Exam - General 1994 Ears/Nose/Throat oral cavity/pharynx/larynx Overall: oropharyngeal mucosa clear 02/18/2012 None Full Exam - General 1994 Ears/Nose/Throat oral cavity/pharynx/larynx Overall: no masses 02/18/2012 None Full Exam - General 1994 Respiratory auscultation Overall: breath sounds clear bilaterally 02/18/2012 None Full Exam - General 1994 Respiratory respiratory effort/rhythm Overall: no retractions 02/18/2012 None Full Exam - General 1994 Respiratory respiratory effort/rhythm Overall: normal rate 02/18/2012 None Full Exam - General 1994 Cardiovascular auscultation of heart Overall: regular rate 02/18/2012 None Full Exam - General 1994 Cardiovascular auscultation of heart Overall: normal heart sounds 02/18/2012 None Full Exam - General 1994 Abdomen abdominal exam Overall: no tenderness 02/18/2012 None Full Exam - General 1994 Abdomen abdominal exam Overall: normal bowel sounds 02/18/2012 None Full Exam - General 1994 Musculoskeletal spine, ribs and pelvis Posture: kyphosis 02/18/2012 None Full Exam - General 1994 Musculoskeletal spine, ribs and pelvis Spine: tender @ thoracic spine 02/18/2012 None Full Exam - General 1994 Musculoskeletal spine, ribs and pelvis Spine: tender @ lumbar spine 02/18/2012 over muscles paraspinous Full Exam - General 1994 Musculoskeletal spine, ribs and pelvis Sacroiliac joints: a normal exam 02/18/2012 None Full Exam - General 1994 Neurologic gait Overall: no ataxia, no unsteadiness 02/18/2012 None Full Exam - General 1994 Psychiatric orientation/consciousness Overall: oriented to person, place and time 02/18/2012 None Full Exam - General 1994 Psychiatric mood and affect Overall: normal mood and affect 02/18/2012 None Full Exam - General 1994 Constitutional general appearance Overall: well developed 02/04/2012 None Full Exam - General 1994 Constitutional general appearance Overall: in no acute distress 02/04/2012 None Full Exam - General 1994 Constitutional general appearance Overall: well nourished 02/04/2012 None Full Exam - General 1994 Eyes pupils and irises Overall: pupils equal, round, reactive to light and accomodation 02/04/2012 None Full Exam - General 1994 Ears/Nose/Throat otoscopic exam Overall: external auditory canals clear 02/04/2012 None Full Exam - General 1994 Ears/Nose/Throat otoscopic exam Overall: tympanic membranes clear 02/04/2012 None Full Exam - General 1994 Ears/Nose/Throat oral cavity/pharynx/larynx Overall: oral mucosa clear 02/04/2012 None Full Exam - General 1994 Ears/Nose/Throat oral cavity/pharynx/larynx Overall: oropharyngeal mucosa clear 02/04/2012 None Full Exam - General 1994 Ears/Nose/Throat oral cavity/pharynx/larynx Overall: no masses 02/04/2012 None Full Exam - General 1994 Respiratory auscultation Overall: breath sounds clear bilaterally 02/04/2012 None Full Exam - General 1994 Respiratory respiratory effort/rhythm Overall: no retractions 02/04/2012 None Full Exam - General 1994 Respiratory respiratory effort/rhythm Overall: normal rate 02/04/2012 None Full Exam - General 1994 Cardiovascular auscultation of heart Overall: regular rate 02/04/2012 None Full Exam - General 1994 Cardiovascular auscultation of heart Overall: normal heart sounds 02/04/2012 None Full Exam - General 1994 Abdomen abdominal exam Overall: no tenderness 02/04/2012 None Full Exam - General 1994 Abdomen abdominal exam Overall: normal bowel sounds 02/04/2012 None Full Exam - General 1994 Musculoskeletal spine, ribs and pelvis Posture: kyphosis 02/04/2012 None Full Exam - General 1994 Musculoskeletal spine, ribs and pelvis Spine: tender @ thoracic spine 02/04/2012 None Full Exam - General 1994 Musculoskeletal spine, ribs and pelvis Spine: tender @ lumbar spine 02/04/2012 over muscles paraspinous Full Exam - General 1994 Musculoskeletal spine, ribs and pelvis Sacroiliac joints: a normal exam 02/04/2012 None Full Exam - General 1994 Neurologic gait Overall: no ataxia, no unsteadiness 02/04/2012 None Full Exam - General 1994 Psychiatric orientation/consciousness Overall: oriented to person, place and time 02/04/2012 None Full Exam - General 1994 Psychiatric mood and affect Overall: normal mood and affect 02/04/2012 None Full Exam - General 1994 Cardiovascular auscultation of heart Overall: normal heart sounds 10/15/2011 None Full Exam - General 1994 Psychiatric orientation/consciousness Overall: oriented to person, place and time 10/15/2011 None Full Exam - General 1994 Abdomen abdominal exam Overall: no tenderness 10/15/2011 None Full Exam - General 1994 Abdomen abdominal exam Overall: normal bowel sounds 10/15/2011 None Full Exam - General 1994 Musculoskeletal spine, ribs and pelvis Posture: kyphosis 10/15/2011 None Full Exam - General 1994 Musculoskeletal spine, ribs and pelvis Spine: tender @ thoracic spine 10/15/2011 None Full Exam - General 1994 Musculoskeletal spine, ribs and pelvis Spine: tender @ lumbar spine 10/15/2011 over muscles paraspinous Full Exam - General 1994 Musculoskeletal spine, ribs and pelvis Sacroiliac joints: a normal exam 10/15/2011 None Full Exam - General 1994 Neurologic gait Overall: no ataxia, no unsteadiness 10/15/2011 None Full Exam - General 1994 Psychiatric mood and affect Overall: normal mood and affect 10/15/2011 None Full Exam - General 1994 Constitutional general appearance Overall: well developed 10/15/2011 None Full Exam - General 1994 Constitutional general appearance Overall: in no acute distress 10/15/2011 None Full Exam - General 1994 Constitutional general appearance Overall: well nourished 10/15/2011 None Full Exam - General 1994 Eyes pupils and irises Overall: pupils equal, round, reactive to light and accomodation 10/15/2011 None Full Exam - General 1994 Ears/Nose/Throat otoscopic exam Overall: external auditory canals clear 10/15/2011 None Full Exam - General 1994 Ears/Nose/Throat otoscopic exam Overall: tympanic membranes clear 10/15/2011 None Full Exam - General 1994 Ears/Nose/Throat oral cavity/pharynx/larynx Overall: oral mucosa clear 10/15/2011 None Full Exam - General 1995 Ears/Nose/Throat oral cavity/pharynx/larynx Overall: oropharyngeal mucosa clear 10/15/2011 None Full Exam - General 1995 Ears/Nose/Throat oral cavity/pharynx/larynx Overall: no masses 10/15/2011 None Full Exam - General 1994 Respiratory auscultation Overall: breath sounds clear bilaterally 10/15/2011 None Full Exam - General 1994 Respiratory respiratory effort/rhythm Overall: no retractions 10/15/2011 None Full Exam - General 1994 Respiratory respiratory effort/rhythm Overall: normal rate 10/15/2011 None Full Exam - General 1994 Cardiovascular auscultation of heart Overall: regular rate 10/15/2011 None Full Exam - General 1994 Constitutional general appearance Overall: well nourished 09/13/2011 None Full Exam - General 1994 Constitutional general appearance Overall: well developed 09/13/2011 None Full Exam - General 1994 Constitutional general appearance Overall: in no acute distress 09/13/2011 None Full Exam - General 1994 Eyes pupils and irises Overall: pupils equal, round, reactive to light and accomodation 09/13/2011 None Full Exam - General 1994 Ears/Nose/Throat otoscopic exam Overall: external auditory canals clear 09/13/2011 None Full Exam - General 1995 Ears/Nose/Throat otoscopic exam Overall: tympanic membranes clear 09/13/2011 None Full Exam - General 1994 Ears/Nose/Throat oral cavity/pharynx/larynx Overall: oral mucosa clear 09/13/2011 None Full Exam - General 1994 Ears/Nose/Throat oral cavity/pharynx/larynx Overall: oropharyngeal mucosa clear 09/13/2011 None Full Exam - General 1994 Ears/Nose/Throat oral cavity/pharynx/larynx Overall: no masses 09/13/2011 None Full Exam - General 1994 Respiratory auscultation Overall: breath sounds clear bilaterally 09/13/2011 None Full Exam - General 1994 Respiratory respiratory effort/rhythm Overall: no retractions 09/13/2011 None Full Exam - General 1994 Respiratory respiratory effort/rhythm Overall: normal rate 09/13/2011 None Full Exam - General 1994 Cardiovascular auscultation of heart Overall: regular rate 09/13/2011 None Full Exam - General 1994 Cardiovascular auscultation of heart Overall: normal heart sounds 09/13/2011 None Full Exam - General 1994 Psychiatric orientation/consciousness Overall: oriented to person, place and time 09/13/2011 None Full Exam - General 1994 Constitutional general appearance Overall: in no acute distress 08/28/2011 None Full Exam - General 1994 Ears/Nose/Throat otoscopic exam Overall: external auditory canals clear 08/28/2011 None Full Exam - General 1994 Ears/Nose/Throat otoscopic exam Overall: tympanic membranes clear 08/28/2011 None Full Exam - General 1994 Ears/Nose/Throat oral cavity/pharynx/larynx Overall: oral mucosa clear 08/28/2011 None Full Exam - General 1994 Ears/Nose/Throat oral cavity/pharynx/larynx Overall: oropharyngeal mucosa clear 08/28/2011 None Full Exam - General 1994 Ears/Nose/Throat oral cavity/pharynx/larynx Overall: no masses 08/28/2011 None Full Exam - General 1994 Respiratory auscultation Overall: breath sounds clear bilaterally 08/28/2011 None Full Exam - General 1994 Respiratory respiratory effort/rhythm Overall: no retractions 08/28/2011 None Full Exam - General 1994 Respiratory respiratory effort/rhythm Overall: normal rate 08/28/2011 None Full Exam - General 1994 Cardiovascular auscultation of heart Overall: regular rate 08/28/2011 None Full Exam - General 1994 Cardiovascular auscultation of heart Overall: normal heart sounds 08/28/2011 None Full Exam - General 1994 Abdomen abdominal exam Overall: no tenderness 08/28/2011 None Full Exam - General 1994 Abdomen abdominal exam Overall: normal bowel sounds 08/28/2011 None Full Exam - General 1994 Constitutional general appearance Overall: well nourished 08/28/2011 None Full Exam - General 1994 Constitutional general appearance Overall: well developed 08/28/2011 None Full Exam - General 1994 Musculoskeletal spine, ribs and pelvis Posture: kyphosis 08/28/2011 None Full Exam - General 1994 Musculoskeletal spine, ribs and pelvis Sacroiliac joints: a normal exam 08/28/2011 None Full Exam - General 1994 Neurologic gait Overall: no ataxia, no unsteadiness 08/28/2011 None Full Exam - General 1994 Psychiatric orientation/consciousness Overall: oriented to person, place and time 08/28/2011 None Full Exam - General 1994 Psychiatric mood and affect Overall: normal mood and affect 08/28/2011 None Full Exam - General 1994 Eyes pupils and irises Overall: pupils equal, round, reactive to light and accomodation 08/28/2011 None Full Exam - General 1994 Integument inspection of skin Dermatitis: mole 08/28/2011 flesh colored mole with dark spot on top of the lesion with small vascularity within the lesion Full Exam - General 1994 Integument inspection of skin Location: face 08/28/2011 below the right eye at the lower edge of the eye socket Full Exam - General 1994 Integument inspection of skin Consistency: dry 08/28/2011 None Full Exam - General 1994 Constitutional general appearance Overall: well nourished 2011 None Full Exam - General 1994 Constitutional general appearance Overall: well developed 2011 None Full Exam - General 1994 Constitutional general appearance Overall: in no acute distress 2011 None Full Exam - General 1994 Respiratory auscultation Overall: breath sounds clear bilaterally 2011 None Full Exam - General 1994 Respiratory respiratory effort/rhythm Overall: no retractions 2011 None Full Exam - General 1994 Respiratory respiratory effort/rhythm Overall: normal rate 2011 None Full Exam - General 1994 Cardiovascular auscultation of heart Overall: regular rate 2011 None Full Exam - General 1994 Cardiovascular auscultation of heart Overall: normal heart sounds 2011 None Full Exam - General 1994 Abdomen abdominal exam Overall: no tenderness 2011 None Full Exam - General 1994 Abdomen abdominal exam Overall: normal bowel sounds 2011 None Full Exam - General 1994 Neurologic gait Overall: no ataxia, no unsteadiness 2011 None Full Exam - General 1994 Psychiatric orientation/consciousness Overall: oriented to person, place and time 2011 None Full Exam - General 1994 Psychiatric mood and affect Overall: normal mood and affect 2011 None Full Exam - General 1994 Ears/Nose/Throat otoscopic exam Overall: tympanic membranes clear 2011 None Full Exam - General 1994 Ears/Nose/Throat otoscopic exam Overall: external auditory canals clear 2011 None Full Exam - General 1994 Ears/Nose/Throat oral cavity/pharynx/larynx Overall: oropharyngeal mucosa clear 2011 None Full Exam - General 1994 Ears/Nose/Throat oral cavity/pharynx/larynx Overall: no masses 2011 None Full Exam - General 1994 Ears/Nose/Throat oral cavity/pharynx/larynx Overall: oral mucosa clear 2011 None Full Exam - General 1994 Musculoskeletal spine, ribs and pelvis Posture: kyphosis 2011 None Full Exam - General 1994 Musculoskeletal spine, ribs and pelvis Sacroiliac joints: a normal exam 2011 None Full Exam - General 1994 Musculoskeletal spine, ribs and pelvis Spine: tender @ thoracic spine 2011 None Full Exam - General 1994 Musculoskeletal spine, ribs and pelvis Spine: tender @ lumbar spine 2011 over muscles paraspinous Full Exam - General 1994 Constitutional general appearance Overall: well nourished 05/16/2011 None Full Exam - General 1994 Constitutional general appearance Overall: well developed 05/16/2011 None Full Exam - General 1994 Constitutional general appearance Overall: in no acute distress 05/16/2011 None Full Exam - General 1994 Respiratory auscultation Overall: breath sounds clear bilaterally 05/16/2011 None Full Exam - General 1994 Respiratory respiratory effort/rhythm Overall: no retractions 05/16/2011 None Full Exam - General 1994 Respiratory respiratory effort/rhythm Overall: normal rate 05/16/2011 None Full Exam - General 1994 Cardiovascular auscultation of heart Overall: regular rate 05/16/2011 None Full Exam - General 1994 Cardiovascular auscultation of heart Overall: normal heart sounds 05/16/2011 None Full Exam - General 1994 Abdomen abdominal exam Overall: no tenderness 05/16/2011 None Full Exam - General 1994 Abdomen abdominal exam Overall: normal bowel sounds 05/16/2011 None Full Exam - General 1994 Neurologic gait Overall: no ataxia, no unsteadiness 05/16/2011 None Full Exam - General 1994 Psychiatric orientation/consciousness Overall: oriented to person, place and time 05/16/2011 None Full Exam - General 1994 Psychiatric mood and affect Overall: normal mood and affect 05/16/2011 None Full Exam - General 1994 Eyes pupils and irises Overall: pupils equal, round, reactive to light and accomodation 05/16/2011 None Full Exam - General 1994 Musculoskeletal gait and station Overall: normal gait 05/16/2011 None Full Exam - General 1994 Musculoskeletal gait and station Station: kyphosis 05/16/2011 None Full Exam - General 1994 Psychiatric orientation/consciousness Overall: oriented to person, place and time 01/17/2011 None Full Exam - General 1994 Psychiatric mood and affect Overall: normal mood and affect 01/17/2011 None Full Exam - General 1994 Neurologic gait Overall: no ataxia, no unsteadiness 01/17/2011 None Full Exam - General 1994 Abdomen abdominal exam Overall: no tenderness 01/17/2011 None Full Exam - General 1994 Abdomen abdominal exam Overall: normal bowel sounds 01/17/2011 None Full Exam - General 1994 Cardiovascular auscultation of heart Overall: regular rate 01/17/2011 None Full Exam - General 1994 Cardiovascular auscultation of heart Overall: normal heart sounds 01/17/2011 None Full Exam - General 1994 Respiratory respiratory effort/rhythm Overall: normal rate 01/17/2011 None Full Exam - General 1994 Respiratory respiratory effort/rhythm Overall: no retractions 01/17/2011 None Full Exam - General 1994 Respiratory auscultation Overall: breath sounds clear bilaterally 01/17/2011 None Full Exam - General 1994 Constitutional general appearance Overall: well nourished 01/17/2011 None Full Exam - General 1994 Constitutional general appearance Overall: well developed 01/17/2011 None Full Exam - General 1994 Constitutional general appearance Overall: in no acute distress 01/17/2011 None Full Exam - General 1994 Ears/Nose/Throat oral cavity/pharynx/larynx Overall: oropharyngeal mucosa clear 12/12/2010 None Full Exam - General 1994 Ears/Nose/Throat oral cavity/pharynx/larynx Overall: no masses 12/12/2010 None Full Exam - General 1994 Ears/Nose/Throat oral cavity/pharynx/larynx Overall: oral mucosa clear 12/12/2010 None Full Exam - General 1994 Respiratory auscultation Overall: breath sounds clear bilaterally 12/12/2010 None Full Exam - General 1994 Cardiovascular auscultation of heart Overall: regular rate 12/12/2010 None Full Exam - General 1994 Cardiovascular auscultation of heart Overall: normal heart sounds 12/12/2010 None Full Exam - General 1994 Abdomen abdominal exam Overall: no tenderness 12/12/2010 None Full Exam - General 1994 Abdomen abdominal exam Overall: normal bowel sounds 12/12/2010 None Full Exam - General 1994 Musculoskeletal head and neck Overall: cervical spine benign 12/12/2010 None Full Exam - General 1994 Musculoskeletal head and neck Overall: head atraumatic 12/12/2010 None Full Exam - General 1994 Musculoskeletal gait and station Gait: unable to turn quickly 12/12/2010 None Full Exam - General 1994 Musculoskeletal gait and station Gait: abnormal swing through 12/12/2010 None Full Exam - General 1994 Musculoskeletal gait and station Gait: abnormal stance 12/12/2010 None Full Exam - General 1994 Musculoskeletal gait and station Station: kyphosis 12/12/2010 None Full Exam - General 1994 Neurologic cranial nerves Overall: crainial nerves 2 - 12 grossly intact 12/12/2010 None Full Exam - General 1994 Psychiatric orientation/consciousness Overall: oriented to person, place and time 12/12/2010 None Full Exam - General 1994 Psychiatric mood and affect Overall: normal mood and affect 12/12/2010 None Full Exam - General 1994 Ears/Nose/Throat otoscopic exam External auditory canal: complete cerumen impaction 12/12/2010 None Full Exam - General 1994 Constitutional general appearance Overall: well nourished 12/12/2010 None Full Exam - General 1994 Constitutional general appearance Overall: well developed 12/12/2010 None Full Exam - General 1994 Constitutional general appearance Overall: in no acute distress 12/12/2010 None Full Exam - General Neck inspection of neck Overall: no masses 11/15/2010 None Full Exam - General Respiratory auscultation Overall: breath sounds clear bilaterally 11/15/2010 None Full Exam - General Respiratory respiratory effort/rhythm Overall: no retractions 11/15/2010 None Full Exam - General Respiratory respiratory effort/rhythm Overall: normal rate 11/15/2010 None Full Exam - General Psychiatric mood and affect Overall: normal mood and affect 11/15/2010 None Full Exam - General Cardiovascular auscultation of heart Overall: regular rate 11/15/2010 None Full Exam - General Cardiovascular auscultation of heart Overall: normal heart sounds 11/15/2010 None Full Exam - General Chest/Breast breast/ chest inspection Overall: breasts to symmetric and without lesions 11/15/2010 None Full Exam - General Chest/Breast breast/ chest inspection Overall: normal chest shape 11/15/2010 None Full Exam - General Abdomen abdominal exam Overall: no tenderness 11/15/2010 None Full Exam - General Abdomen abdominal exam Overall: normal bowel sounds 11/15/2010 None Full Exam - General Musculoskeletal head and neck Overall: head atraumatic 11/15/2010 None Full Exam - General Musculoskeletal head and neck Overall: cervical spine benign 11/15/2010 None Full Exam - General Musculoskeletal spine , ribs and pelvis Overall: good posture 11/15/2010 None Full Exam - General Musculoskeletal gait and station Overall: normal gait 11/15/2010 None Full Exam - General Constitutional general appearance Overall: well nourished 11/15/2010 None Full Exam - General Constitutional general appearance Overall: well developed 11/15/2010 None Full Exam - General Constitutional general appearance Overall: in no acute distress 11/15/2010 None Full Exam - General Eyes pupils and irises Overall: pupils equal, round, reactive to light and accomodation 11/15/2010 None Full Exam - General Ears/Nose/Throat otoscopic exam Overall: external auditory canals clear 11/15/2010 None Full Exam - General Ears/Nose/Throat otoscopic exam Overall: tympanic membranes clear 11/15/2010 None Full Exam - General Ears/Nose/Throat oral cavity/pharynx/larynx Overall: oral mucosa clear 11/15/2010 None Full Exam - General Ears/Nose/Throat oral cavity/pharynx/larynx Overall: oropharyngeal mucosa clear 11/15/2010 None Full Exam - General Neck inspection of neck Overall: normal size 11/15/2010 None Full Exam - General Neck inspection of neck Overall: normal appearance 11/15/2010 None Full Exam - General Musculoskeletal gait and station Overall: normal station 11/15/2010 None Full Exam - General Neurologic cranial nerves Overall: cranial nerves 1-12 intact 11/15/2010 None Full Exam - General Psychiatric orientation/consciousness Overall: oriented to person, place and time 11/15/2010 None Procedures Procedure Codes Date ADMIN INFLUENZA VIRUS VAC CPT-4: G0008 12/31/2016 FLU VACC PRSV FREE INC ANTIG CPT-4: 05687 12/31/2016 DEBRIDE NAIL 6 OR MORE CPT-4: 69736 08/15/2016 URINALYSIS NONAUTO W/O SCOPE CPT-4: 98119 01/24/2016 DEBRIDE NAIL 6 OR MORE CPT-4: 03747 12/09/2015 ROUTINE VENIPUNCTURE CPT-4: 34216 05/21/2013 ADMIN INFLUENZA VIRUS VAC CPT-4: G0008 12/15/2012 FLULAVAL VACC, 3 YRS & >, IM CPT-4: Q2036 12/15/2012 PRESCRIP TRANSMIT VIA ERX SY CPT-4: G8553 12/15/2012 ROUTINE VENIPUNCTURE CPT-4: 92385 11/17/2012 PRESCRIP TRANSMIT VIA ERX SY CPT-4: G8553 11/17/2012 ROUTINE VENIPUNCTURE CPT-4: 75699 07/09/2012 TRIAMCINOLONE ACET INJ NOS CPT-4: J3301 05/15/2012 DRAIN/INJECT JOINT/BURSA CPT-4: 56026 05/15/2012 ROUTINE VENIPUNCTURE CPT-4: 56195 02/14/2012 ROUTINE VENIPUNCTURE CPT-4: 46391 09/13/2011 PRESCRIP TRANSMIT VIA ERX SY CPT-4: G8553 08/28/2011 ROUTINE VENIPUNCTURE CPT-4: 85159 06/13/2011 KETOROLAC TROMETHAMINE INJ CPT-4: J1885 05/16/2011 ROUTINE VENIPUNCTURE CPT-4: 97169 01/17/2011 ADMIN PNEUMOCOCCAL VACCINE SNOMED CT: [id number] CPT-4: G0009 01/17/2011 Pneumococcal Polysaccharide Vaccine, 23-Valent, Ad CPT-4: 07602 01/17/2011 ADMIN INFLUENZA VIRUS VAC CPT-4: G0008 12/12/2010 FLULAVAL VACC, 3 YRS & >, IM CPT-4: Q2036 12/12/2010 Vital Signs Date Vital 03/07/2017 Blood Pressure 1: 148/88 Code : 8480-6 Heart Rate 1: 82 bpm SpO2: 94% Weight: 145 lbs 12/31/2016 Blood Pressure 1: 152/88 Code : 8480-6 BMI: 23.6 Code : 31978-9 Heart Rate 1 : 72 bpm Height: 5'7" SpO2: 98% Weight: 151 lbs 12/06/2016 Blood Pressure 1: 150/78 Code : 8480-6 BMI: 22.9 Code : 14639-4 Heart Rate 1 : 55 bpm Height: 5'7" SpO2: 97% Weight: 146 lbs 09/10/2016 Blood Pressure 1: 160/80 Code : 8480-6 Blood Pressure 1: 134/78 Code: 8480-6 BMI: 22.9 Code: 31469-2 Heart Rate 1: 80 bpm Height: 5'7" SpO2: 95% Weight: 146 lbs 08/15/2016 Blood Pressure 1: 132/78 Code : 8480-6 BMI: 23.8 Code : 03846-2 Heart Rate 1 : 99 bpm Height: 5'7" SpO2: 95% Weight: 152 lbs 2016 Blood Pressure 1: 128/70 Code : 8480-6 BMI: 23.5 Code : 59420-6 Heart Rate 1 : 62 bpm Height: 5'7" SpO2: 93% Temperature: 36.6 (C) / 97.9 (F) Weight: 150 lbs 03/26/2016 Blood Pressure 1: 142/70 Code : 8480-6 Blood Pressure 1: 136/72 Code: 8480-6 BMI: 22.6 Code: 98090-3 Height: 5'7" Weight: 144 lbs 01/23/2016 Blood Pressure 1: 148/88 Code : 8480-6 BMI: 23.2 Code : 21991-0 Heart Rate 1 : 91 bpm Height: 5'7" SpO2: 96% Weight: 148 lbs 01/05/2016 Blood Pressure 1: 140/78 Code : 8480-6 BMI: 23.0 Code : 19834-9 Heart Rate 1 : 69 bpm Height: 5'7" SpO2: 97% Weight: 147 lbs 12/09/2015 Blood Pressure 1: 146/74 Code : 8480-6 Heart Rate 1: 72 bpm Height: 5'7" SpO2: 96% 12/08/2015 Blood Pressure 1: 134/78 Code : 8480-6 BMI: 23.2 Code : 69775-8 Heart Rate 1 : 77 bpm Height: 5'7" SpO2: 96% Weight: 148 lbs 11/03/2015 Blood Pressure 1: 136/68 Code : 8480-6 BMI: 22.6 Code : 55790-7 Heart Rate 1 : 79 bpm Height: 5'7" SpO2: 96% Weight: 144 lbs 8 oz 10/06/2015 Blood Pressure 1: 124/68 Code : 8480-6 BMI: 22.6 Code : 40736-3 Heart Rate 1 : 71 bpm Height: 5'7" SpO2: 98% Weight: 144 lbs 07/07/2015 Blood Pressure 1: 146/74 Code : 8480-6 BMI: 23.5 Code : 33313-9 Heart Rate 1 : 86 bpm Height: 5'7" SpO2: 98% Weight: 150 lbs 06/24/2015 Blood Pressure 1: 150/90 Code : 8480-6 BMI: 23.6 Code : 34319-1 Heart Rate 1 : 85 bpm Height: 5'7" SpO2: 93% Weight: 151 lbs 06/16/2015 Blood Pressure 1: 142/80 Code : 8480-6 BMI: 24.7 Code : 70262-8 Heart Rate 1 : 79 bpm Height: 5'7" SpO2: 97% Weight: 158 lbs 05/16/2015 Blood Pressure 1: 164/74 Code : 8480-6 BMI: 24.0 Code : 33692-2 Heart Rate 1 : 79 bpm Height: 5'7" SpO2: 97% Weight: 153 lbs 04/14/2015 Blood Pressure 1: 148/80 Code : 8480-6 BMI: 23.8 Code : 92147-3 Heart Rate 1 : 94 bpm Height: 5'7" SpO2: 97% Weight: 152 lbs 03/14/2015 Blood Pressure 1: 140/78 Code : 8480-6 BMI: 24.4 Code : 42783-9 Heart Rate 1 : 78 bpm Height: 5'7" SpO2: 96% Weight: 156 lbs 02/17/2015 Blood Pressure 1: 112/60 Code : 8480-6 BMI: 24.1 Code : 04177-0 Heart Rate 1 : 59 bpm Height: 5'7" SpO2: 98% Weight: 154 lbs 01/18/2015 Blood Pressure 1: 123/70 Code : 8480-6 BMI: 24.1 Code : 11179-4 Heart Rate 1 : 76 bpm Height: 5'7" SpO2: 94% Weight: 154 lbs 12/30/2014 Blood Pressure 1: 136/68 Code : 8480-6 BMI: 24.1 Code : 62489-4 Heart Rate 1 : 80 bpm Height: 5'7" SpO2: 93% Weight: 154 lbs 10/27/2014 Blood Pressure 1: 128/62 Code : 8480-6 BMI: 24.7 Code : 07098-0 Heart Rate 1 : 61 bpm Height: 5'7" SpO2: 97% Weight: 158 lbs 08/25/2014 Blood Pressure 1: 142/80 Code : 8480-6 BMI: 25.4 Code : 30203-9 Heart Rate 1 : 89 bpm Height: 5'7" SpO2: 97% Weight: 162 lbs 04/28/2014 Blood Pressure 1: 140/72 Code : 8480-6 BMI: 26.3 Code : 48565-5 Heart Rate 1 : 72 bpm Height: 5'7" Weight: 168 lbs 02/24/2014 Blood Pressure 1: 142/76 Code : 8480-6 BMI: 25.7 Code : 61675-4 Heart Rate 1 : 60 bpm Height: 5'7" Weight: 164 lbs 10/22/2013 Blood Pressure 1: 124/72 Code : 8480-6 BMI: 27.7 Code : 59455-2 Heart Rate 1 : 80 bpm Height: 5'7" Weight: 177 lbs 09/22/2013 Blood Pressure 1: 152/80 Code : 8480-6 BMI: 27.3 Code : 82843-3 Heart Rate 1 : 72 bpm Height: 5'7" SpO2: 98% Weight: 174 lbs 06/24/2013 Blood Pressure 1: 150/82 Code : 8480-6 BMI: 28.7 Code : 03450-3 Heart Rate 1 : 84 bpm Height: 5'7" Weight: 183 lbs 05/21/2013 Blood Pressure 1: 122/62 Code : 8480-6 BMI: 27.7 Code : 64154-9 Heart Rate 1 : 72 bpm Height: 5'7" Weight: 177 lbs 05/07/2013 Blood Pressure 1: 130/70 Code : 8480-6 Heart Rate 1: 72 bpm Temperature: 36.2 (C) / 97.2 (F) Weight: 181 lbs 04/23/2013 Blood Pressure 1: 154/70 Code : 8480-6 Heart Rate 1: 84 bpm Weight: 03/25/2013 Blood Pressure 1: 120/62 Code : 8480-6 BMI: 29.3 Code : 77597-1 Heart Rate 1 : 72 bpm Height: 5'7" Weight: 187 lbs 12/18/2012 Blood Pressure 1: 126/62 Code : 8480-6 Heart Rate 1: 68 bpm Weight: 182 lbs 12/15/2012 Blood Pressure 1: 130/72 Code : 8480-6 BMI: 28.5 Code : 86578-9 Heart Rate 1 : 80 bpm Height: 5'7" Weight: 182 lbs 11/17/2012 Blood Pressure 1: 152/80 Code : 8480-6 BMI: 29.4 Code : 91271-1 Heart Rate 1 : 80 bpm Height: 5'7" Weight: 188 lbs 07/14/2012 Blood Pressure 1: 146/62 Code : 8480-6 BMI: 28.8 Code : 05285-0 Heart Rate 1 : 80 bpm Height: 5'7" Weight: 184 lbs 05/15/2012 Blood Pressure 1: 140/62 Code : 8480-6 BMI: 28.8 Code : 80944-5 Heart Rate 1 : 80 bpm Height: 5'7" Weight: 184 lbs 03/17/2012 Blood Pressure 1: 148/72 Code : 8480-6 BMI: 28.3 Code : 51242-6 Heart Rate 1 : 72 bpm Height: 5'7" Weight: 181 lbs 02/18/2012 Blood Pressure 1: 136/86 Code : 8480-6 Heart Rate 1: 68 bpm Respiratory Rate : 16 bpm Weight: 186 lbs 02/04/2012 Blood Pressure 1: 156/68 Code : 8480-6 BMI: 28.8 Code : 97025-8 Heart Rate 1 : 84 bpm Height: 5'7" Weight: 184 lbs 10/15/2011 Blood Pressure 1: 136/56 Code : 8480-6 BMI: 29.1 Code : 18928-2 Heart Rate 1 : 76 bpm Height: 5'7" Weight: 186 lbs 09/13/2011 Blood Pressure 1: 138/78 Code : 8480-6 Heart Rate 1: 68 bpm Respiratory Rate : 16 bpm Weight: 181 lbs 08/28/2011 Blood Pressure 1: 168/86 Code : 8480-6 Heart Rate 1: 70 bpm SpO2: 97% Weight: 186 lbs 8 oz 2011 Blood Pressure 1: 172/70 Code : 8480-6 BMI: 29.1 Code : 45571-2 Heart Rate 1 : 72 bpm Height: 5'7" Respiratory Rate: 16 bpm Weight: 186 lbs 05/16/2011 Blood Pressure 1: 180/76 Code : 8480-6 Blood Pressure 2: 158/80 Code: 8480-6 BMI: 28.0 Code: 82208-7 Heart Rate 1: 70 bpm Height: 5'7" Respiratory Rate: 16 bpm Weight: 178 lbs 8 oz 01/17/2011 Blood Pressure 1: 130/62 Code : 8480-6 BMI: 27.9 Code : 21661-4 Heart Rate 1 : 74 bpm Height: 5'7" Respiratory Rate: 16 bpm Weight: 178 lbs 12/12/2010 Blood Pressure 1: 148/74 Code : 8480-6 BMI: 28.2 Code : 77134-0 Heart Rate 1 : 80 bpm Height: 5'7" Respiratory Rate: 16 bpm Weight: 180 lbs 11/15/2010 Blood Pressure 1: 138/70 Code : 8480-6 BMI: 28.4 Code : 17133-7 Heart Rate 1 : 72 bpm Height: 5'8" Weight: 184 lbs Functional Status No Functional Status data History of Present Illness Symptom Name Status Result Effective Date Notes Hospital Follow Up _ Other: Dizziness 03/07/2017 None Hospital Follow Up Quality acute illness 03/07/2017 None Hospital Follow Up Pertinent Findings Denies fever 03/07/2017 None diabetes mellitus Onset of Symptom onset as an adult 12/31/2016 None diabetes mellitus Quality insulin dependent 12/31/2016 None diabetes mellitus Alleviating Factors medication 12/31/2016 None diabetes mellitus Exacerbating Factors diet 12/31/2016 None diabetes mellitus Pertinent Findings Denies dizziness 12/31/2016 None diabetes mellitus Pertinent Findings Denies dyspnea 12/31/2016 None diabetes mellitus Pertinent Findings Denies nausea 12/31/2016 None hypertension Quality primary hypertension 12/31/2016 None hypertension Onset and Resolution ongoing 12/31/2016 None hypertension Onset of Symptom during adulthood 12/31/2016 None hypertension Blood Pressure Values patient checking blood pressure at home - did not bring in readings 12/31/2016 None hypertension Alleviating Factors medication 12/31/2016 None hypertension Pertinent Findings Denies dizziness 12/31/2016 None hypertension Pertinent Findings Denies dyspnea 12/31/2016 None Hospital Follow Up _ Other: shortness of breath 12/06/2016 None Hospital Follow Up _ cardiac disease 12/06/2016 None Hospital Follow Up Pertinent Findings Denies fever 12/06/2016 None diabetes mellitus Onset of Symptom onset as an adult 09/10/2016 None diabetes mellitus Quality insulin dependent 09/10/2016 None diabetes mellitus Alleviating Factors medication 09/10/2016 None diabetes mellitus Exacerbating Factors diet 09/10/2016 None diabetes mellitus Pertinent Findings Denies dizziness 09/10/2016 None diabetes mellitus Pertinent Findings Denies dyspnea 09/10/2016 None diabetes mellitus Pertinent Findings Denies nausea 09/10/2016 None hypertension Quality primary hypertension 09/10/2016 None hypertension Onset and Resolution ongoing 09/10/2016 None hypertension Onset of Symptom during adulthood 09/10/2016 None hypertension Blood Pressure Values patient checking blood pressure at home - did not bring in readings 09/10/2016 None hypertension Alleviating Factors medication 09/10/2016 None hypertension Pertinent Findings Denies dizziness 09/10/2016 None hypertension Pertinent Findings Denies dyspnea 09/10/2016 None diabetes mellitus Quality insulin dependent 08/15/2016 None diabetes mellitus Exacerbating Factors diet 08/15/2016 None diabetes mellitus Pertinent Findings Denies dizziness 08/15/2016 None diabetes mellitus Pertinent Findings Denies dyspnea 08/15/2016 None diabetes mellitus Pertinent Findings Denies nausea 08/15/2016 None diabetes mellitus Onset of Symptom onset as an adult 08/15/2016 None hypertension Quality primary hypertension 08/15/2016 None hypertension Onset and Resolution ongoing 08/15/2016 None hypertension Onset of Symptom during adulthood 08/15/2016 None diabetes mellitus Test results Pt checking blood glucose readings, did not bring results to clinic 08/15/2016 None diabetes mellitus Alleviating Factors medication 08/15/2016 None hypertension Blood Pressure Values patient checking blood pressure at home - did not bring in readings 08/15/2016 None hypertension Alleviating Factors medication 08/15/2016 None hypertension Pertinent Findings Denies dizziness 08/15/2016 None hypertension Pertinent Findings Denies dyspnea 08/15/2016 None medication follow up Additional Comments medication use 2016 None medication follow up Location oral intake 2016 et SQ diabetes mellitus Onset of Symptom onset as an adult 2016 None diabetes mellitus Quality insulin dependent 2016 None diabetes mellitus Exacerbating Factors diet 2016 None diabetes mellitus Pertinent Findings Denies dizziness 2016 None diabetes mellitus Pertinent Findings Denies dyspnea 2016 None diabetes mellitus Pertinent Findings Denies nausea 2016 None diabetes mellitus Pertinent Findings Denies numbness 2016 None diabetes mellitus Pertinent Findings Denies tingling 2016 None diabetes mellitus Onset of Symptom onset as an adult 03/26/2016 None diabetes mellitus Quality insulin dependent 03/26/2016 None diabetes mellitus Alleviating Factors insulin 03/26/2016 -lantus- diabetes mellitus Exacerbating Factors diet 03/26/2016 None diabetes mellitus Pertinent Findings Denies dizziness 03/26/2016 None diabetes mellitus Pertinent Findings Denies dyspnea 03/26/2016 None diabetes mellitus Pertinent Findings Denies nausea 03/26/2016 None diabetes mellitus Pertinent Findings Denies numbness 03/26/2016 None diabetes mellitus Pertinent Findings Denies tingling 03/26/2016 None hypertension Onset and Resolution ongoing 03/26/2016 None hypertension Onset of Symptom during adulthood 03/26/2016 None hypertension Alleviating Factors medication 03/26/2016 None hypertension Pertinent Findings Denies dizziness 03/26/2016 None hypertension Pertinent Findings Denies dyspnea 03/26/2016 None hypertension Pertinent Findings Denies edema 03/26/2016 None hypothyroid Onset and Resolution ongoing 03/26/2016 None hypothyroid Alleviating Factors medication 03/26/2016 None hypertension Blood Pressure Values not checking blood pressure at home 03/26/2016 None Hospital Follow Up _ cellulitis 01/23/2016 None Hospital Follow Up Quality acute 01/23/2016 None Hospital Follow Up Severity moderate 01/23/2016 None Hospital Follow Up Pertinent Findings Denies pain 01/23/2016 None Hospital Follow Up Pertinent Findings Denies fever 01/23/2016 None Hospital Follow Up Pertinent Findings Denies medication use 01/23/2016 None diabetes mellitus Quality insulin dependent 01/05/2016 None diabetes mellitus Alleviating Factors insulin 01/05/2016 -lantus- diabetes mellitus Exacerbating Factors diet 01/05/2016 None diabetes mellitus Pertinent Findings Denies dizziness 01/05/2016 None diabetes mellitus Pertinent Findings Denies dyspnea 01/05/2016 None diabetes mellitus Pertinent Findings Denies nausea 01/05/2016 None diabetes mellitus Pertinent Findings Denies numbness 01/05/2016 None diabetes mellitus Pertinent Findings Denies tingling 01/05/2016 None hypertension Onset and Resolution ongoing 01/05/2016 None hypertension Onset of Symptom during adulthood 01/05/2016 None hypertension Alleviating Factors medication 01/05/2016 None hypertension Pertinent Findings Denies dizziness 01/05/2016 None hypertension Pertinent Findings Denies dyspnea 01/05/2016 None hypertension Pertinent Findings Denies edema 01/05/2016 None diabetes mellitus Test results Pt checking blood glucose readings, did not bring results to clinic 01/05/2016 - PT REPORTS THAT HER BLOOD GLUCOSE WAS GOOD BUT SHE CANNOT REMEMBER THE READINGS - diabetes mellitus Glucose monitoring daily 01/05/2016 None hypertension Blood Pressure Values patient checking blood pressure at home - did not bring in readings 01/05/2016 -Checks rarely hypothyroid Onset and Resolution ongoing 01/05/2016 None hypothyroid Alleviating Factors medication 01/05/2016 None diabetes mellitus Onset of Symptom onset as an adult 01/05/2016 None diabetes mellitus Test results Pt not checking blood glucose readings at home 12/09/2015 None diabetes mellitus Alleviating Factors medication 12/09/2015 None diabetes mellitus Nutrition regular diet 12/09/2015 None diabetes mellitus Quality insulin dependent 12/08/2015 None diabetes mellitus Alleviating Factors insulin 12/08/2015 -lantus- diabetes mellitus Exacerbating Factors diet 12/08/2015 None diabetes mellitus Pertinent Findings Denies dizziness 12/08/2015 None diabetes mellitus Pertinent Findings Denies dyspnea 12/08/2015 None diabetes mellitus Pertinent Findings Denies nausea 12/08/2015 None diabetes mellitus Pertinent Findings Denies numbness 12/08/2015 None diabetes mellitus Pertinent Findings Denies tingling 12/08/2015 None hypertension Onset and Resolution ongoing 12/08/2015 None hypertension Onset of Symptom during adulthood 12/08/2015 None hypertension Blood Pressure Values not checking blood pressure at home 12/08/2015 -not often hypertension Alleviating Factors medication 12/08/2015 None hypertension Pertinent Findings Denies dizziness 12/08/2015 None hypertension Pertinent Findings Denies dyspnea 12/08/2015 None hypertension Pertinent Findings Denies edema 12/08/2015 None diabetes mellitus Test results Pt checking blood glucose readings, did not bring results to clinic 12/08/2015 None diabetes mellitus Glucose monitoring occasional glucose testing 12/08/2015 None foot pain Location on the right 12/08/2015 None foot pain Quality acute 12/08/2015 None foot pain Onset and Resolution ongoing 12/08/2015 None diabetes mellitus Quality insulin dependent 11/03/2015 None diabetes mellitus Alleviating Factors insulin 11/03/2015 -jana- diabetes mellitus Exacerbating Factors diet 11/03/2015 None diabetes mellitus Pertinent Findings Denies dizziness 11/03/2015 None diabetes mellitus Pertinent Findings Denies dyspnea 11/03/2015 None diabetes mellitus Pertinent Findings Denies nausea 11/03/2015 None diabetes mellitus Pertinent Findings Denies numbness 11/03/2015 None diabetes mellitus Pertinent Findings Denies tingling 11/03/2015 None hypertension Onset and Resolution ongoing 11/03/2015 None hypertension Onset of Symptom during adulthood 11/03/2015 None hypertension Alleviating Factors medication 11/03/2015 None hypertension Pertinent Findings Denies dizziness 11/03/2015 None hypertension Pertinent Findings Denies dyspnea 11/03/2015 None hypertension Pertinent Findings edema 11/03/2015 in her ankles hypothyroid Onset and Resolution ongoing 11/03/2015 None hypothyroid Alleviating Factors medication 11/03/2015 None neck pain Quality discomfort 11/03/2015 None neck pain Onset and Resolution ongoing 11/03/2015 None neck pain Location on both sides 11/03/2015 None hypertension Blood Pressure Values not checking blood pressure at home 11/03/2015 -not often diabetes mellitus Test results Pt checking blood glucose readings, did not bring results to clinic 11/03/2015 None diabetes mellitus Glucose monitoring daily 11/03/2015 None diabetes mellitus Quality insulin dependent 10/06/2015 None diabetes mellitus Pertinent Findings Denies dizziness 10/06/2015 None diabetes mellitus Pertinent Findings Denies dyspnea 10/06/2015 None diabetes mellitus Pertinent Findings Denies nausea 10/06/2015 None diabetes mellitus Pertinent Findings Denies numbness 10/06/2015 None diabetes mellitus Pertinent Findings Denies tingling 10/06/2015 None hypertension Onset and Resolution ongoing 10/06/2015 None hypertension Onset of Symptom during adulthood 10/06/2015 None hypertension Blood Pressure Values patient checking blood pressure at home - did not bring in readings 10/06/2015 -not regularly- hypertension Pertinent Findings Denies dizziness 10/06/2015 None hypertension Pertinent Findings Denies dyspnea 10/06/2015 None hypertension Pertinent Findings Denies edema 10/06/2015 None diabetes mellitus Test results Pt checking blood glucose readings, did not bring results to clinic 10/06/2015 None diabetes mellitus Glucose monitoring fasting 10/06/2015 None diabetes mellitus Glucose monitoring daily 10/06/2015 None diabetes mellitus Alleviating Factors insulin 10/06/2015 -lanranchous- diabetes mellitus Exacerbating Factors diet 10/06/2015 None hypertension Alleviating Factors medication 10/06/2015 None hypothyroid Onset and Resolution ongoing 10/06/2015 None hypothyroid Alleviating Factors medication 10/06/2015 None neck pain Quality intermittent 10/06/2015 None neck pain Onset and Resolution ongoing 10/06/2015 None neck pain Quality discomfort 10/06/2015 None diabetes mellitus Quality insulin dependent 07/07/2015 None diabetes mellitus Glucose monitoring daily 07/07/2015 None diabetes mellitus Test results Pt checking blood glucose readings, did not bring results to clinic 07/07/2015 None diabetes mellitus Pertinent Findings Denies dizziness 07/07/2015 None diabetes mellitus Pertinent Findings Denies dyspnea 07/07/2015 None diabetes mellitus Pertinent Findings Denies nausea 07/07/2015 None diabetes mellitus Pertinent Findings Denies tingling 07/07/2015 None diabetes mellitus Pertinent Findings Denies numbness 07/07/2015 None hypertension Onset and Resolution ongoing 07/07/2015 None hypertension Onset of Symptom during adulthood 07/07/2015 None hypertension Blood Pressure Values patient checking blood pressure at home - did not bring in readings 07/07/2015 None hypertension Pertinent Findings Denies dizziness 07/07/2015 None hypertension Pertinent Findings Denies dyspnea 07/07/2015 None hypertension Pertinent Findings Denies edema 07/07/2015 None cough Location in the throat 06/24/2015 None cough Quality productive 06/24/2015 None cough Onset and Resolution sudden in onset 06/24/2015 None cough Onset of Symptom 3 days ago 06/24/2015 None cough Limitation on Activities does not limit activities 06/24/2015 None cough Frequency of Episodes daily 06/24/2015 None cough Pertinent Findings Denies chest discomfort 06/24/2015 None cough Pertinent Findings hoarseness 06/24/2015 None cough Pertinent Findings nasal congestion 06/24/2015 None sinus congestion Onset and Resolution sudden in onset 06/24/2015 None sinus congestion Onset of Symptom 3 days ago 06/24/2015 None sinus congestion Pertinent Findings cough 06/24/2015 None sinus congestion Pertinent Findings hoarseness 06/24/2015 None diabetes mellitus Test results Pt checking blood glucose readings, did not bring results to clinic 06/16/2015 None diabetes mellitus Blood glucose levels greater than 120 06/16/2015 None diabetes mellitus Glucose monitoring daily 06/16/2015 None diabetes mellitus Onset of Symptom onset as an adult 05/16/2015 None diabetes mellitus Quality insulin dependent 05/16/2015 None diabetes mellitus Severity mild 05/16/2015 None diabetes mellitus Significant Medications insulin 05/16/2015 None diabetes mellitus Alleviating Factors insulin 05/16/2015 Lantus diabetes mellitus Nutrition regular diet 05/16/2015 None diabetes mellitus Pertinent Findings Denies dizziness 05/16/2015 None diabetes mellitus Pertinent Findings Denies dyspnea 05/16/2015 None diabetes mellitus Pertinent Findings Denies increased hunger 05/16/2015 None diabetes mellitus Pertinent Findings mental status change 05/16/2015 None diabetes mellitus Pertinent Findings Denies nausea 05/16/2015 None diabetes mellitus Pertinent Findings weight loss 05/16/2015 None hypertension Quality chronic 05/16/2015 None hypertension Onset and Resolution ongoing 05/16/2015 None hypertension Onset of Symptom during adulthood 05/16/2015 None hypertension Blood Pressure Values not checking blood pressure at home 05/16/2015 None hypertension Severity not consistently severe symptoms, the symptoms fluctuate from no symptoms to anxiety and headaches 05/16/2015 None hypertension Frequency of Episodes unchanged 05/16/2015 None hypertension Triggers no known associated factors 05/16/2015 None hypertension Pertinent Findings Denies dizziness 05/16/2015 None hypertension Pertinent Findings Denies dyspnea 05/16/2015 None hypertension Pertinent Findings Denies edema 05/16/2015 None memory loss Onset and Resolution gradual in onset 05/16/2015 None memory loss Onset of Symptom during adulthood 05/16/2015 None lower leg pain Location on the right 05/16/2015 onthe outside of her leg - more at hip to knee range. lower leg pain Onset and Resolution ongoing 05/16/2015 None skin lesion Quality acute 05/16/2015 None skin lesion Triggers no known associated factors 05/16/2015 None skin lesion Location upper back 05/16/2015 None diabetes mellitus Quality insulin dependent 04/14/2015 None diabetes mellitus Severity mild 04/14/2015 None diabetes mellitus Significant Medications insulin 04/14/2015 None diabetes mellitus Alleviating Factors insulin 04/14/2015 Lantus diabetes mellitus Nutrition regular diet 04/14/2015 None diabetes mellitus Pertinent Findings Denies dizziness 04/14/2015 None diabetes mellitus Pertinent Findings Denies dyspnea 04/14/2015 None diabetes mellitus Pertinent Findings Denies increased hunger 04/14/2015 None diabetes mellitus Pertinent Findings mental status change 04/14/2015 None diabetes mellitus Pertinent Findings Denies nausea 04/14/2015 None diabetes mellitus Pertinent Findings weight loss 04/14/2015 None diabetes mellitus Onset of Symptom onset as an adult 04/14/2015 None hypertension Quality chronic 04/14/2015 None hypertension Onset and Resolution ongoing 04/14/2015 None hypertension Onset of Symptom during adulthood 04/14/2015 None hypertension Blood Pressure Values not checking blood pressure at home 04/14/2015 None hypertension Severity not consistently severe symptoms, the symptoms fluctuate from no symptoms to anxiety and headaches 04/14/2015 None hypertension Frequency of Episodes unchanged 04/14/2015 None hypertension Triggers no known associated factors 04/14/2015 None hypertension Pertinent Findings Denies dizziness 04/14/2015 None hypertension Pertinent Findings Denies dyspnea 04/14/2015 None memory loss Onset of Symptom during adulthood 04/14/2015 None memory loss Onset and Resolution gradual in onset 04/14/2015 None diabetes mellitus Test results Pt checking blood glucose at home, see scanned readings 2015 None diabetes mellitus Glucose monitoring twice daily 04/14/2015 once or twice hypertension Pertinent Findings Denies edema 04/14/2015 None lower leg pain Location on the right 04/14/2015 None lower leg pain Onset and Resolution ongoing 04/14/2015 None skin lesion Quality acute 04/14/2015 None skin lesion Location upper back 04/14/2015 None skin lesion Triggers no known associated factors 04/14/2015 None diabetes mellitus Quality insulin dependent 03/14/2015 None diabetes mellitus Severity mild 03/14/2015 None diabetes mellitus Significant Medications insulin 03/14/2015 None diabetes mellitus Alleviating Factors insulin 03/14/2015 None diabetes mellitus Nutrition regular diet 03/14/2015 None diabetes mellitus Pertinent Findings Denies dizziness 03/14/2015 None diabetes mellitus Pertinent Findings Denies dyspnea 03/14/2015 None diabetes mellitus Pertinent Findings Denies increased hunger 03/14/2015 None diabetes mellitus Pertinent Findings mental status change 03/14/2015 None diabetes mellitus Pertinent Findings Denies nausea 03/14/2015 None diabetes mellitus Pertinent Findings weight loss 03/14/2015 None diabetes mellitus Onset of Symptom onset as an adult 03/14/2015 None hypertension Quality chronic 03/14/2015 None hypertension Onset and Resolution ongoing 03/14/2015 None hypertension Onset of Symptom during adulthood 03/14/2015 None hypertension Blood Pressure Values not checking blood pressure at home 03/14/2015 None hypertension Severity not consistently severe symptoms, the symptoms fluctuate from no symptoms to anxiety and headaches 03/14/2015 None hypertension Frequency of Episodes unchanged 03/14/2015 None hypertension Triggers no known associated factors 03/14/2015 None hypertension Pertinent Findings Denies dizziness 03/14/2015 None hypertension Pertinent Findings Denies dyspnea 03/14/2015 None memory loss Onset of Symptom during adulthood 03/14/2015 None memory loss Limitation on Activities does not limit activities 03/14/2015 None memory loss Onset and Resolution gradual in onset 03/14/2015 reports not all the time, somethings she does forget- thinks it is getting worse diabetes mellitus Quality insulin dependent 02/17/2015 None diabetes mellitus Severity mild 02/17/2015 None diabetes mellitus Significant Medications insulin 02/17/2015 None diabetes mellitus Alleviating Factors insulin 02/17/2015 None diabetes mellitus Nutrition regular diet 02/17/2015 None diabetes mellitus Pertinent Findings Denies dizziness 02/17/2015 None diabetes mellitus Pertinent Findings Denies dyspnea 02/17/2015 None diabetes mellitus Pertinent Findings Denies increased hunger 02/17/2015 None diabetes mellitus Pertinent Findings mental status change 02/17/2015 None diabetes mellitus Pertinent Findings Denies nausea 02/17/2015 None diabetes mellitus Pertinent Findings weight loss 02/17/2015 None diabetes mellitus Onset of Symptom onset as an adult 02/17/2015 None hypertension Quality chronic 02/17/2015 None hypertension Onset and Resolution ongoing 02/17/2015 None hypertension Onset of Symptom during adulthood 02/17/2015 None hypertension Blood Pressure Values not checking blood pressure at home 02/17/2015 None hypertension Severity not consistently severe symptoms, the symptoms fluctuate from no symptoms to anxiety and headaches 02/17/2015 None hypertension Frequency of Episodes unchanged 02/17/2015 None hypertension Triggers no known associated factors 02/17/2015 None hypertension Pertinent Findings Denies dizziness 02/17/2015 None hypertension Pertinent Findings Denies dyspnea 02/17/2015 None memory loss Onset of Symptom during adulthood 02/17/2015 None memory loss Limitation on Activities does not limit activities 02/17/2015 None memory loss Onset and Resolution gradual in onset 02/17/2015 reports not all the time, somethings she does forget- thinks it is getting worse diabetes mellitus Test results Pt checking blood glucose readings, did not bring results to clinic 02/17/2015 None diabetes mellitus Glucose monitoring daily 02/17/2015 None diabetes mellitus Onset of Symptom onset as an adult 01/18/2015 None diabetes mellitus Severity mild 01/18/2015 None diabetes mellitus Pertinent Findings Denies dizziness 01/18/2015 None diabetes mellitus Pertinent Findings Denies dyspnea 01/18/2015 None diabetes mellitus Pertinent Findings Denies increased hunger 01/18/2015 None diabetes mellitus Pertinent Findings mental status change 01/18/2015 None diabetes mellitus Pertinent Findings Denies nausea 01/18/2015 None diabetes mellitus Pertinent Findings weight loss 01/18/2015 None hypertension Blood Pressure Values not checking blood pressure at home 01/18/2015 None hypertension Pertinent Findings Denies dizziness 01/18/2015 None hypertension Pertinent Findings Denies dyspnea 01/18/2015 None memory loss Onset and Resolution gradual in onset 01/18/2015 reports not all the time, somethings she does forget- thinks it is getting worse memory loss Onset of Symptom during adulthood 01/18/2015 None memory loss Limitation on Activities does not limit activities 01/18/2015 None diabetes mellitus Quality insulin dependent 01/18/2015 None diabetes mellitus Test results HgbA1c level 8.0 01/18/2015 None diabetes mellitus Blood glucose levels greater than 120 01/18/2015 None diabetes mellitus Glucose monitoring twice daily 01/18/2015 None diabetes mellitus Significant Medications insulin 01/18/2015 None diabetes mellitus Alleviating Factors insulin 01/18/2015 None diabetes mellitus Nutrition regular diet 01/18/2015 None diabetes mellitus Exercise no exercise 01/18/2015 None hypertension Quality chronic 01/18/2015 None hypertension Onset and Resolution ongoing 01/18/2015 None hypertension Onset of Symptom during adulthood 01/18/2015 None hypertension Severity not consistently severe symptoms, the symptoms fluctuate from no symptoms to anxiety and headaches 01/18/2015 None hypertension Frequency of Episodes unchanged 01/18/2015 None hypertension Triggers no known associated factors 01/18/2015 None diabetes mellitus Onset of Symptom onset as an adult 12/30/2014 pt brought in blood glucose log - they are "higher than normal" - she also reports that she never started the insulin that we sent to her pharmacy. diabetes mellitus Quality non-insulin dependent 12/30/2014 None diabetes mellitus Severity mild 12/30/2014 None diabetes mellitus Pertinent Findings Denies dizziness 12/30/2014 None diabetes mellitus Pertinent Findings Denies dyspnea 12/30/2014 None diabetes mellitus Pertinent Findings Denies increased hunger 12/30/2014 None diabetes mellitus Pertinent Findings Denies nausea 12/30/2014 None hypertension Blood Pressure Values not checking blood pressure at home 12/30/2014 None hypertension Pertinent Findings Denies dizziness 12/30/2014 None hypertension Pertinent Findings Denies dyspnea 12/30/2014 None memory loss Onset and Resolution gradual in onset 12/30/2014 reports not all the time, somethings she does forget- thinks it is getting worse memory loss Onset of Symptom during adulthood 12/30/2014 None memory loss Limitation on Activities does not limit activities 12/30/2014 None hip pain Location on the right 12/30/2014 None hip pain Quality dull ache 12/30/2014 None hip pain Onset and Resolution ongoing 12/30/2014 None hip pain Frequency of Episodes daily 12/30/2014 None hip pain Limitation on Activities allows ambulation with assistance 12/30/2014 None hip pain Severity moderate 12/30/2014 None hip pain Significant Medications NSAID's 12/30/2014 None hip pain Alleviating Factors NSAID's 12/30/2014 None hip pain Exacerbating Factors activity 12/30/2014 None hip pain Radiating radiates down the leg to the foot 12/30/2014 None hip pain Pertinent Findings stiffness 12/30/2014 None diabetes mellitus Pertinent Findings mental status change 12/30/2014 None diabetes mellitus Pertinent Findings weight loss 12/30/2014 None diarrhea Onset of Symptom 2 months ago 12/30/2014 since she was here last and started on insulin diarrhea Frequency of Episodes daily 12/30/2014 None diarrhea Quality loose 12/30/2014 None diarrhea Onset and Resolution ongoing 12/30/2014 with every BM diarrhea Pertinent Findings fecal urgency 12/30/2014 None diarrhea Pertinent Findings Denies cramping 12/30/2014 None diarrhea Pertinent Findings Denies flatulence 12/30/2014 None diarrhea Pertinent Findings weight loss 12/30/2014 None diarrhea Pertinent Findings Denies dyspnea 12/30/2014 None diarrhea Pertinent Findings Denies lightheadedness 12/30/2014 None diabetes mellitus Glucose monitoring fasting 12/30/2014 None diabetes mellitus Test results Pt checking blood glucose at home, see scanned readings 2014 None diabetes mellitus Onset of Symptom onset as an adult 10/27/2014 pt brought in blood glucose log - they are "higher than normal" - she also reports that she never started the insulin that we sent to her pharmacy. diabetes mellitus Quality non-insulin dependent 10/27/2014 None diabetes mellitus Severity mild 10/27/2014 None diabetes mellitus Pertinent Findings Denies dizziness 10/27/2014 None diabetes mellitus Pertinent Findings Denies dyspnea 10/27/2014 None diabetes mellitus Pertinent Findings Denies increased hunger 10/27/2014 None diabetes mellitus Pertinent Findings Denies nausea 10/27/2014 None hypertension Blood Pressure Values not checking blood pressure at home 10/27/2014 None hypertension Pertinent Findings Denies dizziness 10/27/2014 None hypertension Pertinent Findings Denies dyspnea 10/27/2014 None memory loss Onset and Resolution gradual in onset 10/27/2014 reports not all the time, somethings she does forget- thinks it is getting worse hip pain Location on the right 10/27/2014 None hip pain Quality dull ache 10/27/2014 None hip pain Onset and Resolution ongoing 10/27/2014 None hip pain Frequency of Episodes daily 10/27/2014 None hip pain Limitation on Activities allows ambulation with assistance 10/27/2014 None hip pain Severity moderate 10/27/2014 None hip pain Significant Medications NSAID's 10/27/2014 None hip pain Alleviating Factors NSAID's 10/27/2014 None hip pain Exacerbating Factors activity 10/27/2014 None hip pain Radiating radiates down the leg to the foot 10/27/2014 None hip pain Assistive devices cane 10/27/2014 None hip pain Pertinent Findings stiffness 10/27/2014 None memory loss Onset of Symptom during adulthood 10/27/2014 None memory loss Limitation on Activities does not limit activities 10/27/2014 None diabetes mellitus Onset of Symptom onset as an adult 08/25/2014 reports bs have been running a little higher last few days, but she was in [place] for a wedding for five days. forgot to bring log in diabetes mellitus Quality non-insulin dependent 08/25/2014 None diabetes mellitus Severity mild 08/25/2014 None diabetes mellitus Pertinent Findings Denies dizziness 08/25/2014 None diabetes mellitus Pertinent Findings Denies dyspnea 08/25/2014 None diabetes mellitus Pertinent Findings Denies increased hunger 08/25/2014 None diabetes mellitus Pertinent Findings Denies nausea 08/25/2014 None hypertension Blood Pressure Values not checking blood pressure at home 08/25/2014 None hypertension Pertinent Findings Denies dizziness 08/25/2014 None hypertension Pertinent Findings Denies dyspnea 08/25/2014 None memory loss Onset and Resolution gradual in onset 08/25/2014 reports not all the time, somethings she does forget- thinks it is getting worse ~generic Onset of Symptom _ years ago 08/25/2014 reports that she sees [place] foot [place], but left great toe hurts- has hammer toe on right foot- Reports that toe pain on left is worse over past few months. ~generic Quality chronic 08/25/2014 None ~generic Severity moderate 08/25/2014 None diabetes mellitus Onset of Symptom onset as an adult 04/28/2014 reports bs have been running normal, but she forgot to bring her records in diabetes mellitus Quality non-insulin dependent 04/28/2014 None diabetes mellitus Severity mild 04/28/2014 None diabetes mellitus Pertinent Findings Denies dizziness 04/28/2014 None diabetes mellitus Pertinent Findings Denies dyspnea 04/28/2014 None diabetes mellitus Pertinent Findings Denies increased hunger 04/28/2014 None diabetes mellitus Pertinent Findings Denies nausea 04/28/2014 None hypertension Blood Pressure Values not checking blood pressure at home 04/28/2014 None hypertension Pertinent Findings Denies dizziness 04/28/2014 None hypertension Pertinent Findings Denies dyspnea 04/28/2014 None lower leg pain Location on the right 04/28/2014 intermittent, better than before lower leg pain Onset of Symptom _ months ago 04/28/2014 None lower leg pain Pertinent Findings Denies pain with movement 04/28/2014 not increased with movement memory loss Onset and Resolution gradual in onset 04/28/2014 reports not all the time, somethings she does forget diabetes mellitus Test results Pt checking blood glucose readings, did not bring results to clinic 04/28/2014 - pt reports that her FSBS are "okay" but cannot remember specific numbers" - diabetes mellitus Onset of Symptom onset as an adult 02/24/2014 None diabetes mellitus Quality non-insulin dependent 02/24/2014 None diabetes mellitus Severity mild 02/24/2014 None diabetes mellitus Pertinent Findings Denies dizziness 02/24/2014 None diabetes mellitus Pertinent Findings Denies dyspnea 02/24/2014 None diabetes mellitus Pertinent Findings Denies increased hunger 02/24/2014 None diabetes mellitus Pertinent Findings Denies nausea 02/24/2014 None hypertension Blood Pressure Values not checking blood pressure at home 02/24/2014 None hypertension Pertinent Findings Denies dizziness 02/24/2014 None hypertension Pertinent Findings Denies dyspnea 02/24/2014 None arm pain Location right arm 02/24/2014 None arm pain Onset of Symptom _ months ago 02/24/2014 worse at night, intermittent lower leg pain Location on the right 02/24/2014 entire leg pain, worse at night. It is intermittent lower leg pain Onset of Symptom _ months ago 02/24/2014 None lower leg pain Pertinent Findings Denies pain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 05/16/2011 None diabetes mellitus Quality non-insulin dependent 05/16/2011 None diabetes mellitus Pertinent Findings Denies dizziness 05/16/2011 None diabetes mellitus Pertinent Findings Denies increased hunger 05/16/2011 None diabetes mellitus Pertinent Findings Denies lethargy 05/16/2011 None diabetes mellitus Exercise no exercise 05/16/2011 None diabetes mellitus Alleviating Factors diet 05/16/2011 None diabetes mellitus Alleviating Factors medication 05/16/2011 None diabetes mellitus Exacerbating Factors diet 05/16/2011 None blood pressure followup Quality chronic 01/17/2011 None blood pressure followup Onset and Resolution ongoing 01/17/2011 None blood pressure followup Onset of Symptom during adulthood 01/17/2011 None blood pressure followup Blood Pressure Values pt checking blood pressure - see scanned document 01/17 None blood pressure followup Severity mild 01/17/2011 None blood pressure followup Triggers stress 01/17/2011 None blood pressure followup Alleviating Factors medication 01/17/2011 None blood pressure followup Pertinent Findings Denies anxiety 01/17/2011 None blood pressure followup Pertinent Findings Denies dizziness 01/17/2011 None hip pain Quality throbbing 12/12/2010 from fall in november. hip pain Location in the groin 12/12/2010 None hip pain Location in the anterior region 12/12/2010 None hip pain Onset and Resolution ongoing 12/12/2010 None hip pain Onset and Resolution with weight bearing activities 12/12/2010 None hip pain Limitation on Activities allows ambulation with assistance 12/12/2010 None hip pain Severity mild 12/12/2010 None hip pain Mechanism of injury fall onto the lateral thigh 12/12/2010 None hip pain Mechanism of injury ground level fall 12/12/2010 None diabetes mellitus Quality non-insulin dependent 11/15/2010 None diabetes mellitus Glucose monitoring twice daily 11/15/2010 ran out of strips. to call [facility] for refill diabetes mellitus Blood glucose levels greater than 120 11/15/2010 None diabetes mellitus Urine ketones monitoring never to rarely 11/15/2010 None Advance Directives No Advance Directive data Encounters Encounter Performer Location Codes Date 66573 EST. PATIENT, LEVEL III Diagnosis: Encounter for follow-up examination after completed treatment for conditions other than malignant neoplasm[ICD10: Z09] Vivi Singletary MD, [facility] CPT-4: 23203 03/07/2017 ([id number] 75543 EST. PATIENT, LEVEL IV Diagnosis: Type 2 diabetes mellitus with hyperglycemia[ICD10: E11.65] Diagnosis: Essential (primary) hypertension[ICD10: I10] Diagnosis: Encounter for immunization[ICD10: Z23] Gina Singletary MD, [facility] CPT-4: 84587 12/31/2016 94061 EST. PATIENT, LEVEL III Diagnosis: Shortness of breath[ICD10: R06.02] Diagnosis: Essential (primary) hypertension[ICD10: I10] Diagnosis: Collapsed vertebra, not elsewhere classified, thoracic region, initial encounter for fracture[ICD10: M48.54XA] Vivi Singletary MD, [facility] CPT-4: 18062 12/06/2016 ([id number]) 78926 EST. PATIENT, LEVEL IV Diagnosis: Type 2 diabetes mellitus with hyperglycemia[ICD10: E11.65] Diagnosis: Essential (primary) hypertension[ICD10: I10] Gina Singletary MD, [facility] CPT-4: 61659 09/10/2016 ([id number]) 41299 EST. 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 PATIENT, LEVEL IV Diagnosis: Type 2 diabetes mellitus with hyperglycemia[ICD10: E11.65] Diagnosis: Vitamin B12 deficiency anemia due to intrinsic factor deficiency[ ICD10: D51.0] Diagnosis: Hypothyroidism, unspecified[ICD10: E03.9] Diagnosis: Muscle weakness (generalized)[ICD10: M62.81] Diagnosis: Unsteadiness on feet[ICD10: R26.81] Radha Singletary MD, [facility] CPT-4: 39642 2016 ([id number]) 41299 EST. PATIENT, LEVEL IV Diagnosis: Type 2 diabetes mellitus with hyperglycemia[ICD10: E11.65] Diagnosis: Mixed hyperlipidemia[ICD10: E78.2] Diagnosis: Essential (primary) hypertension[ICD10: I10] Diagnosis: Atrophy of thyroid (acquired)[ICD10: E03.4] Gina Singletary MD [facility] CPT-4: 85850 03/26/2016 56540 EST. PATIENT, LEVEL III Diagnosis: Cellulitis of left external ear[ICD10: H60.12] Vivi Singletary MD [facility] CPT-4: 80649 01/23/2016 ([id number]) 18626 EST. PATIENT, LEVEL III Diagnosis: Type 2 diabetes mellitus with hyperglycemia[ICD10: E11.65] Diagnosis: Essential (primary) hypertension[ICD10: I10] Diagnosis: Dementia in other diseases classified elsewhere without behavioral disturbance[ICD10: F02.80] Gina Singletary MD [facility] CPT-4: 98771 01/05/2016 ([id number]) 50464 EST. PATIENT, LEVEL IV Diagnosis: Type 2 diabetes mellitus with hyperglycemia[ICD10: E11.65] Diagnosis: Vascular dementia without behavioral disturbance[ICD10: F01.50] Gina Singletary MD [facility] CPT-4: 20532 12/08/2015 ([id number]) 19592 EST. PATIENT, LEVEL III Diagnosis: Type 2 diabetes mellitus with hyperglycemia[ICD10: E11.65] Gina Singletary MD [facility] CPT-4: 95076 11/03/2015 ([id number]) 57196 EST. PATIENT, LEVEL IV Diagnosis: Type 2 diabetes mellitus without complications[ICD10: E11.9] Diagnosis: Abnormal weight loss[ICD10: R63.4] Gina Singletary MD [facility] CPT-4: 93304 10/06/2015 ([id number]) 65566 EST. PATIENT, LEVEL IV Diagnosis: Essential (primary) hypertension[ICD10: I10] Diagnosis: Type 2 diabetes mellitus without complications[ICD10: E11.9] Diagnosis: Cough[ICD10: R05] Diagnosis: Dementia in other diseases classified elsewhere without behavioral disturbance[ICD10: F02.80] Gina Singletary MD, [facility] CPT-4: 91410 07/07/2015 86884 EST. PATIENT, LEVEL IV Diagnosis: Acute laryngopharyngitis[ICD10: J06.0] Diagnosis: Other allergic rhinitis[ICD10: J30.89] Vivi Singletary MD, [facility] CPT-4: 89228 06/24/2015 01379 EST. PATIENT, LEVEL III Diagnosis: Type 2 diabetes mellitus with hyperglycemia[ICD10: E11.65] Diagnosis: Essential (primary) hypertension[ICD10: I10] Vivi Singletary MD, [facility] CPT-4: 94951 06/16/2015 ([id number]) 47943 EST. PATIENT, LEVEL IV Diagnosis: Type 2 diabetes mellitus with other specified complication[ICD10: E11.69] Diagnosis: Hypo-osmolality and hyponatremia[ICD10: E87.1] Diagnosis: Essential (primary) hypertension[ICD10: I10] Diagnosis: Pain in unspecified shoulder[ICD10: M25.519] Gina Singletary MD, [facility] CPT-4: 70611 05/16/2015 ([id number]) 28910 EST. PATIENT, LEVEL IV Diagnosis: Type 2 diabetes mellitus with hyperglycemia[ICD10: E11.65] Diagnosis: Essential (primary) hypertension[ICD10: I10] Diagnosis: Vascular dementia without behavioral disturbance[ICD10: F01.50] Gina Singletary MD, [facility] CPT-4: 04694 04/14/2015 ([id number]) 26924 EST. PATIENT, LEVEL IV Diagnosis: Essential (primary) hypertension[ICD10: I10] Diagnosis: Hypo-osmolality and hyponatremia[ICD10: E87.1] Diagnosis: Vitamin B12 deficiency anemia due to intrinsic factor deficiency[ ICD10: D51.0] Radha Singletary MD, [facility] CPT-4: 96515 03/14/2015 ([id number]) 17700 EST. PATIENT, LEVEL III Diagnosis: Type 2 diabetes mellitus with hyperglycemia[ICD10: E11.65] Diagnosis: Essential (primary) hypertension[ICD10: I10] Gina Singletary MD, [facility] CPT-4: 31465 02/17/2015 ([id number]) 85800 EST. PATIENT, LEVEL IV Diagnosis: Type 2 diabetes mellitus with hyperglycemia[ICD10: E11.65] Diagnosis: Hypo-osmolality and hyponatremia[ICD10: E87.1] Diagnosis: Essential (primary) hypertension[ICD10: I10] Gina Singletary MD [facility] CPT-4: 31899 01/18/2015 ([id number]) 98430 EST. PATIENT, LEVEL IV Diagnosis: Hypothyroidism, unspecified[ICD10: E03.9] Diagnosis: Type 2 diabetes mellitus with other specified complication[ICD10: E11.69] Diagnosis: Essential (primary) hypertension[ICD10: I10] Gina Singletary MD [facility] CPT-4: 27529 12/30/2014 ([id number]) 80922 EST. PATIENT, LEVEL IV Diagnosis: DIABETES TYPE II[ICD9: 250.00] Diagnosis: ESSENTIAL HYPERTENSION[ICD9: 401.9] Diagnosis: HYPOTHYROIDISM[ICD9: 244.9] Diagnosis: HYPERLIPIDEMIA[ICD9: 272.4] Gina Singletary MD [facility] CPT- 4: 53380 10/27/2014 ([id number]) 46300 EST. PATIENT, LEVEL IV Diagnosis: ESSENTIAL HYPERTENSION[ICD9: 401.9] Diagnosis: HYPOTHYROIDISM[ICD9: 244.9] Diagnosis: HYPERLIPIDEMIA[ICD9: 272.4] Diagnosis: DIABETES TYPE II[ICD9: 250.00] Gina Singletary MD [facility] CPT- 4: 30821 08/25/2014 ([id number]) 05484 EST. PATIENT, LEVEL IV Diagnosis: DIABETES TYPE II[ICD9: 250.00] Diagnosis: HYPOTHYROIDISM[ICD9: 244.9] Diagnosis: ESSENTIAL HYPERTENSION[ICD9: 401.9] Gina Singletary MD, [facility] CPT-4: 92258 04/28/2014 [id number]) 67992 EST. PATIENT, LEVEL IV Diagnosis: ESSENTIAL HYPERTENSION[ICD9: 401.9] Diagnosis: DIABETES TYPE II[ICD9: 250.00] Diagnosis: HYPERLIPIDEMIA[ICD9: 272.4] Gina Singletary MD, [facility] CPT- 4: 98229 02/24/2014 ([id number]) 14733 EST. PATIENT, LEVEL IV Diagnosis: Shingles[ICD9: 053.9] Diagnosis: ESSENTIAL HYPERTENSION[ICD9: 401.9] Diagnosis: DIABETES TYPE II[ICD9: 250.00] Gina Singletary MD [facility] CPT- 4: 77689 10/22/2013 ([id number]) 65146 EST. PATIENT, LEVEL IV Diagnosis: DIABETES TYPE II[ICD9: 250.00] Diagnosis: ESSENTIAL HYPERTENSION[ICD9: 401.9] Diagnosis: EDEMA[ICD9: 782.3] Gina Singletary MD [facility] CPT-4: 17419 09/22/2013 ([id number]) 69542 EST. PATIENT, LEVEL IV Diagnosis: DIABETES TYPE II[SNOMED: 078800950] Diagnosis: ESSENTIAL HYPERTENSION[SNOMED: 22113151] Gina Singletary MD [facility] CPT-4: 22508 06/24/2013 ([id number]) Miscellaneous no charge Diagnosis: OPEN WOUND OF BACK[ICD9: 876.0] Radha Singletary MD [facility] CPT-4: 94437 05/26/2013 ([id number]) Miscellaneous no charge Diagnosis: Open wound of back[ICD9: 876.0] Radha Singletary MD [facility] CPT-4: 91137 05/22/2013 ([id number]) 21948 EST. PATIENT, LEVEL III Diagnosis: DM W/O COMPLICATION TYPE II, UNCONTROLLED[SNOMED: 81751768] Diagnosis: ENCNTR LONG-RX USE NEC[ICD9: V58.69] Gina Singletary MD [facility] CPT-4: 96689 05/21/2013 ([id number]) 71556 EST. PATIENT, LEVEL III Diagnosis: Postherpetic neuralgia[ICD9: 053.19] Radha Singletary MD [facility] CPT-4: 51582 05/07/2013 ([id number]) 80123 EST. PATIENT, LEVEL III Diagnosis: Shingles[ICD9: 053.9] Radha Singletary MD [facility] CPT-4: 63927 04/23/2013 ([id number]) 99680 EST. PATIENT, LEVEL IV Diagnosis: ESSENTIAL HYPERTENSION[SNOMED: 95219541] Diagnosis: Rib pain on left side[ICD9: 786.50] Diagnosis: DIABETES TYPE II[SNOMED: 040586305] Gina Singletary MD, [facility] CPT-4: 99609 03/25/2013 ([id number]) 44967 EST. PATIENT, LEVEL III Diagnosis: DM W/O COMPLICATION TYPE II, UNCONTROLLED[SNOMED: 04857062] Gina Singletary MD , [facility] CPT-4: 19807 12/18/2012 ([id number]) 65408 EST. PATIENT, LEVEL IV Diagnosis: ESSENTIAL HYPERTENSION[SNOMED: 23151538] Diagnosis: DIABETES TYPE II[SNOMED: 222026911] Gina Singletary MD, [facility] CPT-4: 98674 12/15/2012 ([id number]) 84580 EST. PATIENT, LEVEL IV Diagnosis: Chest pain[ICD9: 786.50] Diagnosis: DM W/O COMPLICATION TYPE II, UNCONTROLLED[SNOMED: 83368353] Diagnosis: Essential hypertension[SNOMED: 29855703] Diagnosis: HYPOTHYROIDISM[ICD9: 244.9] Gina Singletary MD, [facility] CPT- 4: 02352 11/17/2012 ([id number]) 79499 EST. PATIENT, LEVEL IV Diagnosis: DIABETES TYPE II[SNOMED: 433525433] Diagnosis: ESSENTIAL HYPERTENSION[SNOMED: 47265409] Gina Singletary MD, [facility] CPT-4: 77936 07/14/2012 ([id number]) 01162 EST. 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 PATIENT, LEVEL IV Diagnosis: DM W/O COMPLICATION TYPE II, UNCONTROLLED[SNOMED: 83835779] Diagnosis: ESSENTIAL HYPERTENSION[SNOMED: 97070748] Gina Singletary MD, [facility] CPT-4: 96190 03/17/2012 ([id number]) 51321 EST. PATIENT, LEVEL IV Diagnosis: DM W/O COMPLICATION TYPE II, UNCONTROLLED[SNOMED: 55430987] Diagnosis: ESSENTIAL HYPERTENSION[SNOMED: 25798989] Diagnosis: Osteoarthritis[ICD9: 715.90] Gina Singletary MD [facility] CPT- 4: 29293 02/18/2012 ([id number]) 26286 EST. PATIENT, LEVEL IV Diagnosis: ESSENTIAL HYPERTENSION[SNOMED: 47887719] Diagnosis: DM W/O COMPLICATION TYPE II, UNCONTROLLED[SNOMED: 75026690] Diagnosis: OSTEOARTH NOS-UNSPEC[ICD9: 715.90] Gina Singletary MD [facility] CPT-4: 19837 02/04/2012 ([id number]) 71679 EST. PATIENT, LEVEL IV Diagnosis: Diabetes mellitus type 2, uncontrolled[SNOMED: 87674797] Diagnosis: ESSENTIAL HYPERTENSION[SNOMED: 58518859] Gina Singletary MD [facility] CPT-4: 42524 10/15/2011 ([id number]) 15180 EST. PATIENT, LEVEL IV Diagnosis: ESSENTIAL HYPERTENSION[SNOMED: 29945576] Diagnosis: DIABETES TYPE II[SNOMED: 061625277] Diagnosis: Dizziness[ICD9: 780.4] Gina Singletary MD [facility] CPT-4: 26387 09/13/2011 ([id number]) 73362 EST. PATIENT, LEVEL IV Diagnosis: ESSENTIAL HYPERTENSION[SNOMED: 71681216] Diagnosis: DIABETES TYPE II[SNOMED: 297014186] Diagnosis: Skin lesion of face[ICD9: 709.9] Diagnosis: EDEMA[ICD9: 782.3] Diagnosis: Nocturia[ICD9: 788.43] Gina Singletary MD [facility] CPT-4: 14500 08/28/2011 ([id number]) 47878 EST. PATIENT, LEVEL IV Diagnosis: ESSENTIAL HYPERTENSION[SNOMED: 44326182] Diagnosis: DIABETES TYPE II[SNOMED: 544194304] Diagnosis: Lumbago[ICD9: 724.2] Gina Singletary MD [facility] CPT-4: 70118 2011 ([id number]) 66199 EST. PATIENT, LEVEL IV Diagnosis: DIABETES TYPE II[SNOMED: 107876225] Diagnosis: ESSENTIAL HYPERTENSION[SNOMED: 46449778] Diagnosis: Osteoarthrosis[ICD9: 715.90] Gina Singletary MD, [facility] CPT- 4: 06349 05/16/2011 00437 EST. PATIENT, LEVEL IV Diagnosis: ESSENTIAL HYPERTENSION[SNOMED: 67462390] Diagnosis: VACCIN STREP PNEUMONIAE[ICD9: V03.82] Diagnosis: DIABETES TYPE II[SNOMED: 312031842] [facility] CPT-4: 17783 01/17/2011 60072 EST. PATIENT, LEVEL IV Diagnosis: ESSENTIAL HYPERTENSION[SNOMED: 35882052] Diagnosis: VACCIN FOR INFLUENZA[ICD9: V04.81] Diagnosis: Pelvic fracture[ICD9: 808.8] Diagnosis: IMPACTED CERUMEN[ICD9: 380.4] Gina Singletary MD, [facility] CPT- 4: 21031 12/12/2010 96251 EST. PATIENT, LEVEL IV Diagnosis: DIABETES TYPE II[SNOMED: 028561543] Diagnosis: ESSENTIAL HYPERTENSION[SNOMED: 64931391] Diagnosis: HYPERLIPIDEMIA[ICD9: 272.4] Diagnosis: HYPOTHYROIDISM[ICD9: 244.9] Gina Singletary MD, [facility] CPT- 4: 55947 11/15/2010 Plan of Care Planned Activity Notes Codes Status Date Visit Plan: ER follow up - Dizziness - symptoms have resolved and pt is feeling well - no changes at this time, pt is to notify clinic if symptoms return, or with any other changes, questions, or concerns. 03/07/2017 Appointment: Vivi Mariano WPtel: [facility] ([facility] min[facility] Complex 03/07/2017 Patient Education: Patient Medication Summary Completed 03/07/2017 Appointment: Rad[facility]el[facility] [phone] [phone] (30 min) Complex 02/08/2017 Visit Plan: Hypertension - well controlled - continue with current medications, continue with no added salt diet. Pt has been encouraged to exercise daily. The pt has been advised to call the office if there are any acute concerns about change in blood pressure readings at home. Diabetes Mellitus - controlled - per recent FSBS reports. I have recommended for the patient to have follow up labs prior to the next office visit. The patient has been instructed to continue with current medications as previously directed, continue with regular FSBS monitoring to assure continued control of diabetes. Pt to call for any acute concerns, complaints, or if the blood glucose readings are starting to become less controlled. 12/31/2016 Appointment: Gina Singletary WPtel: [phone] [facility] (15 min) Moderate 12/31/2016 Patient Education: Patient Medication Summary Completed 12/31/2016 Appointment: Gina Singletary WPtel: [phone] [facility] (15 min) Moderate 12/26/2016 Visit Plan: ER follow up, shortness of breath - pt is to go to her appointment with cardiology - pt is to up date clinic with any changes in the treatment plan. Compression fracture - will call for ER report and CT report will treat/refer as indicated - pt is to notify clinic if symptoms worsen, or change, or with any changes, questions, or concerns. Hypertension - The patient has been counseled to cut back on salt in diet for a no added salt diet, low fat diet, start an exercise program with low weight bearing exercises and higher aerobic activity for heart health. The patient is to check blood pressure readings as an outpatient and either fax, call, or email the readings to the office next week for practitioner to review. The pt is to call for acute concerns. 12/06/2016 Appointment: Viv[facility]iano [facility]el[facility] [phone] [facility] [place] (30 min) Complex 12/06/2016 Patient Education: Patient Medication Summary Completed 12/06/2016 Appointment: [facility] [phone] [phone] [place] (30 min) Complex 12/04/2016 Appointment: Gina Singletary WPtel: [phone] [facility] (15 min) Moderate 10/30/2016 Visit Plan: Hypertension - well controlled - continue with current medications, continue with no added salt diet. Pt has been encouraged to exercise daily. The pt has been advised to call the office if there are any acute concerns about change in blood pressure readings at home. Diabetes Mellitus - Uncontrolled - per recent FSBS reports. I have recommended for the patient to have follow up labs prior to the next office visit. The patient has been instructed to continue with current medications as previously directed, continue with regular FSBS monitoring to assure continued control of diabetes. Pt to call for any acute concerns, complaints, or if the blood glucose readings are starting to become less controlled. I have recommended for the patient to follow more strictly to the diabetic diet as discussed in clinic to allow for greater blood glucose control. Increase lantus from 16 units twice a day to 18 units twice a day 09/10/2016 Appointment: Gina Singletary WPtel: [address] [place], [place] [address] (15 min) Moderate 09/10/2016 Patient Education: Patient Medication Summary Completed 09/10/2016 Visit Plan: Hypertension - well controlled - continue with current medications, continue with no added salt diet. Pt has been encouraged to exercise daily. The pt has been advised to call the office if there are any acute concerns about change in blood pressure readings at home. DM - uncontrolled - but better than in past months due to her son moving in and he is now caring for his mom after he kicked out her other son who was supposed to be caring for her but was actually not feeding her or getting her the medications she needed to treat her diabetes. Pt's lantus dose increased as follows: increase the lantus to 14 units twice daily x 1 week, then next week increase up to 16 units twice daily on the LANTUS. bring a copy of her Kesha's blood glucose to the office in 2 weeks from today. Hypothyroidism - pt with chronic hypothyroidism, continue with current medication, will monitor pt to signs or symptoms of lack of adequate supplementation. Pt is to continue with current dose of medication unless directed otherwise. Check labs at regular intervals wither q 3 months or q 6 months based on previous levels of control. Dementia - continue with namenda. I am hopeful that her son Ash who is now living with her will help to keep her on her medications and her memory loss will stabilize. She has gained weight which should help her symptoms as well. Toenails cut today - thick nails, dermatophytosis of all 10 nails - cut with sharp excision with nail nippers. 08/15/2016 Appointment: Gina Singletary WPtel: [phone] [facility] [place] (15 min) Moderate 08/15/2016 Patient Education: Patient Medication Summary Completed 08/15/2016 Appointment: Gina Singletary WPtel: [phone] [facility] [place] (15 min) Moderate 07/23/2016 Appointment: García Vivi WPtel: [phone] [facility] [place] (30 min) Complex 07/18/2016 Visit Plan: Diabetes Mellitus - I have recommended for the patient to have follow up labs prior to the next office visit. The patient has been instructed to continue with current medications as previously directed, continue with regular FSBS monitoring to assure continued control of diabetes. Pt to call for any acute concerns, complaints, or if the blood glucose readings are starting to become less controlled. I have recommended for the patient to follow more strictly to the diabetic diet as discussed in clinic to allow for greater blood glucose control. Hypertension - well controlled - continue with current medications, continue with no added salt diet. Pt has been encouraged to exercise daily. The pt has been advised to call the office if there are any acute concerns about change in blood pressure readings at home. Hypothyroidism - pt with chronic hypothyroidism, continue with current medication, will monitor pt to signs or symptoms of lack of adequate supplementation. Pt is to continue with current dose of medication unless directed otherwise. Check labs at regular intervals wither q 3 months or q 6 months based on previous levels of control. Gait vwritzffbyn-[id number]-[id number] patient use a walker at all times-the cane does not provide enough stability-schedule PT to evaluate and treat 2016 Appointment: Radha Delarosa WPtel: [phone] [phone] [place] (15 min) Moderate 2016 Patient Education: Patient Medication Summary Completed 2016 Visit Plan: Hypertension - well controlled - continue with current medications, continue with no added salt diet. Pt has been encouraged to exercise daily. The pt has been advised to call the office if there are any acute concerns about change in blood pressure readings at home. DM - unsure of level of control as the patient is not able to remember her readings nor has she brought in her meter or record of blood glucose readings - pt is due to for her Hgba1c and we will check today. No change in medications today. Hypothyroidism - pt with chronic hypothyroidism, continue with current medication, will monitor pt to signs or symptoms of lack of adequate supplementation. Pt is to continue with current dose of medication unless directed otherwise. Check labs at regular intervals wither q 3 months or q 6 months based on previous levels of control. Dementia - continue with namenda. I have again encouraged the pt to look into assisted living facilities. 03/26/2016 Patient Education: Patient Medication Summary Completed 03/26/2016 Appointment: Radha Delarosa WPtel: [phone] [phone] [place] (30 min) Complex 03/09/2016 Appointment: Gina Singletary WPtel: [phone] [facility] [place] (15 min) Moderate 03/01/2016 Appointment: Lab Draw 01/24/2016 Patient Education: Patient Medication Summary Completed 01/24/2016 Visit Plan: Cellulitis - Pt is to take the antibiotic and prednisone prescribed by the ER. continue with oral antibiotics as previously directed, return to clinic as previously directed, call for acute change in symptoms, worsening redness, warmth, discharge. 01/23/2016 Appointment: Vivi Mariano WPtel: [phone] [id number] [place] (30 min) Complex 01/23/2016 Patient Education: Patient Medication Summary Completed 01/23/2016 Visit Plan: Hypertension - well controlled - continue with current medications, continue with no added salt diet. Pt has been encouraged to exercise daily. The pt has been advised to call the office if there are any acute concerns about change in blood pressure readings at home. DM - pt does not follow recommendations and does not bring in blood glucose readings. Memory loss - pt on Namenda XR. I have advised pt against driving and she needs to move into Assisted Living - but pt is not interested in going to such facility. 01/05/2016 App[facility]ment[id number] ([facility]) Moderate 01/05/2016 Patient Education: Patient Medication Summary Completed 01/05/2016 Visit Plan: Diabetes Mellitus - I have recommended for the patient to have follow up labs prior to the next office visit. The patient has been instructed to continue with current medications as previously directed, continue with regular FSBS monitoring to assure continued control of diabetes. Pt to call for any acute concerns, complaints, or if the blood glucose readings are starting to become less controlled. Toenails trimmed - large nail nippers and dremmel used to trim dystrophic, thickened, elongated toenails x 10. Pt tolerated the procedure without incident. 12/09/2015 Visit Plan: Diabetes Mellitus - I have recommended for the patient to have follow up labs prior to the next office visit. The patient has been instructed to continue with current medications as previously directed, continue with regular FSBS monitoring to assure continued control of diabetes. Pt to call for any acute concerns, complaints, or if the blood glucose readings are starting to become less controlled. Toenails trimmed - large nail nippers and dremmel used to trim dystrophic, thickened, elongated toenails x 10. Pt tolerated the procedure without incident. 12/09/2015 Visit Plan: Diabetes Mellitus - I have recommended for the patient to have follow up labs prior to the next office visit. The patient has been instructed to continue with current medications as previously directed, continue with regular FSBS monitoring to assure continued control of diabetes. Pt to call for any acute concerns, complaints, or if the blood glucose readings are starting to become less controlled. Toenails trimmed - large nail nippers and dremmel used to trim dystrophic, thickened, elongated toenails x 10. Pt tolerated the procedure without incident. 12/09/2015 Appointment: [facility] [phone] [phone] [place] (30 min) Complex 12/09/2015 Patient Education: Patient Medication Summary Completed 12/09/2015 Visit Plan: Hypertension - well controlled - continue with current medications, continue with no added salt diet. Pt has been encouraged to exercise daily. The pt has been advised to call the office if there are any acute concerns about change in blood pressure readings at home. 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 I have discussed with pt and family the prognosis of this disease state and the need for the family to anticipate further decline with behavior changes. Continue with current plan of treatment. Pt advised not to drive due to her persistent worsening of dementia 12/08/2015 Appointment: [facility] Sing[facility]ary [facility]el[facility] [phone] [id number] [place] (15 min) Moderate 12/08/2015 Patient Education: Patient Medication Summary Completed 12/08/2015 Visit Plan: Diabetes Mellitus - Uncontrolled - per recent FSBS reports. I have recommended for the patient to have follow up labs prior to the next office visit. The patient has been instructed to continue with current medications as previously directed, continue with regular FSBS monitoring to assure continued control of diabetes. Pt to call for any acute concerns, complaints, or if the blood glucose readings are starting to become less controlled. I have recommended for the patient to follow more strictly to the diabetic diet as discussed in clinic to allow for greater blood glucose control. Lantus dose changed 11/03/2015 Patient Education: Patient Medication Summary Completed 11/03/2015 Visit Plan: Diabetes Mellitus - Uncontrolled - per recent FSBS reports. I have recommended for the patient to have follow up labs prior to the next office visit. The patient has been instructed to continue with current medications as previously directed, continue with regular FSBS monitoring to assure continued control of diabetes. Pt to call for any acute concerns, complaints, or if the blood glucose readings are starting to become less controlled. I have recommended for the patient to follow more strictly to the diabetic diet as discussed in clinic to allow for greater blood glucose control. Weight loss - pt to start on remeron. 10/06/2015 Patient Education: Patient Medication Summary Completed 10/06/2015 Visit Plan: Hypertension - well controlled - continue with current medications, continue with no added salt diet. Pt has been encouraged to exercise daily. The pt has been advised to call the office if there are any acute concerns about change in blood pressure readings at home. Diabetes Mellitus - Uncontrolled - per recent FSBS reports. I have recommended for the patient to have follow up labs prior to the next office visit. The patient has been instructed to continue with current medications as previously directed, continue with regular FSBS monitoring to assure continued control of diabetes. Pt to call for any acute concerns, complaints, or if the blood glucose readings are starting to become less controlled. I have recommended for the patient to follow more strictly to the diabetic diet as discussed in clinic to allow for greater blood glucose control. Cough - improved Dementia - pt to start on Namenda - RX given to patient today for starter doses. 07/07/2015 Patient Education: Patient Medication Summary Completed 07/07/2015 Appointment: Radha Singletaryy WPtel: [phone] [phone] (15 min) Moderate 06/30/2015 Visit Plan: URI - Pt advised to increase fluids, vitamin C. Discussed natural and expected course of this diagnosis and need to alert me if symptoms do not follow expected course, or if any worse. RX sent to patient' s pharmacy. Allergies - chronic - recommended pt to use allergy medication as prescribed. Pt has been counseled as to the appropriate use of the medication. Pt to call if allergy symptoms are not controlled with the medication. If using nasal spray, instructions as follows: Nasal spray- use twice daily, one spray per nostril twice daily, after 30 minutes, rinse out nose with saline spray.. Use opposite hand per nostril to spray in the nasal steroid allergy spray. 06/24/2015 Appointment: Radha Delarosa WPtel: [phone] [phone] (15 min) Moderate 06/24/2015 Patient Education: Patient Medication Summary Completed 06/24/2015 Visit Plan: Hypertension - well controlled - continue with current medications, continue with no added salt diet. Pt has been encouraged to exercise daily. The pt has been advised to call the office if there are any acute concerns about change in blood pressure readings at home. Diabetes Mellitus - Uncontrolled - per recent FSBS reports. I have recommended for the patient to have follow up labs prior to the next office visit. The patient has been instructed to continue with current medications as previously directed, continue with regular FSBS monitoring to assure continued control of diabetes. Pt to call for any acute concerns, complaints, or if the blood glucose readings are starting to become less controlled. I have recommended for the patient to follow more strictly to the diabetic diet as discussed in clinic to allow for greater blood glucose control. Discussed with the pt about moving into assisted living. Pt became tearful during the discussion. Discussed the benefits and safety aspects assisted living could provide. Pt states that she will go to look at some assisted living facilities. 06/16/2015 Appointment: [facility] Singletary [facility]Ptel[facility] [phone] [id number] (15 min) Moderate 06/16/2015 Patient Education: Patient Medication Summary Completed 06/16/2015 Patient Education: Hypertension Completed 06/16/2015 Patient Education: Patient Medication Summary Completed 06/13/2015 Visit Plan: Hypertension - well controlled - continue with current medications, continue with no added salt diet. Pt has been encouraged to exercise daily. The pt has been advised to call the office if there are any acute concerns about change in blood pressure readings at home. Diabetes Mellitus - controlled - per recent FSBS reports. I have recommended for the patient to have follow up labs prior to the next office visit. The patient has been instructed to continue with current medications as previously directed, continue with regular FSBS monitoring to assure continued control of diabetes. Pt to call for any acute concerns, complaints, or if the blood glucose readings are starting to become less controlled. Arthritis- occasionally uncontrolled symptoms- recommend pt to take antiinflammatory as directed for pain control. Use tylenol for break through pain symptoms. 05/16/2015 Appointment: Gina Singletary [facility]Ptel[facility] [phone] [id number] (15 min) Moderate 05/16/2015 Patient Education: Patient Medication Summary Completed 05/16/2015 Patient Education: Hypertension Completed 05/16/2015 Visit Plan: Hypertension - well controlled - continue with current medications, continue with no added salt diet. Pt has been encouraged to exercise daily. The pt has been advised to call the office if there are any acute concerns about change in blood pressure readings at home. Diabetes Mellitus - controlled - per recent FSBS reports. I have recommended for the patient to have follow up labs prior to the next office visit. The patient has been instructed to continue with current medications as previously directed, continue with regular FSBS monitoring to assure continued control of diabetes. Pt to call for any acute concerns, complaints, or if the blood glucose readings are starting to become less controlled. Vascular dementia - recommended pt to continue with present course of treatment. 04/14/2015 Patient Education: Patient Medication Summary Completed 04/14/2015 Patient Education: Hypertension Completed 04/14/2015 Visit Plan: Hypertension - well controlled - continue with current medications, continue with no added salt diet. Pt has been encouraged to exercise daily. The pt has been advised to call the office if there are any acute concerns about change in blood pressure readings at home. Low sodium- check sodium level today Memory loss-MRI shows chronic micro vascular changes- check vitamin B12 level today-follow up in 1 month 03/14/2015 Appointment: (15 min) Moderate 03/14/2015 Patient Education: Patient Medication Summary Completed 03/14/2015 Patient Education: Hypertension Completed 03/14/2015 Visit Plan: Diabetes Mellitus - Uncontrolled - per recent FSBS reports. I have recommended for the patient to have follow up labs prior to the next office visit. The patient has been instructed to continue with current medications as previously directed, continue with regular FSBS monitoring to assure continued control of diabetes. Pt to call for any acute concerns, complaints, or if the blood glucose readings are starting to become less controlled. I have recommended for the patient to follow more strictly to the diabetic diet as discussed in clinic to allow for greater blood glucose control. Hypertension -too well controlled -stop HCTZ and decrease amlodipine to 5mg daily. The pt has been advised to call the office if there are any acute concerns about change in blood pressure readings at home. 02/17/2015 Appointment: (30 min) Complex 02/17/2015 Patient Education: Patient Medication Summary Completed 02/17/2015 Patient Education: Hypertension Completed 02/17/2015 Visit Plan: Hypertension - well controlled - continue with current medications, continue with no added salt diet. Pt has been encouraged to exercise daily. The pt has been advised to call the office if there are any acute concerns about change in blood pressure readings at home. Diabetes Mellitus - controlled - per recent FSBS reports. I have recommended for the patient to have follow up labs prior to the next office visit. The patient has been instructed to continue with current medications as previously directed, continue with regular FSBS monitoring to assure continued control of diabetes. Pt to call for any acute concerns, complaints, or if the blood glucose readings are starting to become less controlled. Low sodium-increase gatorade to three times daily 01/18/2015 Patient Education: Patient Medication Summary Completed 01/18/2015 Patient Education: Hypertension Completed 01/18/2015 Visit Plan: Diabetes Mellitus - Uncontrolled - per recent FSBS reports. I have recommended for the patient to have follow up labs prior to the next office visit. The patient has been instructed to continue with current medications as previously directed, continue with regular FSBS monitoring to assure continued control of diabetes. Pt to call for any acute concerns, complaints, or if the blood glucose readings are starting to become less controlled. I have recommended for the patient to follow more strictly to the diabetic diet as discussed in clinic to allow for greater blood glucose control. stop the metformin - it is probably the cause of the diarrhea - Increase the Levemir to 10 units at night - check blood glucose levels twice daily - bring to clinic in 2-3 weeks. Diarrhea - may be due to the metformin - stop the metformin and start on lactobacillus. start on Lactobacillus - or Culturelle - one pill twice daily to help decrease loose stools. 12/30/2014 Appointment: Gina Singletary WPtel: [phone] [id number] (15 min) Moderate 12/30/2014 Patient Education: Patient Medication Summary Completed 12/30/2014 Patient Education: Hypertension Completed 12/30/2014 Appointment: (15 min) Moderate 11/18/2014 Visit Plan: Diabetes Mellitus - Uncontrolled - per recent FSBS reports. I have recommended for the patient to have follow up labs prior to the next office visit. The patient has been instructed to continue with current medications as previously directed, continue with regular FSBS monitoring to assure continued control of diabetes. Pt to call for any acute concerns, complaints, or if the blood glucose readings are starting to become less controlled. I have recommended for the patient to follow more strictly to the diabetic diet as discussed in clinic to allow for greater blood glucose control. stop the following medication - JANUVIA and GLIPIZIDE START on LEVERMIR 5 units at bedtime x 3 days, then increase up to 8 units at bedtime x 4 days, then increase up to 10 units at bedtime x 7 days - bring by your blood glucose log for the doctor to review at the end of the two weeks and we will further adjust your medications based on your response to the insulin. you will need to check your blood glucose before breakfast and then also at least 2 hours after eating lunch and before bedtime. Hypertension - well controlled - continue with current medications, continue with no added salt diet. Pt has been encouraged to exercise daily. The pt has been advised to call the office if there are any acute concerns about change in blood pressure readings at home. Memory loss - pt not interested in medication at this time, recommended pt to have follow up testing. 10/27/2014 Appointment: Gina Singletary WPtel: [phone] [phone] (15 min) Moderate 10/27/2014 Patient Education: Patient Medication Summary Completed 10/27/2014 Visit Plan: Diabetes Mellitus - controlled - per recent FSBS reports. I have recommended for the patient to have follow up labs prior to the next office visit. The patient has been instructed to continue with current medications as previously directed, continue with regular FSBS monitoring to assure continued control of diabetes. Pt to call for any acute concerns, complaints, or if the blood glucose readings are starting to become less controlled. Hypertension - well controlled - continue with current medications, continue with no added salt diet. Pt has been encouraged to exercise daily. The pt has been advised to call the office if there are any acute concerns about change in blood pressure readings at home. Hypothyroidism - pt with chronic hypothyroidism, continue with current medication, will monitor pt to signs or symptoms of lack of adequate supplementation. Pt is to continue with current dose of medication unless directed otherwise. Check labs at regular intervals wither q 3 months or q 6 months based on previous levels of control. Hyperlipidemia - pt has been counseled about appropriate diet, exercise, and need for low fat food choices. I have discussed the need for the patient to take medications as prescribed. If the patient has negative side effects from the medication, they are to CALL the office and not abruptly discontinue the medication without discussion with a practitioner in the office. We will check labs in 3-6 months for follow up on the patient's chronic medical problem and to assure normal liver response to medications. 08/25/2014 Appointment: G[facility] Singletary [facility]Ptel: [phone] [id number] [facility] up 08/25/2014 Patient Education: Patient Medication Summary Completed 08/25/2014 Patient Education: Hypertension Completed 08/25/2014 Patient Education: Patient Medication Summary Completed 06/24/2014 Visit Plan: Diabetes Mellitus - controlled - per recent FSBS reports. I have recommended for the patient to have follow up labs prior to the next office visit. The patient has been instructed to continue with current medications as previously directed, continue with regular FSBS monitoring to assure continued control of diabetes. Pt to call for any acute concerns, complaints, or if the blood glucose readings are starting to become less controlled. Hypothyroidism - pt with chronic hypothyroidism, continue with current medication, will monitor pt to signs or symptoms of lack of adequate supplementation. Pt is to continue with current dose of medication unless directed otherwise. Check labs at regular intervals wither q 3 months or q 6 months based on previous levels of control. Hypertension - well controlled - continue with current medications, continue with no added salt diet. Pt has been encouraged to exercise daily. The pt has been advised to call the office if there are any acute concerns about change in blood pressure readings at home. Normal memory loss - age associated. 04/28/2014 Appointment: Gina Singletary [facility]Ptel: [phone] [id number] Follow up 04/28/2014 Patient Education: Patient Medication Summary Completed 04/28/2014 Patient Education: Hypertension Completed 04/28/2014 Visit Plan: Hypertension - well controlled - continue with current medications, continue with no added salt diet. Pt has been encouraged to exercise daily. The pt has been advised to call the office if there are any acute concerns about change in blood pressure readings at home. Diabetes Mellitus - controlled - per recent FSBS reports. I have recommended for the patient to have follow up labs prior to the next office visit. The patient has been instructed to continue with current medications as previously directed, continue with regular FSBS monitoring to assure continued control of diabetes. Pt to call for any acute concerns, complaints, or if the blood glucose readings are starting to become less controlled. Hyperlipidemia - pt has been counseled about appropriate diet, exercise, and need for low fat food choices. I have discussed the need for the patient to take medications as prescribed. If the patient has negative side effects from the medication, they are to CALL the office and not abruptly discontinue the medication without discussion with a practitioner in the office. We will check labs in 3-6 months for follow up on the patient's chronic medical problem and to assure normal liver response to medications. Hypothyroidism - pt with chronic hypothyroidism, continue with current medication, will monitor pt to signs or symptoms of lack of adequate supplementation. Pt is to continue with current dose of medication unless directed otherwise. Check labs at regular intervals wither q 3 months or q 6 months based on previous levels of control. 02/24/2014 Appointment: Gina Singletary WPtel: [phone] [id number] Follow up 02/24/2014 Patient Education: Patient Medication Summary Completed 02/24/2014 Care Plan: COMPLETE CBC AUTOMATED LOINC : 08401-4 Ordered 02/24/2014 Visit Plan: Shingles - Herpes Zoster - acute in onset - pt started on acyclovir and instructed to call if symptoms worsen or if the pt is concerned about the symptoms. Pt has been advised to avoid contact with persons who may be , or infants, or immunocompromised individuals. Pt has been instructed that shingles will continue to break out and eventually scab over a two week period, until all of the vesicles are scabbed, the pt is to be considered contagious. Hypertension - well controlled - continue with current medications, continue with no added salt diet. Pt has been encouraged to exercise daily. The pt has been advised to call the office if there are any acute concerns about change in blood pressure readings at home. Diabetes Mellitus - pt to continue with metformin and januvia - pt awaiting her patient assistance medication to come through the mail. 10/22/2013 Appointment: Gina Singletary [facility]Ptel: [phone] [id number] Follow up 10/22/2013 Patient Education: Patient Medication Summary Completed 10/22/2013 Patient Education: Hypertension Completed 10/22/2013 Visit Plan: Diabetes Mellitus - controlled - per recent FSBS reports. I have recommended for the patient to have follow up labs prior to the next office visit. The patient has been instructed to continue with current medications as previously directed, continue with regular FSBS monitoring to assure continued control of diabetes. Pt to call for any acute concerns, complaints, or if the blood glucose readings are starting to become less controlled. Pt given 30 day free coupon for januvia - we will attempt to get her linked in to patient assistance program so that she can afford her medication monthly - as per pt report, the Januvia was costing her over $100 per month. Hypertension - uncontrolled - the patient's medications have been modified as documented in the visit note. The patient has been counseled to cut back on salt in diet for a no added salt diet, low fat diet, start an exercise program with low weight bearing exercises and higher aerobic activity for heart health. The patient is to check blood pressure readings as an outpatient and either fax, call, or email the readings to the office next week for practitioner to review. The pt is to call for acute concerns. Edema - pt has been o hctz, will change to chlorthalidone, monitor edema, and blood pressure response, and pt to keep lower legs elevated while seated. She is on amlodipine and this will also cause edema. 09/22/2013 Appointment: Gina Singletary WPtel: [phone] [id number] Follow up 09/22/2013 Patient Education: Patient Medication Summary Completed 09/22/2013 Patient Education: Hypertension Completed 09/22/2013 Visit Plan: Diabetes Mellitus - controlled - per recent FSBS reports. I have recommended for the patient to have follow up labs prior to the next office visit. The patient has been instructed to continue with current medications as previously directed, continue with regular FSBS monitoring to assure continued control of diabetes. Pt to call for any acute concerns, complaints, or if the blood glucose readings are starting to become less controlled. pt need to monitor fsbs bid Hypertension - well controlled - continue with current medications, continue with no added salt diet. Pt has been encouraged to exercise daily. The pt has been advised to call the office if there are any acute concerns about change in blood pressure readings at home. 06/24/2013 Appointment: [phone] [facility] Follow up 06/24/2013 Patient Education: Patient Medication Summary Completed 06/24/2013 Patient Education: Hypertension Completed 06/24/2013 Visit Plan: Open wound of back-significantly improved- continue dressing changes as directed-call if wound does not completely heal, any worse, or with any concerns. Patient verbalized understanding of plan. 05/26/2013 Appointment[phone] W[facility] Check 05/26/2013 Patient Education: Patient Medication Summary Completed 05/26/2013 Visit Plan: dressing change today in the office-return next week for evaluation of wound 05/22/2013 Appointment: Radha Delarosa WPtel: [phone] Wound Check 05/22/2013 Patient Education: Patient Medication Summary Completed 05/22/2013 Visit Plan: Diabetes Mellitus - controlled - per recent FSBS reports. I have recommended for the patient to have follow up labs prior to the next office visit. The patient has been instructed to continue with current medications as previously directed, continue with regular FSBS monitoring to assure continued control of diabetes. Pt to call for any acute concerns, complaints, or if the blood glucose readings are starting to become less controlled. 05/21/2013 Appointment: Gina Singletary WPtel: [facility] Follow up 05/21/2013 Patient Education: Patient Medication Summary Completed 05/21/2013 Visit Plan: Post-herpetic Neuralgia- recommended pt to use pain medication as needed, and for pt to use Gabaprntin as needed for nerve pain , start at bedtime and plan to increase as indicatedThe patient is to call if the shingles pain is not controlled. 05/07/2013 Appointment: Radha Delarosa WPtel: [phone] Follow up 05/07/2013 Patient Education: Patient Medication Summary Completed 05/07/2013 Visit Plan: Shingles - Herpes Zoster - acute in onset - pt started on acyclovir and instructed to call if symptoms worsen or if the pt is concerned about the symptoms. Pt has been advised to avoid contact with persons who may be , or infants, or immunocompromised individuals. Pt has been instructed that shingles will continue to break out and eventually scab over a two week period, until all of the vessicles are scabbed, the pt is to be considered contagious. 04/23/2013 Appointment: Gina Singletary WPtel: [phone] [facility] Other 04/23/2013 Patient Education: Patient Medication Summary Completed 04/23/2013 Visit Plan: Hypertension - well controlled - continue with current medications, continue with no added salt diet. Pt has been encouraged to exercise daily. The pt has been advised to call the office if there are any acute concerns about change in blood pressure readings at home. Diabetes Mellitus - controlled - per recent FSBS reports. I have recommended for the patient to have follow up labs prior to the next office visit. The patient has been instructed to continue with current medications as previously directed, continue with regular FSBS monitoring to assure continued control of diabetes. Pt to call for any acute concerns, complaints, or if the blood glucose readings are starting to become less controlled. Rib pain - recommended pt to keep off of left side at night - keep proped up on right side to keep pressure off of left side to allow for healing. 03/25/2013 Appointment: Gina Singletary WPtel: [phone] [facility] Follow up 03/25/2013 Patient Education: Patient Medication Summary Completed 03/25/2013 Patient Education: Hypertension Completed 03/25/2013 Appointment: Gina Singletary WPtel: [phone] [facility] Follow up 03/16/2013 Visit Plan: Diabetes Mellitus - diabetes and diet eduction today in the office- I have recommended for the patient to have follow up labs prior to the next office visit. The patient has been instructed to continue with current medications as previously directed, continue with regular FSBS monitoring to assure continued control of diabetes. Discussed dietary modifications in details with patient today in the office. Pt to call for any acute concerns, complaints, or if the blood glucose readings are starting to become less controlled. 12/18/2012 Appointment: [facility] eDlarosa [facility]el[phone] [phone] Diabetic education 12/18/2012 Patient Education: Patient Medication Summary Completed 12/18/2012 Visit Plan: Diabetes Mellitus - improved - per recent FSBS reports. I have recommended for the patient to have follow up labs prior to the next office visit. The patient has been instructed to continue with current medications as previously directed, continue with regular FSBS monitoring to assure continued control of diabetes. Pt to call for any acute concerns, complaints, or if the blood glucose readings are starting to become less controlled. Hypertension - well controlled - continue with current medications, continue with no added salt diet. Pt has been encouraged to exercise daily. The pt has been advised to call the office if there are any acute concerns about change in blood pressure readings at home. 12/15/2012 Appointment: [facility] Sing[facility]ary WPtel[facility] [phone] [facility] Follow up 12/15/2012 Patient Education: Patient Medication Summary Completed 12/15/2012 Patient Education: Hypertension Completed 12/15/2012 Visit Plan: Intermittent chest pain - will refer pt to weapons specialist - pt to have appt with Dr. Clark for evaluation. Pt has not had a stress test for several years - last done by Dr. De Paz. DM - not optimally controlled - was improving on Januvia - will give pt samples, monitor symptoms - check hgba1c as it has been 4 months since last check. Hypertension - uncontrolled - the patient's medications have been modified as documented in the visit note. The patient has been counseled to cut back on salt in diet for a no added salt diet, low fat diet, start an exercise program with low weight bearing exercises and higher aerobic activity for heart health. The patient is to check blood pressure readings as an outpatient and either fax, call, or email the readings to the office next week for practicioner to review. The pt is to call for acute concerns. Pt to start on cozaar 25mg daily. 11/17/2012 Appointment: [facility] Singletary WPtel[facility] [phone] [facility] Follow up 11/17/2012 Patient Education: Patient Medication Summary Completed 11/17/2012 Patient Education: Hypertension Completed 11/17/2012 Visit Plan: Diabetes Mellitus - controlled - per recent FSBS reports. I have recommended for the patient to have follow up labs prior to the next office visit. The patient has been instructed to continue with current medications as previously directed, continue with regular FSBS monitoring to assure continued control of diabetes. Pt to call for any acute concerns, complaints, or if the blood glucose readings are starting to become less controlled. Hypertension - well controlled - continue with current medications, continue with no added salt diet. Pt has been encouraged to exercise daily. The pt has been advised to call the office if there are any acute concerns about change in blood pressure readings at home. 07/14/2012 Appointment: G[facility] Singletary WPtel: [phone] [facility] Follow up 07/14/2012 Patient Education: Patient Medication Summary Completed 07/14/2012 Patient Education: Hypertension Completed 07/14/2012 Appointment: Gina Singletary WPtel: [phone] [facility] [place] Lab Draw 07/09/2012 Patient Education: Patient Medication Summary Completed 07/09/2012 Visit Plan: Diabetes Mellitus - Uncontrolled - per recent FSBS reports. I have recommended for the patient to have follow up labs prior to the next office visit. The patient has been instructed to continue with current medications as previously directed, continue with regular FSBS monitoring to assure continued control of diabetes. Pt to call for any acute concerns, complaints, or if the blood glucose readings are starting to become less controlled. I have recommended for the patient to follow more strictly to the diabetic diet as discussed in clinic to allow for greater blood glucose control. PATIENT HAS BEEN INSTRUCTED TO INCREASE HER JANUVIA UPFROM 50MG DAILY TO 100MG DAILY. PT TO BRING BY HER BLOOD GLUCOSE LONG IN A FEW WEEKS FOR REVIEW. CHECK HGBA1C IN ABOUT 3 MONTHS FROM LAST LEVEL. Hypertension - well controlled - continue with current medications, continue with no added salt diet. Pt has been encouraged to exercise daily. The pt has been advised to call the office if there are any acute concerns about change in blood pressure readings at home. Joint Injection - Pt was given post - injection instructions. The pt has been advised to use antiinflammatories post injection today, ice to the injected site, call if redness, warmth, or increased pain occurs at the site of injection. 05/15/2012 Appointment: Gina Singletary WPtel: [phone] [facility] [place] Follow up 05/15/2012 Patient Education: Patient Medication Summary Completed 05/15/2012 Patient Education: Hypertension Completed 05/15/2012 Visit Plan: Hypertension - well controlled - continue with current medications, continue with no added salt diet. Pt has been encouraged to exercise daily. The pt has been advised to call the office if there are any acute concerns about change in blood pressure readings at home. Diabetes Mellitus - Uncontrolled - per recent FSBS reports. I have recommended for the patient to have follow up labs prior to the next office visit. The patient has been instructed to continue with current medications as previously directed, continue with regular FSBS monitoring to assure continued control of diabetes. Pt to call for any acute concerns, complaints, or if the blood glucose readings are starting to become less controlled. I have recommended for the patient to follow more strictly to the diabetic diet as discussed in clinic to allow for greater blood glucose control. 03/17/2012 Appointment: Gina Singletary WPtel: [phone] [facility] Follow up 03/17/2012 Patient Education: Patient Medication Summary Completed 03/17/2012 Patient Education: Hypertension Completed 03/17/2012 Visit Plan: Diabetes Mellitus - Uncontrolled - per recent FSBS reports. I have recommended for the patient to have follow up labs prior to the next office visit. The patient has been instructed to continue with current medications as previously directed, continue with regular FSBS monitoring to assure continued control of diabetes. Pt to call for any acute concerns, complaints, or if the blood glucose readings are starting to become less controlled. I have recommended for the patient to follow more strictly to the diabetic diet as discussed in clinic to allow for greater blood glucose control. Pt has been modifying her diet and she is to continue to curb her carbohydrate intake, and bring by a list of blood sugar levels in 1 month. Hypertension - well controlled - continue with current medications, continue with no added salt diet. Pt has been encouraged to exercise daily. The pt has been advised to call the office if there are any acute concerns about change in blood pressure readings at home. Arthritis- occasionally uncontrolled symptoms- recommend pt to take antiinflammatory as directed for pain control. Use tylenol for break through pain symptoms. 02/18/2012 Appointment: Gina Singletary WPtel: [phone] [facility] Follow up 02/18/2012 Patient Education: Patient Medication Summary Completed 02/18/2012 Patient Education: Hypertension Completed 02/18/2012 Patient Education: Patient Medication Summary Completed 02/14/2012 Patient Education: Hypertension Completed 02/14/2012 Visit Plan: Diabetes Mellitus - Uncontrolled - per recent FSBS reports. I have recommended for the patient to have follow up labs prior to the next office visit. The patient has been instructed to continue with current medications as previously directed, continue with regular FSBS monitoring to assure continued control of diabetes. Pt to call for any acute concerns, complaints, or if the blood glucose readings are starting to become less controlled. I have recommended for the patient to follow more strictly to the diabetic diet as discussed in clinic to allow for greater blood glucose control. Pt is to cut back on the sweets in her diet and bring in a list of her blood glucose tests to clinic in two weeks, she is also to get blood work in the next week. Hypertension - uncontrolled - the patient's medications have been modified as documented in the visit note. The patient has been counseled to cut back on salt in diet for a no added salt diet, low fat diet, start an exercise program with low weight bearing exercises and higher aerobic activity for heart health. The patient is to check blood pressure readings as an outpatient and either fax, call, or email the readings to the office next week for practicioner to review. The pt is to call for acute concerns. Pt to do a 2 week trial of 1/2 of norvasc (amlodipine) twice a day to see if her blood pressure improves, she is to bring by the list of pressures to clinic, she is also to get blood work in the next week. OA - continue current medicatons 02/04/2012 Appointment: Gina Singletary WPtel: [phone] [facility] Follow up 02/04/2012 Patient Education: Patient Medication Summary Completed 02/04/2012 Patient Education: High Blood Pressure: Essential Hypertension Completed 2011 Visit Plan: Diabetes Mellitus - Uncontrolled - per recent FSBS reports. I have recommended for the patient to have follow up labs prior to the next office visit. The patient has been instructed to continue with current medications as previously directed, continue with regular FSBS monitoring to assure continued control of diabetes. Pt to call for any acute concerns, complaints, or if the blood glucose readings are starting to become less controlled. I have recommended for the patient to follow more strictly to the diabetic diet as discussed in clinic to allow for greater blood glucose control. STOP PLAIN METFORMIN' KEEP ON KOBOGLYZE. Hypertension - well controlled - continue with current medications, continue with no added salt diet. Pt has been encouraged to exercise daily. The pt has been advised to call the office if there are any acute concerns about change in blood pressure readings at home. 10/15/2011 Appointment: Gina Singletary WPtel: [facility] Other 10/15/2011 Patient Education: Patient Medication Summary Completed 10/15/2011 Patient Education: High Blood Pressure: Essential Hypertension Completed 2011 Appointment: Gina Singletary WPtel: [address] [place], [place] [address] Lab Draw 10/11/2011 Visit Plan: Hypertension - well controlled - continue with current medications, continue with no added salt diet. Pt has been encouraged to exercise daily. The pt has been advised to call the office if there are any acute concerns about change in blood pressure readings at home. Diabetes Mellitus - controlled - per recent FSBS reports. I have recommended for the patient to have follow up labs prior to the next office visit. The patient has been instructed to continue with current medications as previously directed, continue with regular FSBS monitoring to assure continued control of diabetes. Pt to call for any acute concerns, complaints, or if the blood glucose readings are starting to become less controlled. Dizziness-check labs-monitor symptoms and call with any concerns. Instructed patient to pump legs for 1 minute before standing or getting out of bed/chair, etc. Patient verbalized udnerstanding. 09/13/2011 Appointment: Radha Delarosa WPtel: [phone] [place] [address] Other 09/13/2011 Patient Education: Patient Medication Summary Completed 09/13/2011 Patient Education: High Blood Pressure: Essential Hypertension Completed 2011 Visit Plan: Hypertension - uncontrolled - the patient's medications have been modified as documented in the visit note. The patient has been counseled to cut back on salt in diet for a no added salt diet, low fat diet, start an exercise program with low weight bearing exercises and higher aerobic activity for heart health. The patient is to check blood pressure readings as an outpatient and either fax, call, or email the readings to the office next week for practicioner to review. The pt is to call for acute concerns. INCREASE THE AMLODIPINE (norvasc) to 10 mg daily.. Take two of the current amlodipine daily until the current supply is gone, then fill the prescription. Edema- elevate legs at noon and 2 hours before bed, call if the nighttime urination does not improve. Diabetes Mellitus - controlled - per recent FSBS reports. I have recommended for the patient to have follow up labs prior to the next office visit. The patient has been instructed to continue with current medications as previously directed, continue with regular FSBS monitoring to assure continued control of diabetes. Pt to call for any acute concerns, complaints, or if the blood glucose readings are starting to become less controlled. Skin lesion - new development in the apex of a scar from a previous skin cancer removal. I have recommended for the patient to go to Dr. Carlisle for removal of the skin lesion. I am worried that this may be a recurrence of the lesion. 08/28/2011 Appointment: Gina Singletary WPtel: [facility] [facility] 08/28/2011 Patient Education: Patient Medication Summary Completed 08/28/2011 Patient Education: High Blood Pressure: Essential Hypertension Completed 2011 Visit Plan: Diabetes Mellitus - Uncontrolled - per recent FSBS reports. I have recommended for the patient to have follow up labs prior to the next office visit. The patient has been instructed to continue with current medications as previously directed, continue with regular FSBS monitoring to assure continued control of diabetes. Pt to call for any acute concerns, complaints, or if the blood glucose readings are starting to become less controlled. I have recommended for the patient to follow more strictly to the diabetic diet as discussed in clinic to allow for greater blood glucose control. Hypertension - uncontrolled - the patient's medications have been modified as documented in the visit note. The patient has been counseled to cut back on salt in diet for a no added salt diet, low fat diet, start an exercise program with low weight bearing exercises and higher aerobic activity for heart health. The patient is to check blood pressure readings as an outpatient and either fax, call, or email the readings to the office next week for practicioner to review. The pt is to call for acute concerns. PT IS TO COME BY CLINIC NEXT WEEK FOR BLOOD PRESSURE CHECK ONLY, NEEDS APPT IN A MONTH AND /2. Lumbago - discussed need for exercise and stretching. 2011 Appointment: Gina Singletary WPtel: [phone] [facility] Other 2011 Patient Education: Patient Medication Summary Completed 2011 Patient Education: High Blood Pressure: Essential Hypertension Completed 2011 Appointment: Gina Singletary WPtel: [facility] Lab Draw 06/13/2011 Patient Education: Patient Medication Summary Completed 06/13/2011 Patient Education: High Blood Pressure: Essential Hypertension Completed 2011 Visit Plan: Hypertension - well controlled - continue with current medications, continue with no added salt diet. Pt has been encouraged to exercise daily. The pt has been advised to call the office if there are any acute concerns about change in blood pressure readings at home. Diabetes Mellitus - controlled - per recent FSBS reports. I have recommended for the patient to have follow up labs prior to the next office visit. The patient has been instructed to continue with current medications as previously directed, continue with regular FSBS monitoring to assure continued control of diabetes. Pt to call for any acute concerns, complaints, or if the blood glucose readings are starting to become less controlled. Hand pain and weakness- toradol shot today. Ibuprofen 400 mg three times daily. 05/16/2011 Appointment: Gina Singleatry WPtel: [address] [place], [place] [id number] Other 05/16/2011 Patient Education: Patient Medication Summary Completed 05/16/2011 Patient Education: High Blood Pressure: Essential Hypertension Completed 2011 Visit Plan: Hypertension - well controlled - continue with current medications, continue with no added salt diet. Pt has been encouraged to exercise daily. The pt has been advised to call the office if there are any acute concerns about change in blood pressure readings at home. Diabetes Mellitus - controlled - per recent FSBS reports. I have recommended for the patient to have follow up labs prior to the next office visit. The patient has been instructed to continue with current medications as previously directed, continue with regular FSBS monitoring to assure continued control of diabetes. Pt to call for any acute concerns, complaints, or if the blood glucose readings are starting to become less controlled. 01/17/2011 Appointment: Gina Singletary WPtel: [facility] [facility] 01/17/2011 Patient Education: Patient Medication Summary Completed 01/17/2011 Patient Education: High Blood Pressure: Essential Hypertension Completed 2010 Care Plan: HgbA1c LOINC : 36167-0 Ordered 01/17/2011 Care Plan: CHEM 14 (COMPREHEN METABOLIC PANEL) LOINC : 61040-1 Ordered 01/17/2011 Visit Plan: Hypertension - well controlled - continue with current medications, continue with no added salt diet. Pt has been encouraged to exercise daily. The pt has been advised to call the office if there are any acute concerns about change in blood pressure readings at home. Pelvic Fracture - continue to use the walker flu shot given today. Cerumen impaction - get sweet oil to ear pneumonia shot to be given next month 12/12/2010 Appointment: Gina Singletary WPtel: [phone] [facility] Other 12/12/2010 Patient Education: Patient Medication Summary Completed 12/12/2010 Visit Plan: Diabetes Mellitus - Uncontrolled - per recent FSBS reports. I have recommended for the patient to have follow up labs prior to the next office visit. The patient has been instructed to continue with current medications as previously directed, continue with regular FSBS monitoring to assure continued control of diabetes. Pt to call for any acute concerns, complaints, or if the blood glucose readings are starting to become less controlled. I have recommended for the patient to follow more strictly to the diabetic diet as discussed in clinic to allow for greater blood glucose control. CONTINUE TO CHECK BLOOD GLUCOSE TWICE A DAY. WILL CHECK LABS IN JANUARY Hypertension - well controlled - continue with current medications, continue with no added salt diet. Pt has been encouraged to exercise daily. The pt has been advised to call the office if there are any acute concerns about change in blood pressure readings at home. Hyperlipidemia - pt has been counseled about appropriate diet, exercise, and need for low fat food choices. I have discussed the need for the patient to take medications as prescribed. If the patient has negative side effects from the medication, they are to CALL the office and not abruptly discontinue the medication without discussion with a practicioner in the office. We will check labs in 3-6 months for follow up on the patient's chronic medical problem and to assure normal liver response to medications. Hypothyroidism - pt with chronic hypothyroidism, continue with current medication, will monitor pt to signs or symptoms of lack of adequate supplementation. Pt is to continue with current dose of medication unless directed otherwise. Check labs at regular intervals wither q 3 months or q 6 months based on previous levels of control. 11/15/2010 Appointment: Gina Singletary WPtel: [id number] [facility] 11/15/2010 Patient Education: Patient Medication Summary Completed 11/15/2010 Instructions Comment . Hypertension - well controlled - continue with current medications, continue with no added salt diet. Pt has been encouraged to exercise daily. The pt has been advised to call the office if there are any acute concerns about change in blood pressure readings at home. Diabetes Mellitus - Uncontrolled - per recent FSBS reports. I have recommended for the patient to have follow up labs prior to the next office visit. The patient has been instructed to continue with current medications as previously directed, continue with regular FSBS monitoring to assure continued control of diabetes. Pt to call for any acute concerns, complaints, or if the blood glucose readings are starting to become less controlled. I have recommended for the patient to follow more strictly to the diabetic diet as discussed in clinic to allow for greater blood glucose control. . Intermittent chest pain - will refer pt to weapons specialist - pt to have appt with Dr. Clark for evaluation. Pt has not had a stress test for several years - last done by Dr. De Paz. DM - not optimally controlled - was improving on Januvia - will give pt samples , monitor symptoms - check hgba1c as it has been 4 months since last check. Hypertension - uncontrolled - the patient's medications have been modified as documented in the visit note. The patient has been counseled to cut back on salt in diet for a no added salt diet, low fat diet, start an exercise program with low weight bearing exercises and higher aerobic activity for heart health. The patient is to check blood pressure readings as an outpatient and either fax , call, or email the readings to the office next week for practicioner to review. The pt is to call for acute concerns. Pt to start on cozaar 25mg daily. START NEURONTIN 100MG DAILY AT BEDTIME X 4-5 DAYS THEN INCREASE TO 2 PILLS AT BEDTIME. Post-herpetic Neuralgia- recommended pt to use pain medication as needed, and for pt to use Gabaprntin as needed for nerve pain , start at bedtime and plan to increase as indicatedThe patient is to call if the shingles pain is not controlled. Over the counter flonase nasal spray, . URI - Pt advised to increase fluids, vitamin C. Discussed natural and expected course of this diagnosis and need to alert me if symptoms do not follow expected course, or if any worse. RX sent to patient's pharmacy. Allergies - chronic - recommended pt to use allergy medication as prescribed. Pt has been counseled as to the appropriate use of the medication. Pt to call if allergy symptoms are not controlled with the medication. If using nasal spray, instructions as follows: Nasal spray- use twice daily, one spray per nostril twice daily, after 30 minutes, rinse out nose with saline spray.. Use opposite hand per nostril to spray in the nasal steroid allergy spray. . Hypertension - well controlled - continue with current medications, continue with no added salt diet. Pt has been encouraged to exercise daily. The pt has been advised to call the office if there are any acute concerns about change in blood pressure readings at home. Pelvic Fracture - continue to use the walker flu shot given today. Cerumen impaction - get sweet oil to ear pneumonia shot to be given next month increase the lantus to 14 units twice daily x 1 week, then next week increase up to 16 units twice daily on the LANTUS. bring a copy of her Kesha's blood glucose to the office in 2 weeks from today. . Hypertension - well controlled - continue with current medications, continue with no added salt diet. Pt has been encouraged to exercise daily. The pt has been advised to call the office if there are any acute concerns about change in blood pressure readings at home. DM - uncontrolled - but better than in past months due to her son moving in and he is now caring for his mom after he kicked out her other son who was supposed to be caring for her but was actually not feeding her or getting her the medications she needed to treat her diabetes. Pt's lantus dose increased as follows: increase the lantus to 14 units twice daily x 1 week, then next week increase up to 16 units twice daily on the LANTUS. bring a copy of her Kesha's blood glucose to the office in 2 weeks from today. Hypothyroidism - pt with chronic hypothyroidism, continue with current medication, will monitor pt to signs or symptoms of lack of adequate supplementation. Pt is to continue with current dose of medication unless directed otherwise. Check labs at regular intervals wither q 3 months or q 6 months based on previous levels of control. Dementia - continue with namenda. I am hopeful that her son Ash who is now living with her will help to keep her on her medications and her memory loss will stabilize. She has gained weight which should help her symptoms as well. Toenails cut today - thick nails, dermatophytosis of all 10 nails - cut with sharp excision with nail nippers. INCREASE LANTUS TO 15 UNITS DAILY BRING BLOOD SUGAR LOG TO YOUR NEXT APPT STOP HYDROCHLOROTHIAZIDE CUT AMLODIPINE IN 1/2 AND TAKE 1/2 TAB DAILY . Diabetes Mellitus - Uncontrolled - per recent FSBS reports. I have recommended for the patient to have follow up labs prior to the next office visit. The patient has been instructed to continue with current medications as previously directed, continue with regular FSBS monitoring to assure continued control of diabetes. Pt to call for any acute concerns, complaints, or if the blood glucose readings are starting to become less controlled. I have recommended for the patient to follow more strictly to the diabetic diet as discussed in clinic to allow for greater blood glucose control. Hypertension -too well controlled -stop HCTZ and decrease amlodipine to 5mg daily. The pt has been advised to call the office if there are any acute concerns about change in blood pressure readings at home. CONTINUE GATORADE 8OZ THREE TIMES DAILY I'll send in a prescription for LANTUS 10 UNITS AT BEDTIME-IF IT GOES THROUGH, STOP THE LEVEMIR AND START THE LANTUS. . Hypertension - well controlled - continue with current medications, continue with no added salt diet. Pt has been encouraged to exercise daily. The pt has been advised to call the office if there are any acute concerns about change in blood pressure readings at home. Diabetes Mellitus - controlled - per recent FSBS reports. I have recommended for the patient to have follow up labs prior to the next office visit. The patient has been instructed to continue with current medications as previously directed, continue with regular FSBS monitoring to assure continued control of diabetes. Pt to call for any acute concerns, complaints, or if the blood glucose readings are starting to become less controlled. Low sodium-increase gatorade to three times daily . Diabetes Mellitus - Uncontrolled - per recent FSBS reports. I have recommended for the patient to have follow up labs prior to the next office visit. The patient has been instructed to continue with current medications as previously directed, continue with regular FSBS monitoring to assure continued control of diabetes. Pt to call for any acute concerns, complaints, or if the blood glucose readings are starting to become less controlled. I have recommended for the patient to follow more strictly to the diabetic diet as discussed in clinic to allow for greater blood glucose control. CONTINUE TO CHECK BLOOD GLUCOSE TWICE A DAY. WILL CHECK LABS IN JANUARY Hypertension - well controlled - continue with current medications, continue with no added salt diet. Pt has been encouraged to exercise daily. The pt has been advised to call the office if there are any acute concerns about change in blood pressure readings at home. Hyperlipidemia - pt has been counseled about appropriate diet, exercise, and need for low fat food choices. I have discussed the need for the patient to take medications as prescribed. If the patient has negative side effects from the medication, they are to CALL the office and not abruptly discontinue the medication without discussion with a practicioner in the office. We will check labs in 3-6 months for follow up on the patient's chronic medical problem and to assure normal liver response to medications. Hypothyroidism - pt with chronic hypothyroidism, continue with current medication, will monitor pt to signs or symptoms of lack of adequate supplementation. Pt is to continue with current dose of medication unless directed otherwise. Check labs at regular intervals wither q 3 months or q 6 months based on previous levels of control. SHE HAS REFILLS ON HER MEDICATIONS EXCEPT FOR THE LANTUS-I REFILLED IT SHE SHOULD BE TAKING IT TWICE DAILY I WOULD NOT RECOMMEND A WHEELCHAIR-A WALKER WOULD BE BETTER TO HELP KEEP HER MOBILE BUT HELP WITH THE STABILITY RECOMMEND PHYSICAL THERAPY TO EVALUATE AND TREAT -WE WILL SCHEDULE WITH [facility] RECOMMEND PATIENT MOVE INTO AN ASSISTED LIVING FACILITY-THEY CAN MANAGE HER MEDICATIONS, PROVIDE MEALS AND SHE WILL BE ABLE TO SOCIALIZE WITH OTHERS. I GAVE YOU A WRITTEN PRESCRIPTION FOR A GLUCOMETER AND TEST STRIPS-THAT WAY THE PHARMACY CAN GIVE HER WHATEVER IS COVERED BY HER INSURANCE. . Diabetes Mellitus - I have recommended for the patient to have follow up labs prior to the next office visit. The patient has been instructed to continue with current medications as previously directed, continue with regular FSBS monitoring to assure continued control of diabetes. Pt to call for any acute concerns, complaints, or if the blood glucose readings are starting to become less controlled. I have recommended for the patient to follow more strictly to the diabetic diet as discussed in clinic to allow for greater blood glucose control. Hypertension - well controlled - continue with current medications, continue with no added salt diet. Pt has been encouraged to exercise daily. The pt has been advised to call the office if there are any acute concerns about change in blood pressure readings at home. Hypothyroidism - pt with chronic hypothyroidism, continue with current medication, will monitor pt to signs or symptoms of lack of adequate supplementation. Pt is to continue with current dose of medication unless directed otherwise. Check labs at regular intervals wither q 3 months or q 6 months based on previous levels of control. Gait vdeamdfqzxf-cibrvgqc-[id number] patient use a walker at all times-the cane does not provide enough stability-schedule PT to evaluate and treat . Shingles - Herpes Zoster - acute in onset - pt started on acyclovir and instructed to call if symptoms worsen or if the pt is concerned about the symptoms. Pt has been advised to avoid contact with persons who may be , or infants, or immunocompromised individuals. Pt has been instructed that shingles will continue to break out and eventually scab over a two week period, until all of the vessicles are scabbed, the pt is to be considered contagious. . Hypertension - well controlled - continue with current medications, continue with no added salt diet. Pt has been encouraged to exercise daily. The pt has been advised to call the office if there are any acute concerns about change in blood pressure readings at home. Diabetes Mellitus - Uncontrolled - per recent FSBS reports. I have recommended for the patient to have follow up labs prior to the next office visit. The patient has been instructed to continue with current medications as previously directed, continue with regular FSBS monitoring to assure continued control of diabetes. Pt to call for any acute concerns, complaints, or if the blood glucose readings are starting to become less controlled. I have recommended for the patient to follow more strictly to the diabetic diet as discussed in clinic to allow for greater blood glucose control. Cough - improved Dementia - pt to start on Namenda - RX given to patient today for starter doses. take 17 units of Lantus at night. . Hypertension - well controlled - continue with current medications, continue with no added salt diet. Pt has been encouraged to exercise daily. The pt has been advised to call the office if there are any acute concerns about change in blood pressure readings at home. Diabetes Mellitus - Uncontrolled - per recent FSBS reports. I have recommended for the patient to have follow up labs prior to the next office visit. The patient has been instructed to continue with current medications as previously directed, continue with regular FSBS monitoring to assure continued control of diabetes. Pt to call for any acute concerns, complaints, or if the blood glucose readings are starting to become less controlled. I have recommended for the patient to follow more strictly to the diabetic diet as discussed in clinic to allow for greater blood glucose control. Discussed with the pt about moving into assisted living. Pt became tearful during the discussion. Discussed the benefits and safety aspects assisted living could provide. Pt states that she will go to look at some assisted living facilities. . Open wound of back-significantly improved-continue dressing changes as directed-call if wound does not completely heal, any worse, or with any concerns. Patient verbalized understanding of plan. . Diabetes Mellitus - Uncontrolled - per recent FSBS reports. I have recommended for the patient to have follow up labs prior to the next office visit. The patient has been instructed to continue with current medications as previously directed, continue with regular FSBS monitoring to assure continued control of diabetes. Pt to call for any acute concerns, complaints, or if the blood glucose readings are starting to become less controlled. I have recommended for the patient to follow more strictly to the diabetic diet as discussed in clinic to allow for greater blood glucose control. Weight loss - pt to start on remeron. STAY OFF HYDROCHLOROTHIAZIDE . Hypertension - well controlled - continue with current medications, continue with no added salt diet. Pt has been encouraged to exercise daily. The pt has been advised to call the office if there are any acute concerns about change in blood pressure readings at home. Low sodium-check sodium level today Memory loss-MRI shows chronic micro vascular changes-check vitamin B12 level today-follow up in 1 month . Diabetes Mellitus - controlled - per recent FSBS reports. I have recommended for the patient to have follow up labs prior to the next office visit. The patient has been instructed to continue with current medications as previously directed, continue with regular FSBS monitoring to assure continued control of diabetes. Pt to call for any acute concerns, complaints, or if the blood glucose readings are starting to become less controlled. . Diabetes Mellitus - Uncontrolled - per recent FSBS reports. I have recommended for the patient to have follow up labs prior to the next office visit. The patient has been instructed to continue with current medications as previously directed, continue with regular FSBS monitoring to assure continued control of diabetes. Pt to call for any acute concerns, complaints, or if the blood glucose readings are starting to become less controlled. I have recommended for the patient to follow more strictly to the diabetic diet as discussed in clinic to allow for greater blood glucose control. Hypertension - uncontrolled - the patient's medications have been modified as documented in the visit note. The patient has been counseled to cut back on salt in diet for a no added salt diet, low fat diet, start an exercise program with low weight bearing exercises and higher aerobic activity for heart health. The patient is to check blood pressure readings as an outpatient and either fax , call, or email the readings to the office next week for practicioner to review. The pt is to call for acute concerns. PT IS TO COME BY CLINIC NEXT WEEK FOR BLOOD PRESSURE CHECK ONLY, NEEDS APPT IN A MONTH AND /. Lumbago - discussed need for exercise and stretching. If you feel dizzy, check your blood pressure and blood sugar and record. Call if dizziness persists. Recommend cutting back on green tea, water is much better for you. Continue current medications. Monitor your blood pressure at home and record. Bring in your readings to your next appointment, or as directed. Call for chest pain, shortness of breath, headaches, or other concerns.. Hypertension - well controlled - continue with current medications, continue with no added salt diet. Pt has been encouraged to exercise daily. The pt has been advised to call the office if there are any acute concerns about change in blood pressure readings at home. Diabetes Mellitus - controlled - per recent FSBS reports. I have recommended for the patient to have follow up labs prior to the next office visit. The patient has been instructed to continue with current medications as previously directed, continue with regular FSBS monitoring to assure continued control of diabetes. Pt to call for any acute concerns, complaints, or if the blood glucose readings are starting to become less controlled. Dizziness-check labs-monitor symptoms and call with any concerns. Instructed patient to pump legs for 1 minute before standing or getting out of bed/chair, etc. Patient verbalized udnerstanding. . Diabetes Mellitus - controlled - per recent FSBS reports. I have recommended for the patient to have follow up labs prior to the next office visit. The patient has been instructed to continue with current medications as previously directed, continue with regular FSBS monitoring to assure continued control of diabetes. Pt to call for any acute concerns, complaints, or if the blood glucose readings are starting to become less controlled. Hypertension - well controlled - continue with current medications, continue with no added salt diet. Pt has been encouraged to exercise daily. The pt has been advised to call the office if there are any acute concerns about change in blood pressure readings at home. Hypothyroidism - pt with chronic hypothyroidism, continue with current medication, will monitor pt to signs or symptoms of lack of adequate supplementation. Pt is to continue with current dose of medication unless directed otherwise. Check labs at regular intervals wither q 3 months or q 6 months based on previous levels of control. Hyperlipidemia - pt has been counseled about appropriate diet, exercise, and need for low fat food choices. I have discussed the need for the patient to take medications as prescribed. If the patient has negative side effects from the medication, they are to CALL the office and not abruptly discontinue the medication without discussion with a practitioner in the office. We will check labs in 3-6 months for follow up on the patient's chronic medical problem and to assure normal liver response to medications. stop the metformin - it is probably the cause of the diarrhea - Increase the Levemir to 10 units at night - check blood glucose levels twice daily - bring to clinic in 2-3 weeks. start on Lactobacillus - or Culturelle - one pill twice daily to help decrease loose stools. . Diabetes Mellitus - Uncontrolled - per recent FSBS reports. I have recommended for the patient to have follow up labs prior to the next office visit. The patient has been instructed to continue with current medications as previously directed, continue with regular FSBS monitoring to assure continued control of diabetes. Pt to call for any acute concerns, complaints, or if the blood glucose readings are starting to become less controlled. I have recommended for the patient to follow more strictly to the diabetic diet as discussed in clinic to allow for greater blood glucose control. stop the metformin - it is probably the cause of the diarrhea - Increase the Levemir to 10 units at night - check blood glucose levels twice daily - bring to clinic in 2-3 weeks. Diarrhea - may be due to the metformin - stop the metformin and start on lactobacillus. start on Lactobacillus - or Culturelle - one pill twice daily to help decrease loose stools. . Cellulitis - Pt is to take the antibiotic and prednisone prescribed by the ER. continue with oral antibiotics as previously directed, return to clinic as previously directed, call for acute change in symptoms, worsening redness, warmth, discharge. DR. SINGLETARY HAS ADVISED YOU NOT TO DRIVE. . Hypertension - well controlled - continue with current medications, continue with no added salt diet. Pt has been encouraged to exercise daily. The pt has been advised to call the office if there are any acute concerns about change in blood pressure readings at home. 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 I have discussed with pt and family the prognosis of this disease state and the need for the family to anticipate further decline with behavior changes. Continue with current plan of treatment. Pt advised not to drive due to her persistent worsening of dementia . ER follow up - Dizziness - symptoms have resolved and pt is feeling well - no changes at this time, pt is to notify clinic if symptoms return, or with any other changes, questions, or concerns. . Hypertension - well controlled - continue with current medications, continue with no added salt diet. Pt has been encouraged to exercise daily. The pt has been advised to call the office if there are any acute concerns about change in blood pressure readings at home. DM - pt does not follow recommendations and does not bring in blood glucose readings. Memory loss - pt on Namenda XR. I have advised pt against driving and she needs to move into Assisted Living - but pt is not interested in going to such facility. . Diabetes Mellitus - controlled - per recent FSBS reports. I have recommended for the patient to have follow up labs prior to the next office visit. The patient has been instructed to continue with current medications as previously directed, continue with regular FSBS monitoring to assure continued control of diabetes. Pt to call for any acute concerns, complaints, or if the blood glucose readings are starting to become less controlled. Hypothyroidism - pt with chronic hypothyroidism, continue with current medication, will monitor pt to signs or symptoms of lack of adequate supplementation. Pt is to continue with current dose of medication unless directed otherwise. Check labs at regular intervals wither q 3 months or q 6 months based on previous levels of control. Hypertension - well controlled - continue with current medications, continue with no added salt diet. Pt has been encouraged to exercise daily. The pt has been advised to call the office if there are any acute concerns about change in blood pressure readings at home. Normal memory loss - age associated. . Hypertension - well controlled - continue with current medications, continue with no added salt diet. Pt has been encouraged to exercise daily. The pt has been advised to call the office if there are any acute concerns about change in blood pressure readings at home. DM - unsure of level of control as the patient is not able to remember her readings nor has she brought in her meter or record of blood glucose readings - pt is due to for her Hgba1c and we will check today. No change in medications today. Hypothyroidism - pt with chronic hypothyroidism, continue with current medication, will monitor pt to signs or symptoms of lack of adequate supplementation. Pt is to continue with current dose of medication unless directed otherwise. Check labs at regular intervals wither q 3 months or q 6 months based on previous levels of control. Dementia - continue with namenda. I have again encouraged the pt to look into assisted living facilities. take tylenol arthritis pill three times daily x 1 month use aspercreme on the right arm and right leg three times daily x 1 month come back to clinic in one month - get labs done 5 days before your appt. . Hypertension - well controlled - continue with current medications, continue with no added salt diet. Pt has been encouraged to exercise daily. The pt has been advised to call the office if there are any acute concerns about change in blood pressure readings at home. Diabetes Mellitus - controlled - per recent FSBS reports. I have recommended for the patient to have follow up labs prior to the next office visit. The patient has been instructed to continue with current medications as previously directed, continue with regular FSBS monitoring to assure continued control of diabetes. Pt to call for any acute concerns, complaints, or if the blood glucose readings are starting to become less controlled. Arthritis- occasionally uncontrolled symptoms- recommend pt to take antiinflammatory as directed for pain control. Use tylenol for break through pain symptoms. . dressing change today in the office-return next week for evaluation of wound . Diabetes Mellitus - Uncontrolled - per recent FSBS reports. I have recommended for the patient to have follow up labs prior to the next office visit. The patient has been instructed to continue with current medications as previously directed, continue with regular FSBS monitoring to assure continued control of diabetes. Pt to call for any acute concerns, complaints, or if the blood glucose readings are starting to become less controlled. I have recommended for the patient to follow more strictly to the diabetic diet as discussed in clinic to allow for greater blood glucose control. Lantus dose changed . Diabetes Mellitus - diabetes and diet eduction today in the office- I have recommended for the patient to have follow up labs prior to the next office visit. The patient has been instructed to continue with current medications as previously directed, continue with regular FSBS monitoring to assure continued control of diabetes. Discussed dietary modifications in details with patient today in the office. Pt to call for any acute concerns, complaints, or if the blood glucose readings are starting to become less controlled. . Diabetes Mellitus - I have recommended for the patient to have follow up labs prior to the next office visit. The patient has been instructed to continue with current medications as previously directed, continue with regular FSBS monitoring to assure continued control of diabetes. Pt to call for any acute concerns, complaints, or if the blood glucose readings are starting to become less controlled. Toenails trimmed - large nail nippers and dremmel used to trim dystrophic, thickened, elongated toenails x 10. Pt tolerated the procedure without incident. . Diabetes Mellitus - I have recommended for the patient to have follow up labs prior to the next office visit. The patient has been instructed to continue with current medications as previously directed, continue with regular FSBS monitoring to assure continued control of diabetes. Pt to call for any acute concerns, complaints, or if the blood glucose readings are starting to become less controlled. Toenails trimmed - large nail nippers and dremmel used to trim dystrophic, thickened, elongated toenails x 10. Pt tolerated the procedure without incident. . Diabetes Mellitus - I have recommended for the patient to have follow up labs prior to the next office visit. The patient has been instructed to continue with current medications as previously directed, continue with regular FSBS monitoring to assure continued control of diabetes. Pt to call for any acute concerns, complaints, or if the blood glucose readings are starting to become less controlled. Toenails trimmed - large nail nippers and dremmel used to trim dystrophic, thickened, elongated toenails x 10. Pt tolerated the procedure without incident. . Diabetes Mellitus - controlled - per recent FSBS reports. I have recommended for the patient to have follow up labs prior to the next office visit. The patient has been instructed to continue with current medications as previously directed, continue with regular FSBS monitoring to assure continued control of diabetes. Pt to call for any acute concerns, complaints, or if the blood glucose readings are starting to become less controlled. pt need to monitor fsbs bid Hypertension - well controlled - continue with current medications, continue with no added salt diet. Pt has been encouraged to exercise daily. The pt has been advised to call the office if there are any acute concerns about change in blood pressure readings at home. . Diabetes Mellitus - Uncontrolled - per recent FSBS reports. I have recommended for the patient to have follow up labs prior to the next office visit. The patient has been instructed to continue with current medications as previously directed, continue with regular FSBS monitoring to assure continued control of diabetes. Pt to call for any acute concerns, complaints, or if the blood glucose readings are starting to become less controlled. I have recommended for the patient to follow more strictly to the diabetic diet as discussed in clinic to allow for greater blood glucose control. Pt has been modifying her diet and she is to continue to curb her carbohydrate intake, and bring by a list of blood sugar levels in 1 month. Hypertension - well controlled - continue with current medications, continue with no added salt diet. Pt has been encouraged to exercise daily. The pt has been advised to call the office if there are any acute concerns about change in blood pressure readings at home. Arthritis- occasionally uncontrolled symptoms- recommend pt to take antiinflammatory as directed for pain control. Use tylenol for break through pain symptoms. . Hypertension - well controlled - continue with current medications, continue with no added salt diet. Pt has been encouraged to exercise daily. The pt has been advised to call the office if there are any acute concerns about change in blood pressure readings at home. Diabetes Mellitus - controlled - per recent FSBS reports. I have recommended for the patient to have follow up labs prior to the next office visit. The patient has been instructed to continue with current medications as previously directed, continue with regular FSBS monitoring to assure continued control of diabetes. Pt to call for any acute concerns, complaints, or if the blood glucose readings are starting to become less controlled. Vascular dementia - recommended pt to continue with present course of treatment. Appointment with Dr. Clark on 12/18/16 at 1:10 PM - Bring you medication bottles with you to your appointment. . ER follow up, shortness of breath - pt is to go to her appointment with cardiology - pt is to up date clinic with any changes in the treatment plan. Compression fracture - will call for ER report and CT report will treat/refer as indicated - pt is to notify clinic if symptoms worsen, or change, or with any changes, questions, or concerns. Hypertension - The patient has been counseled to cut back on salt in diet for a no added salt diet, low fat diet, start an exercise program with low weight bearing exercises and higher aerobic activity for heart health. The patient is to check blood pressure readings as an outpatient and either fax , call, or email the readings to the office next week for practitioner to review. The pt is to call for acute concerns. . Diabetes Mellitus - Uncontrolled - per recent FSBS reports. I have recommended for the patient to have follow up labs prior to the next office visit. The patient has been instructed to continue with current medications as previously directed, continue with regular FSBS monitoring to assure continued control of diabetes. Pt to call for any acute concerns, complaints, or if the blood glucose readings are starting to become less controlled. I have recommended for the patient to follow more strictly to the diabetic diet as discussed in clinic to allow for greater blood glucose control. STOP PLAIN METFORMIN' KEEP ON KOBOGLYZE. Hypertension - well controlled - continue with current medications, continue with no added salt diet. Pt has been encouraged to exercise daily. The pt has been advised to call the office if there are any acute concerns about change in blood pressure readings at home. . Diabetes Mellitus - Uncontrolled - per recent FSBS reports. I have recommended for the patient to have follow up labs prior to the next office visit. The patient has been instructed to continue with current medications as previously directed, continue with regular FSBS monitoring to assure continued control of diabetes. Pt to call for any acute concerns, complaints, or if the blood glucose readings are starting to become less controlled. I have recommended for the patient to follow more strictly to the diabetic diet as discussed in clinic to allow for greater blood glucose control. PATIENT HAS BEEN INSTRUCTED TO INCREASE HER JANUVIA UPFROM 50MG DAILY TO 100MG DAILY. PT TO BRING BY HER BLOOD GLUCOSE LONG IN A FEW WEEKS FOR REVIEW. CHECK HGBA1C IN ABOUT 3 MONTHS FROM LAST LEVEL. Hypertension - well controlled - continue with current medications, continue with no added salt diet. Pt has been encouraged to exercise daily. The pt has been advised to call the office if there are any acute concerns about change in blood pressure readings at home. Joint Injection - Pt was given post - injection instructions. The pt has been advised to use antiinflammatories post injection today, ice to the injected site, call if redness, warmth, or increased pain occurs at the site of injection. INCREASE THE LANTUS TO 18 UNITS TWICE A DAY BRING IN A COPY OF YOUR BLOOD GLUCOSE READINGS TO YOUR NEXT OFFICE VISIT. INCREASE THE PROTEIN IN YOUR DIET. YOU LOST 6 POUNDS SINCE YOUR LAST OFFICE VISIT - YOU SHOULD NOT LOOSE ANY MORE WEIGHT. GET YOUR LABS DONE ONE WEEK BEFORE YOUR NEXT OFFICE VISIT IN 6 WEEKS.. Hypertension - well controlled - continue with current medications, continue with no added salt diet. Pt has been encouraged to exercise daily. The pt has been advised to call the office if there are any acute concerns about change in blood pressure readings at home. Diabetes Mellitus - Uncontrolled - per recent FSBS reports. I have recommended for the patient to have follow up labs prior to the next office visit. The patient has been instructed to continue with current medications as previously directed, continue with regular FSBS monitoring to assure continued control of diabetes. Pt to call for any acute concerns, complaints, or if the blood glucose readings are starting to become less controlled. I have recommended for the patient to follow more strictly to the diabetic diet as discussed in clinic to allow for greater blood glucose control. Increase lantus from 16 units twice a day to 18 units twice a day . Hypertension - well controlled - continue with current medications, continue with no added salt diet. Pt has been encouraged to exercise daily. The pt has been advised to call the office if there are any acute concerns about change in blood pressure readings at home. Diabetes Mellitus - controlled - per recent FSBS reports. I have recommended for the patient to have follow up labs prior to the next office visit. The patient has been instructed to continue with current medications as previously directed, continue with regular FSBS monitoring to assure continued control of diabetes. Pt to call for any acute concerns, complaints, or if the blood glucose readings are starting to become less controlled. . Diabetes Mellitus - controlled - per recent FSBS reports. I have recommended for the patient to have follow up labs prior to the next office visit. The patient has been instructed to continue with current medications as previously directed, continue with regular FSBS monitoring to assure continued control of diabetes. Pt to call for any acute concerns, complaints, or if the blood glucose readings are starting to become less controlled. Hypertension - well controlled - continue with current medications, continue with no added salt diet. Pt has been encouraged to exercise daily. The pt has been advised to call the office if there are any acute concerns about change in blood pressure readings at home. Pt to do a 2 week trial of 1/2 of s norvasc (amlodipine) twice a day to see if her blood pressure improves, she is to bring by the list of pressures to clinic, and she is to cut back on the sweets in her diet and bring in a list of her blood glucose tests to clinic in two weeks, she is also to get blood work in the next week.. Diabetes Mellitus - Uncontrolled - per recent FSBS reports. I have recommended for the patient to have follow up labs prior to the next office visit. The patient has been instructed to continue with current medications as previously directed, continue with regular FSBS monitoring to assure continued control of diabetes. Pt to call for any acute concerns, complaints, or if the blood glucose readings are starting to become less controlled. I have recommended for the patient to follow more strictly to the diabetic diet as discussed in clinic to allow for greater blood glucose control. Pt is to cut back on the sweets in her diet and bring in a list of her blood glucose tests to clinic in two weeks, she is also to get blood work in the next week. Hypertension - uncontrolled - the patient's medications have been modified as documented in the visit note. The patient has been counseled to cut back on salt in diet for a no added salt diet, low fat diet, start an exercise program with low weight bearing exercises and higher aerobic activity for heart health. The patient is to check blood pressure readings as an outpatient and either fax , call, or email the readings to the office next week for practicioner to review. The pt is to call for acute concerns. Pt to do a 2 week trial of 1/2 of norvasc (amlodipine) twice a day to see if her blood pressure improves, she is to bring by the list of pressures to clinic , she is also to get blood work in the next week. OA - continue current medicatons . Shingles - Herpes Zoster - acute in onset - pt started on acyclovir and instructed to call if symptoms worsen or if the pt is concerned about the symptoms. Pt has been advised to avoid contact with persons who may be , or infants, or immunocompromised individuals. Pt has been instructed that shingles will continue to break out and eventually scab over a two week period, until all of the vesicles are scabbed, the pt is to be considered contagious. Hypertension - well controlled - continue with current medications, continue with no added salt diet. Pt has been encouraged to exercise daily. The pt has been advised to call the office if there are any acute concerns about change in blood pressure readings at home. Diabetes Mellitus - pt to continue with metformin and januvia - pt awaiting her patient assistance medication to come through the mail. stop the following medication - JANUVIA and GLIPIZIDE START on LEVERMIR 5 units at bedtime x 3 days, then increase up to 8 units at bedtime x 4 days, then increase up to 10 units at bedtime x 7 days - bring by your blood glucose log for the doctor to review at the end of the two weeks and we will further adjust your medications based on your response to the insulin. you will need to check your blood glucose before breakfast and then also at least 2 hours after eating lunch and before bedtime. . Diabetes Mellitus - Uncontrolled - per recent FSBS reports. I have recommended for the patient to have follow up labs prior to the next office visit. The patient has been instructed to continue with current medications as previously directed, continue with regular FSBS monitoring to assure continued control of diabetes. Pt to call for any acute concerns, complaints, or if the blood glucose readings are starting to become less controlled. I have recommended for the patient to follow more strictly to the diabetic diet as discussed in clinic to allow for greater blood glucose control. stop the following medication - JANUVIA and GLIPIZIDE START on LEVERMIR 5 units at bedtime x 3 days, then increase up to 8 units at bedtime x 4 days, then increase up to 10 units at bedtime x 7 days - bring by your blood glucose log for the doctor to review at the end of the two weeks and we will further adjust your medications based on your response to the insulin. you will need to check your blood glucose before breakfast and then also at least 2 hours after eating lunch and before bedtime. Hypertension - well controlled - continue with current medications, continue with no added salt diet. Pt has been encouraged to exercise daily. The pt has been advised to call the office if there are any acute concerns about change in blood pressure readings at home. Memory loss - pt not interested in medication at this time, recommended pt to have follow up testing. Return in 3 weeks for blood work-you are due for Hgb A1C check. . Hypertension - uncontrolled - the patient's medications have been modified as documented in the visit note. The patient has been counseled to cut back on salt in diet for a no added salt diet, low fat diet, start an exercise program with low weight bearing exercises and higher aerobic activity for heart health. The patient is to check blood pressure readings as an outpatient and either fax , call, or email the readings to the office next week for practicioner to review. The pt is to call for acute concerns. INCREASE THE AMLODIPINE (norvasc) to 10 mg daily.. Take two of the current amlodipine daily until the current supply is gone, then fill the prescription. Edema- elevate legs at noon and 2 hours before bed, call if the nighttime urination does not improve. Diabetes Mellitus - controlled - per recent FSBS reports. I have recommended for the patient to have follow up labs prior to the next office visit. The patient has been instructed to continue with current medications as previously directed, continue with regular FSBS monitoring to assure continued control of diabetes. Pt to call for any acute concerns, complaints, or if the blood glucose readings are starting to become less controlled. Skin lesion - new development in the apex of a scar from a previous skin cancer removal. I have recommended for the patient to go to Dr. Carlisle for removal of the skin lesion. I am worried that this may be a recurrence of the lesion. . Hypertension - well controlled - continue with current medications, continue with no added salt diet. Pt has been encouraged to exercise daily. The pt has been advised to call the office if there are any acute concerns about change in blood pressure readings at home. Diabetes Mellitus - controlled - per recent FSBS reports. I have recommended for the patient to have follow up labs prior to the next office visit. The patient has been instructed to continue with current medications as previously directed, continue with regular FSBS monitoring to assure continued control of diabetes. Pt to call for any acute concerns, complaints, or if the blood glucose readings are starting to become less controlled. . Hypertension - well controlled - continue with current medications, continue with no added salt diet. Pt has been encouraged to exercise daily. The pt has been advised to call the office if there are any acute concerns about change in blood pressure readings at home. Diabetes Mellitus - controlled - per recent FSBS reports. I have recommended for the patient to have follow up labs prior to the next office visit. The patient has been instructed to continue with current medications as previously directed, continue with regular FSBS monitoring to assure continued control of diabetes. Pt to call for any acute concerns, complaints, or if the blood glucose readings are starting to become less controlled. Hyperlipidemia - pt has been counseled about appropriate diet, exercise, and need for low fat food choices. I have discussed the need for the patient to take medications as prescribed. If the patient has negative side effects from the medication, they are to CALL the office and not abruptly discontinue the medication without discussion with a practitioner in the office. We will check labs in 3-6 months for follow up on the patient's chronic medical problem and to assure normal liver response to medications. Hypothyroidism - pt with chronic hypothyroidism, continue with current medication, will monitor pt to signs or symptoms of lack of adequate supplementation. Pt is to continue with current dose of medication unless directed otherwise. Check labs at regular intervals wither q 3 months or q 6 months based on previous levels of control. get labs in one month. Hypertension - well controlled - continue with current medications, continue with no added salt diet. Pt has been encouraged to exercise daily. The pt has been advised to call the office if there are any acute concerns about change in blood pressure readings at home. Diabetes Mellitus - controlled - per recent FSBS reports. I have recommended for the patient to have follow up labs prior to the next office visit. The patient has been instructed to continue with current medications as previously directed, continue with regular FSBS monitoring to assure continued control of diabetes. Pt to call for any acute concerns, complaints, or if the blood glucose readings are starting to become less controlled. Hand pain and weakness- toradol shot today. Ibuprofen 400 mg three times daily. Rib pain - recommended pt to keep off of left side at night - keep proped up on right side to keep pressure off of left side to allow for healing.. Hypertension - well controlled - continue with current medications , continue with no added salt diet. Pt has been encouraged to exercise daily. The pt has been advised to call the office if there are any acute concerns about change in blood pressure readings at home. Diabetes Mellitus - controlled - per recent FSBS reports. I have recommended for the patient to have follow up labs prior to the next office visit. The patient has been instructed to continue with current medications as previously directed, continue with regular FSBS monitoring to assure continued control of diabetes. Pt to call for any acute concerns, complaints, or if the blood glucose readings are starting to become less controlled. Rib pain - recommended pt to keep off of left side at night - keep proped up on right side to keep pressure off of left side to allow for healing. . Diabetes Mellitus - improved - per recent FSBS reports. I have recommended for the patient to have follow up labs prior to the next office visit. The patient has been instructed to continue with current medications as previously directed, continue with regular FSBS monitoring to assure continued control of diabetes. Pt to call for any acute concerns, complaints, or if the blood glucose readings are starting to become less controlled. Hypertension - well controlled - continue with current medications, continue with no added salt diet. Pt has been encouraged to exercise daily. The pt has been advised to call the office if there are any acute concerns about change in blood pressure readings at home. PT IS TO STOP THE HYDROCHLOROTHIAZIDE AND START ON NEW RX SENT TO [facility] - CHLORTHALIDONE CALL IF SWELLING IS NOT IMPROVED. . Diabetes Mellitus - controlled - per recent FSBS reports. I have recommended for the patient to have follow up labs prior to the next office visit. The patient has been instructed to continue with current medications as previously directed, continue with regular FSBS monitoring to assure continued control of diabetes. Pt to call for any acute concerns, complaints, or if the blood glucose readings are starting to become less controlled. Pt given 30 day free coupon for nishant - we will attempt to get her linked in to patient assistance program so that she can afford her medication monthly - as per pt report, the Andrewuvia was costing her over $100 per month. Hypertension - uncontrolled - the patient's medications have been modified as documented in the visit note. The patient has been counseled to cut back on salt in diet for a no added salt diet, low fat diet, start an exercise program with low weight bearing exercises and higher aerobic activity for heart health. The patient is to check blood pressure readings as an outpatient and either fax , call, or email the readings to the office next week for practitioner to review. The pt is to call for acute concerns. Edema - pt has been o hctz, will change to chlorthalidone, monitor edema, and blood pressure response, and pt to keep lower legs elevated while seated. She is on amlodipine and this will also cause edema.
--- OUTSIDE RECORDS SUMMARY | 2017-05-16 12:33 | XMS REPORT | CCD ---
Author Author Gina Singletary Organization [facility] Address [address] [place] [address] Phone Care Team Providers Care Channel Manager Name Role Phone Gina Singletary PP Unavailable CCM Unavailable Summary Purpose Interface Exchange Insurance Providers Payer name Policy type / Coverage type Covered constitution party ID Effective Begin Date Effective End Date WPS Medicare Part B Medicare Part B [id number] Unknown [facility] Medicare Part B [id number] 2013 Unknown Family history Brother Diagnosis Age [...] Unknown Retired 11/15/[address]: 231942721 Never smoker 11/15/[address]: 844759189 Never drinks alcohol 11/15/2010 Has the patient [...] Start Date Stop Date Status Fill Instructions Namenda XR 28 mg capsule sprinkle,extended release RxNorm: 832125 TAKE ONE CAPSULE BY MOUTH DAILY 01/29/20172017 Active Remeron 15 mg tablet RxNorm: 620189 TAKE ONE TABLET BY MOUTH EVERY EVENING 12/21/2016 03/20/2017 Inactive Lantus Solostar 100 unit/mL (3 mL) subcutaneous insulin pen RxNorm: 738951 18 Unit(s) SQ BID 09/10/2016 03/08/2017 Inactive Lantus Solostar 100 unit/mL (3 mL) subcutaneous insulin pen RxNorm: 564433 16 Unit(s) SQ BID 08/15/2016 09/09/2016 Inactive Lantus Solostar 100 unit/mL (3 mL) subcutaneous insulin pen RxNorm: 501797 12 Unit(s) SQ BID 2016 08/14/2016 Inactive Lantus 100 unit/mL subcutaneous solution RxNorm: 812848 12 Unit(s) SQ BID 05/25/2016 07/16/2016 Inactive Pre-filled pens not bottles amlodipine 5 mg tablet RxNorm: 662333 1 Tablet(s) PO daily 06/16/2017 Active omeprazole 20 mg tablet,delayed release RxNorm: 262107 Tablet(s) TAKE ONE CAPSULE BY MOUTH ONCE A DAY 05/23/2016 11/13/2017 Active FreeStyle Lite Strips RxNorm: TEST TWO TIMES A DAY 05/23/2016 12/10/2029 Active Lantus 100 unit/mL subcutaneous solution RxNorm: 970002 12 Unit(s) SQ BID 05/23/2016 05/24/2016 Inactive Namenda XR 28 mg capsule sprinkle,extended release RxNorm: 630875 1 Capsule(s) PO daily 05/23/2016 12/18/2016 Inactive she needs to start on the titration pack again please Remeron 15 mg tablet RxNorm: 980247 1 Tablet(s) PO QPM 201609/19/2016 Inactive prednisone 20 mg tablet RxNorm: 537907 2 Tablet(s) PO daily prescribed by the ER 01/21/2016 01/23/2016 Inactive Levaquin 500 mg tablet RxNorm: 402332 1 Tablet(s) PO daily Prescribed by the ER 01/21/2016 01/23/2016 Inactive Lantus 100 unit/mL subcutaneous solution RxNorm: 936276 12 Unit(s) SQ BID 11/03/2015 12/02/2015 Inactive Remeron 15 mg tablet RxNorm: 973459 1 Tablet(s) PO QPM 201502/16/2016 Inactive Remeron 15 mg tablet RxNorm: 155891 1 Tablet(s) PO QPM 201510/19/2015 Inactive Namenda XR 21 mg capsule sprinkle,extended release RxNorm: 735647 1 Capsule(s) PO daily 07/21/2015 07/27/2015 Inactive Namenda XR 14 mg capsule sprinkle,extended release RxNorm: 388884 1 Capsule(s) PO daily 07/14/2015 07/20/2015 Inactive Lantus 100 unit/mL subcutaneous solution RxNorm: 306045 17 Unit(s) SQ QAM 07/07/2015 11/02/2015 Inactive Namenda XR 28 mg capsule sprinkle,extended release RxNorm: 614220 1 Capsule(s) PO daily 07/07/2015 02/01/2016 Inactive Namenda XR 7 mg capsule sprinkle,extended release RxNorm: 754260 1 Capsule(s) PO daily 07/07/2015 07/13/2015 Inactive then stop after 1 week Zithromax 250 mg tablet RxNorm: 199389 Tablet(s) PO UD 201510/05/2015 Inactive amlodipine 5 mg tablet RxNorm: 007155 1 Tablet(s) PO daily 06/201505/07/2016 Inactive amlodipine 10 mg tablet RxNorm: 723443 1/2 Tablet(s) PO daily TAKE ONE TABLET BY MOUTH EVERY DAY 02/17/2015 04/13/2015 Inactive Lantus 100 unit/mL subcutaneous solution RxNorm: 872227 15 Unit(s) SQ QHS 02/04/2015 06/03/2015 Inactive Lantus 100 unit/mL subcutaneous solution RxNorm: 210457 10 Unit(s) SQ QHS 01/18/2015 02/03/2015 Inactive Synthroid 25 mcg tablet RxNorm: 065507 TAKE ONE TABLET BY MOUTH EVERY DAY 11/04/2014 04/26/2016 Inactive amlodipine 10 mg tablet RxNorm: 018721 1 Tablet(s) PO daily TAKE ONE TABLET BY MOUTH EVERY DAY 11/01/2014 02/16/2015 Inactive Levemir FlexTouch 100 unit/mL (3 mL) subcutaneous insulin pen RxNorm: 133223 10 Unit(s) SQ QHS 10/27/2014 01/17/2015 Inactive please supply pt with BD Pen needles 1 box qty 100 DX 250.02 supply x 1 month for insulin and needles Neurontin 100 mg capsule RxNorm: 684282 TAKE TWO CAPSULES BY MOUTH EVERY NIGHT AT BEDTIME 10/26/2014 10/20/2015 Inactive Levemir FlexTouch 100 unit/mL (3 mL) subcutaneous insulin pen RxNorm: 708700 5 Unit(s) SQ QHS 09/02/2014 09/01/2014 Inactive please supply pt with BD Pen needles DX 250.02 supply x 1 month for insulin and needles Levemir FlexTouch 100 unit/mL (3 mL) subcutaneous insulin pen RxNorm: 071383 5 Unit(s) SQ QHS 09/02/2014 10/26/2014 Inactive please supply pt with BD Pen needles 1 box qty 100 DX 250.02 supply x 1 month for insulin and needles omeprazole 20 mg tablet,delayed release RxNorm: 854834 TAKE ONE CAPSULE BY MOUTH ONCE A DAY 08/30/2014 02/20/2016 Inactive metformin 500 mg tablet RxNorm: 882557 TAKE TWO TABLETS BY MOUTH TWICE A DAY 07/22/2014 12/29/2014 Inactive FreeStyle Lite Strips RxNorm: TEST TWO TIMES A DAY 06/07/2014 05/22/2016 Inactive glipizide 10 mg tablet RxNorm: 149204 TAKE ONE TABLET BY MOUTH TWICE A DAY 05/31/2014 10/26/2014 Inactive potassium chloride ER 10 mEq tablet,extended release RxNorm: 628000 TAKE TWO TABLETS BY MOUTH EVERY DAY 05/03/2014 Inactive potassium chloride ER 10 mEq tablet,extended release RxNorm: 975028 TAKE TWO TABLETS BY MOUTH EVERY DAY 05/03/2014 Inactive hydrochlorothiazide 25 mg tablet RxNorm: 498446 TAKE ONE TABLET BY MOUTH EVERY DAY 03/11/2014 02/16/2015 Inactive lovastatin 20 mg tablet RxNorm: 394694 TAKE ONE TABLET BY MOUTH EVERY DAY 03/01/2014 01/24/2015 Inactive losartan 25 mg tablet RxNorm: 141910 TAKE ONE TABLET BY MOUTH EVERY DAY 11/27/2013 10/22/2014 Inactive amlodipine 10 mg tablet RxNorm: 631539 TAKE ONE TABLET BY MOUTH EVERY DAY 10/26/2013 09/20/2014 Inactive amlodipine 10 mg tablet RxNorm: 956553 TAKE ONE TABLET BY MOUTH EVERY DAY 10/23/2013 10/25/2013 Inactive acyclovir 800 mg tablet RxNorm: 735180 1 Tablet(s) PO TID 10/2210/31/2013 Inactive [SAVINGS FOR UNINSURED PATIENTS -- BIN:[id number], PCN: ASPROD1, Group: [id number], ID# [id number], Process claim through Sapient, for questions: . THIS IS NOT INSURANCE.] amlodipine 10 mg tablet RxNorm: 825249 Tablet(s) PO TAKE ONE TABLET BY MOUTH EVERY DAY 10/21/2013 10/22/2013 Inactive [SAVINGS FOR UNINSURED PATIENTS -- BIN: 282076, PCN: ASPROD1, Group: [id number], ID# [id number], Process claim through Sapient , for questions: . THIS IS NOT INSURANCE.] metformin 500 mg tablet RxNorm: 970161 TAKE TWO TABLETS BY MOUTH TWICE A DAY 10/19/2013 07/15/2014 Inactive Neurontin 100 mg capsule RxNorm: 435718 2 Capsule(s) PO Q 07/201310/25/2014 Inactive [SAVINGS FOR UNINSURED PATIENTS -- BIN:775031, PCN: ASPROD1, Group: [id number] , ID# [id number], Process claim through MedImpact, for questions: . THIS IS NOT INSURANCE.] Synthroid 25 mcg tablet RxNorm: 947686 TAKE ONE TABLET BY MOUTH EVERY DAY 09/23/2013 11/03/2014 Inactive Januvia 100 mg tablet RxNorm: 493964 1 Tablet(s) PO daily 201310/26/2014 Inactive [SAVINGS FOR UNINSURED PATIENTS -- BIN:058934, PCN: ASPROD1, Group: [id number], ID # [id number], Process claim through MedImpact, for questions: . THIS IS NOT INSURANCE.] chlorthalidone 25 mg tablet RxNorm: 227646 Tablet(s) PO QA 09/12/2014 Inactive [SAVINGS FOR UNINSURED PATIENTS -- BIN:162420, PCN: ASPROD1, Group: [id number] , ID# [id number], Process claim through [employer]Imp[employer], for questions: . THIS IS NOT INSURANCE.] omeprazole 20 mg tablet,delayed release RxNorm: 046579 1 Tablet(s) PO daily 08/17/2013 08/16/2013 Inactive omeprazole 20 mg tablet,delayed release RxNorm: 087583 1 Tablet(s) PO daily 08/17/2013 08/29/2014 Inactive glipizide 10 mg tablet RxNorm: 632775 Tablet(s) PO TAKE ONE TABLET BY MOUTH TWICE A DAY 07/02/2013 05/30/2014 Inactive hydrochlorothiazide 25 mg tablet RxNorm: 069539 Tablet(s) PO TAKE ONE TABLET BY MOUTH EVERY DAY 06/25/2013 09/21/2013 Inactive Synthroid 25 mcg tablet RxNorm: 222243 Tablet(s) PO TAKE ONE TABLET BY MOUTH EVERY DAY 06/16/2013 09/22/2013 Inactive Neurontin 100 mg capsule RxNorm: 237323 2 Capsule(s) PO QHS 09/201310/12/2013 Inactive Neurontin 100 mg capsule RxNorm: 463060 2 Capsule(s) PO QHS 06/201306/14/2013 Inactive potassium chloride ER 10 mEq tablet,extended release RxNorm: 362118 Tablet(s) PO TAKE TWO TABLETS BY MOUTH EVERY DAY 05/21/2013 05/02/2014 Inactive Neurontin 100 mg capsule RxNorm: 730082 2 Capsule(s) PO QHS 1 PILL AT BEDTIME X 1 WEEK THEN INCREASE TO 2 PILLS AT BEDTIME 05/07/2013 06/05/2013 Inactive acyclovir 400 mg tablet RxNorm: 912118 1 Tablet(s) PO QID 04/2305/02/2013 Inactive lovastatin 20 mg tablet RxNorm: 499013 Tablet(s) PO TAKE ONE TABLET BY MOUTH EVERY DAY 02/14/2013 02/28/2014 Inactive metformin 500 mg tablet RxNorm: 300854 Tablet(s) PO TAKE TWO TABLETS BY MOUTH TWICE A DAY 12/16/2012 12/29/2014 Inactive metformin 500 mg tablet RxNorm: 604412 2 Tablet(s) PO BID 12/1512/15/2012 Inactive Synthroid 25 mcg tablet RxNorm: 241853 Tablet(s) PO TAKE ONE TABLET BY MOUTH EVERY DAY 12/08/2012 06/15/2013 Inactive lovastatin 20 mg tablet RxNorm: 297959 Tablet(s) PO TAKE ONE TABLET BY MOUTH EVERY DAY 11/17/2012 02/13/2013 Inactive losartan 25 mg tablet RxNorm: 651967 1 Tablet(s) PO daily 201211/11/2013 Inactive amlodipine 10 mg tablet RxNorm: 993868 Tablet(s) PO TAKE ONE TABLET BY MOUTH EVERY DAY 10/15/2012 10/20/2013 Inactive hydrochlorothiazide 25 mg tablet RxNorm: 901477 Tablet(s) PO TAKE ONE TABLET BY MOUTH EVERY DAY 09/20/2012 06/24/2013 Inactive omeprazole 20 mg tablet,delayed release RxNorm: 143933 1 Tablet(s) PO daily 08/11/2012 08/05/2013 Inactive lovastatin 20 mg tablet RxNorm: 446746 Tablet(s) PO TAKE ONE TABLET BY MOUTH EVERY DAY 07/16/2012 11/16/2012 Inactive glipizide 10 mg tablet RxNorm: 836268 Tablet(s) PO TAKE ONE TABLET BY MOUTH TWICE A DAY 06/30/2012 06/29/2012 Inactive glipizide 10 mg tablet RxNorm: 479646 1 Tablet(s) PO BID TAKE ONE TABLET BY MOUTH TWICE A DAY 06/30/2012 07/01/2013 Inactive potassium chloride ER 10 mEq tablet,extended release RxNorm: 338451 2 Tablet(s) PO daily 05/19/2012 05/13/2013 Inactive Januvia 100 mg tablet RxNorm: 288309 1 Tablet(s) PO daily 201205/09/2013 Inactive amlodipine 10 mg tablet RxNorm: 993552 Tablet(s) PO TAKE ONE TABLET BY MOUTH EVERY DAY 04/07/2012 10/14/2012 Inactive Synthroid 25 mcg tablet RxNorm: 224748 Tablet(s) PO TAKE ONE TABLET BY MOUTH EVERY DAY 03/21/2012 12/07/2012 Inactive Januvia 50 mg tablet RxNorm: 912036 1 Tablet(s) PO 03/17/2012 05/14/2012 Inactive metformin 500 mg tablet RxNorm: 999544 2 Tablet(s) PO BID 10/2410/24/2011 Inactive metformin 500 mg tablet RxNorm: 528341 2 Tablet(s) PO BID 10/2410/18/2012 Inactive hydrochlorothiazide 25 mg tablet RxNorm: 596861 1 Tablet(s) PO daily 09/17/2011 09/19/2012 Inactive amlodipine 10 mg tablet RxNorm: 362175 1 Tablet(s) PO daily 03/24/2012 Inactive omeprazole 20 mg tablet,delayed release RxNorm: 083048 1 Tablet(s) PO daily 08/07/2011 08/10/2012 Inactive amlodipine 5 mg Tab RxNorm: 982004 1 Tablet(s) PO daily 201108/27/2011 Inactive lovastatin 20 mg tablet RxNorm: 960978 1 Tablet(s) PO daily 04/201107/15/2012 Inactive glipizide 10 mg tablet RxNorm: 906741 1 Tablet(s) PO BID 201106/29/2012 Inactive Kombiglyze XR 5 mg-1,000 mg 24 hr Tab RxNorm: 9602641 1 Tablet(s) PO daily 06/20/2011 10/24/2011 Inactive metformin 500 mg Tab RxNorm: 262925 2 Tablet(s) PO BID 201110/15/2011 Inactive ketorolac 60 mg/2 mL IM RxNorm: 561364 Milliliter(s) IM 201105/16/2011 Inactive Synthroid 25 mcg tablet RxNorm: 393885 1 Tablet(s) PO daily 03/20/2012 Inactive amlodipine 5 mg Tab RxNorm: 591068 1 Tablet(s) PO daily 201008/06/2011 Inactive KCL 20 meq RxNorm: 1 PO daily 01/22/2011 Inactive Pneumovax 23 25 mcg/0.5 mL Injection RxNorm: 279571 Milliliter(s) Inj 01/17/2011 01/17/2011 Inactive omeprazole 20 mg Tab, Delayed Release RxNorm: 976076 1 Tablet(s) PO daily 01/04/2011 07/02/2011 Inactive lovastatin 20 mg Tab RxNorm: 594258 1 Tablet(s) PO daily 201006/24/2011 Inactive Influenza Virus Vaccine 0.5 mL RxNorm: IM 12/12/2010 12/12/2010 Inactive glipizide 10 mg Tab RxNorm: 832373 1 Tablet(s) PO BID 201006/24/2011 Inactive metformin 500 mg Tab RxNorm: 933768 2 Tablet(s) PO BID 1000 mg hs x2 weeks then 1000mg bid 11/15/2010 02/12/2011 Inactive metformin 500 mg Tab RxNorm: 012796 2 Tablet(s) PO BID 201002/12/2011 Inactive Vitamin D Oral RxNorm : Oral No Start Date Active lutein oral RxNorm: 33750 oral No Start Date Active Centrum Silver Oral RxNorm: Oral No Start Date Active Vitamin B-12 oral RxNorm: 07899 oral No Start Date Active aspirin 81 mg Tab, Delayed Release RxNorm: 620548 1 Tablet(s) PO daily No Start Date Active glipizide 10 mg Tab RxNorm: 325897 1 Tablet(s) PO BID No Start Date 12/03/2010 Inactive hydrochlorothiazide 25 mg Tab RxNorm: 879222 Tablet(s) PO daily No Start Date 09/16/2011 Inactive FreeStyle Lite Strips RxNorm: 1 Miscellaneous BID dx 250.02 No Start Date 06/06/2014 Inactive levothyroxine 25 mcg Tab RxNorm: 948605 1 Tablet(s) PO daily No Start Date 02/18/2012 Inactive lovastatin 20 mg Tab RxNorm: 732712 Tablet(s) PO daily No Start Date 12/26/2010 Inactive amlodipine 5 mg Tab RxNorm: 729562 1 Tablet(s) PO daily No Start Date 02/12/2011 Inactive omeprazole 20 mg Tab, Delayed Release RxNorm: 980868 Oral No Start Date 01/03/2011 Inactive Synthroid 25 mcg Tab RxNorm: 189684 Oral No Start Date 03/26/2011 Inactive Accu-Chek Active Test Strips RxNorm: 1 Miscellaneous BID No Start Date 03/31/2012 Inactive clotrimazole-betamethasone 1 %-0.05 % Lotion RxNorm: 523107 Application TOP TID No Start Date 07/06/2015 Inactive KCL 20 meq RxNorm: 2 PO daily No Start Date 01/21/2011 Inactive metformin 500 mg Tab RxNorm: 809557 1 Tablet(s) PO QAM 1000 mg hs x2 weeks then 1000mg bid No Start Date 11/14/2010 Inactive Medication Administered Medication Codes Instructions Start Date Status ketorolac 60 mg/2 mL IM RxNorm: 207257 Milliliter 05/16/2011 No longer Active Pneumovax 23 25 mcg/0.5 mL Injection RxNorm: 995805 Milliliter 01/17/2011 No longer Active Influenza Virus [...] DM W/O COMPLICATION TYPE II, UNCONTROLLED SNOMED: 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 ICD-9: 250.02 05/21/2013 ENCNTR LONG-RX USE NEC [...] Code Item Item Code Result Date %Hba1C Jtr118 % HbA1c 87153-0 6.1 % 01/01/2017 %Hba1C Bnn850 Gluc Ave 128 mg/dL 01/01/2017 Metabolic Ord15 [...] Ord15 CALCIUM 9.4 mg/dL 01/01/2017 Comp Metabolic Qzg613 NA 128 mEq/L 2016 Comp Metabolic Rln989 K 3.8 mEq/L 2016 Comp Metabolic Xwg919 CL 90 mEq/L 2016 Comp Metabolic Egz998 CO2 28.0 mEq/L 2016 Comp Metabolic Luq398 ANION GAP 14 2016 Comp Metabolic Jur719 GLUCOSE 140 mg/dL 2016 Comp Metabolic Yei503 Creat 0.9 mg/dL 2016 Comp Metabolic Gpd070 eGFR 62 ml/min/1.73m2 2016 Comp Metabolic Mmn551 BUN 20 mg/dL 2016 Comp Metabolic Kir203 B/C Ratio 21.7 Ratio 2016 Comp Metabolic Huo458 CALCIUM 8.6 mg/dL 2016 Comp Metabolic Jbw026 ALK PHOS 147 U/L 2016 Comp Metabolic Cas982 AST(SGOT) 26 U/L 2016 Comp Metabolic Ifp779 ALT(SGPT) 21 U/L 2016 Comp Metabolic Uio835 BILI T 0.7 mg/dL 2016 Comp Metabolic Gzh821 ALBUMIN 3.5 g/dL 2016 Comp Metabolic Tlc807 TPRO 7.1 g/dL 2016 Comp Metabolic Whh681 GLOB 3.7 g/dL 2016 Comp Metabolic Igg712 A/G Ratio 0.9 Ratio 2016 Comp Metabolic Vsf572 Osmo 262 mOsmo 2016 Free T4 Vnj746 FREE T4 1.12 ng/dL 2016 Tsh Ord6 hTSH II 3.45 uIU/mL 2016 B12 Xxz078 B12 486.00 pg/ml 2016 Cbc With Differential [...] 91.0 fl 2016 Cbc With Differential Ord2 Bradley% 7.8 % 2016 Cbc With Differential Ord2 [...] 0.96 K/ul 2016 Cbc With Differential Ord2 Bradley ABS# 0.5 K/ul 2016 Cbc With Differential Ord2 Eos ABS# 0.1 K/ul 2016 Cbc With Differential Ord2 Baso ABS# 0.0 K/ul 2016 %Hba1C Yqf424 % HbA1c 82845-3 8.0 % 2016 %Hba1C Fix613 Gluc Ave 183 mg/dL 2016 Free T4 Cra262 FREE T4 0.87 ng/dL 03/26/2016 %Hba1C Epe792 % HbA1c 92426-6 8.4 % 03/26/2016 %Hba1C Hjb602 Gluc Ave 194 mg/dL 03/26/2016 Tsh Ord6 hTSH II 1.89 uIU/mL 03/26/2016 Comp Metabolic Ssc781 NA 130 mEq/L 03/26/2016 Comp Metabolic Vdb481 K 3.6 mEq/L 03/26/2016 Comp Metabolic Znb604 CL 93 mEq/L 03/26/2016 Comp Metabolic Uoe125 CO2 32.0 mEq/L 03/26/2016 Comp Metabolic Ijg444 ANION GAP 9 03/26/2016 Comp Metabolic Lgy694 GLUCOSE 280 mg/dL 03/26/2016 Comp Metabolic Blf581 Creat 0.9 mg/dL 03/26/2016 Comp Metabolic Kph249 eGFR 63 ml/min/1.73m2 03/26/2016 Comp Metabolic Tso832 BUN 16 mg/dL 03/26/2016 Comp Metabolic Fyy818 B/C Ratio 17.6 Ratio 03/26/2016 Comp Metabolic Ego742 CALCIUM 9.5 mg/dL 03/26/2016 Comp Metabolic Bgr606 ALK PHOS 66 U/L 03/26/2016 Comp Metabolic Ytl706 AST(SGOT) 16 U/L 03/26/2016 Comp Metabolic Bdb028 ALT(SGPT) 9 U/L 03/26/2016 Comp Metabolic Ykv621 BILI T 0.4 mg/dL 03/26/2016 Comp Metabolic Cvo691 ALBUMIN 3.8 g/dL 03/26/2016 Comp Metabolic Yss433 TPRO 7.0 g/dL 03/26/2016 Comp Metabolic Bwa958 GLOB 3.2 g/dL 03/26/2016 Comp Metabolic Knw384 A/G Ratio 1.2 Ratio 03/26/2016 Comp Metabolic Pez889 Osmo 272 mOsmo 03/26/2016 Metabolic Ord15 NA [...] Metabolic Ord15 CALCIUM 9.2 mg/dL 11/03/2015 %Hba1C Gkh200 % HbA1c 14058-2 9.7 % 11/03/2015 %Hba1C Aah203 Gluc Ave 232 mg/dL 11/03/2015 Tsh Ord6 hTSH II 1.80 uIU/mL 06/13/2015 Comp Metabolic Ukl068 NA 129 mEq/L 06/13/2015 Comp Metabolic Atv052 K 3.8 mEq/L 06/13/2015 Comp Metabolic Ycx038 CL 93 mEq/L 06/13/2015 Comp Metabolic Hst058 CO2 30.0 mEq/L 06/13/2015 Comp Metabolic Bnw273 ANION GAP 10 06/13/2015 Comp Metabolic Tca728 GLUCOSE 179 mg/dL 06/13/2015 Comp Metabolic Zab745 Creat 0.8 mg/dL 06/13/2015 Comp Metabolic Lkv120 eGFR 74 ml/min/1.73m2 06/13/2015 Comp Metabolic Rtj124 BUN 16 mg/dL 06/13/2015 Comp Metabolic Tsx080 B/C Ratio 20.3 Ratio 06/13/2015 Comp Metabolic Gqw984 CALCIUM 9.5 mg/dL 06/13/2015 Comp Metabolic Rfc561 ALK PHOS 72 U/L 06/13/2015 Comp Metabolic Mpk357 AST(SGOT) 16 U/L 06/13/2015 Comp Metabolic Fqw746 ALT(SGPT) 9 U/L 06/13/2015 Comp Metabolic Kho480 BILI T 0.4 mg/dL 06/13/2015 Comp Metabolic Dva116 ALBUMIN 3.8 g/dL 06/13/2015 Comp Metabolic Azu928 TPRO 7.3 g/dL 06/13/2015 Comp Metabolic Nao463 GLOB 3.5 g/dL 06/13/2015 Comp Metabolic Qri208 A/G Ratio 1.1 Ratio 06/13/2015 Comp Metabolic Rgw092 Osmo 265 mOsmo 06/13/2015 B12 Zjd824 B12 196.00 pg/ml 06/13/2015 Free T4 Kgh260 FREE T4 0.96 ng/dL 06/13/2015 Cbc With [...] 29.4 pg 06/13/2015 Cbc With Differential Ord2 Bradley% 12.4 % 06/13/2015 Cbc With Differential Ord2 [...] 1.36 K/ul 06/13/2015 Cbc With Differential Ord2 Bradley ABS# 0.5 K/ul 06/13/2015 Cbc With Differential Ord2 Eos ABS# 0.1 K/ul 06/13/2015 Cbc With Differential Ord2 Baso ABS# 0.0 K/ul 06/13/2015 Cbc With Differential Ord2 New Analyzer Notice Please note new ref ranges starting 03-23-2015 due to implemntation of new five part differential hematolgy analyzer. 06/13/2015 %Hba1C Ewq188 % HbA1c 50201-7 8.4 % 06/13/2015 %Hba1C Mph958 Gluc Ave 194 mg/dL 06/13/2015 B12 Orm152 B12 308.00 pg/ml 03/15/2015 Cbc With Differential [...] Ord2 RDW 13.3 % 03/14/2015 Comp Metabolic Ijl778 NA 127 mEq/L 03/14/2015 Comp Metabolic Cmr945 K 3.5 mEq/L 03/14/2015 Comp Metabolic Ixu929 CL 88 mEq/L 03/14/2015 Comp Metabolic Ltx053 CO2 30.0 mEq/L 03/14/2015 Comp Metabolic Bde863 ANION GAP 13 03/14/2015 Comp Metabolic Lwb520 GLUCOSE 240 mg/dL 03/14/2015 Comp Metabolic Kyg669 Creat 0.9 mg/dL 03/14/2015 Comp Metabolic Hlx885 eGFR 66 ml/min/1.73m2 03/14/2015 Comp Metabolic Csh853 BUN 17 mg/dL 03/14/2015 Comp Metabolic Xen707 B/C Ratio 19.5 Ratio 03/14/2015 Comp Metabolic Xol007 CALCIUM 9.4 mg/dL 03/14/2015 Comp Metabolic Xum294 ALK PHOS 64 U/L 03/14/2015 Comp Metabolic Vbl020 AST(SGOT) 16 U/L 03/14/2015 Comp Metabolic Tvt622 ALT(SGPT) 9 U/L 03/14/2015 Comp Metabolic Viz768 BILI T 0.4 mg/dL 03/14/2015 Comp Metabolic Bkb750 ALBUMIN 3.8 g/dL 03/14/2015 Comp Metabolic Cgo969 TPRO 7.0 g/dL 03/14/2015 Comp Metabolic Pnp184 GLOB 3.2 g/dL 03/14/2015 Comp Metabolic Abq999 A/G Ratio 1.2 Ratio 03/14/2015 Comp Metabolic Pwt078 Osmo 265 mOsmo 03/14/2015 Metabolic Ord15 NA [...] Metabolic Ord15 CALCIUM 9.3 mg/dL 01/13/2015 %Hba1C Nsv734 % HbA1c 66583-8 8.0 % 12/31/2014 %Hba1C Sjs428 Gluc Ave 183 mg/dL 12/31/2014 Tsh Ord6 [...] Ord2 RDW 12.8 % 12/30/2014 Comp Metabolic Ifc881 NA 124 mEq/L 12/30/2014 Comp Metabolic Lcg259 K 3.4 mEq/L 12/30/2014 Comp Metabolic Mkv123 CL 84 mEq/L 12/30/2014 Comp Metabolic Vcm175 CO2 29.0 mEq/L 12/30/2014 Comp Metabolic Oyi246 ANION GAP 14 12/30/2014 Comp Metabolic Fie492 GLUCOSE 138 mg/dL 12/30/2014 Comp Metabolic Yhi298 Creat 0.8 mg/dL 12/30/2014 Comp Metabolic Oob900 eGFR 69 ml/min/1.73m2 12/30/2014 Comp Metabolic Xuf374 BUN 12 mg/dL 12/30/2014 Comp Metabolic Qxc614 B/C Ratio 14.3 Ratio 12/30/2014 Comp Metabolic Ihp342 CALCIUM 8.3 mg/dL 12/30/2014 Comp Metabolic Euq528 ALK PHOS 59 U/L 12/30/2014 Comp Metabolic Yvi466 AST(SGOT) 16 U/L 12/30/2014 Comp Metabolic Vij647 ALT(SGPT) 7 U/L 12/30/2014 Comp Metabolic Fua704 BILI T 0.7 mg/dL 12/30/2014 Comp Metabolic Jjn757 ALBUMIN 4.3 g/dL 12/30/2014 Comp Metabolic Bfo971 TPRO 7.4 g/dL 12/30/2014 Comp Metabolic Lnu607 GLOB 3.1 g/dL 12/30/2014 Comp Metabolic Xxl731 A/G Ratio 1.4 Ratio 12/30/2014 Comp Metabolic Coh586 Osmo 252 mOsmo 12/30/2014 CHEM 14 AST [...] CALC GFR NON-AA >60 ML/MIN 02/25/2014 MICRALUR MICRL MG/L 30.8 MG/L 02/25/2014 MICRALUR XM.ALB/CRE 40.0 MG/GCR 02/25/2014 MICRALUR CREAT MG/D 77 MG/DL 02/25/2014 MICRALUR CRE/100 0.77 G/L 02/25/2014 A1C HPLC [id number] A1C HPLC 65700-3 6.8 % 02/25/2014 FREE T4 [id number] FREE T4 1.49 NG/DL 02/25/2014 LIPID GRP HDL TEST 52 MG/DL 02/25/2014 LIPID GRP TRIG 86 MG/DL 02/25/2014 LIPID GRP TEST LDL 97 MG/DL 02/25/2014 LIPID GRP CHOL 166 MG/DL 02/25/2014 LIPID GRP RCHOL/HDL 3.19 RATIO 02/25/2014 LIPID GRP NON-HDL CH 114 MG/DL 02/25/2014 TSH [id number] TSH 3.348 uIU/ML 02/25/2014 CBC WBC 5.8 [...] 02/25/2014 CBC RDW-SD 43.3 fL 02/25/2014 ESR [id number] ESR 58 MM/HR 02/25/2014 CHEM 14 3229880 AST 16 U/L 05/21/2013 CHEM 14 4947256 ALT 12 IU/L 05/21/2013 CHEM 14 6349846 BUN 14 MG/DL 05/21/2013 CHEM 14 2180757 ALBUMIN 4.5 GM/DL 05/21/2013 CHEM 14 6070507 CHLORIDE 93 MMOL/L 05/21/2013 CHEM 14 6545277 BILI TOT 0.7 MG/DL 05/21/2013 CHEM 14 3741669 ALK PHOS 61 U/L 05/21/2013 CHEM 14 0245597 SODIUM 129 MMOL/L 05/21/2013 CHEM 14 8773424 CREATININE 0.87 MG/DL 05/21/2013 CHEM 14 5749317 CALCIUM 9.8 MG/DL 05/21/2013 CHEM 14 1237547 POTASSIUM 3.6 MMOL/L 05/21/2013 CHEM 14 2835219 PROT TOT 7.6 GM/DL 05/21/2013 CHEM 14 8316518 GLUCOSE 138 MG/DL 05/21/2013 CHEM 14 8535066 BICARB 27 MMOL/L 05/21/2013 CHEM 14 7969849 ANION GAP 9 MEQ/L 05/21/2013 A1C HPLC 9370001 A1C HPLC 91642-9 6.4 % 05/21/2013 GFR CALC 5533606 GFR AA >60 ML/MIN 05/21/2013 GFR CALC 5508534 GFR NON-AA >60 ML/MIN 05/21/2013 FREE T4 9039211 FREE T4 1.23 NG/DL 11/18/2012 A1C HPLC 5534350 A1C HPLC 82050-1 7.3 % 11/18/2012 TSH 4341370 TSH 1.552 uIU/ML 11/18/2012 GFR CALC 3642421 GFR AA >60 ML/MIN 11/17/2012 GFR CALC 4651901 GFR NON-AA >60 ML/MIN 11/17/2012 CHEM 14 1545748 AST 18 U/L 11/17/2012 CHEM 14 2294373 ALT 13 IU/L 11/17/2012 CHEM 14 0485917 BUN 15 MG/DL 11/17/2012 CHEM 14 6689414 ALBUMIN 4.7 GM/DL 11/17/2012 CHEM 14 3713517 CHLORIDE 93 MMOL/L 11/17/2012 CHEM 14 4763706 BILI TOT 0.5 MG/DL 11/17/2012 CHEM 14 5139052 ALK PHOS 56 U/L 11/17/2012 CHEM 14 5414516 SODIUM 130 MMOL/L 11/17/2012 CHEM 14 3949488 CREATININE 0.73 MG/DL 11/17/2012 CHEM 14 6001174 CALCIUM 9.8 MG/DL 11/17/2012 CHEM 14 3471735 POTASSIUM 3.4 MMOL/L 11/17/2012 CHEM 14 0894211 PROT TOT 7.4 GM/DL 11/17/2012 CHEM 14 4114757 GLUCOSE 281 MG/DL 11/17/2012 CHEM 14 3256400 BICARB 28 MMOL/L 11/17/2012 CHEM 14 9044216 ANION GAP 9 MEQ/L 11/17/2012 A1C HPLC [id number] A1C HPLC 88347-0 7.1 % 07/10/2012 TSH 2363876 TSH 2.676 uIU/ML 07/09/2012 GFR CALC 8963333 GFR AA >60 ML/MIN 07/09/2012 GFR CALC 5719295 GFR NON-AA >60 ML/MIN 07/09/2012 FREE T4 2958237 FREE T4 1.30 NG/DL 07/09/2012 CHEM 14 2543868 AST 16 U/L 07/09/2012 CHEM 14 2838002 ALT 14 IU/L 07/09/2012 CHEM 14 3754455 BUN 13 MG/DL 07/09/2012 CHEM 14 4494524 ALBUMIN 4.2 GM/DL 07/09/2012 CHEM 14 5646332 CHLORIDE 91 MMOL/L 07/09/2012 CHEM 14 6106424 BILI TOT 0.6 MG/DL 07/09/2012 CHEM 14 3810506 ALK PHOS 58 U/L 07/09/2012 CHEM 14 3045404 SODIUM 130 MMOL/L 07/09/2012 CHEM 14 1440726 CREATININE 0.85 MG/DL 07/09/2012 CHEM 14 5765323 CALCIUM 9.5 MG/DL 07/09/2012 CHEM 14 1508986 POTASSIUM 3.4 MMOL/L 07/09/2012 CHEM 14 [id number] PROT TOT 6.4 GM/DL 07/09/2012 CHEM 14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 HYPERTENSION[ICD9: 401.9] Diagnosis: DIABETES TYPE II[ICD9: 250.00] Gina Singletary MD [facility] CPT- 4: 29718 10/22/2013 ([id number]) 77484 EST. PATIENT, LEVEL IV Diagnosis: DIABETES TYPE II[ICD9: 250.00] Diagnosis: ESSENTIAL HYPERTENSION[ICD9: 401.9] Diagnosis: EDEMA[ICD9: 782.3] Gina Singletary MD [facility] CPT-4: 71394 09/22/2013 ([id number]) 66784 EST. PATIENT, LEVEL IV Diagnosis: DIABETES TYPE II[SNOMED: 734291089] Diagnosis: ESSENTIAL HYPERTENSION[SNOMED: 95560096] Gina Singletary MD [facility] CPT-4: 10631 06/24/2013 ([id number]) Miscellaneous no charge Diagnosis: OPEN WOUND OF BACK[ICD9: 876.0] Radha Singletary MD, [facility] CPT-4: 86047 05/26/2013 ([id number]) Miscellaneous no charge Diagnosis: Open wound of back[ICD9: 876.0] Radha Singletary MD, [facility] CPT-4: 25411 05/22/2013 ([id number]) 23329 EST. PATIENT, LEVEL III Diagnosis: DM W/O COMPLICATION TYPE II, UNCONTROLLED[SNOMED: 63467657] Diagnosis: ENCNTR LONG-RX USE NEC[ICD9: V58.69] Gina Singletary MD, [facility] CPT-4: 79551 05/21/2013 ([id number]) 43183 EST. PATIENT, LEVEL III Diagnosis: Postherpetic neuralgia[ICD9: 053.19] Radha Singletary MD, [facility] CPT-4: 52604 05/07/2013 ([id number]) 90043 EST. PATIENT, LEVEL III Diagnosis: Shingles[ICD9: 053.9] Radha Singletary MD, [facility] CPT-4: 54088 04/23/2013 ([id number]) 88476 EST. PATIENT, LEVEL IV Diagnosis: ESSENTIAL HYPERTENSION[SNOMED: 22207818] Diagnosis: Rib pain on left side[ICD9: 786.50] Diagnosis: DIABETES TYPE II[SNOMED: 569538454] Gina Singletary MD, [facility] CPT-4: 03049 03/25/2013 ([id number]) 76654 EST. 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 PATIENT, LEVEL IV Diagnosis: ESSENTIAL HYPERTENSION[SNOMED: 94935482] Diagnosis: DIABETES TYPE II[SNOMED: 106330056] Gina Singletary MD, [facility] CPT-4: 56546 12/15/2012 ([id number]) 79840 EST. PATIENT, LEVEL IV Diagnosis: Chest pain[ICD9: 786.50] Diagnosis: DM W/O COMPLICATION TYPE II, UNCONTROLLED[SNOMED: 71614859] Diagnosis: Essential hypertension[SNOMED: 15841029] Diagnosis: HYPOTHYROIDISM[ICD9: 244.9] Gina Singletary MD [facility] CPT- 4: 61387 11/17/2012 ([id number]) 67605 EST. PATIENT, LEVEL IV Diagnosis: DIABETES TYPE II[SNOMED: 636721510] Diagnosis: ESSENTIAL HYPERTENSION[SNOMED: 24958512] Gina Singletary MD [facility] CPT-4: 07605 07/14/2012 ([id number]) 40438 EST. 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 PATIENT, LEVEL IV Diagnosis: DM W/O COMPLICATION TYPE II, UNCONTROLLED[SNOMED: 39478830] Diagnosis: ESSENTIAL HYPERTENSION[SNOMED: 98965730] iGna Singletary MD [facility] CPT-4: 37459 03/17/2012 ([id number]) 18279 EST. PATIENT, LEVEL IV Diagnosis: DM W/O COMPLICATION TYPE II, UNCONTROLLED[SNOMED: 98725554] Diagnosis: ESSENTIAL HYPERTENSION[SNOMED: 93751619] Diagnosis: Osteoarthritis[ICD9: 715.90] Gina Singletary MD [facility] CPT- 4: 29142 02/18/2012 ([id number]) 45552 EST. PATIENT, LEVEL IV Diagnosis: ESSENTIAL HYPERTENSION[SNOMED: 50919236] Diagnosis: DM W/O COMPLICATION TYPE II, UNCONTROLLED[SNOMED: 36785112] Diagnosis: OSTEOARTH NOS-UNSPEC[ICD9: 715.90] Gina Singletary MD [facility] CPT-4: 34540 02/04/2012 ([id number]) 95435 EST. PATIENT, LEVEL IV Diagnosis: Diabetes mellitus type 2, uncontrolled[SNOMED: 65714576] Diagnosis: ESSENTIAL HYPERTENSION[SNOMED: 39992560] Gina Singletary MD [facility] CPT-4: 07988 10/15/2011 ([id number]) 46008 EST. PATIENT, LEVEL IV Diagnosis: ESSENTIAL HYPERTENSION[SNOMED: 64789836] Diagnosis: DIABETES TYPE II[SNOMED: 714950062] Diagnosis: Dizziness[ICD9: 780.4] Gina Singletary MD [facility] CPT-4: 50829 09/13/2011 ([id number]) 32136 EST. PATIENT, LEVEL IV Diagnosis: ESSENTIAL HYPERTENSION[SNOMED: 45582328] Diagnosis: DIABETES TYPE II[SNOMED: 769540436] Diagnosis: Skin lesion of face[ICD9: 709.9] Diagnosis: EDEMA[ICD9: 782.3] Diagnosis: Nocturia[ICD9: 788.43] Gina Singletary MD [facility] CPT-4: 88265 08/28/2011 ([id number]) 40987 EST. PATIENT, LEVEL IV Diagnosis: ESSENTIAL HYPERTENSION[SNOMED: 92211511] Diagnosis: DIABETES TYPE II[SNOMED: 896065091] Diagnosis: Lumbago[ICD9: 724.2] Gina Singletary MD [facility] CPT-4: 46345 2011 ([id number]) 00611 EST. PATIENT, LEVEL IV Diagnosis: DIABETES TYPE II[SNOMED: 339632904] Diagnosis: ESSENTIAL HYPERTENSION[SNOMED: 56021567] Diagnosis: Osteoarthrosis[ICD9: 715.90] Gina Singletary MD [facility] CPT- 4: 42630 05/16/2011 97863 EST. PATIENT, LEVEL IV Diagnosis: ESSENTIAL HYPERTENSION[SNOMED: 57412792] Diagnosis: VACCIN STREP PNEUMONIAE[ICD9: V03.82] Diagnosis: DIABETES TYPE II[SNOMED: 312345404] Gina Singletary MD, [facility] CPT-4: 34431 01/17/2011 41059 EST. PATIENT, LEVEL IV Diagnosis: ESSENTIAL HYPERTENSION[SNOMED: 55668363] Diagnosis: VACCIN FOR INFLUENZA[ICD9: V04.81] Diagnosis: Pelvic fracture[ICD9: 808.8] Diagnosis: IMPACTED CERUMEN[ICD9: 380.4] Gina Singletary MD, [facility] CPT- 4: 99022 12/12/2010 22590 EST. PATIENT, LEVEL IV Diagnosis: DIABETES TYPE II[SNOMED: 781275873] Diagnosis: ESSENTIAL HYPERTENSION[SNOMED: 28803698] Diagnosis: HYPERLIPIDEMIA[ICD9: 272.4] Diagnosis: HYPOTHYROIDISM[ICD9: 244.9] [facility] CPT- 4: 70268 11/15/2010 Plan of Care Planned Activity Notes Codes Status Date Visit Plan: ER follow up - Dizziness - symptoms have resolved and pt is feeling well - no changes at this time, pt is to notify clinic if symptoms return, or with any other changes, questions, or concerns. 03/07/2017 Appointment: Vivi Mariano WPtel: [facility] [place] (30 min) Complex 03/07/2017 Patient Education: Patient Medication Summary Completed 03/07/2017 Appointment: Radha Delarosa WPtel: [phone] [phone] [place] (30 min) Complex 02/08/2017 Visit Plan: Hypertension [...] less controlled. 12/31/2016 Appointment: Gina Singletary WPtel: [facility] [place] (15 min) Moderate 12/31/2016 Patient Education: Patient Medication Summary Completed 12/31/2016 Appointment: Gina Singletary WPtel: [facility] (15 min) Moderate 12/26/2016 Visit Plan: ER [...] acute concerns. 12/06/2016 Appointment: Vivi Mariano WPtel: [phone] [facility] (30 min) Complex 12/06/2016 Patient Education: Patient Medication Summary Completed 12/06/2016 Appointment: Radha Delarosa WPtel: [phone] [phone] [place] (30 min) Complex 12/04/2016 Appointment: Gina Singletary WPtel: [facility] (15 min) Moderate 10/30/2016 Visit Plan: Hypertension [...] a day 09/10/2016 Appointment: Gina Singletary WPtel: [phone] [facility] (15 min) Moderate 09/10/2016 Patient Education: Patient [...] nail nippers. 08/15/2016 Appointment: Gina Singletary WPtel: [facility] (15 min) Moderate 08/15/2016 Patient Education: Patient Medication Summary Completed 08/15/2016 Appointment: Gina Singletary WPtel: [phone] [facility] (15 min) Moderate 07/23/2016 Appointment: Vivi Mariano WPtel: [facility] (30 min) Complex 07/18/2016 Visit Plan: Diabetes [...] based on previous levels of control. Gait sgegcktloqe-kjltqtse-lutpiqdma patient use a walker at all times-the cane does not provide enough stability-schedule PT to evaluate and treat 2016 App[facility]: [phone] (15 min) Moderate 2016 Patient Education: Patient [...] Summary Completed 03/26/2016 App[facility]ment: [phone] (30 min) Complex 03/09/2016 Appointment: Gina Singletary WPtel: [phone] [facility] (15 min) Moderate 03/01/2016 Appointment: Lab Draw 01/24/2016 Patient Education: Patient Medication Summary Completed 01/24/2016 Visit Plan: Cellulitis - Pt is to take the antibiotic and prednisone prescribed by the ER. continue with oral antibiotics as previously directed, return to clinic as previously directed, call for acute change in symptoms, worsening redness, warmth, discharge. 01/23/2016 Appointment: Vivi Mariano WPtel: [phone] [phone] (30 min) Complex 01/23/2016 Patient Education: Patient [...] such facility. 01/05/2016 Appointment: Gina Singletary WPtel: [phone] [facility] (15 min) Moderate 01/05/2016 Patient Education: Patient [...] incident. 12/09/2015 Appointment: Radha Delarosa WPtel: [phone] [phone] (30 min) Complex 12/09/2015 Patient Education: Patient [...] of dementia 12/08/2015 [facility]ment[phone] [place] (15 min) Moderate 12/08/2015 Patient Education: [...] Education: Patient Medication Summary Completed 07/07/2015 Appointment: Gina Singletary WPtel[facility] (15 min) Moderate 06/30/2015 Visit Plan: URI [...] allergy spray. 06/24/2015 Appointment: Rad[facility] Del[facility] [phone] [phone] (15 min) Moderate 06/24/2015 Patient Education: Patient [...] facilities. 06/16/2015 Appointment: [phone] (15 min) Moderate 06/16/2015 Patient Education: Patient [...] for break through pain symptoms. 05/16/2015 Appointment: Gemini[facility]ina [phone] (15 min) Moderate 05/16/2015 Patient Education: Patient [...] loose stools. 12/30/2014 Appointment: Gina Singletary WPtel: [address] [place], [place] [address] (15 min) Moderate 12/30/2014 Patient Education: Patient [...] up testing. 10/27/2014 Appointment: [phone] (15 min) Moderate 10/27/2014 Patient Education: Patient [...] to medications. 08/25/2014 Appointment: Gina Singletary WPtel: [phone] [facility] Follow up 08/25/2014 Patient Education: Patient Medication [...] associated. 04/28/2014 Appointment: [phone] Follow up 04/28/2014 Patient Education: Patient Medication [...] of control. 02/24/2014 Appointment: Gina Singletary WPtel: [address] [place] [address] Follow up 02/24/2014 Patient Education: Patient Medication Summary Completed 02/24/2014 Care Plan: COMPLETE CBC AUTOMATED LOINC : 39901-5 Ordered 02/24/2014 Visit Plan: Shingles - Herpes [...] mail. 10/22/2013 Appointment: [phone] Follow up 10/22/2013 Patient Education: Patient Medication [...] Pt given 30 day free coupon for andrewuvia - we will attempt to get her [...] cause edema. 09/22/2013 Appointment: [phone] [facility] Follow up 09/22/2013 Patient Education: Patient Medication [...] at home. 06/24/2013 Appointment: Gina Singletary WPtel: [facility] Follow up 06/24/2013 Patient Education: Patient Medication Summary Completed 06/24/2013 Patient Education: Hypertension Completed 06/24/2013 Visit Plan: Open wound of back-significantly improved- continue dressing changes as directed-call if wound does not completely heal, any worse, or with any concerns. Patient verbalized understanding of plan. 05/26/2013 Appointment: Radha Delarosa WPtel: [phone] Wound Check 05/26/2013 Patient Education: Patient Medication Summary Completed 05/26/2013 Visit Plan: dressing change today in the office-return next week for evaluation of wound 05/22/2013 Appointment: Radha Delarosa WPtel: [phone] Wound Check 05/22/2013 Patient Education: Patient Medication [...] less controlled. 05/21/2013 Appointment: Gina Singletary WPtel: [phone] [facility] Follow up 05/21/2013 Patient Education: Patient Medication Summary Completed 05/21/2013 Visit Plan: Post-herpetic Neuralgia- recommended pt to use pain medication as needed, and for pt to use Gabaprntin as needed for nerve pain , start at bedtime and plan to increase as indicatedThe patient is to call if the shingles pain is not controlled. 05/07/2013 Appointment: Rdaha Delarosa [facility]Ptel: [phone] [phone] Follow up 05/07/2013 Patient Education: Patient Medication [...] considered contagious. 04/23/2013 Appointment: Gina Singletary WPtel: [phone] [facility] Other 04/23/2013 Patient Education: Patient Medication Summary [...] for healing. 03/25/2013 Appointment: Gina Singletary WPtel: [phone] [facility] Follow up 03/25/2013 Patient Education: Patient Medication Summary Completed 03/25/2013 Patient Education: Hypertension Completed 03/25/2013 Appointment: [phone] Follow up 03/16/2013 Visit Plan: Diabetes Mellitus [...] to become less controlled. 12/18/2012 Appointment: Radha Delarosa WPtel: [phone] [phone] Diabetic education 12/18/2012 Patient Education: Patient Medication [...] home. 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 [...] daily. 11/17/2012 Appointment: Gina Singletary WPtel: [phone] [facility] [place] Follow up 11/17/2012 Patient Education: Patient Medication [...] home. 07/14/2012 Appointment: Gina Singletary WPtel: [phone] [facility] [place] Follow up 07/14/2012 Patient Education: Patient Medication Summary Completed 07/14/2012 Patient Education: Hypertension Completed 07/14/2012 Appointment: Gina Singletary WPtel: [phone] [facility] [place] Lab Draw 07/09/2012 Patient Education: Patient [...] of injection. 05/15/2012 Appointment: [phone] Follow up 05/15/2012 Patient Education: Patient Medication [...] control. 03/17/2012 Appointment: [facility]el[phone] Follow up 03/17/2012 Patient Education: Patient Medication [...] pain symptoms. 02/18/2012 Appointment: Gina Singletary WPtel: [facility] Follow up 02/18/2012 Patient Education: Patient Medication [...] medicatons 02/04/2012 Appointment: Gina Singletary WPtel: [phone] [facility] [place] Follow up 02/04/2012 Patient Education: Patient Medication [...] at home. 10/15/2011 Appointment: [facility]ary [facility]el: [phone] [place] Other 10/15/2011 Patient Education: Patient Medication Summary Completed 10/15/2011 Patient Education: High Blood Pressure: Essential Hypertension Completed 2011 Appointment: [facility] Singletary [facility]Ptel: [phone] [place] Lab Draw 10/11/2011 Visit Plan: Hypertension - [...] verbalized udnerstanding. 09/13/2011 Appointment: Radha Delarosa WPtel: [phone] [phone] Other 09/13/2011 Patient Education: Patient Medication Summary [...] the lesion. 08/28/2011 Appointment: Gina Singletary WPtel: [phone] [facility] [place] Other 08/28/2011 Patient Education: Patient Medication Summary Completed [...] ONLY, NEEDS APPT IN A MONTH AND 1/2. Lumbago - discussed need for exercise and stretching. 2011 Appointment: [facility] Singletary [facility]el[phone] [facility] 2011 Patient Education: Patient Medication Summary Completed 2011 Patient Education: High Blood Pressure: Essential Hypertension Completed 2011 Appointment: G[facility] Singletary [facility]Ptel: [phone] Lab Draw 06/13/2011 Patient Education: Patient Medication [...] mg three times daily. 05/16/2011 Appointment: Gina Singletary WPtel: [address] [place], [place] [phone] Other 05/16/2011 Patient Education: Patient Medication Summary [...] less controlled. 01/17/2011 Appointment: Gina Singletary WPtel: [address] [place], [place] [phone] Other 01/17/2011 Patient Education: Patient Medication Summary Completed 01/17/2011 Patient Education: High Blood Pressure: Essential Hypertension Completed 2010 Care Plan: HgbA1c LOINC : 23323-3 Ordered 01/17/2011 Care Plan: CHEM 14 (COMPREHEN METABOLIC PANEL) LOINC : 50561-4 Ordered 01/17/2011 Visit Plan: Hypertension - well [...] next month 12/12/2010 Appointment: Gina Singletary WPtel: [address] [place], [place] [id number] [place] Other 12/12/2010 Patient Education: Patient Medication Summary [...] of control. 11/15/2010 Appointment: [facility]el[phone] Other 11/15/2010 Patient Education: Patient Medication Summary Completed [...] chest pain - will refer pt to diesel stationary engineer - pt to have appt with Dr. [...] Pt to start on cozaar 25mg daily. . Diabetes Mellitus - Uncontrolled - per [...] months based on previous levels of control. CONTINUE GATORADE 8OZ THREE TIMES DAILY I'll [...] Low sodium-increase gatorade to three times daily INCREASE LANTUS TO 15 UNITS DAILY BRING [...] change in blood pressure readings at home. increase the lantus to 14 units twice [...] cut with sharp excision with nail nippers. . Hypertension - well controlled - continue [...] pneumonia shot to be given next month . Hypertension - well controlled - continue [...] pt to look into assisted living facilities. Over the counter flonase nasal spray, . [...] spray in the nasal steroid allergy spray. START NEURONTIN 100MG DAILY AT BEDTIME X 4-5 DAYS THEN INCREASE TO 2 PILLS AT BEDTIME. Post-herpetic Neuralgia- recommended pt to use pain medication as needed, and for pt to use Gabaprntin as needed for nerve pain , start at bedtime and plan to increase as indicatedThe patient is to call if the shingles pain is not controlled. . Hypertension - well controlled - [...] not interested in going to such facility. DR. SINGLETARY HAS ADVISED YOU NOT TO [...] to her persistent worsening of dementia . Cellulitis - Pt is to take the antibiotic and prednisone prescribed by the ER. continue with oral antibiotics as previously directed, return to clinic as previously directed, call for acute change in symptoms, worsening redness, warmth, discharge. stop the metformin - it is probably [...] decrease loose stools. . Diabetes Mellitus - controlled - per [...] to assure normal liver response to medications. If you feel dizzy, check your blood [...] Patient verbalized udnerstanding. . Diabetes Mellitus - Uncontrolled - per [...] - discussed need for exercise and stretching. . Diabetes Mellitus - controlled - per [...] readings are starting to become less controlled. STAY OFF HYDROCHLOROTHIAZIDE . Hypertension - well [...] in 1 month . Diabetes Mellitus - Uncontrolled - per [...] loss - pt to start on remeron. . Open wound of back-significantly improved-continue dressing changes as directed-call if wound does not completely heal, any worse, or with any concerns. Patient verbalized understanding of plan. take 17 units of Lantus at night. [...] look at some assisted living facilities. . Hypertension - well controlled - continue [...] given to patient today for starter doses. . Shingles - Herpes Zoster - acute [...] the pt is to be considered contagious. SHE HAS REFILLS ON HER MEDICATIONS EXCEPT [...] based on previous levels of control. Gait gpylrvejwpb-yvtouqim-sixmdoida patient use a walker at all times-the cane does not provide enough stability-schedule PT to evaluate and treat . Diabetes Mellitus - controlled - per [...] home. Normal memory loss - age associated. take tylenol arthritis pill three times daily [...] readings are starting to become less controlled. PT IS TO STOP THE HYDROCHLOROTHIAZIDE AND [...] Pt given 30 day free coupon for catarino - we will attempt to get her linked in to patient assistance program so that she can afford her medication monthly - as per pt report, the Catarino was costing her over $100 per month. [...] amlodipine and this will also cause edema. . Diabetes Mellitus - I have recommended [...] week. OA - continue current medicatons . ER follow up - Dizziness - symptoms have resolved and pt is feeling well - no changes at this time, pt is to notify clinic if symptoms return, or with any other changes, questions, or concerns. . Shingles - Herpes Zoster - acute [...]
--- OUTSIDE RECORDS SUMMARY | 2017-05-16 12:42 | XMS REPORT | CCD ---
Author Author Gina Singletary Organization [facility] Address [address] [place] [address] Phone Care Team Providers Care Rigger Third Name Role Phone Gina Singletary PP Unavailable CCM Unavailable Summary Purpose Interface Exchange Insurance Providers Payer name Policy type / Coverage type Covered republican ID Effective Begin Date Effective End Date WPS Medicare Part B Medicare Part B [id number] Unknown [facility] Medicare Part B [id number] 2013 Unknown Family history Brother Diagnosis Age [...] Unknown Retired 11/15/[address]: [id number] Never smoker 11/15/[address]: [id number] Never drinks alcohol 11/15/2010 Has the patient [...] Instructions omeprazole 20 mg tablet,delayed release RxNorm: 884965 Tablet(s) TAKE ONE CAPSULE BY MOUTH ONCE A DAY 04/08/2017 09/29/2018 Active losartan 50 mg tablet RxNorm: 805835 Tablet(s) PO TAKE ONE TABLET BY MOUTH EVERY DAY 04/08/2017 03/03/2018 Active Remeron 15 mg tablet RxNorm: 384463 Tablet(s) TAKE ONE TABLET BY MOUTH EVERY EVENING 04/08/2017 07/06/2017 Active metoprolol succinate ER 25 mg tablet,extended release 24 hr RxNorm: 726271 1 Tablet(s) PO daily 04/08/2017 09/04/2017 Active amlodipine 5 mg tablet RxNorm: 410092 1 Tablet(s) PO daily 05/02/2018 Active metoprolol succinate ER 25 mg tablet,extended release 24 hr RxNorm: 361023 1 Tablet(s) PO daily 04/08/2017 04/07/2017 Inactive Namenda XR 28 mg capsule sprinkle,extended release RxNorm: 900729 TAKE ONE CAPSULE BY MOUTH DAILY 01/29/20172017 Active Remeron 15 mg tablet RxNorm: 139005 TAKE ONE TABLET BY MOUTH EVERY EVENING 12/21/2016 03/20/2017 Inactive Lantus Solostar 100 unit/mL (3 mL) subcutaneous insulin pen RxNorm: 810666 18 Unit(s) SQ BID 09/10/2016 03/08/2017 Inactive Lantus Solostar 100 unit/mL (3 mL) subcutaneous insulin pen RxNorm: 800663 16 Unit(s) SQ BID 08/15/2016 09/09/2016 Inactive Lantus Solostar 100 unit/mL (3 mL) subcutaneous insulin pen RxNorm: 038837 12 Unit(s) SQ BID 2016 08/14/2016 Inactive Lantus 100 unit/mL subcutaneous solution RxNorm: 798108 12 Unit(s) SQ BID 05/25/2016 07/16/2016 Inactive Pre-filled pens not bottles FreeStyle Lite Strips RxNorm: TEST TWO TIMES A DAY 05/23/2016 12/10/2029 Active amlodipine 5 mg tablet RxNorm: 493287 1 Tablet(s) PO daily 04/07/2017 Inactive Lantus 100 unit/mL subcutaneous solution RxNorm: 533382 12 Unit(s) SQ BID 05/23/2016 05/24/2016 Inactive omeprazole 20 mg tablet,delayed release RxNorm: 335614 Tablet(s) TAKE ONE CAPSULE BY MOUTH ONCE A DAY 05/23/2016 04/07/2017 Inactive Namenda XR 28 mg capsule sprinkle,extended release RxNorm: 755698 1 Capsule(s) PO daily 05/23/2016 12/18/2016 Inactive she needs to start on the titration pack again please Remeron 15 mg tablet RxNorm: 146452 1 Tablet(s) PO QPM 201609/19/2016 Inactive prednisone 20 mg tablet RxNorm: 067563 2 Tablet(s) PO daily prescribed by the ER 01/21/2016 01/23/2016 Inactive Levaquin 500 mg tablet RxNorm: 618117 1 Tablet(s) PO daily Prescribed by the ER 01/21/2016 01/23/2016 Inactive Lantus 100 unit/mL subcutaneous solution RxNorm: 273477 12 Unit(s) SQ BID 11/03/2015 12/02/2015 Inactive Remeron 15 mg tablet RxNorm: 175954 1 Tablet(s) PO QPM 201502/16/2016 Inactive Remeron 15 mg tablet RxNorm: 895770 1 Tablet(s) PO QPM 201510/19/2015 Inactive Namenda XR 21 mg capsule sprinkle,extended release RxNorm: 407778 1 Capsule(s) PO daily 07/21/2015 07/27/2015 Inactive Namenda XR 14 mg capsule sprinkle,extended release RxNorm: 694554 1 Capsule(s) PO daily 07/14/2015 07/20/2015 Inactive Lantus 100 unit/mL subcutaneous solution RxNorm: 492131 17 Unit(s) SQ QAM 07/07/2015 11/02/2015 Inactive Namenda XR 28 mg capsule sprinkle,extended release RxNorm: 982813 1 Capsule(s) PO daily 07/07/2015 02/01/2016 Inactive Namenda XR 7 mg capsule sprinkle,extended release RxNorm: 438379 1 Capsule(s) PO daily 07/07/2015 07/13/2015 Inactive then stop after 1 week Zithromax 250 mg tablet RxNorm: 376267 Tablet(s) PO UD 201510/05/2015 Inactive amlodipine 5 mg tablet RxNorm: 523430 1 Tablet(s) PO daily 06/201505/07/2016 Inactive amlodipine 10 mg tablet RxNorm: 377233 1/2 Tablet(s) PO daily TAKE ONE TABLET BY MOUTH EVERY DAY 02/17/2015 04/13/2015 Inactive Lantus 100 unit/mL subcutaneous solution RxNorm: 043006 15 Unit(s) SQ QHS 02/04/2015 06/03/2015 Inactive Lantus 100 unit/mL subcutaneous solution RxNorm: 572474 10 Unit(s) SQ QHS 01/18/2015 02/03/2015 Inactive Synthroid 25 mcg tablet RxNorm: 603958 TAKE ONE TABLET BY MOUTH EVERY DAY 11/04/2014 04/26/2016 Inactive amlodipine 10 mg tablet RxNorm: 016388 1 Tablet(s) PO daily TAKE ONE TABLET BY MOUTH EVERY DAY 11/01/2014 02/16/2015 Inactive Levemir FlexTouch 100 unit/mL (3 mL) subcutaneous insulin pen RxNorm: 054188 10 Unit(s) SQ QHS 10/27/2014 01/17/2015 Inactive please supply pt with BD Pen needles 1 box qty 100 DX 250.02 supply x 1 month for insulin and needles Neurontin 100 mg capsule RxNorm: 247497 TAKE TWO CAPSULES BY MOUTH EVERY NIGHT AT BEDTIME 10/26/2014 10/20/2015 Inactive Levemir FlexTouch 100 unit/mL (3 mL) subcutaneous insulin pen RxNorm: 997948 5 Unit(s) SQ QHS 09/02/2014 09/01/2014 Inactive please supply pt with BD Pen needles DX 250.02 supply x 1 month for insulin and needles Levemir FlexTouch 100 unit/mL (3 mL) subcutaneous insulin pen RxNorm: 464223 5 Unit(s) SQ QHS 09/02/2014 10/26/2014 Inactive please supply pt with BD Pen needles 1 box qty 100 DX 250.02 supply x 1 month for insulin and needles omeprazole 20 mg tablet,delayed release RxNorm: 393756 TAKE ONE CAPSULE BY MOUTH ONCE A DAY 08/30/2014 02/20/2016 Inactive metformin 500 mg tablet RxNorm: 042390 TAKE TWO TABLETS BY MOUTH TWICE A DAY 07/22/2014 12/29/2014 Inactive FreeStyle Lite Strips RxNorm: TEST TWO TIMES A DAY 06/07/2014 05/22/2016 Inactive glipizide 10 mg tablet RxNorm: 686340 TAKE ONE TABLET BY MOUTH TWICE A DAY 05/31/2014 10/26/2014 Inactive potassium chloride ER 10 mEq tablet,extended release RxNorm: 426582 TAKE TWO TABLETS BY MOUTH EVERY DAY 05/03/2014 Inactive potassium chloride ER 10 mEq tablet,extended release RxNorm: 922635 TAKE TWO TABLETS BY MOUTH EVERY DAY 05/03/2014 Inactive hydrochlorothiazide 25 mg tablet RxNorm: 753927 TAKE ONE TABLET BY MOUTH EVERY DAY 03/11/2014 02/16/2015 Inactive lovastatin 20 mg tablet RxNorm: 313793 TAKE ONE TABLET BY MOUTH EVERY DAY 03/01/2014 01/24/2015 Inactive losartan 25 mg tablet RxNorm: 540358 TAKE ONE TABLET BY MOUTH EVERY DAY 11/27/2013 10/22/2014 Inactive amlodipine 10 mg tablet RxNorm: 415775 TAKE ONE TABLET BY MOUTH EVERY DAY 10/26/2013 09/20/2014 Inactive amlodipine 10 mg tablet RxNorm: 637982 TAKE ONE TABLET BY MOUTH EVERY DAY 10/23/2013 10/25/2013 Inactive acyclovir 800 mg tablet RxNorm: 445583 1 Tablet(s) PO TID 10/2210/31/2013 Inactive [SAVINGS FOR UNINSURED PATIENTS -- BIN:[id number], PCN: ASPROD1, Group: [id number], ID# [id number], Process claim through MedImpact, for questions: . THIS IS NOT INSURANCE.] amlodipine 10 mg tablet RxNorm: 221156 Tablet(s) PO TAKE ONE TABLET BY MOUTH EVERY DAY 10/21/2013 10/22/2013 Inactive [SAVINGS FOR UNINSURED PATIENTS -- BIN: [id number], PCN: ASPROD1, Group: [id number], ID# [id number], Process claim through MedImpact , for questions: . THIS IS NOT INSURANCE.] metformin 500 mg tablet RxNorm: 592920 TAKE TWO TABLETS BY MOUTH TWICE A DAY 10/19/2013 07/15/2014 Inactive Neurontin 100 mg capsule RxNorm: 169133 2 Capsule(s) PO QHS 07/201310/25/2014 Inactive [SAVINGS FOR UNINSURED PATIENTS -- BIN:821849, PCN: ASPROD1, Group: [id number] , ID# [id number], Process claim through MedImpact, for questions: . THIS IS NOT INSURANCE.] Synthroid 25 mcg tablet RxNorm: 578898 TAKE ONE TABLET BY MOUTH EVERY DAY 09/23/2013 11/03/2014 Inactive Januvia 100 mg tablet RxNorm: 939699 1 Tablet(s) PO daily 201310/26/2014 Inactive [SAVINGS FOR UNINSURED PATIENTS -- BIN:327568, PCN: ASPROD1, Group: [id number], ID # [id number], Process claim through MedImpact, for questions: . THIS IS NOT INSURANCE.] chlorthalidone 25 mg tablet RxNorm: 297190 Tablet(s) PO QAM 09/12/2014 Inactive [SAVINGS FOR UNINSURED PATIENTS -- BIN:509132, PCN: ASPROD1, Group: [id number] , ID# [id number], Process claim through RemoteReality, for questions: . THIS IS NOT INSURANCE.] omeprazole 20 mg tablet,delayed release RxNorm: 705507 1 Tablet(s) PO daily 08/17/2013 08/16/2013 Inactive omeprazole 20 mg tablet,delayed release RxNorm: 700986 1 Tablet(s) PO daily 08/17/2013 08/29/2014 Inactive glipizide 10 mg tablet RxNorm: 634386 Tablet(s) PO TAKE ONE TABLET BY MOUTH TWICE A DAY 07/02/2013 05/30/2014 Inactive hydrochlorothiazide 25 mg tablet RxNorm: 115524 Tablet(s) PO TAKE ONE TABLET BY MOUTH EVERY DAY 06/25/2013 09/21/2013 Inactive Synthroid 25 mcg tablet RxNorm: 525962 Tablet(s) PO TAKE ONE TABLET BY MOUTH EVERY DAY 06/16/2013 09/22/2013 Inactive Neurontin 100 mg capsule RxNorm: 633323 2 Capsule(s) PO QHS 09/201310/12/2013 Inactive Neurontin 100 mg capsule RxNorm: 685270 2 Capsule(s) PO QHS 06/201306/14/2013 Inactive potassium chloride ER 10 mEq tablet,extended release RxNorm: 768356 Tablet(s) PO TAKE TWO TABLETS BY MOUTH EVERY DAY 05/21/2013 05/02/2014 Inactive Neurontin 100 mg capsule RxNorm: 805554 2 Capsule(s) PO QHS 1 PILL AT BEDTIME X 1 WEEK THEN INCREASE TO 2 PILLS AT BEDTIME 05/07/2013 06/05/2013 Inactive acyclovir 400 mg tablet RxNorm: 518975 1 Tablet(s) PO QID 04/2305/02/2013 Inactive lovastatin 20 mg tablet RxNorm: 307438 Tablet(s) PO TAKE ONE TABLET BY MOUTH EVERY DAY 02/14/2013 02/28/2014 Inactive metformin 500 mg tablet RxNorm: 683661 Tablet(s) PO TAKE TWO TABLETS BY MOUTH TWICE A DAY 12/16/2012 12/29/2014 Inactive metformin 500 mg tablet RxNorm: 761760 2 Tablet(s) PO BID 12/1512/15/2012 Inactive Synthroid 25 mcg tablet RxNorm: 560821 Tablet(s) PO TAKE ONE TABLET BY MOUTH EVERY DAY 12/08/2012 06/15/2013 Inactive lovastatin 20 mg tablet RxNorm: 595866 Tablet(s) PO TAKE ONE TABLET BY MOUTH EVERY DAY 11/17/2012 02/13/2013 Inactive losartan 25 mg tablet RxNorm: 092152 1 Tablet(s) PO daily 201211/11/2013 Inactive amlodipine 10 mg tablet RxNorm: 777913 Tablet(s) PO TAKE ONE TABLET BY MOUTH EVERY DAY 10/15/2012 10/20/2013 Inactive hydrochlorothiazide 25 mg tablet RxNorm: 986615 Tablet(s) PO TAKE ONE TABLET BY MOUTH EVERY DAY 09/20/2012 06/24/2013 Inactive omeprazole 20 mg tablet,delayed release RxNorm: 486800 1 Tablet(s) PO daily 08/11/2012 08/05/2013 Inactive lovastatin 20 mg tablet RxNorm: 228616 Tablet(s) PO TAKE ONE TABLET BY MOUTH EVERY DAY 07/16/2012 11/16/2012 Inactive glipizide 10 mg tablet RxNorm: 421636 Tablet(s) PO TAKE ONE TABLET BY MOUTH TWICE A DAY 06/30/2012 06/29/2012 Inactive glipizide 10 mg tablet RxNorm: 770960 1 Tablet(s) PO BID TAKE ONE TABLET BY MOUTH TWICE A DAY 06/30/2012 07/01/2013 Inactive potassium chloride ER 10 mEq tablet,extended release RxNorm: 290067 2 Tablet(s) PO daily 05/19/2012 05/13/2013 Inactive Januvia 100 mg tablet RxNorm: 164139 1 Tablet(s) PO daily 201205/09/2013 Inactive amlodipine 10 mg tablet RxNorm: 949752 Tablet(s) PO TAKE ONE TABLET BY MOUTH EVERY DAY 04/07/2012 10/14/2012 Inactive Synthroid 25 mcg tablet RxNorm: 041047 Tablet(s) PO TAKE ONE TABLET BY MOUTH EVERY DAY 03/21/2012 12/07/2012 Inactive Januvia 50 mg tablet RxNorm: 537612 1 Tablet(s) PO 03/17/2012 05/14/2012 Inactive metformin 500 mg tablet RxNorm: 270929 2 Tablet(s) PO BID 10/2410/24/2011 Inactive metformin 500 mg tablet RxNorm: 799204 2 Tablet(s) PO BID 10/2410/18/2012 Inactive hydrochlorothiazide 25 mg tablet RxNorm: 215352 1 Tablet(s) PO daily 09/17/2011 09/19/2012 Inactive amlodipine 10 mg tablet RxNorm: 158377 1 Tablet(s) PO daily 03/24/2012 Inactive omeprazole 20 mg tablet,delayed release RxNorm: 030240 1 Tablet(s) PO daily 08/07/2011 08/10/2012 Inactive amlodipine 5 mg Tab RxNorm: 483648 1 Tablet(s) PO daily 201108/27/2011 Inactive lovastatin 20 mg tablet RxNorm: 401751 1 Tablet(s) PO daily 04/201107/15/2012 Inactive glipizide 10 mg tablet RxNorm: 039918 1 Tablet(s) PO BID 201106/29/2012 Inactive Kombiglyze XR 5 mg-1,000 mg 24 hr Tab RxNorm: 7091331 1 Tablet(s) PO daily 06/20/2011 10/24/2011 Inactive metformin 500 mg Tab RxNorm: 803013 2 Tablet(s) PO BID 201110/15/2011 Inactive ketorolac 60 mg/2 mL IM RxNorm: 255152 Milliliter(s) IM 201105/16/2011 Inactive Synthroid 25 mcg tablet RxNorm: 579302 1 Tablet(s) PO daily 03/20/2012 Inactive amlodipine 5 mg Tab RxNorm: 438241 1 Tablet(s) PO daily 201008/06/2011 Inactive KCL 20 meq RxNorm: 1 PO daily 01/22/2011 Inactive Pneumovax 23 25 mcg/0.5 mL Injection RxNorm: 444256 Milliliter(s) Inj 01/17/2011 01/17/2011 Inactive omeprazole 20 mg Tab, Delayed Release RxNorm: 594730 1 Tablet(s) PO daily 01/04/2011 07/02/2011 Inactive lovastatin 20 mg Tab RxNorm: 134947 1 Tablet(s) PO daily 201006/24/2011 Inactive Influenza Virus Vaccine 0.5 mL RxNorm: IM 12/12/2010 12/12/2010 Inactive glipizide 10 mg Tab RxNorm: 585858 1 Tablet(s) PO BID 201006/24/2011 Inactive metformin 500 mg Tab RxNorm: 451758 2 Tablet(s) PO BID 1000 mg hs x2 weeks then 1000mg bid 11/15/2010 02/12/2011 Inactive metformin 500 mg Tab RxNorm: 655870 2 Tablet(s) PO BID 201002/12/2011 Inactive Vitamin D Oral RxNorm : Oral No Start Date Active lutein oral RxNorm: 11912 oral No Start Date Active Centrum Silver Oral RxNorm: Oral No Start Date Active Vitamin B-12 oral RxNorm: 57124 oral No Start Date Active aspirin 81 mg Tab, Delayed Release RxNorm: 730128 1 Tablet(s) PO daily No Start Date Active glipizide 10 mg Tab RxNorm: 978450 1 Tablet(s) PO BID No Start Date 12/03/2010 Inactive hydrochlorothiazide 25 mg Tab RxNorm: 732774 Tablet(s) PO daily No Start Date 09/16/2011 Inactive FreeStyle Lite Strips RxNorm: 1 Miscellaneous BID dx 250.02 No Start Date 06/06/2014 Inactive levothyroxine 25 mcg Tab RxNorm: 860977 1 Tablet(s) PO daily No Start Date 02/18/2012 Inactive lovastatin 20 mg Tab RxNorm: 924076 Tablet(s) PO daily No Start Date 12/26/2010 Inactive amlodipine 5 mg Tab RxNorm: 622843 1 Tablet(s) PO daily No Start Date 02/12/2011 Inactive omeprazole 20 mg Tab, Delayed Release RxNorm: 875852 Oral No Start Date 01/03/2011 Inactive Synthroid 25 mcg Tab RxNorm: 339520 Oral No Start Date 03/26/2011 Inactive Accu-Chek Active Test Strips RxNorm: 1 Miscellaneous BID No Start Date 03/31/2012 Inactive clotrimazole-betamethasone 1 %-0.05 % Lotion RxNorm: 920940 Application TOP TID No Start Date 07/06/2015 Inactive KCL 20 meq RxNorm: 2 PO daily No Start Date 01/21/2011 Inactive metformin 500 mg Tab RxNorm: 061246 1 Tablet(s) PO QAM 1000 mg hs x2 weeks then 1000mg bid No Start Date 11/14/2010 Inactive Medication Administered Medication Codes Instructions Start Date Status ketorolac 60 mg/2 mL IM RxNorm: 666863 Milliliter 05/16/2011 No longer Active Pneumovax 23 25 mcg/0.5 mL Injection RxNorm: 243039 Milliliter 01/17/2011 No longer Active Influenza Virus [...] DM W/O COMPLICATION TYPE II, UNCONTROLLED SNOMED: 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 ICD-9: 250.02 05/21/2013 ENCNTR LONG-RX USE NEC [...] Code Item Item Code Result Date %Hba1C Pfx661 % HbA1c 34976-7 6.1 % 01/01/2017 %Hba1C Pqs241 Gluc Ave 128 mg/dL 01/01/2017 Metabolic Ord15 [...] Ord15 CALCIUM 9.4 mg/dL 01/01/2017 Comp Metabolic Xnb502 NA 128 mEq/L 2016 Comp Metabolic Ina284 K 3.8 mEq/L 2016 Comp Metabolic Jtj848 CL 90 mEq/L 2016 Comp Metabolic Wgx118 CO2 28.0 mEq/L 2016 Comp Metabolic Xfx261 ANION GAP 14 2016 Comp Metabolic Bku401 GLUCOSE 140 mg/dL 2016 Comp Metabolic Dro291 Creat 0.9 mg/dL 2016 Comp Metabolic Pzu863 eGFR 62 ml/min/1.73m2 2016 Comp Metabolic Bso896 BUN 20 mg/dL 2016 Comp Metabolic Zpa272 B/C Ratio 21.7 Ratio 2016 Comp Metabolic Vyk935 CALCIUM 8.6 mg/dL 2016 Comp Metabolic Mnl747 ALK PHOS 147 U/L 2016 Comp Metabolic Psb769 AST(SGOT) 26 U/L 2016 Comp Metabolic Qrc761 ALT(SGPT) 21 U/L 2016 Comp Metabolic Xvo228 BILI T 0.7 mg/dL 2016 Comp Metabolic Vlz213 ALBUMIN 3.5 g/dL 2016 Comp Metabolic Rhw941 TPRO 7.1 g/dL 2016 Comp Metabolic Qjh434 GLOB 3.7 g/dL 2016 Comp Metabolic Aay138 A/G Ratio 0.9 Ratio 2016 Comp Metabolic Veq789 Osmo 262 mOsmo 2016 Free T4 Rcm186 FREE T4 1.12 ng/dL 2016 Tsh Ord6 hTSH II 3.45 uIU/mL 2016 B12 Fjf672 B12 486.00 pg/ml 2016 Cbc With Differential [...] 91.0 fl 2016 Cbc With Differential Ord2 Perry% 7.8 % 2016 Cbc With Differential Ord2 [...] 0.96 K/ul 2016 Cbc With Differential Ord2 Perry ABS# 0.5 K/ul 2016 Cbc With Differential Ord2 Eos ABS# 0.1 K/ul 2016 Cbc With Differential Ord2 Baso ABS# 0.0 K/ul 2016 %Hba1C Cdr198 % HbA1c 17235-3 8.0 % 2016 %Hba1C Pfs374 Gluc Ave 183 mg/dL 2016 Free T4 Alr234 FREE T4 0.87 ng/dL 03/26/2016 %Hba1C Taz077 % HbA1c 56589-3 8.4 % 03/26/2016 %Hba1C Zcl829 Gluc Ave 194 mg/dL 03/26/2016 Tsh Ord6 hTSH II 1.89 uIU/mL 03/26/2016 Comp Metabolic Rnj962 NA 130 mEq/L 03/26/2016 Comp Metabolic Lvz434 K 3.6 mEq/L 03/26/2016 Comp Metabolic Fsp299 CL 93 mEq/L 03/26/2016 Comp Metabolic Qyc839 CO2 32.0 mEq/L 03/26/2016 Comp Metabolic Oqz655 ANION GAP 9 03/26/2016 Comp Metabolic Tfa645 GLUCOSE 280 mg/dL 03/26/2016 Comp Metabolic Bia801 Creat 0.9 mg/dL 03/26/2016 Comp Metabolic Qki030 eGFR 63 ml/min/1.73m2 03/26/2016 Comp Metabolic Wmr488 BUN 16 mg/dL 03/26/2016 Comp Metabolic Qov913 B/C Ratio 17.6 Ratio 03/26/2016 Comp Metabolic Faz279 CALCIUM 9.5 mg/dL 03/26/2016 Comp Metabolic Fhd932 ALK PHOS 66 U/L 03/26/2016 Comp Metabolic Wjg383 AST(SGOT) 16 U/L 03/26/2016 Comp Metabolic Kip943 ALT(SGPT) 9 U/L 03/26/2016 Comp Metabolic Nvq660 BILI T 0.4 mg/dL 03/26/2016 Comp Metabolic Glu732 ALBUMIN 3.8 g/dL 03/26/2016 Comp Metabolic Gty735 TPRO 7.0 g/dL 03/26/2016 Comp Metabolic Vze072 GLOB 3.2 g/dL 03/26/2016 Comp Metabolic Yqp253 A/G Ratio 1.2 Ratio 03/26/2016 Comp Metabolic Wck256 Osmo 272 mOsmo 03/26/2016 Metabolic Ord15 NA [...] Metabolic Ord15 CALCIUM 9.2 mg/dL 11/03/2015 %Hba1C Uil878 % HbA1c 51249-8 9.7 % 11/03/2015 %Hba1C Dhb737 Gluc Ave 232 mg/dL 11/03/2015 Tsh Ord6 hTSH II 1.80 uIU/mL 06/13/2015 Comp Metabolic Uxj503 NA 129 mEq/L 06/13/2015 Comp Metabolic Nus231 K 3.8 mEq/L 06/13/2015 Comp Metabolic Akr992 CL 93 mEq/L 06/13/2015 Comp Metabolic Gbp868 CO2 30.0 mEq/L 06/13/2015 Comp Metabolic Pju740 ANION GAP 10 06/13/2015 Comp Metabolic Bea103 GLUCOSE 179 mg/dL 06/13/2015 Comp Metabolic Oah162 Creat 0.8 mg/dL 06/13/2015 Comp Metabolic Kiv243 eGFR 74 ml/min/1.73m2 06/13/2015 Comp Metabolic Lag004 BUN 16 mg/dL 06/13/2015 Comp Metabolic Zxk881 B/C Ratio 20.3 Ratio 06/13/2015 Comp Metabolic Gdi378 CALCIUM 9.5 mg/dL 06/13/2015 Comp Metabolic Qux478 ALK PHOS 72 U/L 06/13/2015 Comp Metabolic Jfi653 AST(SGOT) 16 U/L 06/13/2015 Comp Metabolic Jcv858 ALT(SGPT) 9 U/L 06/13/2015 Comp Metabolic Ymh705 BILI T 0.4 mg/dL 06/13/2015 Comp Metabolic Cwh254 ALBUMIN 3.8 g/dL 06/13/2015 Comp Metabolic Bhu105 TPRO 7.3 g/dL 06/13/2015 Comp Metabolic Llw429 GLOB 3.5 g/dL 06/13/2015 Comp Metabolic Byc427 A/G Ratio 1.1 Ratio 06/13/2015 Comp Metabolic Eno265 Osmo 265 mOsmo 06/13/2015 B12 Rbb657 B12 196.00 pg/ml 06/13/2015 Free T4 Jod107 FREE T4 0.96 ng/dL 06/13/2015 Cbc With [...] 29.4 pg 06/13/2015 Cbc With Differential Ord2 Perry% 12.4 % 06/13/2015 Cbc With Differential Ord2 [...] 1.36 K/ul 06/13/2015 Cbc With Differential Ord2 Perry ABS# 0.5 K/ul 06/13/2015 Cbc With Differential Ord2 Eos ABS# 0.1 K/ul 06/13/2015 Cbc With Differential Ord2 Baso ABS# 0.0 K/ul 06/13/2015 Cbc With Differential Ord2 New Analyzer Notice Please note new ref ranges starting 03-23-2015 due to implemntation of new five part differential hematolgy analyzer. 06/13/2015 %Hba1C Jfd061 % HbA1c 26465-8 8.4 % 06/13/2015 %Hba1C Zba933 Gluc Ave 194 mg/dL 06/13/2015 B12 Rbm022 B12 308.00 pg/ml 03/15/2015 Cbc With Differential [...] Ord2 RDW 13.3 % 03/14/2015 Comp Metabolic Rxk557 NA 127 mEq/L 03/14/2015 Comp Metabolic Lup813 K 3.5 mEq/L 03/14/2015 Comp Metabolic Tdu774 CL 88 mEq/L 03/14/2015 Comp Metabolic Lyb447 CO2 30.0 mEq/L 03/14/2015 Comp Metabolic Iqz763 ANION GAP 13 03/14/2015 Comp Metabolic Yis594 GLUCOSE 240 mg/dL 03/14/2015 Comp Metabolic Mof880 Creat 0.9 mg/dL 03/14/2015 Comp Metabolic Tdn678 eGFR 66 ml/min/1.73m2 03/14/2015 Comp Metabolic Rfm395 BUN 17 mg/dL 03/14/2015 Comp Metabolic Gkk111 B/C Ratio 19.5 Ratio 03/14/2015 Comp Metabolic Bgx410 CALCIUM 9.4 mg/dL 03/14/2015 Comp Metabolic Jia041 ALK PHOS 64 U/L 03/14/2015 Comp Metabolic Plp653 AST(SGOT) 16 U/L 03/14/2015 Comp Metabolic Cqj502 ALT(SGPT) 9 U/L 03/14/2015 Comp Metabolic Pab415 BILI T 0.4 mg/dL 03/14/2015 Comp Metabolic Hol469 ALBUMIN 3.8 g/dL 03/14/2015 Comp Metabolic Yvr233 TPRO 7.0 g/dL 03/14/2015 Comp Metabolic Pdf127 GLOB 3.2 g/dL 03/14/2015 Comp Metabolic Tfs009 A/G Ratio 1.2 Ratio 03/14/2015 Comp Metabolic Yzw535 Osmo 265 mOsmo 03/14/2015 Metabolic Ord15 NA [...] Metabolic Ord15 CALCIUM 9.3 mg/dL 01/13/2015 %Hba1C Gwt153 % HbA1c 59773-6 8.0 % 12/31/2014 %Hba1C Qmo886 Gluc Ave 183 mg/dL 12/31/2014 Tsh Ord6 [...] Ord2 RDW 12.8 % 12/30/2014 Comp Metabolic Nys405 NA 124 mEq/L 12/30/2014 Comp Metabolic Ybk119 K 3.4 mEq/L 12/30/2014 Comp Metabolic Rmn562 CL 84 mEq/L 12/30/2014 Comp Metabolic Myg233 CO2 29.0 mEq/L 12/30/2014 Comp Metabolic Smz395 ANION GAP 14 12/30/2014 Comp Metabolic Vli743 GLUCOSE 138 mg/dL 12/30/2014 Comp Metabolic Ohf523 Creat 0.8 mg/dL 12/30/2014 Comp Metabolic Ckd144 eGFR 69 ml/min/1.73m2 12/30/2014 Comp Metabolic Hqu980 BUN 12 mg/dL 12/30/2014 Comp Metabolic Dig217 B/C Ratio 14.3 Ratio 12/30/2014 Comp Metabolic Pzv134 CALCIUM 8.3 mg/dL 12/30/2014 Comp Metabolic Uyo528 ALK PHOS 59 U/L 12/30/2014 Comp Metabolic Qzn497 AST(SGOT) 16 U/L 12/30/2014 Comp Metabolic Kqq235 ALT(SGPT) 7 U/L 12/30/2014 Comp Metabolic Nzs775 BILI T 0.7 mg/dL 12/30/2014 Comp Metabolic Mid899 ALBUMIN 4.3 g/dL 12/30/2014 Comp Metabolic Drg442 TPRO 7.4 g/dL 12/30/2014 Comp Metabolic Ijq029 GLOB 3.1 g/dL 12/30/2014 Comp Metabolic Yqb601 A/G Ratio 1.4 Ratio 12/30/2014 Comp Metabolic Yqv139 Osmo 252 mOsmo 12/30/2014 CHEM 14 AST [...] CALC GFR NON-AA >60 ML/MIN 02/25/2014 MICRALUR [id number] MICRL MG/L 30.8 MG/L 02/25/2014 MICRALUR 8497993 XM.ALB/CRE 40.0 MG/GCR 02/25/2014 MICRALUR 8946103 CREAT MG/D 77 MG/DL 02/25/2014 MICRALUR 1655037 CRE/100 0.77 G/L 02/25/2014 A1C HPLC 5049032 A1C HPLC 49294-6 6.8 % 02/25/2014 FREE T4 5497306 FREE T4 1.49 NG/DL 02/25/2014 LIPID GRP HDL TEST 52 MG/DL 02/25/2014 LIPID GRP TRIG 86 MG/DL 02/25/2014 LIPID GRP TEST LDL 97 MG/DL 02/25/2014 LIPID GRP CHOL 166 MG/DL 02/25/2014 LIPID GRP RCHOL/HDL 3.19 RATIO 02/25/2014 LIPID GRP NON-HDL CH 114 MG/DL 02/25/2014 TSH 6251360 TSH 3.348 uIU/ML 02/25/2014 CBC WBC 5.8 [...] 02/25/2014 CBC RDW-SD 43.3 fL 02/25/2014 ESR [id number] ESR 58 MM/HR 02/25/2014 CHEM 14 7689045 AST 16 U/L 05/21/2013 CHEM 14 4251298 ALT 12 IU/L 05/21/2013 CHEM 14 0092635 BUN 14 MG/DL 05/21/2013 CHEM 14 9530662 ALBUMIN 4.5 GM/DL 05/21/2013 CHEM 14 3723080 CHLORIDE 93 MMOL/L 05/21/2013 CHEM 14 1963917 BILI TOT 0.7 MG/DL 05/21/2013 CHEM 14 1335405 ALK PHOS 61 U/L 05/21/2013 CHEM 14 9800556 SODIUM 129 MMOL/L 05/21/2013 CHEM 14 6963275 CREATININE 0.87 MG/DL 05/21/2013 CHEM 14 2240169 CALCIUM 9.8 MG/DL 05/21/2013 CHEM 14 7572353 POTASSIUM 3.6 MMOL/L 05/21/2013 CHEM 14 7951759 PROT TOT 7.6 GM/DL 05/21/2013 CHEM 14 0139392 GLUCOSE 138 MG/DL 05/21/2013 CHEM 14 0880834 BICARB 27 MMOL/L 05/21/2013 CHEM 14 7532271 ANION GAP 9 MEQ/L 05/21/2013 A1C HPLC 1233030 A1C HPLC 12684-4 6.4 % 05/21/2013 GFR CALC 4522883 GFR AA >60 ML/MIN 05/21/2013 GFR CALC 2112952 GFR NON-AA >60 ML/MIN 05/21/2013 FREE T4 1810963 FREE T4 1.23 NG/DL 11/18/2012 A1C HPLC [id number] A1C HPLC 98362-5 7.3 % 11/18/2012 TSH 2669119 TSH 1.552 uIU/ML 11/18/2012 GFR CALC 6844909 GFR AA >60 ML/MIN 11/17/2012 GFR CALC 9978865 GFR NON-AA >60 ML/MIN 11/17/2012 CHEM 14 4364612 AST 18 U/L 11/17/2012 CHEM 14 3617849 ALT 13 IU/L 11/17/2012 CHEM 14 5099446 BUN 15 MG/DL 11/17/2012 CHEM 14 5446791 ALBUMIN 4.7 GM/DL 11/17/2012 CHEM 14 4063842 CHLORIDE 93 MMOL/L 11/17/2012 CHEM 14 6525827 BILI TOT 0.5 MG/DL 11/17/2012 CHEM 14 2173102 ALK PHOS 56 U/L 11/17/2012 CHEM 14 1386448 SODIUM 130 MMOL/L 11/17/2012 CHEM 14 5044213 CREATININE 0.73 MG/DL 11/17/2012 CHEM 14 4000602 CALCIUM 9.8 MG/DL 11/17/2012 CHEM 14 9041595 POTASSIUM 3.4 MMOL/L 11/17/2012 CHEM 14 1803957 PROT TOT 7.4 GM/DL 11/17/2012 CHEM 14 8848985 GLUCOSE 281 MG/DL 11/17/2012 CHEM 14 8134559 BICARB 28 MMOL/L 11/17/2012 CHEM 14 3601329 ANION GAP 9 MEQ/L 11/17/2012 A1C HPLC 9986508 A1C HPLC 79796-3 7.1 % 07/10/2012 TSH 8262190 TSH 2.676 uIU/ML 07/09/2012 GFR CALC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 Diagnosis: Lumbago[ICD9: 724.2] Gina Singletary MD [facility] CPT-4: 30636 2011 ([id number]) 69708 EST. PATIENT, LEVEL IV Diagnosis: DIABETES TYPE II[SNOMED: 787008843] Diagnosis: ESSENTIAL HYPERTENSION[SNOMED: 49513033] Diagnosis: Osteoarthrosis[ICD9: 715.90] Gina Singletary MD, [facility] CPT- 4: 06355 05/16/2011 46989 EST. PATIENT, LEVEL IV Diagnosis: ESSENTIAL HYPERTENSION[SNOMED: 64295307] Diagnosis: VACCIN STREP PNEUMONIAE[ICD9: V03.82] Diagnosis: DIABETES TYPE II[SNOMED: 480514730] [facility] CPT-4: 32102 01/17/2011 90090 EST. PATIENT, LEVEL IV Diagnosis: ESSENTIAL HYPERTENSION[SNOMED: 70100211] Diagnosis: VACCIN FOR INFLUENZA[ICD9: V04.81] Diagnosis: Pelvic fracture[ICD9: 808.8] Diagnosis: IMPACTED CERUMEN[ICD9: 380.4] Gina Singletary MD, [facility] CPT- 4: 35153 12/12/2010 83747 EST. PATIENT, LEVEL IV Diagnosis: DIABETES TYPE II[SNOMED: 852037221] Diagnosis: ESSENTIAL HYPERTENSION[SNOMED: 85820797] Diagnosis: HYPERLIPIDEMIA[ICD9: 272.4] Diagnosis: HYPOTHYROIDISM[ICD9: 244.9] Gina Singletary MD, [facility] CPT- 4: 87951 11/15/2010 Plan of Care Planned Activity Notes Codes Status Date Visit Plan: ER follow up - Dizziness - symptoms have resolved and pt is feeling well - no changes at this time, pt is to notify clinic if symptoms return, or with any other changes, questions, or concerns. 03/07/2017 App[facility]ment[facility] ([facility] Complex 03/07/2017 Patient Education: Patient Medication Summary Completed 03/07/2017 App[facility]ment: [phone] [phone] (30 min) Complex 02/08/2017 Visit Plan: [...] controlled. 12/31/2016 Appointment: Gina Singletary WPtel: [phone] [facility] (15 min) Moderate 12/31/2016 Patient Education: Patient Medication Summary Completed 12/31/2016 Appointment: Gina Singletary WPtel: [phone] [facility] (15 min) Moderate 12/26/2016 Visit Plan: ER [...] acute concerns. 12/06/2016 Appointment: [phone] [facility] [place] (30 min) Complex 12/06/2016 Patient Education: Patient Medication Summary Completed 12/06/2016 Appointment: [phone] [phone] [place] (30 min) Complex 12/04/2016 Appointment: Gina Singletary WPtel: [phone] [facility] (15 min) Moderate 10/30/2016 Visit Plan: Hypertension [...] a day 09/10/2016 Appointment: Gina Singletary WPtel: [address] [place], [place] [address] (15 min) Moderate 09/10/2016 Patient Education: Patient [...] nippers. 08/15/2016 Appointment: Gina Singletary WPtel: [phone] [facility] [place] (15 min) Moderate 08/15/2016 Patient Education: Patient Medication Summary Completed 08/15/2016 Appointment: Gina Singletary WPtel: [phone] [facility] [place] (15 min) Moderate 07/23/2016 Appointment: García Vivi WPtel: [phone] [facility] [place] (30 min) Complex 07/18/2016 Visit Plan: [...] based on previous levels of control. Gait ilrcdlznpiv-ezpcvjpj-bflroxikg patient use a walker at all times-the cane does not provide enough stability-schedule PT to evaluate and treat 2016 Appointment: Radha Delarosa WPtel: [phone] [phone] [place] (15 min) Moderate 2016 Patient Education: [...] Summary Completed 03/26/2016 Appointment: Radha Delarosa WPtel: [phone] [phone] [place] (30 min) Complex 03/09/2016 Appointment: Gina Singletary WPtel: [phone] [facility] [place] (15 min) Moderate 03/01/2016 Appointment: Lab Draw 01/24/2016 Patient Education: Patient Medication Summary Completed 01/24/2016 Visit Plan: Cellulitis - Pt is to take the antibiotic and prednisone prescribed by the ER. continue with oral antibiotics as previously directed, return to clinic as previously directed, call for acute change in symptoms, worsening redness, warmth, discharge. 01/23/2016 Appointment: Vivi Mariano WPtel: [phone] [facility] [place] (30 min) Complex 01/23/2016 Patient Education: [...] such facility. 01/05/2016 Appointment: [phone] ([facility]) Moderate 01/05/2016 Patient Education: Patient [...] without incident. 12/09/2015 Appointment: [phone] [phone] [place] (30 min) Complex 12/09/2015 Patient [...] dementia 12/08/2015 Appointment: [facility]ary [phone] [place] (15 min) Moderate 12/08/2015 Patient Education: [...] Completed 07/07/2015 Appointment: Radha Singletaryy WPtel: [phone] [facility] (15 min) Moderate 06/30/2015 Visit Plan: URI [...] spray. 06/24/2015 Appointment: Radha Delarosa WPtel: [phone] [phone] (15 min) Moderate 06/24/2015 Patient Education: Patient [...] facilities. 06/16/2015 Appointment: [facility] Singletary [phone] (15 min) Moderate 06/16/2015 Patient Education: Patient [...] symptoms. 05/16/2015 Appointment: [phone] (15 min) Moderate 05/16/2015 Patient Education: Patient [...] stools. 12/30/2014 Appointment: [facility]letary [phone] (15 min) Moderate 12/30/2014 Patient Education: Patient [...] up testing. 10/27/2014 Appointment: Gina Singletary WPtel: [phone] [facility] (15 min) Moderate 10/27/2014 Patient Education: Patient [...] to medications. 08/25/2014 Appointment: [phone] Follow up 08/25/2014 Patient Education: Patient Medication [...] associated. 04/28/2014 Appointment: [facility]ary [phone] [facility] Follow up 04/28/2014 Patient Education: Patient Medication [...] control. 02/24/2014 Appointment: Gina Singletary WPtel: [phone] [facility] Follow up 02/24/2014 Patient Education: Patient Medication Summary Completed 02/24/2014 Care Plan: COMPLETE CBC AUTOMATED LOINC : 35337-3 Ordered 02/24/2014 Visit Plan: Shingles - Herpes [...] mail. 10/22/2013 Appointment: [facility] Singletary [facility]el[phone] Follow up 10/22/2013 Patient Education: Patient Medication [...] edema. 09/22/2013 Appointment: Gina Singletary WPtel: [phone] [facility] Follow up 09/22/2013 Patient Education: Patient Medication [...] home. 06/24/2013 Appointment: [facility]letary [facility]el[phone] Follow up 06/24/2013 Patient Education: Patient Medication Summary Completed 06/24/2013 Patient Education: Hypertension Completed 06/24/2013 Visit Plan: Open wound of back-significantly improved- continue dressing changes as directed-call if wound does not completely heal, any worse, or with any concerns. Patient verbalized understanding of plan. 05/26/2013 App[facility]ment: [phone] Wound Check 05/26/2013 Patient Education: Patient Medication Summary Completed 05/26/2013 Visit Plan: dressing change today in the office-return next week for evaluation of wound 05/22/2013 Appointment: Radha Delarosa WPtel: [phone] Wound Check 05/22/2013 Patient Education: Patient Medication [...] less controlled. 05/21/2013 Appointment: Gina Singletary WPtel: [facility] Follow up 05/21/2013 Patient Education: Patient Medication Summary Completed 05/21/2013 Visit Plan: Post-herpetic Neuralgia- recommended pt to use pain medication as needed, and for pt to use Gabaprntin as needed for nerve pain , start at bedtime and plan to increase as indicatedThe patient is to call if the shingles pain is not controlled. 05/07/2013 Appointment: Radha Delarosa WPtel: [phone] Follow up 05/07/2013 Patient Education: Patient Medication [...] considered contagious. 04/23/2013 Appointment: Gina Singletary WPtel: [phone] [facility] Other 04/23/2013 Patient Education: Patient Medication Summary [...] healing. 03/25/2013 Appointment: Gina Singletary WPtel: [phone] [facility] Follow up 03/25/2013 Patient Education: Patient Medication Summary Completed 03/25/2013 Patient Education: Hypertension Completed 03/25/2013 Appointment: Gina Singletary WPtel: [phone] [facility] Follow up 03/16/2013 Visit Plan: Diabetes Mellitus [...] controlled. 12/18/2012 Appointment: [phone] [phone] Diabetic education 12/18/2012 Patient Education: Patient [...] home. 12/15/2012 Appointment: [facility] Singletary [facility]el[phone] Follow up 12/15/2012 Patient Education: Patient Medication Summary Completed 12/15/2012 Patient Education: Hypertension Completed 12/15/2012 Visit Plan: Intermittent chest pain - will refer pt to geothermal production manager - pt to have appt with Dr. [...] daily. 11/17/2012 Appointment: G[facility] Singletary [facility]Ptel: [phone] Follow up 11/17/2012 Patient Education: Patient Medication [...] home. 07/14/2012 Appointment: G[facility] Singletary [facility]Ptel: [phone] Follow up 07/14/2012 Patient Education: Patient Medication Summary Completed 07/14/2012 Patient Education: Hypertension Completed 07/14/2012 Appointment: G[facility] Singletary [facility]Ptel: [phone] [place] Lab Draw 07/09/2012 Patient Education: Patient [...] injection. 05/15/2012 Appointment: Gina Singletary WPtel: [phone] [place] Follow up 05/15/2012 Patient Education: Patient [...] control. 03/17/2012 Appointment: G[facility] Singletary [facility]Ptel: [phone] Follow up 03/17/2012 Patient Education: Patient Medication [...] pain symptoms. 02/18/2012 Appointment: G[facility] Singletary [facility]Ptel: [phone] Follow up 02/18/2012 Patient Education: Patient Medication [...] medicatons 02/04/2012 Appointment: Gina Singletary [facility]Ptel: [phone] Follow up 02/04/2012 Patient Education: Patient Medication [...] at home. 10/15/2011 Appointment: Gina Singletary WPtel: [facility] Other 10/15/2011 Patient Education: Patient Medication Summary Completed 10/15/2011 Patient Education: High Blood Pressure: Essential Hypertension Completed 2011 Appointment: Gina Singletary WPtel: [address] [place], [place] [id number] Lab Draw 10/11/2011 Visit Plan: Hypertension - [...] verbalized udnerstanding. 09/13/2011 Appointment: Radha Delarosa WPtel: [phone] [place] [address] Other 09/13/2011 Patient Education: Patient Medication Summary [...] the lesion. 08/28/2011 Appointment: Gina Singletary WPtel: [facility] [facility] 08/28/2011 Patient Education: Patient [...] stretching. 2011 Appointment: Gina Singletary WPtel: [phone] [facility] Other 2011 Patient Education: Patient Medication Summary Completed 2011 Patient Education: High Blood Pressure: Essential Hypertension Completed 2011 Appointment: Gina Singletary WPtel: [facility] Lab Draw 06/13/2011 Patient Education: Patient Medication [...] times daily. 05/16/2011 Appointment: Gina Singletary WPtel: [address] [place], [place] [phone] Other 05/16/2011 Patient Education: Patient Medication Summary [...] less controlled. 01/17/2011 Appointment: Gina Singletary WPtel: [facility] Other 01/17/2011 Patient Education: Patient Medication Summary Completed 01/17/2011 Patient Education: High Blood Pressure: Essential Hypertension Completed 2010 Care Plan: HgbA1c LOINC : 40620-6 Ordered 01/17/2011 Care Plan: CHEM 14 (COMPREHEN METABOLIC PANEL) LOINC : 71831-1 Ordered 01/17/2011 Visit Plan: Hypertension - well [...] next month 12/12/2010 Appointment: Gina Singletary WPtel: [phone] [facility] Other 12/12/2010 Patient Education: Patient Medication Summary [...] of control. 11/15/2010 Appointment: Gina Singletary WPtel: [facility] [facility] 11/15/2010 Patient Education: Patient [...] chest pain - will refer pt to geothermal production manager - pt to have appt with Dr. [...] based on previous levels of control. Gait ougqfgcwhty-mjolfgey-xwfteabyo patient use a walker at all times-the [...] monthly - as per pt report, the [employer] was costing her over $100 per month. [...]
--- OUTSIDE RECORDS SUMMARY | 2017-05-16 12:43 | XMS REPORT | Continuity of Care Document ---
Author Author [facility] Organization [facility] Address Unknown Phone Unavailable Allergies Active Description Code Type Severity Reaction Onset Reported/Identified Relationship to Patient Clinical Status Yes No Known Drug Allergies [id number] Drug Allergy Unknown N/A 09/11/2009 Medications There [...] ANDERSON MD Ot 414.01 CORONARY ATHEROSCLEROSIS OF [place] CORON 01/14/2013 KIRILL ANDERSON MD Ot 414.4 [...] OF CHEST WALL 03/12/2013 DOE, PETER J TANK BUILDER AND ERECTOR Ot 959.11 OTH INJURY OF CHEST WALL 03/12/2013 OLMAN DOE Evi TANK BUILDER AND ERECTOR Ot E000.8 OTHER EXTERNAL CAUSE STATUS 03/12/2013 DOE, OLMAN Evi TANK BUILDER AND ERECTOR Ot E849.0 ACCIDENT IN HOME 03/12/2013 NADER OLMAN Evi TANK BUILDER AND ERECTOR Ot E888.9 FALL NOS 03/12/2013 OLMAN DOE Evi TANK BUILDER AND ERECTOR Ot V58.69 OTH MED,LT,CURRENT USE 01/05/2015 Ot [...] ANDERSON MD Ot 401.9 01/05/2015 LINH ALVES SEISMOGRAPH OPERATOR HELPER Ot 793.89 01/05/2015 LINH ALVES SEISMOGRAPH OPERATOR HELPER Ot V76.12 01/10/2015 FILIPPO BASS, ALESSANDRA Solitario Ot E11.9 01/10/2015 ALESSANDRA BARKLEY MD Ot I10 01/10/2015 ALESSANDRA BARKLEY MD Ot R41.3 01/10/2015 FILIPPO BASS, ALESSANDRA A Ot Z12.31 01/26/2015 FILIPPO BASS, ALESSANDRA A Ot E11.9 01/26/2015 FILIPPO BASS, ALESSANDRA A Ot I10 01/26/2015 FILIPPO BASS, ALESSANDRA A Ot R41.3 01/26/2015 FILIPPO BASS, ALESSANDRA A Ot Z12.31 02/08/2015 FILIPPO BASS, ALESSANDRA Solitario Ot E11.9 02/08/2015 FILIPPO BASS, ALESSANDRA A Ot I10 02/08/2015 FILIPPO BASS, ALESSANDRA A Ot R41.3 02/08/2015 FILIPPO BASS, ALESSANDRA A Ot Z12.31 01/21/2016 MARILEE ROD MD Ot E11.9 TYPE 2 DIABETES MELLITUS WITHOUT COMPLIC 01/21/2016 MARILEE ROD MD Ot H60.12 CELLULITIS OF LEFT EXTERNAL EAR 01/21/2016 MARILEE ROD MD Ot I10 ESSENTIAL (PRIMARY) HYPERTENSION 01/21/2016 MARILEE ROD MD Ot Z79.82 RETIREMENT (CURRENT) USE OF ASPIRIN 01/21/2016 AMRILEE ROD MD Ot Z79.84 CROWD CONTROLLER (CURRENT) USE OF ORAL HYPOGLYC 01/21/2016 MARILEE ROD MD Ot Z79.899 OTHER RETIREMENT (CURRENT) DRUG THERAPY 01/23/2016 MARILEE ROD MD Ot E11.9 TYPE 2 DIABETES MELLITUS WITHOUT COMPLIC 01/23/2016 MARILEE ROD MD Ot H60.12 CELLULITIS OF LEFT EXTERNAL EAR 01/23/2016 MARILEE ROD MD Ot I10 ESSENTIAL (PRIMARY) HYPERTENSION 01/23/2016 MARILEE ROD MD Ot Z79.82 RETIREMENT (CURRENT) USE OF ASPIRIN 01/23/2016 MARILEE ROD MD Ot Z79.84 CROWD CONTROLLER (CURRENT) USE OF ORAL HYPOGLYC 01/23/2016 MARILEE ROD MD Ot Z79.899 OTHER RETIREMENT (CURRENT) DRUG THERAPY 01/25/2016 Ot 787.91 DIARRHEA [...] PAIN 11/15/2016 TANYA MAGDALENO MD Ot Z79.82 CROWD CONTROLLER (CURRENT) USE OF ASPIRIN 11/15/2016 TANYA MAGDALENO MD Ot Z79.84 RETIREMENT (CURRENT) USE OF ORAL HYPOGLYC 11/15/2016 TANYA MAGDALENO MD Ot Z87.19 PERSONAL HISTORY OF OTHER DISEASES OF 12/02/2016 WILLIAM RAMIREZ Ot E11.9 TYPE 2 DIABETES MELLITUS WITHOUT COMPLIC 12/02/2016 WILLIAM RAMIREZ Ot R06.02 SHORTNESS OF BREATH 12/02/2016 WILLIAM RAMIREZ Ot Z79.82 CROWD CONTROLLER (CURRENT) USE OF ASPIRIN 12/02/2016 WILLIAM RAMIREZ Ot Z79.84 CROWD CONTROLLER (CURRENT) USE OF ORAL HYPOGLYC 12/02/2016 WILLIAM RAMIREZ Ot Z87.19 PERSONAL HISTORY OF OTHER DISEASES OF 12/04/2016 WILLIAM RAMIREZ Ot E11.9 TYPE 2 DIABETES MELLITUS WITHOUT COMPLIC 12/04/2016 WILLIAM RAMIREZ Ot R06.02 SHORTNESS OF BREATH 12/04/2016 WILLIAM RAMIREZ Ot Z79.82 CROWD CONTROLLER (CURRENT) USE OF ASPIRIN 12/04/2016 WILLIAM RAMIREZ Ot Z79.84 CROWD CONTROLLER (CURRENT) USE OF ORAL HYPOGLYC 12/04/2016 WILLIAM RAMIREZ Ot Z87.19 PERSONAL HISTORY OF OTHER DISEASES OF 12/08/2016 WILLIAM RAMIREZ Ot E11.9 TYPE 2 DIABETES MELLITUS WITHOUT COMPLIC 12/08/2016 WILLIAM RAMIREZ Ot R06.02 SHORTNESS OF BREATH 12/08/2016 WILLIAM RAMIREZ Ot Z79.82 RETIREMENT (CURRENT) USE OF ASPIRIN 12/08/2016 WILLIAM RAMIREZ Ot Z79.84 CROWD CONTROLLER (CURRENT) USE OF ORAL HYPOGLYC 12/08/2016 WILLIAM RAMIREZ Ot Z87.19 PERSONAL HISTORY OF OTHER DISEASES OF 01/03/2017 FERNANDA GOODWIN Ot E78.2 MIXED HYPERLIPIDEMIA 01/03/2017 QUENTIN PA, FERNANDA K Ot I10 ESSENTIAL (PRIMARY) HYPERTENSION 01/03/2017 QUENTIN PA, FERNANDA K Ot I25.10 ATHSCL HEART DISEASE OF [place] CORONARY 01/03/2017 QUENTIN PA, FERNANDA K Ot R07.89 OTHER CHEST PAIN 01/08/2017 QUENTIN PA, FERNANDA K Ot E78.2 MIXED HYPERLIPIDEMIA 01/08/2017 QUENTIN PA, FERNANDA K Ot I10 ESSENTIAL (PRIMARY) HYPERTENSION 01/08/2017 QUENTIN PA, FERNANDA K Ot I25.10 ATHSCL HEART DISEASE OF [place] CORONARY 01/08/2017 QUENTIN PA, FERNANDA K Ot R07.89 OTHER CHEST PAIN 01/23/2017 QUENTIN PA, FERNANDA K Ot E78.2 MIXED HYPERLIPIDEMIA 01/23/2017 QUENTIN PA, FERNANDA K Ot I10 ESSENTIAL (PRIMARY) HYPERTENSION 01/23/2017 QUENTIN ZAMUDIO, FERNANDA K Ot I25.10 ATHSCL HEART DISEASE OF [place] CORONARY 01/23/2017 QUENTIN PA, FERNANDA K Ot R07.89 OTHER CHEST PAIN 01/29/2017 QUENTIN PA, FERNANDA K Ot E78.2 MIXED HYPERLIPIDEMIA 01/29/2017 QUENTIN PA, FERNANDA K Ot I10 ESSENTIAL (PRIMARY) HYPERTENSION 01/29/2017 QUENTIN PA, FERNANDA K Ot I25.10 ATHSCL HEART DISEASE OF [place] CORONARY 01/29/2017 QUENTIN PA, FERNANDA K Ot R07.89 OTHER CHEST PAIN 02/01/2017 QUENTIN PA, FERNANDA K Ot E78.2 MIXED HYPERLIPIDEMIA 02/01/2017 QUENTIN PA, FERNANDA K Ot I10 ESSENTIAL (PRIMARY) HYPERTENSION 02/01/2017 QUENTIN ZAMUDIO, FERNANDA K Ot I25.10 ATHSCL HEART DISEASE OF [place] CORONARY 02/01/2017 QUENTIN PA, FERNANDA K Ot R07.89 OTHER CHEST PAIN 02/07/2017 QUENTIN PA, FERNANDA K Ot E78.2 MIXED HYPERLIPIDEMIA 02/07/2017 QUENTIN PA, FERNANDA K Ot I10 ESSENTIAL (PRIMARY) HYPERTENSION 02/07/2017 FERNANDA GOODWIN Ot I25.10 ATHSCL HEART DISEASE OF [place] CORONARY 02/07/2017 FERNANDA GOODWIN Ot R07.89 OTHER CHEST PAIN 02/23/2017 AGUSTINA FRENCH MD, Ot E11.9 TYPE 2 DIABETES MELLITUS WITHOUT COMPLIC 02/23/2017 AGUSTINA FRENCH MD, Ot R42 DIZZINESS AND GIDDINESS 02/23/2017 AGUSTINA FRENCH MD, Ot Z79.82 CROWD CONTROLLER (CURRENT) USE OF ASPIRIN 02/23/2017 AGUSTINA FRENCH MD, Ot Z79.84 CROWD CONTROLLER (CURRENT) USE OF ORAL HYPOGLYC 02/23/2017 AGUSTINA FRENCH MD, Ot Z87.81 PERSONAL HISTORY OF (HEALED) TRAUMATIC F 03/01/2017 AGUSTINA FRENCH MD, Ot E11.9 TYPE 2 DIABETES MELLITUS WITHOUT COMPLIC 03/01/2017 AGUSTINA FRENCH MD, Ot R42 DIZZINESS AND GIDDINESS 03/01/2017 AGUSTINA FRENCH MD, Ot Z79.82 CROWD CONTROLLER (CURRENT) USE OF ASPIRIN 03/01/2017 AGUSTINA FRENCH MD, Ot Z79.84 CROWD CONTROLLER (CURRENT) USE OF ORAL HYPOGLYC 03/01/2017 AGUSTINA FRENCH MD, Ot Z87.81 PERSONAL HISTORY OF (HEALED) TRAUMATIC F Procedures There is no data. Results Test [...] i.cardiac measurement (mass/volume) < ng/ mL <0.30 Complete blood count (CBC) with automated white blood cell (WBC) differential - 02/23/17 12:54 Blood leukocytes automated count (number/volume) 5.1 10*3/uL 4.3-11.0 Blood erythrocytes automated count (number/volume) 4.07 10*6/uL 4.35-5.85 Venous blood hemoglobin measurement (mass/volume) 12.9 g/dL 11.5-16.0 Blood hematocrit (volume fraction) 39 % 35-52 Automated erythrocyte mean corpuscular volume 95 [foz_us] 80-99 Automated erythrocyte mean corpuscular hemoglobin (mass per erythrocyte) 32 pg 25-34 Automated erythrocyte mean corpuscular hemoglobin concentration measurement ( mass/volume) 34 g/dL 32-36 Automated erythrocyte distribution width ratio 13.8 % 10.0-14.5 Automated blood platelet count (count/volume) 274 10*3/uL 130-400 Automated blood platelet mean volume measurement 9.8 [foz_us] 7.4-10.4 Automated blood neutrophils/100 leukocytes 63 % 42-75 Automated blood lymphocytes/100 leukocytes 29 % 12-44 Blood monocytes/100 leukocytes 6 % 0-12 Automated blood eosinophils/100 leukocytes 2 % 0-10 Automated blood basophils/100 leukocytes 0 % 0-10 Blood neutrophils automated count (number/volume) 3.2 10*3 1.8-7.8 Blood lymphocytes automated count (number/volume) 1.5 10*3 1.0-4.0 Blood monocytes automated count (number/volume) 0.3 10*3 0.0-1.0 Automated eosinophil count 0.1 10*3/uL 0.0-0.3 Automated blood basophil count (count/volume) 0.0 10*3/uL 0.0-0.1 Comprehensive metabolic panel - 02/23/17 12:54 Serum or plasma sodium measurement (moles/volume) 140 mmol/L 135-145 Serum or plasma potassium measurement (moles/volume) 3.5 mmol/L 3.6-5.0 Serum or plasma chloride measurement (moles/volume) 101 mmol/L 98-107 Carbon dioxide 26 mmol/L 21-32 Serum or plasma anion gap determination (moles/volume) 13 mmol/L 5-14 Serum or plasma urea nitrogen measurement (mass/volume) 18 mg/dL 7-18 Serum or plasma creatinine measurement (mass/volume) 0.94 mg/dL 0.60-1.30 Serum or plasma urea nitrogen/creatinine mass ratio 19 NRG Serum or plasma creatinine measurement with calculation of estimated glomerular filtration rate 57 NRG Serum or plasma glucose measurement (mass/volume) 154 mg/dL 70-105 Serum or plasma calcium measurement (mass/volume) 9.2 mg/dL 8.5-10.1 Serum or plasma total bilirubin measurement (mass/volume) 0.5 mg/dL 0.1-1.0 Serum or plasma alkaline phosphatase measurement (enzymatic activity/volume) 84 U/L 40-136 Serum or plasma aspartate aminotransferase measurement (enzymatic activity/ volume) 19 U/L 5-34 Serum or plasma alanine aminotransferase measurement (enzymatic activity/volume ) 16 U/L 0-55 Serum or plasma protein measurement (mass/volume) 8.1 g/dL 6.4-8.2 Serum or plasma albumin measurement (mass/volume) 4.0 g/dL 3.2-4.5 Serum or plasma lithium measurement (moles/volume) - 02/23/17 12:54 BNP level 148.5 pg/mL <100.0 Serum or plasma troponin i.cardiac measurement (mass/volume) - 02/23/17 12:54 Serum or plasma troponin i.cardiac measurement (mass/volume) < ng/ mL <0.30 Encounters ACCT No. Visit Date/Time Discharge Status Pt. Type Provider Facility Loc./Unit Complaint [id number] 02/23/2017 11:51:00 02/23/2017 14:10:00 DIS Emergency MANOLO BASS, AGUSTINA Marcelo [facility] ER DIZZY, CANT STAND [id number] 01/08/2017 11:42:00 01/08/2017 23:59:59 CLS Outpatient FERNANDA GOODWIN [facility] CARD CHEST PAIN [id number] 01/02/2017 07:26:00 01/02/2017 23:59:59 CLS Outpatient FERNANDA GOODWIN [facility] CARD HTN I10 [id number] 12/02/2016 13:31:00 12/02/2016 19:56:00 DIS Emergency WILLIAM RAMIREZ [facility] ER SOA [id number] 11/15/2016 13:22:00 11/15/2016 17:18:00 DIS Emergency TANYA MAGDALENO MD [facility] ER LT SIDE PAIN [id number] 01/21/2016 12:49:00 01/21/2016 15:57:00 DIS Emergency MARCEL BASS, MARILEE Bella [facility] ER L SIDE OF FACE SWELLING [id number] 01/05/2015 13:25:00 01/05/2015 23:59:59 CLS Outpatient ALESSANDRA BARKLEY MD [facility] RAD MEMORY LOSS,HTN,DM, SCREENING [id number] 06/09/2013 10:36:00 06/09/2013 23:59:59 CLS Outpatient LINH ALVES [facility] RAD SCREENING [id number] 03/12/2013 16:05:00 03/12/2013 18:38:00 DIS Emergency OLMAN DOE APRN [facility] ER FALL,LEFT SIDE PAIN [id number] 01/14/2013 06:36:00 01/14/2013 13:20:00 DIS Outpatient KIRILL ANDERSON MD [facility] CATH CHEST PAIN,ABNORMAL STRESS,DM,HTN,HLP [id number] 12/22/2012 08:14:00 12/22/2012 23:59:59 CLS Outpatient KIRILL ANDERSON MD [facility] RAD CP,HTN,DM [id number] 12/11/2012 10:30:00 12/11/2012 23:59:59 CLS Outpatient KIRILL ANDERSON MD [facility] CARD CP,HTN,DM [id number] 12/10/2012 09:09:00 12/10/2012 23:59:59 CLS Outpatient KIRILL ANDERSON MD [facility] LAB HTN,HLP [id number] 05/22/2012 10:05:00 Document Registration [id number] 09/24/2011 05:34:00 Document Registration [id number] 09/18/2011 11:35:00 Document Registration [id number] 05/31/2011 09:54:00 Document Registration [id number] 11/17/2010 13:10:00 Document Registration [id number] 11/16/2010 15:19:00 Document Registration [id number] 09/21/2010 13:50:00 Document Registration [id number] 09/13/2010 00:00:00 Document Registration [id number] 07/18/2010 22:20:00 Document Registration [id number] 06/17/2010 08:45:00 Document Registration [id number] 05/08/2010 11:16:00 Document Registration [id number] 02/15/2010 09:03:00 Document Registration [id number] 09/11/2009 20:30:00 Document Registration
[2017-05-16] MEDS ORDERED: SULF1TAB35 PO (13:23)
[2017-05-16 13:33] VITALS: BP 149/69
== END 2017-05-16 13:46 | disposition home or self-care (01) ==
LOC: EDUNIT# 11:03 → ER 11:04
DX: E11.649 Type 2 diabetes mellitus with hypoglycemia without coma (principal); N39.0 Urinary tract infection, site not specified; Z79.84 Long term (current) use of oral hypoglycemic drugs; Z79.82 Long term (current) use of aspirin; Z87.19 Personal history of other diseases of the digestive system
CPT/HCPCS: 36415; 71045; 80053; 81000; 82962; 83735; 84484; 85025; 87088; 93005; 96374

== ENCOUNTER → 2017-07-05 | Outpatient (CLI) | payer MEDICARE ==
[~2017-07-05] MED LIST changes: +AMOX-355 PO; +ASPI-983 PO; +CHOL10007 PO; +DEXT31GE5 PO; +FENT1PAT9 TD; +FOLI-74 PO; +GLUC1KIT IJ; +INSU100I10 SQ; +LACT1CAP8 PO; +LOSA50TA36 PO; +LUTE20TA PO; +METO-351 PO; +METR500T21 PO; +MIRT15TA PO; +NITR50CA PO; +SULF1TAB35 PO
--- NOTE | 2017-07-05 13:32 | Diagnostic Imaging Report ---
PROCEDURE: CT abdomen and pelvis without contrast. TECHNIQUE: Multiple contiguous axial images were obtained through the abdomen and pelvis without the use of intravenous contrast. INDICATION: Weakness and left-sided pain. COMPARISON: Comparison is made with prior CT from 11/15/2016. FINDINGS: Imaging through lung bases does show some minimal atelectasis in the lingula and right lower lobe. There is trace right pleural effusion. Occupying a large portion of the right, this appears to splay the portal and hepatic vasculature. Mass measures at least 12 cm x 10 cm but likely more. There is additional smaller low densities in the liver dome as well as more inferiorly in the right lobe. No biliary duct dilatation is seen. Pancreas is poorly visualized on this noncontrast study. Spleen is unremarkable. No adrenal mass is seen. Kidneys are unremarkable. The gallbladder is in a very low position in the right abdomen. This located posterior to the ascending colon. The gallbladder is markedly thick walled and dilated. Aorta is heavily calcified but not aneurysmal. No free fluid in abdomen seen. There is a small amount of free fluid in the pelvis. No bowel obstruction is seen. IMPRESSION: 1. Development of small right pleural effusion. 2. Development of large right lobe liver mass occupying the majority of the right lobe. In addition, the gallbladder is markedly thick walled and dilated. 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 Other etiology such as acute cholecystitis with liver metastasis with unknown primary is considered. No other significant abnormality is seen. Results were discussed with Dr. Gemini Garcia's nurse practitioner as well as Louie. Dictated by: Dictated on workstation # [id number]
== END ==
LOC: RAD 11:39
PROVIDERS: ATTEND Family Medicine
DX: J90 Pleural effusion, not elsewhere classified (principal); R16.0 Hepatomegaly, not elsewhere classified; R74.8 Abnormal levels of other serum enzymes
CPT/HCPCS: 74176